=== PATIENT | male | born 1945 | race Caucasian/White ===

== ENCOUNTER → 2017-08-13 | Outpatient (CLI) | payer BC ==
[~2017-08-13] MED LIST: ALLO100T PO; ASPI325T39 PO; CALC500C50 PO; LPT40 PO; PLV75 PO; PSYL0.524 PO; TAMS0.4C38 PO; VERA180C2 PO
== END | disposition home or self-care (01) ==
LOC: C.PATHSPEC 18:32
PROVIDERS: ATTEND Physician Assistant
DX: C44.619 Basal cell carcinoma of skin of left upper limb, including shoulder (principal)

== ENCOUNTER 2021-08-07 09:54 | Observation (INO) ==
--- NOTE | 2021-07-11 08:20 | PAT Medication Instructions ---
Medication Instructions Date of Service July 11, 2021 Home Medications Medication Instructions Recorded Ria Lay #1 ea 06/13/21 aspirin 81 mg tablet 81 mg PO QAM atorvastatin 40 mg tablet 40 mg PO QAM clopidogrel 75 mg tablet 75 mg PO QAM cyanocobalamin (vitamin B-12) 50 mcg tablet 50 mcg PO QAM folic acid 1 mg tablet 1 mg PO QAM psyllium husk 0.4 gram capsule 0.8 g PO UD PRN pyridoxine (vitamin B6) 50 mg tablet 50 mg PO QAM verapamil 180 mg tablet,extended release 240 mg PO QAM cholecalciferol (vitamin D3) 125 mcg (5,000 unit) capsule 125 mcg PO QAM allopurinol 100 mg tablet 300 mg PO QAM calcium carbonate 200 mg calcium (500 mg) chewable tablet (Tums) 200 mg PO UD PRN dutasteride 0.5 mg capsule 0.5 mg PO QPM solifenacin 10 mg tablet (Vesicare) 10 mg PO QPM tamsulosin 0.4 mg capsule 0.4 mg PO QPM ASK your prescriber and surgeon clopidogrel/plavix 75 mg tablet 75 mg PO QAM (in order for spinal anesthesia, Clopidogrel/Plavix needs to be stopped 7 days before surgery. Please check if okay with doctor that prescribes this to you) DO NOT take the morning of surgery cyanocobalamin (vitamin B-12) 50 mcg tablet 50 mcg PO QAM folic acid 1 mg tablet 1 mg PO QAM psyllium husk 0.4 gram capsule 0.8 g PO UD PRN pyridoxine (vitamin B6) 50 mg tablet 50 mg PO QAM cholecalciferol (vitamin D3) 125 mcg (5,000 unit) capsule 125 mcg PO QAM calcium carbonate 200 mg calcium (500 mg) chewable tablet (Tums) 200 mg PO UD PRN Take morning of surgery With a small sip of water, OTHERWISE NOTHING TO EAT OR DRINK AFTER MIDNIGHT: aspirin 81 mg tablet 81 mg PO QAM (continue as normal unless told otherwise by surgeon) atorvastatin 40 mg tablet 40 mg PO QAM verapamil 180 mg tablet,extended release 240 mg PO QAM allopurinol 100 mg tablet 300 mg PO QAM Take evening before surgery psyllium husk 0.4 gram capsule 0.8 g PO UD PRN (if needed) calcium carbonate 200 mg calcium (500 mg) chewable tablet (Tums) 200 mg PO UD PRN (if needed) dutasteride 0.5 mg capsule 0.5 mg PO QPM solifenacin 10 mg tablet (Vesicare) 10 mg PO QPM tamsulosin 0.4 mg capsule 0.4 mg PO QPM Other Notes If you have any questions please call us at [phone] or [phone] or [phone] or [phone]
--- NOTE | 2021-07-11 11:21 | Anesthesiology Consultation ---
Date of Service July 11, 2021 Assessment & Plan (1) Encounter for pre-operative examination: - Awaiting most recent PCP office visit note (Dr. Doran/PS). - COVID screening: Per assessment on 07/11: No known COVID-19 positive contacts or current COVID-19 related symptoms. Travel screen negative. Patient vaccinated. Surgeon arranging preop COVID testing. Awaiting results. - Plavix instructions: patient made aware that in order for spinal anesthesia, Plavix needs to be held 7 days prior to surgery. Patient voiced understanding/will check if okay with prescriber. Chart Review Chart Review: Patient seen in Pre Admission Testing Teaching & Discussion Pre-Anesthesia Teaching/Discussion Notes: Instructed NPO after midnight before surgery,except medications with 15 cc of water. Medication instructions provided according to the PAT guidelines. History Surgery Operation Date: 08/07/21 12:30 Proposed Procedures p Right Total Knee Arthroplasty - Cade Murillo MD Height/Weight Height: 5 ft 6 in Weight: 91.2 kg Allergies Allergy/AdvReac Type Severity Reaction Status Date / Time No Known Allergies Allergy Verified 07/10/21 16:00 Medications Home Medications Medication Instructions Recorded Confirmed Last Taken aspirin 81 mg tablet 81 mg PO QAM tab 01/31/19 07/10/21 Unknown atorvastatin 40 mg tablet 40 mg PO QAM tab 01/31/19 07/10/21 Unknown clopidogrel 75 mg tablet 75 mg PO QAM #90 tab 01/31/19 07/10/21 Unknown cyanocobalamin (vitamin B-12) 50 50 mcg PO QAM tab 01/31/19 07/10/21 Unknown mcg tablet folic acid 1 mg tablet 1 mg PO QAM tab 01/31/19 07/10/21 Unknown psyllium husk 0.4 gram capsule 0.8 g PO UD PRN cap 01/31/19 07/10/21 Unknown pyridoxine (vitamin B6) 50 mg 50 mg PO QAM tab 01/31/19 07/10/21 Unknown tablet verapamil 180 mg tablet,extended 240 mg PO QAM tab 01/31/19 07/10/21 Unknown release cholecalciferol (vitamin D3) 125 125 mcg PO QAM 04/09/20 07/10/21 Unknown mcg (5,000 unit) capsule allopurinol 100 mg tablet 300 mg PO QAM tab 05/23/21 07/10/21 Unknown Wheeled Walker #1 ea 06/13/21 06/13/21 Unknown calcium carbonate 200 mg calcium 200 mg PO UD PRN 07/10/21 07/10/21 Unknown (500 mg) chewable tablet (Tums) dutasteride 0.5 mg capsule 0.5 mg PO QPM 07/10/21 07/10/21 Unknown solifenacin 10 mg tablet (Vesicare) 10 mg PO QPM 07/10/21 07/10/21 Unknown tamsulosin 0.4 mg capsule 0.4 mg PO QPM 07/10/21 07/10/21 Unknown Past Medical History Medical History (Updated 07/11/21 @ 11:58 by Mirlande Villarreal) Enlarged prostate Fluid retention Chronic, abdomen/legs x 1+ years, following with Dr. Doran. No definitive etiology/issues s/p extensive workup.. Pt was on diuretic for a few weeks but d/t unremarkable workup, he states PCP stopped the diuretic. Improvement without further intervention over time per pt. No LE edema and soft, non-tender abdomen on PAT exam 07/11/21* Gout HX History of basal cell carcinoma History of SCC (squamous cell carcinoma) of skin HTN (hypertension) Hypercholesteremia Osteoarthritis TIA (transient ischemic attack) 2013- reason for plavix Exercise / Class Metabolic Activity II 4-5 Yardwork/Stairs/Walk up hill (one FS (no CP, no SOB)) Past Family History Family History Other Hypertension Past Surgical History Surgical History H/O vasectomy History of colonoscopy History of surgery "Shaving of Lesion Mohs' Technique" "Prostate Transurethral Destruction Prostate Tissue" Past Anesthesia History No Hx of Anesthesia Complications and No Family Hx of Anesthesia Complications History of PONV No Hx of PONV and No Hx of Motion Sickness Social History Smoking Status: Never smoker Do You Dip or Chew Tobacco: No Hx Alcohol Use: Yes Alcohol type: wine (2 GLASSES/WEEK ) substance use type: does not use Review of Systems Patient denies chest pain, shortness of breath, dyspnea on exertion, reflux, cough, wheezing, palpitations. Physical Exam Vital Signs VITALS BP 155/79 P 65 TEMP 97.7 SP02 94%RA RESP 18 PHYSICAL Full cervical extension range of motion. Full TMJ range of motion. TMD 3 finger breaths Mallampati Score 3 Dentition: intact, + crowns Lungs: clear throughout to auscultation Cardiac: regular rate and rhythm, no murmurs noted Spine: normal Carotid arteries: negative bruit Extremities: No LE edema Abdomen: soft, non-tender abdomen on PAT exam 07/11/21* Lab Results Anesthesia Preop Results Results Anesthesia Widget: WBC 8.92 K/uL (4.8-10.8) 07/11/21 Hgb 15.2 g/dL (14.0-18.0) 07/11/21 Hct 44.3 % (42-52) 07/11/21 Plt 223 K/uL (130-400) 07/11/21 Na 140 mmol/L (136-145) 07/11/21 K 4.2 mmol/L (3.5-5.1) 07/11/21 Cl 105 mmol/L (98-107) 07/11/21 CO2 29 mmol/L (21-32) 07/11/21 BUN 13 mg/dl (6-23) 07/11/21 Creat 0.80 mg/dl (0.6-1.4) 07/11/21 Glucose Level 89 mg/dl (70-99(Fasting)) 07/11/21 PT 10.4 Seconds (9.0-12.0) 07/11/21 PTT 26.9 Seconds (21.0-31.0) 07/11/21 INR 1.0 (0.9-1.1) 07/11/21 Blood Type O Positive 07/11/21 Antibody Screen NEGATIVE 07/11/21 Testing Electrocardiogram Date: 07/11/21 NSR at 66bpm. unconfirmed report. Chest X-Ray Date: 03/07/21 FINDINGS: No lines and tubes are seen. Calcified aortic knob is seen. Cardiomegaly is seen. The lungs are clear. No evidence of pleural effusion or pneumothorax. IMPRESSION: No acute chest disease.
--- NOTE | 2021-08-03 11:15 | History and Physical Report ---
DATE OF ADMISSION: 08/07/2021. CHIEF COMPLAINT: Persistent and progressive right knee pain and discomfort. HISTORY OF PRESENT ILLNESS: The patient is a 76-year-old gentleman who presents for surgical treatme nt of his right knee. I have been following him for this right knee pain and arthritis for quite phan e time. We have put shots in there, which have become less successful over time. The last shot helpe d him for a couple of weeks and that is it. He has tired dealing with the pain. It hurts him all th e time. The more he is up and on it, the more it hurts. He describes anterior pain and medial pain. Increased going up and down steps. He has nighttime pain. He would like to have his knee fixed. PAST MEDICAL HISTORY: 1. Hypertension. 2. Elevated cholesterol. 3. History of TIA without sequelae, but on Plavix. 4. Obesity with BMI 33. 5. Basal cell skin cancer. PAST SURGICAL HISTORY: Includes: 1. Hydrocele repair. 2. Mohs surgery for basal cell carcinoma. ALLERGIES: None. CURRENT MEDICATIONS: 1. Allopurinol. 2. Verapamil. 3. Plavix. 4. Tamsulosin. 5. VESIcare. 6. Folic acid. SOCIAL HISTORY: A 76-year-old male. He is . Lives in [place]. One drink per week. D oes not smoke. FAMILY HISTORY: Noncontributory. REVIEW OF SYSTEMS: Negative for diabetes. Denies any chest pain or shortness of breath. No history of DVT or PE. He does have a history of TIA in the past without sequelae. On Plavix. PHYSICAL EXAMINATION: GENERAL: Shows a pleasant middle-aged male. Looks to be in reasonably good health. HEENT: Benign. NECK: Supple. No lymphadenopathy. LUNGS: Clear to auscultation. HEART: Has a regular rate and rhythm. ABDOMEN: Soft, nontender, nondistended. EXTREMITIES: Grossly neurovascularly intact except as follows. Examination of the right knee reveals the patient walks with a varus alignment to his knee. He is te nder with medial joint line. Small knee effusion. He has got a little bit of a varus thrust with we ightbearing. Range of motion 5-125. No pain with hip motion. He is neurologically intact. X-RAYS: X-rays of the right knee were reviewed. It shows advanced right knee degenerative joint dis ease. He has got complete loss of his medial joint space. He has subchondral sclerosis. He has got osteophytes primarily medial. Some mild to moderate patellofemoral disease. ASSESSMENT: A 76-year-old male with advanced right knee degenerative joint disease. He has failed c onservative measures. He would like to have his knee fixed. PLAN: We will take him to the operating room and do right total knee replacement. The risks and daljit efits of this procedure were explained to the patient and include but not limited to DVT, PE, , infection, neurological injury, vascular injury, bleeding problem, pain, limited range of motion, sti ffness, failure to relieve his symptoms, incomplete relief of symptoms, need for further surgery in t he future, fracture, leg length inequality, nerve palsy, persistent pain. The patient understands an d desires to proceed. Informed consent was obtained. He has stopped his Plavix a week preop. He is planning to be discharged to home using [facility] program. Job ID: [id number]
[~2021-08-07 09:54] MED LIST changes: +ACETAMINOPHEN 500 MG TAB PO SCH; -ALLO100T PO; -ASPI325T39 PO; +BUPIVACAINE 0.5 % 5 MG/1 ML PF 10ML VIAL ONE; +BUPIVACAINE LIPOSOME/PF 266 MG, BUPIVACAINE/EPINEPHRINE 50 ML, SODIUM CHLORIDE 0.9% 30 ... INFIL SCH; -CALC500C50 PO; +CeleBREX 200 MG CAP PO SCH; +FAMOTIDINE 20 MG TAB PO SCH; -LPT40 PO; +LR 500ML BOLUS, THEN 15ML/HR IV SCH; +LR 60ML/HR IV SCH; +METOCLOPRAMIDE HCL 10 MG TABLET PO SCH; -PLV75 PO; -PSYL0.524 PO; +ROPIVACAINE 0.5% 5 MG/ML 30 ML VIAL ONE; -TAMS0.4C38 PO; +TRANEXAMIC ACID 1,000 MG **IV Intra-op IV SCH; -VERA180C2 PO; +ceFAZolin 2000MG 2,000 MG/15 ML SYR IV SCH
--- NOTE | 2021-08-07 11:18 | History & Physical Bridge Note ---
Date of Service August 07, 2021 History & Physical Bridge Note I have examined the patient, reviewed the History & Physical and in the interval since the performance of the History & Physical I have noted the following changes of clinical significance: no changes noted
[2021-08-07] MEDS ORDERED: MIDAZOLAM HCL 1 MG/ML 2ML VIAL ONE (12:14)
[2021-08-07] MEDS ORDERED: ONDANSETRON INJ 2 MG/ML 2 ML VIAL ONE (12:14)
[2021-08-07] MEDS ORDERED: LIDOCAINE 2% 2 ML VIAL/AMP(20MG/ML) INFIL ONE (12:14)
[2021-08-07] MEDS ORDERED: PROPOFOL IV EMULSION 10 MG/ML 20 ML VIAL IV ONE (12:14)
[2021-08-07] MEDS ORDERED: fentaNYL citrate 100 MCG/2 ML VIAL IV PRN (12:43)
[2021-08-07] MEDS ORDERED: ONDANSETRON INJ 2 MG/ML 2 ML VIAL IV PRN (12:43)
[2021-08-07] MEDS ORDERED: SODIUM CHLORIDE 0.9% PF 50 ML VIAL ONE (12:43)
[2021-08-07] MEDS ORDERED: ePHEDrine sulfate 50 MG/ML AMP IV PRN (12:43)
[2021-08-07] MEDS ORDERED: BUPIVACAINE/EPINEPHRINE 0.25% 1:200,000 30 ML VIAL ONE (12:43)
[2021-08-07] MEDS ORDERED: ATROPINE SULFATE 0.1 MG/ML 10ML SYR IV PRN (12:43)
[2021-08-07] MEDS ORDERED: HYDROmorphone INJ 2 MG/ML SYR/VIAL IV PRN (12:43)
[2021-08-07] MEDS ORDERED: BUPIVACAINE LIPOSOME 1.3% 266 MG/20 ML VIAL ONE (12:44)
[2021-08-07] MEDS ORDERED: GLYCOPYRROLATE 0.2 MG/ML VIAL ONE (14:18)
--- NOTE | 2021-08-07 15:10 | Operative Report ---
PG Post Operative Report Pre & Post Diagnosis Operation Date: 08/07/21 12:30 Pre-Op Diagnosis: Right Knee Osteoarthritis Post-Op Diagnosis: Right Knee Osteoarthritis I identified the patient and participated in the time-out.: Yes Procedure Operation Date: 08/07/21 12:30 Actual Procedures p Right Total Knee Arthroplasty(Right) - Cade Murillo MD Surgeon Cade Murillo MD Division Field Inspector Naif Duvall PA-C Estimated Blood Loss 50 Findings Consistent with Post-Op Diagnosis Operative findings revealed advanced right knee DJD with grade 4 [id number] disease of the medial and patellofemoral compartments. His lateral compartment was pretty well spared. Moderate-sized knee joint effusion. Fluids 1300 cc Specimens Right knee sent for pathology Anesthesia Type Spinal MAC Complications none Disposition Accompanied Patient To Recovery: No Indications Patient 76-year-old fairly active gentleman has had a long history of increasing right knee pain discomfort which became less responsive to conservative care. X-rays show advanced medial compartment arthritis. He was having fairly global symptoms. He failed conservative measures and elected proceed with surgical management/total knee replacement. Description of Procedure Operative implants consist of: 1 Biomet Vanguard size 67.5 right posterior stabilized femoral component. 2. Biomet size 71 tibial tray. 3. 10 mm posterior stabilized polyethylene insert. 4. 28 x 8 all polypatella. The patient was taken the operating, identified, and placed on the operating table supine position protectors were properly padded. IV antibiotics tried by anesthesia team. A spinal anesthetic and abductor canal block had provided holding area. A Arroyo catheter was placed in sterile fashion. Right thigh tent was then placed in the right lower extremities and prepped and draped in usual sterile fashion. The right leg was elevated and exsanguinated with use of an Esmarch in terms playset 300 mmHg. An anterior approach of the right knee was then performed to longitudinal incision centered over the patella. Sharp dissection Through subcutaneous tissue down the extensor mechanism. A medial parapatellar arthrotomy incision was made. Some subperiosteal dissection was carried out medially. The fat pad dissected beneath patella tendon. Lateral patellofemoral ligament was released. Patella subluxated laterally and the knee was flexed. The osteophytes were taken off distal femur. The ACL and PCL were then released from distal femur the tibia subluxated anteriorly. The external tibial alignment jig was then placed in the interface the tibia and adjusted 14 mm medially. It was adjusted to take about a millimeter or 2 of bone from the most deficient aspect medial tibial plateau. The tibia was then sized to a size 71. Attention drawn the femur. The distal femur was entered with a sharp drill. Intramedullary canal was suction. A right 6 degree valgus cutting guide was placed. Distal femoral cutting block was pinned in place. Distal femoral cut was made to take an additional 3 mm bone off distal femur. The femur was then sized to a size 67.5. The AP cutting block was pinned parallel to the epicondylar axis which was 5 degrees of external rotation. The anterior cut, anterior chamfer, posterior cut, posterior chamfer cuts were made. The box cutting guide was placed and adjusted slight lateral box cut was made. The knee was flexed. The remnants of the medial and lateral menisci were excised. The osteophytes were taken off the posterior aspect the femur. A trial femoral component was placed. Tibial tray was pinned in maximum external rotation and the drill and stem punch used to create defect in proximal tibia for the tibial tray. The knee was then trialed and 10 mm insert fit most appropriately. Attention drawn the patella. The patella was cleaned of all soft tissues. Patella thickness measured 20 mm in thickness cut down to 12. Sized to a size 28 patella. The lug holes were drilled for the 28 patella. The lateral osteophyte was removed. Patella button was placed. Knee was taken through range of motion patella tracked nicely with no thumbs test. Attention drawn to place the permanent components. All trial components were removed. Bone plug was placed in the distal femur limit blood loss. Double batch Palacos G cement was mixed. A Biomet Vanguard size 67.5 right posterior stabilized femoral component, size 71 tibial tray, a 10 mm posterior stabilized polyethylene insert, and 28 x 8 all polypatella then cemented in place. Knee was brought out into full extension total cement hardened. Final cement check was then performed. The pericapsular tissues were injected with total 100 cc of combination of 20 cc of Exparel, 30 cc normal saline, 50 cc of quarter percent Marcaine with epinephrine. Patient did receive 1 g tranexamic acid. The tourniquet was then let down for final tourniquet time of 58 minutes. Hemostasis assured use electrocautery. Extensor mechanism closed with #1 PDS suture and #1 Vicryl suture in a [id number] fashion. Extensor mechanism checked found to be intact. Subcutaneous tissue was then closed with 2 Dexon suture in buried interrupted fashion skin was closed skin ashley. Legs then cleaned and dried and sterile dressed with Xeroform, 4 fours, sterile cast padding, Wilmer bandage applied. Patient was then transferred to the recovery room in stable condition. Patient tolerated the procedure well and there were no complications. Naif Duvall, my physician technical support assistant, was present for the entire procedure. His assistance was essential and required for appropriate patient positioning, prepping and draping, surgical exposure, performing the technical details of the operation, placement the implants, closure of the wound, and placement of the sterile bandage. I attest to the content of the Intraoperative Record and any orders documented therein. Any exceptions are noted below.
--- NOTE | 2021-08-07 15:26 | XRay Report ---
RIGHT KNEE 2 VIEWS History: Right total knee arthroplasty. Degenerative arthritis. Postop. FINDINGS: The patient is status post a right total knee arthroplasty. The hardware is intact. No frac ture or dislocation. Skin ashley are in place. IMPRESSION: Right total knee arthroplasty. No evidence for hardware complication. ACT 112: Negative or not required by law. Electronically signed by: Tawanda Giles M.D. 08/07/2021 3:24 PM
--- NOTE | 2021-08-07 16:02 | Anesthesiology Progress Note ---
Date of Service August 07, 2021 Anesthesia Post Procedure Vital Signs Vital Signs: Temp Pulse Pulse Resp BP Pulse Ox 08/07/21 15:50 36.7 C 61 20 148/80 H 94 08/07/21 15:40 36.7 C 60 17 141/74 H 92 08/07/21 15:30 64 20 139/72 94 08/07/21 15:20 61 17 139/72 95 08/07/21 15:10 63 16 134/69 94 08/07/21 15:02 36.5 C 68 16 138/71 96 08/07/21 10:30 36.7 C 74 18 175/94 H 96 Transfer of Care Handoff Completed per policy Notes Mental Status: alert / awake / arousable and participated in evaluation Patient Amnestic to Procedure: Yes Nausea / Vomiting: adequately controlled Pain: adequately controlled Airway Patency, RR, SpO2: stable & adequate BP & HR: stable & adequate Hydration State: stable & adequate Neuraxial Anesthesia: was administered and sensory block is resolving Anesthetic Complications: no major complications apparent
[2021-08-07] MEDS ORDERED: METOCLOPRAMIDE HCL INJ 5 MG/ML 2 ML VIAL IV PRN (16:33)
[2021-08-07] MEDS ORDERED: ALUMINUM/MAGNESIUM SUSP 30 ML UDC PO PRN (16:33)
[2021-08-07] MEDS ORDERED: HYDROmorphone INJ 0.5 MG/0.5 ML SYR IV PRN (16:33)
[2021-08-07] MEDS ORDERED: CALCIUM CARBONATE 500 MG CHEWABLE TAB PO PRN (16:33)
[2021-08-07] MEDS ORDERED: bisacodyL 10 MG SUPP PR PRN (16:33)
[2021-08-07] MEDS ORDERED: MAGNESIUM HYDROXIDE SUSP 30 ML UDC PO PRN (16:33)
[2021-08-07] MEDS ORDERED: NALOXONE HCL 0.4 MG/1 ML VIAL/CARP IV PRN (16:33)
[2021-08-07] MEDS ORDERED: oxyCODONE HCL IR 5 MG TAB (IMMEDIATE RELEASE) PO PRN (16:33)
[2021-08-07] MEDS ORDERED: PSYLLIUM HUSK 0.4 GM PO PRN (16:33)
[2021-08-07] MEDS: SODIUM CHLORIDE 0.9% 1000ML 1,000 ML IV SCH (18:24)
[2021-08-07] MEDS: KETOROLAC TROMETHAMINE 15 MG/ML VIAL IV SCH ×2 (18:30→23:25)
[2021-08-07] MEDS: ASCORBIC ACID 500 MG TAB PO SCH (18:30)
[2021-08-07] MEDS: ceFAZolin 2000MG 2,000 MG/15 ML SYR IV SCH (20:47)
[2021-08-07] MEDS: TAPENTADOL HCL ER 50 MG TABCR PO SCH (20:47)
[2021-08-07] MEDS: DOCUSATE SODIUM 100 MG CAP PO SCH (20:48)
[2021-08-07] MEDS ORDERED: SENNA 8.6 MG TAB PO SCH (21:00)
[2021-08-07] MEDS ORDERED: TRANEXAMIC ACID / 0.7% NACL 1,000 MG/100 ML BAG IV SCH (21:00)
[2021-08-07] MEDS ORDERED: TAMSULOSIN HCL 0.4 MG CAP PO SCH (21:00)
[2021-08-07] MEDS: ACETAMINOPHEN 500 MG TAB PO SCH (23:25)
[2021-08-08] MEDS: VESICARE: ORDER AWAITING ACTION SCH ×2 (01:49→07:25)
[2021-08-08] MEDS: DUTASTERIDE: ORDER AWAITING ACTION SCH ×2 (01:49→07:25)
[2021-08-08] MEDS: ONDANSETRON INJ 2 MG/ML 2 ML VIAL IV PRN ×2 (03:17→08:26)
[2021-08-08] MEDS: SODIUM CHLORIDE 0.9% 1000ML 1,000 ML IV SCH (04:15)
[2021-08-08] MEDS: KETOROLAC TROMETHAMINE 15 MG/ML VIAL IV SCH ×2 (05:11→11:26)
[2021-08-08] MEDS: ceFAZolin 2000MG 2,000 MG/15 ML SYR IV SCH (05:11)
[2021-08-08] MEDS: ACETAMINOPHEN 500 MG TAB PO SCH (05:11)
[2021-08-08 06:21] LABS: Hematocrit (blood only) 38.1 % (42-52); Hemoglobin 13.1 g/dL (14.0-18.0); Mean Corpuscular Hemoglobin 32.3 pg (25-34); Mean Corpuscular Hgb Conc 34.4 g/dL (32-36); Mean Corpuscular Volume 94.1 fL (80-100); Mean Platelet Volume 9.3 fL (7.4-10.4); Platelet Count 218 K/uL (130-400); RDW Coefficient of Variation 13.3 % (11.5-14.5); RDW Standard Deviation 46.2 fL (36.4-46.3); Red Blood Count 4.05 M/uL (4.7-6.1); White Blood Count 11.05 K/uL (4.8-10.8)
[2021-08-08 06:46] LABS: BUN Creatinine Ratio 14.3 (10-20); Calcium 8.5 mg/dl (8.5-10.1); Creatinine Clr Calc Pharmacy 86.9 ml/min; Est GFR (African American) 102.9 ml/min; Est GFR (Non-African American) 88.8 ml/min; Potassium 3.5 mmol/L (3.5-5.1)
--- NOTE | 2021-08-08 07:56 | Progress Notes ---
DATE OF SERVICE: 08/08/2021. SUBJECTIVE: A 76-year-old gentleman postoperative day 1 from a right knee replacement. Quite a bit of pain through the night, but doing better this morning. Denies any chest pain or shortness of fiorella th. Not feeling dizzy or lightheaded. OBJECTIVE: VITAL SIGNS: Temperature 36.6. Vital signs are stable. GENERAL: Physical examination shows a pleasant, elderly male. I had to wake him this morning. LUNGS: Clear to auscultation. HEART: Regular rate and rhythm. ABDOMEN: Soft, nontender, nondistended. EXTREMITIES: Grossly neurovascularly intact except as follows: Examination of the right lower extre mity reveals the leg to be well aligned. Dressing is clean, dry and intact. He can dorsiflex and pl antarflex his foot appropriately. He is neurologically intact. LABORATORY DATA: Hemoglobin 13.1. Hematocrit 38.1. Electrolytes are stable. ASSESSMENT: A 76-year-old gentleman postoperative day 1 from right knee replacement, doing pretty we ll. Pretty painful overnight, but responded to pain medicine, doing better this morning. PLAN: 1. DVT prophylaxis includes thigh-high TEDs, SCDs and back on his Plavix starting today and he is al so on a baby aspirin once a day. 2. PT, OT, weightbear as tolerated. Right total knee protocol. 3. Pain control, doing okay with current pain regimen. 4. Disposition and plan is to discharge him to home with some home health, depending on how he does in therapy. Job ID: [id number]
[2021-08-08] MEDS ORDERED: dexAMETHasone 10 MG in SYRINGE 0 ML IV SCH (08:00)
[2021-08-08] MEDS: DOCUSATE SODIUM 100 MG CAP PO SCH (08:20)
[2021-08-08] MEDS: ASCORBIC ACID 500 MG TAB PO SCH (08:21)
[2021-08-08] MEDS: TAPENTADOL HCL ER 50 MG TABCR PO SCH (08:26)
[2021-08-08] MEDS ORDERED: allopurinoL 300 MG TAB PO SCH (09:00)
[2021-08-08] MEDS ORDERED: DOCUSATE SODIUM/SENNA 50/8.6MG TAB PO SCH (09:00)
[2021-08-08] MEDS ORDERED: CHOLECALCIFEROL 5,000 UNITS 125 MCG TAB PO SCH (09:00)
[2021-08-08] MEDS ORDERED: CYANOCOBALAMIN (B-12) 100 MCG TABLET PO SCH (09:00)
[2021-08-08] MEDS ORDERED: PYRIDOXINE HCL 50 MG TAB PO SCH (09:00)
[2021-08-08] MEDS ORDERED: MULTIVITAMIN TAB PO SCH (09:00)
[2021-08-08] MEDS ORDERED: VERAPAMIL HCL 240 MG TABCR PO SCH (09:00)
[2021-08-08] MEDS ORDERED: ATORVASTATIN 40 MG TAB PO SCH (09:00)
[2021-08-08] MEDS ORDERED: FOLIC ACID 1 MG TAB PO SCH (09:00)
[2021-08-08] MEDS ORDERED: ASPIRIN 81 MG ECTAB PO SCH (09:00)
[2021-08-08] MEDS ORDERED: CLOPIDOGREL BISULFATE 75 MG TAB PO SCH (16:00)
== END 2021-08-08 13:18 | disposition home health service (06) ==
LOC: ASU 09:54 → 3E 09:54

== ENCOUNTER 2022-03-21 02:51 | Observation (INO) ==
--- NOTE | 2022-03-21 03:37 | Emergency Department Note ---
Impression & Plan Acute alteration in mental status, Generalized weakness Admit to the [facility] ED Provider Note NAME: LAI CAMPBELL AGE: 77 SEX: M ARRIVES VIA: Ambulance INFORMANT: Patient and his ED PROVIDER(S): Erin Ryan DO CHIEF COMPLAINT: Weakness and coughing PLAN: Disposition: Admit to the [facility] Condition: Fair MEDICAL DECISION MAKING: This is a 77-year-old male patient who presents to the emergency department for extreme weakness and cough. CT scan of the brain reveals no acute process. COVID testing was negative. Patient appeared to be dehydrated on physical exam. Chest x-ray reveals no evidence of acute pneumonia. The patient had slid onto the floor from his bed but had no outward signs of trauma. Patient does have a history of TIA. [facility] and they will evaluate for further management. Triage Nursing notes reviewed and agree with them. Additional history obtained from the patient's is at the bedside Prior medical records reviewed Vital Signs: reviewed and remarkable for hypertension and tachycardia Differential diagnosis: Dehydration, COVID-19, pneumonia, intracranial process, TIA, CVA ER treatment provided: IV normal saline bolus Diagnostics interpreted by me: ECG: Normal sinus rhythm at a rate of [address] segment elevation or signs of ischemia. There is no ectopy. Cardiac Monitoring: Sinus tachycardia at 110 Laboratory studies: See below Imaging studies: As per my interpretation Portable chest x-ray: No acute pulmonary infiltrates or consolidation. As per stat rad: CT HEAD: Comparison to September 07, 2013. Moderate diffuse cerebral atrophy and periventricular white matter low density consistent with chronic small vessel disease and/or senescent changes, worse than previous. No acute large vessel infarct or intracranial hemorrhage is seen. There are gas fluid levels in both maxillary sinuses and sphenoid sinuses as well as opacification of most of the ethmoid air cells bilaterally consistent with acute pansinusitis. The mastoid air cells are normal. No skull fracture or scalp hematoma is seen. HPI: 77/M arrives for evaluation of cough and weakness. The patient awoke from sleep and slid from the bed onto the floor and was unable to get up. According to the , she was able to help the patient up off the floor but then he was increasingly confused as she took him to the bathroom. She was then unable to get up off the toilet. She explains that she has been sleeping separately from him because she had been diagnosed with COVID-19. Patient has also developed a wet cough. ROS: See above HPI for pertinent positives & negatives. A total of 10 systems reviewed and were otherwise negative. PAST MEDICAL HISTORY:See Below PAST SURGICAL HISTORY:See Below FAMILY HISTORY:See Below SOCIAL HISTORY:See Below HOME MEDICATIONS:See list ALLERGIES:None VITALS:See Below PHYSICAL EXAMINATION: HEENT: Head - normocephalic and atraumatic. Pupils are equal, round, and reactive to light. Extraocular eye muscles are intact, and sclera are anicteric. Nose - moist nasal mucosa without discharge. Mouth -extremely dry buccal mucosa oropharynx is nonerythematous and there is no tonsillar exudate or edema noted. Neck: Supple; no JVD, nuchal rigidity, cervical lymphadenopathy, or auscultated bruits. Heart: Tachycardic rate and regular rhythm. There is a normal S1 and S2 with no murmurs, clicks, or gallops appreciated. Lungs: Clear to auscultation bilaterally with no wheezes, rales, or rhonchi. Abdomen: Soft, completely nontender, nondistended, with good bowel sounds. There are no palpable pulsatile masses or hepatosplenomegaly. There is no guarding, rigidity, or rebound noted. Extremities: Trace lower extremity edema. There are easily palpable peripheral pulses. Skin: Hot and dry with good turgor and no rashes. Neuro: The patient is alert but slow to answer questions. At times, he will stare off to 1 side. He will follow commands but is slow to do so. Muscle strength is 5/5 in all 4 extremities. ED COURSE: Times/Reassessments: 310: The patient was evaluated in room C2. A complete history and physical was performed. A septic protocol was performed. An IV lock was initiated and labs were drawn as above. An order was placed for continuous cardiac monitoring. A twelve-lead EKG was obtained as described above. The patient was in a sinus tachycardia at 110. Patient was bolused with IV normal saline solution. COVID testing was performed and was negative. Erin Ryan DO Past Med/Surg History Medical History (Updated 03/21/22 @ 07:36 by Erin Ryan DO) Enlarged prostate Fluid retention Chronic, abdomen/legs x 1+ years, following with Dr. Doran. No definitive etiology/issues s/p extensive workup.. Pt was on diuretic for a few weeks but d/t unremarkable workup, he states PCP stopped the diuretic. Improvement without further intervention over time per pt. No LE edema and soft, non-tender abdomen on PAT exam 07/11/21* Gout HX History of basal cell carcinoma History of SCC (squamous cell carcinoma) of skin HTN (hypertension) Hypercholesteremia Osteoarthritis TIA (transient ischemic attack) 2013- reason for plavix Surgical History H/O vasectomy History of colonoscopy History of surgery "Shaving of Lesion Mohs' Technique" "Prostate Transurethral Destruction Prostate Tissue" Family History Other Hypertension Social History Smoking Status: Smoker, status unknown Hx Alcohol Use: No Preferred Language: Vietnamese Communication Ability: Effective Physician Anesthesiologist Required: No Beliefs That Will Affect Care: None marital status: Current Living Situation: Spouse Feels Safe at Home: Yes Assistive Devices: Walker Allergies Allergies Allergy/AdvReac Type Severity Reaction Status Date / Time No Known Allergies Allergy Verified 11/26/21 10:14 Home Meds Home Medications Medication Instructions Recorded Confirmed aspirin 81 mg tablet 81 mg PO QAM 01/31/19 11/26/21 atorvastatin 40 mg tablet 40 mg PO QAM 01/31/19 11/26/21 clopidogrel 75 mg tablet 75 mg PO QAM #90 tabs 01/31/19 11/26/21 cyanocobalamin (vitamin B-12) 50 50 mcg PO QAM 01/31/19 11/26/21 mcg tablet folic acid 1 mg tablet 1 mg PO QAM 01/31/19 11/26/21 psyllium husk 0.4 gram capsule 0.8 g PO UD PRN Constipation 01/31/19 11/26/21 pyridoxine (vitamin B6) 50 mg 50 mg PO QAM 01/31/19 11/26/21 tablet verapamil 180 mg tablet,extended 240 mg PO QAM 01/31/19 11/26/21 release cholecalciferol (vitamin D3) 125 125 mcg PO QAM 04/09/20 11/26/21 mcg (5,000 unit) capsule allopurinol 100 mg tablet 300 mg PO QAM 05/23/21 11/26/21 calcium carbonate 200 mg calcium 200 mg PO UD PRN HEARTBURN 07/10/21 11/26/21 (500 mg) chewable tablet (Tums) solifenacin 10 mg tablet (Vesicare) 10 mg PO QPM 07/10/21 11/26/21 Previous Rx's Medication Instructions Recorded Wheeled Walker #1 ea 06/13/21 acetaminophen 500 mg capsule 1,000 mg PO TID Pain 30 days #180 08/05/21 caps ketorolac 10 mg tablet 10 mg PO Q6 5 days #20 tabs 08/05/21 ondansetron HCl 4 mg tablet 4 mg PO Q6 PRN nausea #30 tabs 08/05/21 oxycodone 5 mg tablet 5 - 10 mg PO Q6 PRN pain #40 tabs 08/05/21 sennosides 8.6 mg-docusate sodium 1 tab-cap PO DAILY #14 tabs 08/05/21 50 mg tablet (Senokot-S) dutasteride 0.5 mg capsule 0.5 mg PO DAILY #90 caps 09/23/21 tamsulosin 0.4 mg capsule 0.4 mg PO DAILY #90 caps 09/23/21 amoxicillin 500 mg tablet 2,000 mg PO ONCE #4 tabs 12/19/21 Results & Data (ED) Vital Signs Vital Signs - 24 hr 03/21/22 02:49 03/21/22 02:49 03/21/22 02:49 Temperature 36.8 C 36.8 C Temperature Source Oral Oral Pulse Rate 110 H Pulse Rate [Apical] 110 H Pulse Rate from SpO2 Sensor Pulse Rhythm [Apical] Regular Pulse Strength [Apical] Normal Respiratory Rate 20 20 Respiratory Effort / Characteristics Non-Labored Non-Labored Respiratory Depth Normal Normal Respiratory Pattern Regular Blood Pressure 165/87 H Blood Pressure [Left Arm] 165/87 H Blood Pressure Mean 113 Blood Pressure Mean [Left Arm] 113 Pulse Oximetry 91 91 Oxygen Delivery Method Room Air Room Air Room Air Sepsis Recent Fever Within 48 Hours No Sepsis New/Unexplained Change in Mental Status No Sepsis Action Taken by Nursing No Action Required 03/21/22 03:03 03/21/22 03:30 03/21/22 03:30 Temperature Temperature Source Pulse Rate 99 H 95 H Pulse Rate [Apical] Pulse Rate from SpO2 Sensor 100 H 95 H Pulse Rhythm [Apical] Pulse Strength [Apical] Respiratory Rate 28 H 25 H Respiratory Effort / Characteristics Respiratory Depth Respiratory Pattern Blood Pressure 163/90 H Blood Pressure [Left Arm] Blood Pressure Mean 114 Blood Pressure Mean [Left Arm] Pulse Oximetry 91 92 Oxygen Delivery Method Room Air Sepsis Recent Fever Within 48 Hours Sepsis New/Unexplained Change in Mental Status Sepsis Action Taken by Nursing 03/21/22 03:33 03/21/22 03:46 03/21/22 04:00 Temperature Temperature Source Pulse Rate 96 H Pulse Rate [Apical] Pulse Rate from SpO2 Sensor 99 H Pulse Rhythm [Apical] Pulse Strength [Apical] Respiratory Rate 24 Respiratory Effort / Characteristics Respiratory Depth Respiratory Pattern Blood Pressure 153/85 H 155/97 H Blood Pressure [Left Arm] Blood Pressure Mean 107 116 Blood Pressure Mean [Left Arm] Pulse Oximetry 93 Oxygen Delivery Method Sepsis Recent Fever Within 48 Hours Sepsis New/Unexplained Change in Mental Status Sepsis Action Taken by Nursing 03/21/22 04:00 03/21/22 04:30 03/21/22 04:30 Temperature Temperature Source Pulse Rate 89 84 Pulse Rate [Apical] Pulse Rate from SpO2 Sensor 87 85 Pulse Rhythm [Apical] Pulse Strength [Apical] Respiratory Rate 22 20 Respiratory Effort / Characteristics Respiratory Depth Respiratory Pattern Blood Pressure 159/90 H Blood Pressure [Left Arm] Blood Pressure Mean 113 Blood Pressure Mean [Left Arm] Pulse Oximetry 93 92 Oxygen Delivery Method Room Air Sepsis Recent Fever Within 48 Hours Sepsis New/Unexplained Change in Mental Status Sepsis Action Taken by Nursing 03/21/22 05:00 03/21/22 05:00 03/21/22 05:30 Temperature Temperature Source Pulse Rate 83 Pulse Rate [Apical] Pulse Rate from SpO2 Sensor Pulse Rhythm [Apical] Pulse Strength [Apical] Respiratory Rate 24 Respiratory Effort / Characteristics Respiratory Depth Respiratory Pattern Blood Pressure 159/81 H 146/69 H Blood Pressure [Left Arm] Blood Pressure Mean 107 94 Blood Pressure Mean [Left Arm] Pulse Oximetry Oxygen Delivery Method Sepsis Recent Fever Within 48 Hours Sepsis New/Unexplained Change in Mental Status Sepsis Action Taken by Nursing 03/21/22 05:30 03/21/22 06:00 03/21/22 06:00 Temperature Temperature Source Pulse Rate 83 84 Pulse Rate [Apical] Pulse Rate from SpO2 Sensor 87 86 Pulse Rhythm [Apical] Pulse Strength [Apical] Respiratory Rate 21 20 Respiratory Effort / Characteristics Respiratory Depth Respiratory Pattern Blood Pressure 154/76 H Blood Pressure [Left Arm] Blood Pressure Mean 102 Blood Pressure Mean [Left Arm] Pulse Oximetry 92 92 Oxygen Delivery Method Room Air Sepsis Recent Fever Within 48 Hours Sepsis New/Unexplained Change in Mental Status Sepsis Action Taken by Nursing Laboratory Data Result diagrams: 03/21/22 03:20 03/21/22 03:20 Lab Results 03/21/22 03/21/22 03/21/22 Range/Units 03:20 03:20 03:20 WBC 14.09 H (4.8-10.8) K/ul RBC 4.40 L (4.63-6.08) M/uL Hgb 14.0 (14.0-18.0) g/dl Hct 39.7 L (40.1-51.0) % MCV 90.2 (80.0-100.0) fL MCH 31.8 (25.0-34.0) pg MCHC 35.3 (32.0-36.0) g/dL RDW Std Deviation 41.9 (36.4-46.3) fL RDW Coeff of Agnieszka 12.6 (11.5-14.5) % Plt Count 214 (130-400) K/uL MPV 9.3 L (9.4-12.4) fL Immature Gran % (Auto) 0.4 % Neut % (Auto) 87.8 % Lymph % (Auto) 4.7 % Bailey % (Auto) 6.4 % Eos % (Auto) 0.4 % Baso % (Auto) 0.3 % Neut # (Auto) 12.38 H (1.4-6.5) K/uL Lymph # (Auto) 0.66 L (1.2-3.4) K/uL Bailey # (Auto) 0.90 H (0.24-0.82) K/uL Eos # (Auto) 0.06 (0-0.50) K/uL Baso # (Auto) 0.04 (0-0.2) K/uL Immature Gran # (Auto) 0.05 H (0.00-0.02) K/uL Sodium 139 (136-145) mmol/L Potassium 3.5 (3.5-5.1) mmol/L Chloride 104 (98-107) mmol/L Carbon Dioxide 26 (21-32) mmol/L Anion Gap 9 (3-11) BUN 16 (6-23) mg/dl Creatinine 0.82 (0.6-1.4) mg/dl Est Cr Clr Drug Dosing 79.1 ml/min Est GFR ( Amer) 99.6 ml/min Est GFR (Non-Af Amer) 85.9 ml/min BUN/Creatinine Ratio 19.5 (10-20) Glucose 145 H (70-99(Fasting)) mg/dl Lactate 2.0 (0.4-2.0) mmol/L Calcium 8.9 (8.5-10.1) mg/dl Magnesium 1.7 (1.7-2.4) mg/dl Total Bilirubin 0.8 (0.2-1.0) mg/dl Direct Bilirubin 0.2 (0-0.2) mg/dl AST 20 (13-39) U/L ALT 19 (7-52) U/L Alkaline Phosphatase 68 (34-104) U/L Troponin I High Sens 10.0 (0-20) pg/ml Total Protein 7.2 (6.0-8.3) gm/dl Albumin 4.0 (3.4-5.0) gm/dl Procalcitonin (0-0.5) ng/ml SARS-CoV-2 (PCR) (Negative) Influenza Type A (PCR) (Neg) Influenza Type B (PCR) (Neg) RSV (RT-PCR) (Neg) 03/21/22 03/21/22 Range/Units 03:20 03:20 WBC (4.8-10.8) K/ul RBC (4.63-6.08) M/uL Hgb (14.0-18.0) g/dl Hct (40.1-51.0) % MCV (80.0-100.0) fL MCH (25.0-34.0) pg MCHC (32.0-36.0) g/dL RDW Std Deviation (36.4-46.3) fL RDW Coeff of Agnieszka (11.5-14.5) % Plt Count (130-400) K/uL MPV (9.4-12.4) fL Immature Gran % (Auto) % Neut % (Auto) % Lymph % (Auto) % Bailey % (Auto) % Eos % (Auto) % Baso % (Auto) % Neut # (Auto) (1.4-6.5) K/uL Lymph # (Auto) (1.2-3.4) K/uL Bailey # (Auto) (0.24-0.82) K/uL Eos # (Auto) (0-0.50) K/uL Baso # (Auto) (0-0.2) K/uL Immature Gran # (Auto) (0.00-0.02) K/uL Sodium (136-145) mmol/L Potassium (3.5-5.1) mmol/L Chloride (98-107) mmol/L Carbon Dioxide (21-32) mmol/L Anion Gap (3-11) BUN (6-23) mg/dl Creatinine (0.6-1.4) mg/dl Est Cr Clr Drug Dosing ml/min Est GFR ( Amer) ml/min Est GFR (Non-Af Amer) ml/min BUN/Creatinine Ratio (10-20) Glucose (70-99(Fasting)) mg/dl Lactate (0.4-2.0) mmol/L Calcium (8.5-10.1) mg/dl Magnesium (1.7-2.4) mg/dl Total Bilirubin (0.2-1.0) mg/dl Direct Bilirubin (0-0.2) mg/dl AST (13-39) U/L ALT (7-52) U/L Alkaline Phosphatase (34-104) U/L Troponin I High Sens (0-20) pg/ml Total Protein (6.0-8.3) gm/dl Albumin (3.4-5.0) gm/dl Procalcitonin 0.06 (0-0.5) ng/ml SARS-CoV-2 (PCR) NEGATIVE (Negative) Influenza Type A (PCR) Negative (Neg) Influenza Type B (PCR) Negative (Neg) RSV (RT-PCR) Negative (Neg) Administered Medications Discontinued Medications Sodium Chloride (Nss 1000ml) 500 mls @ 999 mls/hr IV .Q31M ONE Stop: 03/21/22 04:11 Last Infusion: 03/21/22 05:16 Dose: 0 mls/hr Documented By: Admin: 03/21/22 04:31 Dose: 999 mls/hr Documented By: AW Imaging Data Radiologist's Impression: Chest X-Ray 03/21/22 03:18 XR chest 1V portable CLINICAL HISTORY: Sepsis COMPARISON STUDY: Chest radiograph March 07, 2021. FINDINGS: Lung volumes are diminished. This is unchanged. Elevation of the right hemidiaphragm is also unchanged. Cardiomediastinal silhouette is stable. There is no evidence for pulmonary edema. Linear right midlung opacity favors atelectasis or scarring. Slight prominence of the right hilum is probably within normal limits. Mild left basilar opacity also likely reflects atelectasis. No ev idence for pulmonary edema. No change in appearance of the chest. IMPRESSION: 1. No acute cardiopulmonary findings. No significant change in appearance of the chest. 2. Right midlung and left basilar opacities which favor atelectasis. ACT 112: Negative or not required by law. Electronically signed by: Hermelindo Moon M.D. 03/21/2022 7:[address] 03/21/22 03:[address] DOSE: 614.27 mGy.cm HISTORY: confusion TECHNIQUE: Multiaxial CT images of the head were performed without the use of intravenous contrast. Automated exposure control was utilized for this study. A dose lowering technique was utilized adhering to the principles of ALARA. Comparison: Head CTA 09/07/2013. Findings: Near complete opacification of the ethmoid air cells with small fluid levels within the maxillary sinuses and paranasal sinuses. The mastoid air cells are clear. There is no mass, hematoma, midline shift, or acute infarct. Periventricular white matter hypodensity is nonspecific but favors microvascular ischemic change. Ventricular prominence is slightly out of proportion to the sulcal atrophy. This could be due to central volume loss or possibly normal pressure hydrocephalus. 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 Impression: 1. No acute infarct or intracranial hemorrhage. 2. Ventricular prominence is slightly out of proportion to the sulcal atrophy. This could be due to central volume loss or normal pressure hydrocephalus. ACT 112: Negative or not required by law. Electronically signed by: Tawanda Giles M.D. 03/21/2022 7:12 AM Discharge Plan Visit Data Chief Complaint: Weakness Stated Complaint: Upper Respiratory Infection ED Provider: Erin Ryan Discharge Problem: Acute alteration in mental status, Generalized weakness Forms Stand Alone Forms: My [facility] Prescriptions Prescriptions: No Action ondansetron HCl 4 mg tablet 4 mg PO Q6 PRN (Reason: nausea) Qty: 30 0RF sennosides-docusate sodium [Senokot-S] 8.6-50 mg tablet 1 tab-cap PO DAILY Qty: 14 0RF Rx Instructions: Take daily to prevent constipation ketorolac 10 mg tablet 10 mg PO Q6 5 Days Qty: 20 0RF Rx Instructions: Take 4 times per day with food for 5 days to lessen pain and swelling. acetaminophen 500 mg capsule 1,000 mg PO TID 30 Days Qty: 180 0RF Rx Instructions: Take 3 times per day to lessen pain. oxycodone 5 mg tablet 5 - 10 mg PO Q6 PRN (Reason: pain) Qty: 40 0RF Rx Instructions: Take as needed for Pain. tamsulosin 0.4 mg capsule 0.4 mg PO DAILY Qty: 90 3RF dutasteride 0.5 mg capsule 0.5 mg PO DAILY Qty: 90 3RF amoxicillin 500 mg tablet 2,000 mg PO ONCE Qty: 4 3RF Rx Instructions: 4 tabs 1 hour prior to procedure aspirin 81 mg tablet 81 mg PO QAM folic acid 1 mg tablet 1 mg PO QAM pyridoxine (vitamin B6) 50 mg tablet 50 mg PO QAM cyanocobalamin (vitamin B-12) 50 mcg tablet 50 mcg PO QAM verapamil 180 mg tablet extended release 240 mg PO QAM psyllium husk 0.4 gram capsule 0.8 g PO UD PRN (Reason: Constipation) clopidogrel 75 mg tablet 75 mg PO QAM Qty: 90 atorvastatin 40 mg tablet 40 mg PO QAM allopurinol 100 mg tablet 300 mg PO QAM (DME) Wheeled Walker Misc See Rx Instructions .MEDSUPPLY Qty: 1 0RF Rx Instructions: As directed cholecalciferol (vitamin D3) 125 mcg (5,000 unit) capsule 125 mcg PO QAM solifenacin [Vesicare] 10 mg tablet 10 mg PO QPM calcium carbonate [Tums] 200 mg calcium (500 mg) Tablet,Chewable 200 mg PO UD PRN (Reason: HEARTBURN ) Referrals Referrals: Albert Doran MD [Primary Care Provider] -
[2022-03-21] MEDS ORDERED: SODIUM CHLORIDE 0.9% 1000ML 500 ML IV ONE (03:41)
[2022-03-21 03:42] LABS: Basophils # (auto) 0.04 K/uL (0-0.2); Basophils % (auto) 0.3 %; Eosinophils # (auto) 0.06 K/uL (0-0.50); Eosinophils % (auto) 0.4 %; Hematocrit (blood only) 39.7 % (40.1-51.0); Immature Granulocytes # (auto) 0.05 K/uL (0.00-0.02); Immature Granulocytes % (auto) 0.4 %; Lymphocytes # (auto) 0.66 K/uL (1.2-3.4); Lymphocytes % (auto) 4.7 %; Mean Corpuscular Hemoglobin 31.8 pg (25.0-34.0); Mean Corpuscular Hgb Conc 35.3 g/dL (32.0-36.0); Mean Corpuscular Volume 90.2 fL (80.0-100.0); Mean Platelet Volume 9.3 fL (9.4-12.4); Monocytes % (auto) 6.4 %; Neutrophils # (auto) 12.38 K/uL (1.4-6.5); Neutrophils % (auto) 87.8 %; Platelet Count 214 K/uL (130-400); RDW Coefficient of Variation 12.6 % (11.5-14.5); RDW Standard Deviation 41.9 fL (36.4-46.3); White Blood Count 14.09 K/ul (4.8-10.8)
[2022-03-21 04:10] LABS: BUN Creatinine Ratio 19.5 (10-20); Bilirubin Direct 0.2 mg/dl (0-0.2); Bilirubin,Total 0.8 mg/dl (0.2-1.0); Calcium 8.9 mg/dl (8.5-10.1); Creatinine Clr Calc Pharmacy 79.1 ml/min; Est GFR (African American) 99.6 ml/min; Est GFR (Non-African American) 85.9 ml/min; Magnesium 1.7 mg/dl (1.7-2.4); Potassium 3.5 mmol/L (3.5-5.1); Total Protein 7.2 gm/dl (6.0-8.3)
[2022-03-21 04:40] LABS: Influenza A virus by PCR Negative (Neg); Influenza B virus by PCR Negative (Neg); RSV by PCR Negative (Neg); SARS CoV2 RNA(COVID-19) Ceph NEGATIVE (Negative)
--- NOTE | 2022-03-21 05:08 | History & Physical Report ---
Date of Service March 21, 2022 Assessment & Plan (1) Bronchitis: (2) Acute pansinusitis: (3) Pneumonia: (4) Chronic prostatitis: (5) Benign localized hyperplasia of prostate with urinary obstruction: (6) Gout: (7) Hypercholesteremia: (8) HTN (hypertension): (9) Occlusion and stenosis of cerebellar arteries: Plan Acute pansinusitis/bronchitis/right middle lobe pneumonia- Ceftriaxone 2 g IV daily Azithromycin 500 mg IV daily Duonebs every 4 hours while awake and every 2 hours when necessary. Methylprednisolone 40 mg IV every 8 hours Guaifenesin extended release 1200 mg p.o. twice daily Zofran 4 mg IV every 6 hours as needed BPH with LUTS/bladder spasms- Continue tamsulosin 0.4 mg daily, Vesicare 10 mg p.o. daily and dutasteride 5 mg p.o. daily Cerebrovascular disease/occlusion and stenosis of cerebellar arteries- Continue aspirin and clopidogrel Hyperlipidemia- Continue atorvastatin 40 mg daily Gout- Continue allopurinol 300 mg daily Chronic pain syndrome/arthritis- Acetaminophen 650 mg p.o. every 6 hours as needed mild pain or fever Oxycodone 5 mg p.o. every 6 hours as needed for severe pain History of Present Illness Chief Complaint: The patient presents to the emergency department after awaking from sleep, sliding onto the floor from the bed, and being unable to get up. His was able to help him up off the floor, however, he became progressively more confused, and after going to the bathroom, was unable to get up off the toilet. They both had recently been exposed to COVID-19 from the grandchildren, for which she tested positive, and he has tested negative to this point. Primary Care Provider: Albert Doran MD The patient is a 77-year-old male with a past medical history including status post right TKA, chronic prostatitis, BPH with LUTS, occlusion and stenosis of cerebellar arteries, hypertension, gout, hyperlipidemia, chronic pain syndrome, bladder spasm and hypertension. He presents to the emergency department as noted above. His does remark during the exam, that his cough appears to be more moist than it had been. Work-up in the emergency department include the following: WBC 14.09, potassium 3.5, glucose 145. Chest x-ray with elevated right hemidiaphragm, question right middle lobe infiltrate. Patient was negative for COVID-19, influenza A and B and RSV testing. Pulse ox while in the emergency department was 90-92% on room air. Allergies Allergy/AdvReac Type Severity Reaction Status Date / Time No Known Allergies Allergy Verified 11/26/21 10:14 Home Medications Medication Instructions Recorded Confirmed Type aspirin 81 mg tablet 81 mg PO QAM 01/31/19 11/26/21 History atorvastatin 40 mg tablet 40 mg PO QAM 01/31/19 11/26/21 History clopidogrel 75 mg tablet 75 mg PO QAM #90 tabs 01/31/19 11/26/21 History cyanocobalamin (vitamin B-12) 50 50 mcg PO QAM 01/31/19 11/26/21 History mcg tablet folic acid 1 mg tablet 1 mg PO QAM 01/31/19 11/26/21 History psyllium husk 0.4 gram capsule 0.8 g PO UD PRN Constipation 01/31/19 11/26/21 History pyridoxine (vitamin B6) 50 mg 50 mg PO QAM 01/31/19 11/26/21 History tablet verapamil 180 mg tablet,extended 240 mg PO QAM 01/31/19 11/26/21 History release cholecalciferol (vitamin D3) 125 125 mcg PO QAM 04/09/20 11/26/21 History mcg (5,000 unit) capsule allopurinol 100 mg tablet 300 mg PO QAM 05/23/21 11/26/21 History Wheeled Walker #1 ea 06/13/21 06/13/21 Rx calcium carbonate 200 mg calcium 200 mg PO UD PRN HEARTBURN 07/10/21 11/26/21 History (500 mg) chewable tablet (Tums) solifenacin 10 mg tablet (Vesicare) 10 mg PO QPM 07/10/21 11/26/21 History acetaminophen 500 mg capsule 1,000 mg PO TID Pain 30 days #180 08/05/21 11/26/21 Rx caps ketorolac 10 mg tablet 10 mg PO Q6 5 days #20 tabs 08/05/21 11/26/21 Rx ondansetron HCl 4 mg tablet 4 mg PO Q6 PRN nausea #30 tabs 08/05/21 11/26/21 Rx oxycodone 5 mg tablet 5 - 10 mg PO Q6 PRN pain #40 tabs 08/05/21 08/07/21 Rx sennosides 8.6 mg-docusate sodium 1 tab-cap PO DAILY #14 tabs 08/05/21 11/26/21 Rx 50 mg tablet (Senokot-S) dutasteride 0.5 mg capsule 0.5 mg PO DAILY #90 caps 09/23/21 11/26/21 Rx tamsulosin 0.4 mg capsule 0.4 mg PO DAILY #90 caps 09/23/21 11/26/21 Rx amoxicillin 500 mg tablet 2,000 mg PO ONCE #4 tabs 12/19/21 Rx Past Med/Surg History Medical History (Updated 03/21/22 @ 05:18 by Jareth Webb MD) Enlarged prostate Fluid retention Chronic, abdomen/legs x 1+ years, following with Dr. Doran. No definitive etiology/issues s/p extensive workup.. Pt was on diuretic for a few weeks but d/t unremarkable workup, he states PCP stopped the diuretic. Improvement without further intervention over time per pt. No LE edema and soft, non-tender abdomen on PAT exam 07/11/21* Gout HX History of basal cell carcinoma History of SCC (squamous cell carcinoma) of skin HTN (hypertension) Hypercholesteremia Osteoarthritis TIA (transient ischemic attack) 2013- reason for plavix Surgical History H/O vasectomy History of colonoscopy History of surgery "Shaving of Lesion Mohs' Technique" "Prostate Transurethral Destruction Prostate Tissue" Family History Other Hypertension Social History Smoking Status: Smoker, status unknown Hx Alcohol Use: No Preferred Language: Yemeni Communication Ability: Effective Home Care Associate Required: No Beliefs That Will Affect Care: None marital status: Current Living Situation: Spouse Feels Safe at Home: Yes Assistive Devices: Walker Review of Systems Review of Systems: The patient denies chest pain, palpitations, lower extremity swelling, sore throat, fevers, chills, sweats, nausea, vomiting, diarrhea , constipation, abdominal pain, pelvic pain, blood in urine or stool, dysuria, urinary frequency or urgency, lightheadedness, dizziness, headache, rash, abnormal bruising or bleeding, focal weakness, numbness or tingling in arms or legs, generalized arthralgias or myalgias, back or neck pain, or night sweats. The review of systems is otherwise negative other than for that already noted above, and at least 10 systems have been reviewed. Physical Exam Physical Exam: The patient is awake, alert and oriented 3, well developed and well nourished, normocephalic and atraumatic, lying in bed and in no acute distress. HEENT--PERRL, EOMI, mucous membranes and oropharynx dry. Neck--supple. No JVD. No bruits. Thyroid normal, trachea midline, no adenopathy. Heart--normal S1 and S2. No murmurs, rubs or gallops. Lungs--coarse breath sounds with wheezes bilaterally. Crackles at the bases bilaterally, right greater than left Abdomen--normal bowel sounds and soft. Nontender. Nondistended, no hernias or masses, no organomegaly. Extremities--no cyanosis or clubbing. No edema. Dermatologic--normal skin turgor, normal color, no abnormal lymph nodes, no rash. Neurologic--cranial nerves II through XII grossly intact. Rheumatologic--normal range of motion. Psychiatric--normal affect. Results & Data Results & Data ([facility]) Vital Signs (Past 12 Hours) Vital Signs Temp Pulse Pulse Resp BP BP Pulse Ox 03/21/22 04:30 84 20 92 03/21/22 04:30 159/90 H 03/21/22 04:00 89 22 93 03/21/22 04:00 155/97 H 03/21/22 03:46 153/85 H 03/21/22 03:33 96 H 24 93 03/21/22 03:30 95 H 25 H 92 03/21/22 03:30 163/90 H 03/21/22 03:03 99 H 28 H 91 03/21/22 02:49 36.8 C 110 H 20 165/87 H 91 03/21/22 02:49 03/21/22 02:49 36.8 C 110 H 20 165/87 H 91 O2 Del Method 03/21/22 04:30 Room Air 03/21/22 04:30 03/21/22 04:00 03/21/22 04:00 03/21/22 03:46 03/21/22 03:33 03/21/22 03:30 03/21/22 03:30 03/21/22 03:03 Room Air 03/21/22 02:49 Room Air 03/21/22 02:49 Room Air 03/21/22 02:49 Room Air Laboratory Results Laboratory Results WBC 14.09 K/ul (4.8-10.8) H 03/21/22 03:20 RBC 4.40 M/uL (4.63-6.08) L 03/21/22 03:20 Hgb 14.0 g/dl (14.0-18.0) 03/21/22 03:20 Hct 39.7 % (40.1-51.0) L 03/21/22 03:20 MCV 90.2 fL (80.0-100.0) 03/21/22 03:20 MCH 31.8 pg (25.0-34.0) 03/21/22 03:20 MCHC 35.3 g/dL (32.0-36.0) 03/21/22 03:20 RDW Std Deviation 41.9 fL (36.4-46.3) 03/21/22 03:20 RDW Coeff of Agnieszka 12.6 % (11.5-14.5) 03/21/22 03:20 Plt Count 214 K/uL (130-400) 03/21/22 03:20 MPV 9.3 fL (9.4-12.4) L 03/21/22 03:20 Immature Gran % (Auto) 0.4 % 03/21/22 03:20 Neut % (Auto) 87.8 % 03/21/22 03:20 Lymph % (Auto) 4.7 % 03/21/22 03:20 Spencer % (Auto) 6.4 % 03/21/22 03:20 Eos % (Auto) 0.4 % 03/21/22 03:20 Baso % (Auto) 0.3 % 03/21/22 03:20 Neut # (Auto) 12.38 K/uL (1.4-6.5) H 03/21/22 03:20 Lymph # (Auto) 0.66 K/uL (1.2-3.4) L 03/21/22 03:20 Spencer # (Auto) 0.90 K/uL (0.24-0.82) H 03/21/22 03:20 Eos # (Auto) 0.06 K/uL (0-0.50) 03/21/22 03:20 Baso # (Auto) 0.04 K/uL (0-0.2) 03/21/22 03:20 Immature Gran # (Auto) 0.05 K/uL (0.00-0.02) H 03/21/22 03:20 Sodium 139 mmol/L (136-145) 03/21/22 03:20 Potassium 3.5 mmol/L (3.5-5.1) 03/21/22 03:20 Chloride 104 mmol/L (98-107) 03/21/22 03:20 Carbon Dioxide 26 mmol/L (21-32) 03/21/22 03:20 Anion Gap 9 (3-11) 03/21/22 03:20 BUN 16 mg/dl (6-23) 03/21/22 03:20 Creatinine 0.82 mg/dl (0.6-1.4) 03/21/22 03:20 Est Cr Clr Drug Dosing 79.1 ml/min 03/21/22 03:20 Est GFR ( Amer) 99.6 ml/min 03/21/22 03:20 Est GFR (Non-Af Amer) 85.9 ml/min 03/21/22 03:20 BUN/Creatinine Ratio 19.5 (10-20) 03/21/22 03:20 Glucose 145 mg/dl (70-99(Fasting)) H 03/21/22 03:20 Lactate 2.0 mmol/L (0.4-2.0) 03/21/22 03:20 Calcium 8.9 mg/dl (8.5-10.1) 03/21/22 03:20 Magnesium 1.7 mg/dl (1.7-2.4) 03/21/22 03:20 Total Bilirubin 0.8 mg/dl (0.2-1.0) 03/21/22 03:20 Direct Bilirubin 0.2 mg/dl (0-0.2) 03/21/22 03:20 AST 20 U/L (13-39) 03/21/22 03:20 ALT 19 U/L (7-52) 03/21/22 03:20 Alkaline Phosphatase 68 U/L (34-104) 03/21/22 03:20 Troponin I High Sens 10.0 pg/ml (0-20) 03/21/22 03:20 Total Protein 7.2 gm/dl (6.0-8.3) 03/21/22 03:20 Albumin 4.0 gm/dl (3.4-5.0) 03/21/22 03:20 Procalcitonin 0.06 ng/ml (0-0.5) 03/21/22 03:20 SARS-CoV-2 (PCR) NEGATIVE (Negative) 03/21/22 03:20 Influenza Type A (PCR) Negative (Neg) 03/21/22 03:20 Influenza Type B (PCR) Negative (Neg) 03/21/22 03:20 RSV (RT-PCR) Negative (Neg) 03/21/22 03:20 Diagnostic Findings [facility] Patient: LAI CAMPBELL (Male) : 47 Status: ER Date: 03/21/22 03:46 Room #: History: PT. IS HAVING INCREASED WEAKNESS AND CONFUSION Slices: 66 Priors: Tech: Kay Lacey @ [phone] Exams: CT HEAD Contrast: Accession Numbers: [id number] Referring Physician: ANASTASIIA ALEGRE Preliminary Findings Only See Final Report For Complete Findings CT HEAD: Comparison to September 07, 2013. Moderate diffuse cerebral atrophy and periventricular white matter low density consistent with chronic small vessel disease and/or senescent changes, worse than previous. No acute large vessel infarct or intracranial hemorrhage is seen. There are gas fluid levels in both maxillary sinuses and sphenoid sinuses as well as opacification of most of the ethmoid air cells bilaterally consistent with acute pansinusitis. The mastoid air cells are normal. No skull fracture or scalp hematoma is seen. Radiologist: Yves Murillo MD Study ready at 03:49 and initial results transmitted at 04:59 *This report constitutes a preliminary interpretation only. Non-acute findings felt to be unrelated to the clinical presentation may not be discussed in this report. The study will be interpreted and a final report will be generated by the local Radiologist the following shift. To reach the [facility] radiology department call [phone]. If a discrepancy is found between the preliminary and final interpretations of this study, please notify us via our Client Portal at [email or web address], under QA Exams. You can also fax this report with a description of the discrepancy, or include the final report, to our daytime fax number [phone]. If faxing, please indicate the severity of discrepancy using one of the following categories: [ ] 1 - Agree/Informational [ ] 2 - Unlikely to Affect Management [ ] 3 - Possible Eventual Change of Management [ ] 4 - Probable Immediate Change of Management For all other patient related information, please fax us at [phone]. [id number] Code Status & VTE Plan Code Status Full code VTE Prophylaxis Plan VTE Prophylaxis will be ordered: Yes
--- NOTE | 2022-03-21 07:13 | CT Scan Report ---
HEAD CT NONCONTRAST CT DOSE: 614.27 mGy.cm HISTORY: confusion TECHNIQUE: Multiaxial CT images of the head were performed without the use of intravenous contrast. A utomated exposure control was utilized for this study. A dose lowering technique was utilized adheri ng to the principles of ALARA. Comparison: Head CTA 09/07/2013. Findings: Near complete opacification of the ethmoid air cells with small fluid levels within the max illary sinuses and paranasal sinuses. The mastoid air cells are clear. There is no mass, hematoma, mi dline shift, or acute infarct. Periventricular white matter hypodensity is nonspecific but favors latesha rovascular ischemic change. Ventricular prominence is slightly out of proportion to the sulcal atroph y. This could be due to central volume loss or possibly normal pressure hydrocephalus. There is an ol d lacunar infarct within the left thalamus. Impression: 1. No acute infarct or intracranial hemorrhage. 2. Ventricular prominence is slightly out of proportion to the sulcal atrophy. This could be due to c entral volume loss or normal pressure hydrocephalus. ACT 112: Negative or not required by law. Electronically signed by: Tawanda Giles M.D. 03/21/2022 7:12 AM
--- NOTE | 2022-03-21 07:21 | XRay Report ---
XR chest 1V portable CLINICAL HISTORY: Sepsis COMPARISON STUDY: Chest radiograph March 07, 2021. FINDINGS: Lung volumes are diminished. This is unchanged. Elevation of the right hemidiaphragm is als o unchanged. Cardiomediastinal silhouette is stable. There is no evidence for pulmonary edema. Linear right midlung opacity favors atelectasis or scarring. Slight prominence of the right hilum is probab ly within normal limits. Mild left basilar opacity also likely reflects atelectasis. No evidence for pulmonary edema. No change in appearance of the chest. IMPRESSION: 1. No acute cardiopulmonary findings. No significant change in appearance of the chest. 2. Right midlung and left basilar opacities which favor atelectasis. ACT 112: Negative or not required by law. Electronically signed by: Hermelindo Moon M.D. 03/21/2022 7:18 AM
[2022-03-21] MEDS ORDERED: oxyCODONE HCL IR 5 MG TAB (IMMEDIATE RELEASE) PO PRN (08:23)
[2022-03-21] MEDS ORDERED: ONDANSETRON INJ 2 MG/ML 2 ML VIAL IV PRN (08:23)
[2022-03-21] MEDS ORDERED: ACETAMINOPHEN 325 MG TAB PO PRN (08:23)
[2022-03-21] MEDS ORDERED: CALCIUM CARBONATE 500 MG CHEWABLE TAB PO PRN (08:23)
[2022-03-21] MEDS ORDERED: NSS + 20MEQ KCL 20 MEQ/1,000 ML BAG IV SCH (08:45)
[2022-03-21] MEDS: ALBUT/IPRATROP 3MG/0.5MG NEB 3 ML VIAL NEB SCH ×4 (08:53→19:03)
[2022-03-21 08:54] LABS: Appearance Urine Clear (Clear); Bilirubin Urine Negative (Negative); Blood Urine Negative (Negative); Color Urine Yellow; Glucose Urine UA Negative (Negative); Ketones Urine Negative (Negative); Leukocyte Esterase Urine Negative (Negative); Nitrite Urine Negative (Negative); Protein Urine Negative (Negative); Specific Gravity Urine 1.015 (1.000-1.030); Urobilinogen Urine Negative (Negative)
[2022-03-21] MEDS: cefTRIAXone SODIUM 2,000 MG in DEXTROSE 5% 50 ML IV SCH (09:04)
[2022-03-21] MEDS: DOCUSATE SODIUM/SENNA 50/8.6MG TAB PO SCH (09:08)
[2022-03-21] MEDS: CYANOCOBALAMIN (B-12) 100 MCG TABLET PO SCH (09:08)
[2022-03-21] MEDS: ENOXAPARIN INJ 40 MG/0.4 ML SYR SQ SCH (09:09)
[2022-03-21] MEDS: VERAPAMIL HCL 240 MG TABCR PO SCH (09:10)
[2022-03-21] MEDS: PYRIDOXINE HCL 50 MG TAB PO SCH (09:10)
[2022-03-21] MEDS: guaiFENesin 600 MG TABCR PO SCH ×2 (09:11→21:57)
[2022-03-21] MEDS: TAMSULOSIN HCL 0.4 MG CAP PO SCH (09:11)
[2022-03-21] MEDS: methylPREDNISolone 40 MG in SYRINGE 0 ML IV SCH ×2 (09:12→17:28)
[2022-03-21] MEDS: FOLIC ACID 1 MG TAB PO SCH (09:12)
[2022-03-21] MEDS: AZITHROMYCIN 500 MG in DEXTROSE 5% 250 ML IV SCH (09:16)
[2022-03-21] MEDS: CHOLECALCIFEROL 5,000 UNITS 125 MCG TAB PO SCH (09:58)
[2022-03-21] MEDS: ATORVASTATIN 40 MG TAB PO SCH (09:58)
[2022-03-21] MEDS: ASPIRIN 81 MG ECTAB PO SCH (09:58)
[2022-03-21] MEDS: CLOPIDOGREL BISULFATE 75 MG TAB PO SCH (10:43)
[2022-03-21] MEDS: allopurinoL 300 MG TAB PO SCH (11:21)
[2022-03-22] MEDS: methylPREDNISolone 40 MG in SYRINGE 0 ML IV SCH ×2 (01:44→08:24)
[2022-03-22] MEDS ORDERED: ALBUT/IPRATROP 3MG/0.5MG NEB 3 ML VIAL NEB PRN (03:28)
--- NOTE | 2022-03-22 06:47 | Electrocardiogram Report ---
Test Reason : Blood Pressure : / mmHG Vent. Rate : 096 BPM Atrial Rate : 096 BPM P-R Int : 132 ms QRS Dur : 078 ms QT Int : 364 ms P-R-T Axes : 020 -34 062 degrees QTc Int : 459 ms Poor data quality, interpretation may be adversely affected Normal sinus rhythm Left axis deviation Abnormal ECG When compared with ECG of 11-JUL-2021 12:06, Nonspecific T wave abnormality now evident in Lateral leads Confirmed by Red Bauer ([id number]) on 03/22/2022 6:47:31 AM Referred By: REFERRED SELF Confirmed By:Red Bauer
--- NOTE | 2022-03-22 07:49 | Hospitalist Progress Note ---
Date of Service March 22, 2022 Assessment & Plan (1) Acute pansinusitis: (2) Acute alteration in mental status: (3) Benign localized hyperplasia of prostate with urinary obstruction: (4) Bronchitis: (5) Chronic prostatitis: (6) Occlusion and stenosis of cerebellar arteries: (7) HTN (hypertension): (8) Hypercholesteremia: (9) Gout: Admission and Anticipated Discharge Date Admission Date: March 21, 2022 Review of Systems Review of Systems: As per HPI. Results & Data Results & Data ([facility]) Vital Signs (Past 12 Hours) Vital Signs Temp Pulse Pulse Resp BP BP Pulse Ox 03/22/22 07:31 93 03/22/22 07:24 36.5 C 77 20 158/80 H 92 03/22/22 01:15 03/22/22 01:15 36.5 C 76 16 148/71 H 95 03/22/22 01:00 67 16 125/76 98 O2 Del Method 03/22/22 07:31 Room Air 03/22/22 07:24 Room Air 03/22/22 01:15 Room Air 03/22/22 01:15 Room Air 03/22/22 01:00 Room Air
[2022-03-22] MEDS: cefTRIAXone SODIUM 2,000 MG in DEXTROSE 5% 50 ML IV SCH (08:13)
[2022-03-22] MEDS: ENOXAPARIN INJ 40 MG/0.4 ML SYR SQ SCH (08:22)
[2022-03-22] MEDS: FOLIC ACID 1 MG TAB PO SCH (08:22)
[2022-03-22] MEDS: TAMSULOSIN HCL 0.4 MG CAP PO SCH (08:23)
[2022-03-22] MEDS: guaiFENesin 600 MG TABCR PO SCH (08:23)
[2022-03-22] MEDS: VERAPAMIL HCL 240 MG TABCR PO SCH (08:23)
[2022-03-22] MEDS: PYRIDOXINE HCL 50 MG TAB PO SCH (08:23)
[2022-03-22] MEDS: allopurinoL 300 MG TAB PO SCH (08:23)
[2022-03-22] MEDS: ASPIRIN 81 MG ECTAB PO SCH (08:23)
[2022-03-22] MEDS: CYANOCOBALAMIN (B-12) 100 MCG TABLET PO SCH (08:24)
[2022-03-22] MEDS: CHOLECALCIFEROL 5,000 UNITS 125 MCG TAB PO SCH (08:24)
[2022-03-22] MEDS: ATORVASTATIN 40 MG TAB PO SCH (08:24)
[2022-03-22] MEDS: CLOPIDOGREL BISULFATE 75 MG TAB PO SCH (08:24)
[2022-03-22] MEDS: DOCUSATE SODIUM/SENNA 50/8.6MG TAB PO SCH (08:24)
[2022-03-22 08:36] LABS: Basophils # (auto) 0.02 K/uL (0-0.2); Basophils % (auto) 0.1 %; Hematocrit (blood only) 38.7 % (40.1-51.0); Hemoglobin 13.6 g/dl (14.0-18.0); Immature Granulocytes # (auto) 0.16 K/uL (0.00-0.02); Immature Granulocytes % (auto) 0.9 %; Lymphocytes # (auto) 1.26 K/uL (1.2-3.4); Lymphocytes % (auto) 7.1 %; Mean Corpuscular Hemoglobin 31.9 pg (25.0-34.0); Mean Corpuscular Hgb Conc 35.1 g/dL (32.0-36.0); Mean Corpuscular Volume 90.8 fL (80.0-100.0); Mean Platelet Volume 9.5 fL (9.4-12.4); Monocytes # (auto) 0.48 K/uL (0.24-0.82); Monocytes % (auto) 2.7 %; Neutrophils # (auto) 15.87 K/uL (1.4-6.5); Neutrophils % (auto) 89.2 %; Platelet Count 245 K/uL (130-400); RDW Standard Deviation 42.6 fL (36.4-46.3); Red Blood Count 4.26 M/uL (4.63-6.08); White Blood Count 17.79 K/ul (4.8-10.8)
[2022-03-22 08:57] LABS: Albumin Globulin Ratio 1.2 (0.9-2); Albumin Level 3.8 gm/dl (3.4-5.0); BUN Creatinine Ratio 27.5 (10-20); Bilirubin,Total 0.5 mg/dl (0.2-1.0); C Reactive Protein 9.12 mg/dl (0-0.5); Calcium 8.9 mg/dl (8.5-10.1); Creatinine Clr Calc Pharmacy 79.8 ml/min; Est GFR (African American) 100.6 ml/min; Est GFR (Non-African American) 86.8 ml/min; Globulin 3.3 gm/dl (2.5-4.0); Magnesium 2.1 mg/dl (1.7-2.4); Potassium 3.7 mmol/L (3.5-5.1); Total Protein 7.1 gm/dl (6.0-8.3)
[2022-03-22] MEDS: AZITHROMYCIN 500 MG in DEXTROSE 5% 250 ML IV SCH (09:18)
[2022-03-22 11:35] LABS: Adenovirus PCR Not Detected (NotDetected); Bordetella parapertussis PCR Not Detected (NotDetected); Bordetella pertussis PCR Not Detected (NotDetected); Chlamydia pneumoniae PCR Not Detected (NotDetected); Coronavirus 229E PCR Not Detected (NotDetected); Coronavirus CoV-2 (COVID19)PCR Not Detected (NotDetected); Coronavirus HKU1 PCR Not Detected (NotDetected); Coronavirus NL63 PCR Not Detected (NotDetected); Human Metapneumovirus PCR Not Detected (NotDetected); Influenza A PCR Not Detected (NotDetected); Influenza B PCR Not Detected (NotDetected); Mycoplasma pneumoniae PCR Not Detected (NotDetected); Parainfluenza Virus 1 PCR Not Detected (NotDetected); Parainfluenza Virus 2 PCR Not Detected (NotDetected); Parainfluenza Virus 3 PCR Not Detected (NotDetected); Parainfluenza Virus 4 PCR Not Detected (NotDetected); Respiratory Syncytial VirusPCR Not Detected (NotDetected); Rhinovirus/Enterovirus PCR Not Detected (NotDetected)
[2022-03-22 11:46] LABS: Coronavirus OC43PCR DETECTED (NotDetected)
--- NOTE | 2022-03-22 13:32 | Discharge Summary ---
Date of Service March 22, 2022 Admission HPI Per Admitting Provider The patient is a 77-year-old male with a past medical history including status post right TKA, chronic prostatitis, BPH with LUTS, occlusion and stenosis of cerebellar arteries, hypertension, gout, hyperlipidemia, chronic pain syndrome, bladder spasm and hypertension. He presents to the emergency department as noted above. His does remark during the exam, that his cough appears to be more moist than it had been. Work-up in the emergency department include the following: WBC 14.09, potassium 3.5, glucose 145. Chest x-ray with elevated right hemidiaphragm, question right middle lobe infiltrate. Patient was negative for COVID-19, influenza A and B and RSV testing. Pulse ox while in the emergency department was 90-92% on room air. Admission Exam Per Admitting Provider The patient is awake, alert and oriented 3, well developed and well nourished, normocephalic and atraumatic, lying in bed and in no acute distress. HEENT--PERRL, EOMI, mucous membranes and oropharynx dry. Neck--supple. No JVD. No bruits. Thyroid normal, trachea midline, no adenopathy. Heart--normal S1 and S2. No murmurs, rubs or gallops. Lungs--coarse breath sounds with wheezes bilaterally. Crackles at the bases bilaterally, right greater than left Abdomen--normal bowel sounds and soft. Nontender. Nondistended, no hernias or masses, no organomegaly. Extremities--no cyanosis or clubbing. No edema. Dermatologic--normal skin turgor, normal color, no abnormal lymph nodes, no rash. Neurologic--cranial nerves II through XII grossly intact. Rheumatologic--normal range of motion. Psychiatric--normal affect. Principal Diagnosis Sinusitis, pneumonia Discharge Exam Constitutional WD/WN, vitals as above Eyes PERRL, conjunctivae normal, anicteric sclerae Respiratory bibasilar crackles, otherwise clear to auscultation elsewhere. No wheezes or rhonchi. Cardiovascular RRR, no murmur, no edema Gastrointestinal (Abdomen) normal bowel sounds, soft, nontender, no hepatosplenomegaly Psychiatric A+Ox3, euthymic affect Discharge Data Allergies Allergy/AdvReac Type Severity Reaction Status Date / Time No Known Allergies Allergy Verified 11/26/21 10:14 Consultations 03/21/22 04:43 ED Decision to Admit Stat Ordered Studies 03/21/22 03:18 CT head/brain wo con Urgent Impression: 1. No acute infarct or intracranial hemorrhage. 2. Ventricular prominence is slightly out of proportion to the sulcal atrophy. This could be due to central volume loss or normal pressure hydrocephalus. Hospital Course (1) Acute pansinusitis: 77 year old male w/ PmHx chronic prostatitis, BPH with LUTS, occlusion and stenosis of cerebellar arteries, hypertension, gout, hyperlipidemia admitted for acute alteration in mental status and possible pneumonia. Acute pansinusitis/Pneumonia: -WBC 14.09, procal 0.06->0.26, CRP 9.12, lactate 2.0. -CT Head w/o contrast w/ near complete opacification of ethmoid cells w/ small fluid levels within maxillary sinuses and paranasal sinuses. -CXR w/ R midlung linear opacity. -Biofire positive for coronavirus OC43. -Most likely sinusitis and possible pneumonia with bacterial component. -Started on CTX 2g, azithromycin 500mg daily in hospital with good improvement of symptoms. -Discharged with 3 days Cefuroxime and 1 day Azithromycin to finish up antibiotic course. -Told patient to keep up with breathing exercises, follow up with PCP in next couple weeks for resolution of bibasilar crackles. Acute alteration in mental status: -Most likely due to dehydration coupled with infection. -Improved over first day after fluid bolus. -Resolved. (2) Acute alteration in mental status: (3) Benign localized hyperplasia of prostate with urinary obstruction: (4) Bronchitis: (5) Chronic prostatitis: (6) Occlusion and stenosis of cerebellar arteries: (7) HTN (hypertension): (8) Hypercholesteremia: (9) Gout: Total Time Total Time Spent Total Time Spent (In Minutes): 35 Discharge Plan Discharge Items Patient Disposition: Home - Self-Care Reason For Visit: ACUTE RESP FAILURE WITH HYPOXIA, BRONCHITIS Discharge Diagnosis: Sinusitis, pneumonia Activity: Per Instructions section Non-emergency contact: Primary Care Provider Call non-emergency contact if: your symptoms worsen, your pain is worsening and your temperature is above 101 Follow-up/Referrals: Albert Doran MD [Primary Care Provider] - Diet: Regular Addtl Attending Provider Instructions: A discharge summary will be sent to your primary care physician to ensure continuity of care. You came to the hospital for feeling unwell at home including issues of moving around and confusion. When you were brought into the hospital, a CT of the head showed no signs of fluid or bleed in the brain, however there was fluid in the sinuses consistent with sinusitis. An X-ray of your chest also demonstrated a possible pneumonia in your right middle lung. You were treated with a course of antibiotics and had good improvement. You were also found to be positive for coronavirus OC43 (non-covid coronavirus, a common cause of cold pre-pandemic). Please finish up antibiotic regimen as below. Follow-up: * You should be seen by your primary physician within the next few weeks to check for resolution of lung findings. Medications: Your medication list has been reviewed and reconciled upon discharge to ensure accuracy and continuity of care. An updated list of all your medications is included with your hospital discharge paperwork. Please review this list closely, and make note of any changes. * You will be given a script for the antibiotic Cefuroxime. You will take 500mg of Cefuroxime twice a day for the next 3 days starting tomorrow morning (6 tablets in total, one extra tablet was sent by mistake, please discard of it after done the course). * You will be given a script for the antibiotic Azithromycin. You will take one 500mg tablet tomorrow (03/23) to finish up the course of this antibiotic. Take your medications as instructed; do not skip a dose of your medicines. Make sure all of your doctors know every medicine you are taking (including lxvy-zme-zfjuhfr medicines, vitamins, and supplements). let your primary care provider know before taking any new medicines because some of these may interact with your current medications, or may make your symptoms worse. CONTACT YOUR PRIMARY CARE PROVIDER if you experience any of the following: * Fevers or shaking chills * Shortness of breath not relieved by inhalers, fainting * Sudden abdominal distension not relieved by catheterization. * Difficulty following your treatment plan, or difficulty taking medications CALL 911 OR GO TO THE EMERGENCY DEPARTMENT if you experience any of the following: * Sudden, severe abdominal pain or nausea/vomiting * Severe chest pain, or chest pain that radiates (moves) to your jaw or arm * Sudden, severe shortness of breath or difficulty breathing It was was our pleasure taking care of you here at [facility] . Thank you for allowing us to participate in your care. Pending Studies at Discharge: Yes (blood culture full 48 hrs. ) Stand-Alone Forms: My [facility], Smoking Cessation Medications and DC Order Prescriptions: New cefuroxime axetil 500 mg tablet 500 mg PO BID 3 Days Qty: 7 0RF Continued ondansetron HCl 4 mg tablet 4 mg PO Q6 PRN (Reason: nausea) Qty: 30 0RF sennosides-docusate sodium [Senokot-S] 8.6-50 mg tablet 1 tab-cap PO DAILY Qty: 14 0RF Rx Instructions: Take daily to prevent constipation ketorolac 10 mg tablet 10 mg PO Q6 5 Days Qty: 20 0RF Rx Instructions: Take 4 times per day with food for 5 days to lessen pain and swelling. acetaminophen 500 mg capsule 1,000 mg PO TID 30 Days Qty: 180 0RF Rx Instructions: Take 3 times per day to lessen pain. oxycodone 5 mg tablet 5 - 10 mg PO Q6 PRN (Reason: pain) Qty: 40 0RF Rx Instructions: Take as needed for Pain. tamsulosin 0.4 mg capsule 0.4 mg PO DAILY Qty: 90 3RF dutasteride 0.5 mg capsule 0.5 mg PO DAILY Qty: 90 3RF amoxicillin 500 mg tablet 2,000 mg PO ONCE Qty: 4 3RF Rx Instructions: 4 tabs 1 hour prior to procedure aspirin 81 mg tablet 81 mg PO QAM folic acid 1 mg tablet 1 mg PO QAM pyridoxine (vitamin B6) 50 mg tablet 50 mg PO QAM cyanocobalamin (vitamin B-12) 50 mcg tablet 50 mcg PO QAM verapamil 180 mg tablet extended release 240 mg PO QAM psyllium husk 0.4 gram capsule 0.8 g PO UD PRN (Reason: Constipation) clopidogrel 75 mg tablet 75 mg PO QAM Qty: 90 atorvastatin 40 mg tablet 40 mg PO QAM allopurinol 100 mg tablet 300 mg PO QAM (DME) Wheeled Walker Misc See Rx Instructions .MEDSUPPLY Qty: 1 0RF Rx Instructions: As directed cholecalciferol (vitamin D3) 125 mcg (5,000 unit) capsule 125 mcg PO QAM solifenacin [Vesicare] 10 mg tablet 10 mg PO QPM calcium carbonate [Tums] 200 mg calcium (500 mg) Tablet,Chewable 200 mg PO UD PRN (Reason: HEARTBURN ) Discharge Orders: Discharge Order (Routine); Ordered 03/22/22 Ordered By: Marco Antonio Estes/Other Patient Handouts: Falls Prevent Adjust Living Space Admission Data Admit Date/Time: 03/21/22 05:07 Attending Provider: Pascual Klein Admit Provider: Jareth Webb Primary Care Provider: Albert Doran Other Providers: Jareth Webb Other Interventions: Discharge Summary Assessment (RN) Last Done: 03/22/22 13:49 Supervising Physician Co-Signing Physician Notes Patient seen and examined at bedside. I obtained a history and physical examination during encounter. Patient admitted for coronavirus and possible pneumonia. Patient will be discharged on anitbiotics as above. I discussed plan of care with patient and Dr. Neely. Resident Activity Tracking Resident Involvement: Resident Care Provided Care Provided: Adult Hospital Medicine
[2022-03-23] MEDS ORDERED: methylPREDNISolone 40 MG in SYRINGE 0 ML IV SCH (09:00)
--- NOTE | 2022-03-23 17:26 | Billing Data ---
Date of Service March 22, 2022 Coding Level of Care Code D/C DAY MANAGEMENT >30 MINS Time Spent (min) 35
== END 2022-03-22 14:30 | disposition home or self-care (01) ==
LOC: ED 02:51 → INTOOBSV 05:07 → EDINP 05:07 → SUATTDRO 05:07 → 3E 03-22 01:00

== ENCOUNTER 2022-09-01 12:53 | Inpatient (IN) ==
[2022-09-01] MEDS ORDERED: SODIUM CHLORIDE 0.9% 500 ML IV STA (13:16)
--- NOTE | 2022-09-01 13:18 | Emergency Department Note ---
Impression & Plan Kidney stone ADMIT ED Provider Note HPI: The patient is a 77-year-old gentleman with history of BPH, status post TURP about 2 weeks ago, presents emergency department with ambulatory dysfunction and general weakness. Patient also states he has had some pain in his left flank for about the past 3 days. On arrival here to the ED the patient appears well, he is conversational, he does not have any focal deficits. Patient states he has had some pain in the area of his left flank for the past 3 days, he states today this actually seems to have improved. He states when he was ambulating through his house earlier today became acutely weak, states that he lowered hi mself to the ground and was found in the house with his back up against the wall by his he was having trouble getting up to standing. Patient denies any other acute issues on presentation, he does not have any focal deficits on arrival, he does not display any ataxia on finger-nose testing, he exhibits a lucid mentation on my interview. ROS: - Per HPI *Outpatient medications and allergy history reviewed. *Pertinent external medical records reviewed. PE: General: Alert HEENT: Normocephalic, trachea midline Eyes: Extraocular eye movement is intact, no scleral erythema Pulmonary: Clear to auscultation bilaterally, no wheezing Cardio: Regular rate and rhythm GI: Abdomen is soft to palpation : No suprapubic tenderness MSK: No evidence of trauma or malformation of the extremities, no edema Skin: No evidence of rash Neuro: Alert, no focal deficits, symmetrical facial movements are appreciated, patient does not exhibit ataxia on [id number] testing bilaterally, ambulates all extremities spontaneously without issue Psychiatric: Cooperative forklift picker: (As interpreted by myself): - An order was placed for continuous cardiac monitoring - Patient was noted to be in sinus rhythm with a rate of 85 EKG: (As interpreted by myself): Rate: 80 Rhythm: Sinus rhythm Intervals: Within normal limits ST changes: No ST elevation Time: 1309 Interventions provided in ED: -IV fluid bolus, potassium chloride, IV ceftriaxone Differential Diagnosis: Kidney stone, urinary tract infection, ambulatory dysfunction (acute on chronic), acute ischemic stroke, intracranial hemorrhage/hemorrhagic stroke, amongst other potential pathologies. Medical Decision Making: Shortly after the patient arrived IV was established and lab work obtained, patient was placed on cardiac rn. Patient tells me he has had some generalized weakness since Thursday, his symptoms are very nonspecific, he is not considered a tPA candidate as suspicion for acute stroke is low at this time and he has been symptomatic for several days. He otherwise appears well on arrival, his exam is nonfocal. Lab work obtained shows white blood cell count of 12.3, hemoglobin is normal at 14, platelet count is within normal limits, potassium is 3.2 which was ordered for oral repletion. Creatinine is elevated at 1.6 with baseline being less than 1.0. CMP otherwise does not show any critical electrolyte abnormalities. Urinalysis was obtained and appears consistent with urinary tract infection, urine nitrite positive and 2+ leukocyte esterase with significant pyuria. CT imaging of the abdomen pelvis was obtained that shows evidence of a 5 mm kidney stone with some associated hydronephrosis and obstruction at the mid left ureter. CT imaging of the head was obtained and shows no evidence of any acute abnormality. There is noted to be chronic appearing ventriculomegaly that does not appear different from previous. On my reassessment patient continues to appear well, I discussed all the above findings with the patient and his at the bedside. They are in agreement for admission. Case was discussed with on-call urology, Dr. Zaragoza, recommends making the patient n.p.o. and is in agreement for administration of IV antibiotics. Urology will be consulted and plan for intervention tomorrow if the patient does not pass the stone. Case was then discussed with the on-call hospitalist, Dr. Echeverria, who accepted the patient to the inpatient service for further management. Consultants: -Urology, Dr. Saxena -Hospitalist, Dr. Echeverria Disposition discussion held by myself with: -Patient and at bedside Diagnosis: 1. Kidney stone, acute, left-sided, mid ureter, with hydronephrosis 2. Urinary tract infection 3. Generalized weakness 4. Leukocytosis, acute 5. Ambulatory dysfunction 6. Acute kidney injury Disposition: Admission Kade Perez DO Emergency Medicine Past Med/Surg History Medical History Benign localized hyperplasia of prostate with urinary obstruction Chronic prostatitis Fluid retention Gout History of basal cell carcinoma History of SCC (squamous cell carcinoma) of skin HTN (hypertension) Hypercholesteremia TIA (transient ischemic attack) Surgical History H/O vasectomy History of colonoscopy History of prostate surgery History of surgery Hx of total knee replacement Family History Other Hypertension No family history of adverse response to anesthesia Social History Smoking Status: Never smoker Tobacco Type: Cigarettes Second Hand Exposure: No; Do You Dip or Chew Tobacco: No; Hx Alcohol Use: Yes Alcohol type: wine Hx Substance Use: No Preferred Language: Kinyarwanda Communication Ability: Effective 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 Beliefs That Will Affect Care: None marital status: Current Living Situation: Spouse Feels Safe at Home: No Is there a partner from a previous relationship who is making you feel unsafe now?: No Assistive Devices: Glasses and Hearing Aid - Bilateral Allergies Allergies Allergy/AdvReac Type Severity Reaction Status Date / Time No Known Allergies Allergy Verified 09/01/22 17:34 Home Meds Home Medications Medication Instructions Recorded Confirmed atorvastatin 40 mg tablet 40 mg PO QAM 01/31/19 09/01/22 clopidogrel 75 mg tablet 75 mg PO QAM #90 tabs 01/31/19 09/01/22 cyanocobalamin (vitamin B-12) 50 50 mcg PO QAM 01/31/19 09/01/22 mcg tablet folic acid 1 mg tablet 1 mg PO QAM 01/31/19 09/01/22 psyllium husk 0.4 gram capsule 0.8 g PO UD PRN Constipation 01/31/19 09/01/22 pyridoxine (vitamin B6) 50 mg 50 mg PO QAM 01/31/19 09/01/22 tablet cholecalciferol (vitamin D3) 125 125 mcg PO QAM 04/09/20 09/01/22 mcg (5,000 unit) capsule allopurinol 100 mg tablet 300 mg PO QAM 05/23/21 09/01/22 calcium carbonate 200 mg calcium 200 mg PO UD PRN HEARTBURN 07/10/21 09/01/22 (500 mg) chewable tablet (Tums) solifenacin 10 mg tablet (Vesicare) 10 mg PO QPM 07/10/21 09/01/22 hydrochlorothiazide 25 mg tablet 25 mg PO QAM 08/06/22 09/01/22 acetaminophen 500 mg capsule 1,000 mg PO TID PRN Pain 09/01/22 09/01/22 amoxicillin 500 mg tablet 2,000 mg PO DIRECTED PRN PRIOR 09/01/22 09/01/22 TO DENTAL PROCEDURES aspirin 81 mg tablet,delayed 81 mg PO DAILY 09/01/22 09/01/22 release verapamil 240 mg 24 hr 240 mg PO QAM 09/01/22 09/01/22 capsule,extended release Previous Rx's Medication Instructions Recorded Wheeled Walker #1 ea 06/13/21 dutasteride 0.5 mg capsule 0.5 mg PO DAILY #90 caps 09/23/21 tamsulosin 0.4 mg capsule 0.4 mg PO DAILY #90 caps 09/23/21 Results & Data (ED) Vital Signs Vital Signs - 24 hr 09/01/22 12:57 09/01/22 13:16 09/01/22 13:18 Temperature 36.6 C Temperature Source Temporal Artery Scan Pulse Rate 88 80 Pulse Rate [Left Apical] Respiratory Rate 18 Respiratory Effort / Characteristics Non-Labored Accessory Muscle Use Respiratory Depth Normal Respiratory Pattern Regular Blood Pressure 154/91 H Blood Pressure [Right Arm] Blood Pressure Mean 112 Blood Pressure Mean [Right Arm] Blood Pressure Position Sitting Pulse Oximetry 95 98 Oxygen Delivery Method Room Air Sepsis Recent Fever Within 48 Hours No Sepsis New/Unexplained Change in Mental Status N/A Sepsis Action Taken by Nursing No Action Required 09/01/22 13:16 09/01/22 13:20 09/01/22 13:56 Temperature Temperature Source Pulse Rate 77 80 76 Pulse Rate [Left Apical] Respiratory Rate 31 H 24 28 H Respiratory Effort / Characteristics Respiratory Depth Respiratory Pattern Blood Pressure Blood Pressure [Right Arm] Blood Pressure Mean Blood Pressure Mean [Right Arm] Blood Pressure Position Pulse Oximetry Oxygen Delivery Method Sepsis Recent Fever Within 48 Hours Sepsis New/Unexplained Change in Mental Status Sepsis Action Taken by Nursing 09/01/22 14:00 09/01/22 14:10 09/01/22 14:20 Temperature Temperature Source Pulse Rate 74 76 71 Pulse Rate [Left Apical] Respiratory Rate 25 H 28 H 22 Respiratory Effort / Characteristics Respiratory Depth Respiratory Pattern Blood Pressure Blood Pressure [Right Arm] Blood Pressure Mean Blood Pressure Mean [Right Arm] Blood Pressure Position Pulse Oximetry Oxygen Delivery Method Sepsis Recent Fever Within 48 Hours Sepsis New/Unexplained Change in Mental Status Sepsis Action Taken by Nursing 09/01/22 14:30 09/01/22 14:40 09/01/22 15:33 Temperature Temperature Source Pulse Rate 73 72 Pulse Rate [Left Apical] 77 Respiratory Rate 26 H 29 H 22 Respiratory Effort / Characteristics Respiratory Depth Respiratory Pattern Blood Pressure Blood Pressure [Right Arm] 176/82 H Blood Pressure Mean Blood Pressure Mean [Right Arm] 113 Blood Pressure Position Pulse Oximetry 95 Oxygen Delivery Method Room Air Sepsis Recent Fever Within 48 Hours Sepsis New/Unexplained Change in Mental Status Sepsis Action Taken by Nursing 09/01/22 16:00 09/01/22 16:30 09/01/22 17:00 Temperature Temperature Source Pulse Rate 80 81 79 Pulse Rate [Left Apical] Respiratory Rate 27 H 32 H 32 H Respiratory Effort / Characteristics Respiratory Depth Respiratory Pattern Blood Pressure 165/93 H 171/90 H 169/91 H Blood Pressure [Right Arm] Blood Pressure Mean 117 117 117 Blood Pressure Mean [Right Arm] Blood Pressure Position Pulse Oximetry 92 94 93 Oxygen Delivery Method Room Air Room Air Room Air Sepsis Recent Fever Within 48 Hours Sepsis New/Unexplained Change in Mental Status Sepsis Action Taken by Nursing 09/01/22 17:12 Temperature Temperature Source Pulse Rate 81 Pulse Rate [Left Apical] Respiratory Rate Respiratory Effort / Characteristics Respiratory Depth Respiratory Pattern Blood Pressure Blood Pressure [Right Arm] Blood Pressure Mean Blood Pressure Mean [Right Arm] Blood Pressure Position Pulse Oximetry Oxygen Delivery Method Sepsis Recent Fever Within 48 Hours Sepsis New/Unexplained Change in Mental Status Sepsis Action Taken by Nursing Laboratory Data 09/01/22 Unknown 09/01/22 Unknown Lab Results 09/01/22 09/01/22 09/01/22 Range/Units 13:24 16:29 Unknown WBC 12.31 H (4.8-10.8) K/ul RBC 4.33 L (4.70-6.10) M/uL Hgb 14.0 (14.0-18.0) g/dl Hct 39.6 L (42.0-52.0) % MCV 91.5 (80.0-100.0) fL MCH 32.3 (25.0-34.0) pg MCHC 35.4 (32.0-36.0) g/dL RDW Std Deviation 45.0 (36.4-46.3) fL RDW Coeff of Agnieszka 13.3 (11.5-14.5) % Plt Count 247 (130-400) K/uL MPV 9.7 (9.4-12.4) fL Immature Gran % (Auto) 0.7 % Neut % (Auto) 80.1 % Lymph % (Auto) 10.1 % [place] % (Auto) 8.0 % Eos % (Auto) 0.7 % Baso % (Auto) 0.4 % Neut # (Auto) 9.86 H (1.40-6.50) K/uL Lymph # (Auto) 1.24 (1.2-3.4) K/uL [place] # (Auto) 0.98 H (0.11-0.59) K/uL Eos # (Auto) 0.09 (0-0.50) K/uL Baso # (Auto) 0.05 (0-0.2) K/uL Immature Gran # (Auto) 0.09 (0.01-0.20) K/uL PT (9.0-12.0) Seconds INR (0.9-1.1) Sodium (136-145) mmol/L Potassium (3.5-5.1) mmol/L Chloride (98-107) mmol/L Carbon Dioxide (21-32) mmol/L Anion Gap (3-11) BUN (6-23) mg/dl Creatinine (0.6-1.4) mg/dl Est Cr Clr Drug Dosing Est GFR ( Amer) ml/min Est GFR (Non-Af Amer) ml/min BUN/Creatinine Ratio (10-20) Glucose (70-99(Fasting)) mg/dl Calcium (8.6-10.3) mg/dl Total Bilirubin (0.2-1.0) mg/dl AST (13-39) U/L ALT (7-52) U/L Alkaline Phosphatase (34-104) U/L Troponin I High Sens (0-20) pg/ml Total Protein (6.0-8.3) gm/dl Albumin (3.4-5.0) gm/dl Globulin (2.5-4.0) gm/dl Albumin/Globulin Ratio (0.9-2) Lipase (11-82) U/L Urine Color [place] Urine Appearance Cloudy A (Clear) Urine pH 6.5 (4.5-7.5) Ur Specific [place] 1.019 (1.000-1.030) Urine Protein 1+ H (Negative) Urine Glucose (UA) Negative (Negative) Urine Ketones Trace H (Negative) Urine Blood 3+ H (Negative) Urine Nitrite Positive A (Negative) Urine Bilirubin Negative (Negative) Urine Urobilinogen Negative (Negative) Ur Leukocyte Esterase 2+ H (Negative) Urine WBC (Auto) >30 H (0-5) /hpf Urine RBC (Auto) >30 H (0-4) /hpf U Hyaline Cast (Auto) 1-5 (0-5) /lpf U Epithel Cells (Auto) 0-5 (0-5) /lpf Urine Bacteria (Auto) Negative (Negative) Urine Yeast Not Reportable SARS-CoV-2, RNA, NAAT NEGATIVE (NEGATIVE) 09/01/22 09/01/22 Range/Units Unknown Unknown WBC (4.8-10.8) K/ul RBC (4.70-6.10) M/uL Hgb (14.0-18.0) g/dl Hct (42.0-52.0) % MCV (80.0-100.0) fL MCH (25.0-34.0) pg MCHC (32.0-36.0) g/dL RDW Std Deviation (36.4-46.3) fL RDW Coeff of Agnieszka (11.5-14.5) % Plt Count (130-400) K/uL MPV (9.4-12.4) fL Immature Gran % (Auto) % Neut % (Auto) % Lymph % (Auto) % [place] % (Auto) % Eos % (Auto) % Baso % (Auto) % Neut # (Auto) (1.40-6.50) K/uL Lymph # (Auto) (1.2-3.4) K/uL [place] # (Auto) (0.11-0.59) K/uL Eos # (Auto) (0-0.50) K/uL Baso # (Auto) (0-0.2) K/uL Immature Gran # (Auto) (0.01-0.20) K/uL PT 10.8 (9.0-12.0) Seconds INR 1.0 (0.9-1.1) Sodium 136 (136-145) mmol/L Potassium 3.2 L (3.5-5.1) mmol/L Chloride 97 L (98-107) mmol/L Carbon Dioxide 29 (21-32) mmol/L Anion Gap 10 (3-11) BUN 23 (6-23) mg/dl Creatinine 1.61 H (0.6-1.4) mg/dl Est Cr Clr Drug Dosing Not Reportable Est GFR ( Amer) 47.4 ml/min Est GFR (Non-Af Amer) 40.9 ml/min BUN/Creatinine Ratio 14.3 (10-20) Glucose 104 H (70-99(Fasting)) mg/dl Calcium 9.4 (8.6-10.3) mg/dl Total Bilirubin 1.4 H (0.2-1.0) mg/dl AST 13 (13-39) U/L ALT 11 (7-52) U/L Alkaline Phosphatase 77 (34-104) U/L Troponin I High Sens 10.6 (0-20) pg/ml Total Protein 7.8 (6.0-8.3) gm/dl Albumin 4.1 (3.4-5.0) gm/dl Globulin 3.7 (2.5-4.0) gm/dl Albumin/Globulin Ratio 1.1 (0.9-2) Lipase 9 L (11-82) U/L Urine Color Urine Appearance (Clear) Urine pH (4.5-7.5) Ur Specific [place] (1.000-1.030) Urine Protein (Negative) Urine Glucose (UA) (Negative) Urine Ketones (Negative) Urine Blood (Negative) Urine Nitrite (Negative) Urine Bilirubin (Negative) Urine Urobilinogen (Negative) Ur Leukocyte Esterase (Negative) Urine WBC (Auto) (0-5) /hpf Urine RBC (Auto) (0-4) /hpf U Hyaline Cast (Auto) (0-5) /lpf U Epithel Cells (Auto) (0-5) /lpf Urine Bacteria (Auto) (Negative) Urine Yeast SARS-CoV-2, RNA, NAAT (NEGATIVE) Administered Medications Discontinued Medications Sodium Chloride (Nss) 500 mls @ 999 mls/hr IV .Q31M STA Stop: 09/01/22 13:46 Last Infusion: 09/01/22 16:29 Dose: 0 mls/hr Documented By: Admin: 09/01/22 15:30 Dose: 999 mls/hr Documented By: AIYANA Ceftriaxone Sodium (Rocephin) 2,000 mg in 70 mls @ 140 mls/hr IV NOW STA Stop: 09/01/22 17:53 Last Admin: 09/01/22 18:23 Dose: 140 mls/hr Documented By: Potassium Chloride (Potassium Chloride Crtab 20 Meq Tabcr) 40 meq PO NOW STA Stop: 09/01/22 15:01 Last Admin: 09/01/22 15:30 Dose: 40 meq Documented By: [facility] Imaging Data Radiologist's Impression: Chest X-Ray 09/01/22 13:16 SINGLE VIEW CHEST CLINICAL HISTORY: Atypical chest pain. FINDINGS: An AP, portable, upright chest radiograph is compared to study dated 04/29/2022. The heart is mildly enlarged noting atherosclerotic calcification of the thoracic aorta. The pulmonary vasculature is congested. There is mild elevation of the right hemidiaphragm. The lungs and pleural spaces are clear. No pneumothorax is seen. The skeletal structures are osteopenic. The bony thorax is grossly intact. IMPRESSION: Cardiomegaly with no active disease in the chest. ACT 112: Negative or not required by law. Electronically signed by: Luis Medina M.D. 09/01/2022 1:36 PM Abdomen/Pelvis CT 09/01/22 13:17 CT SCAN OF THE ABDOMEN AND PELVIS WITHOUT IV CONTRAST CLINICAL HISTORY: Left flank pain. COMPARISON STUDY: Abdominal CT dated 03/28/2021. TECHNIQUE: CT scan of the abdomen and pelvis is performed from the lung bases to the proximal femora. Images are reviewed in the axial, sagittal, and coronal planes. IV contrast was not administered for this examination. A dose lowering technique was utilized adhering to the principles of ALARA. FINDINGS: Lung bases: The heart is enlarged and without pericardial effusion. The coronary arteries are densely calcified. There is a small hiatal hernia. The lung bases are clear noting bibasilar scarring/atelectasis. Gynecomastia is noted. Liver: The unenhanced liver is normal in size, contour, and attenuation. There is no intrahepatic biliary ductal dilatation. A calcified hepatic granuloma is incidentally noted. Gallbladder: Unremarkable. Spleen: Normal in size and attenuation. Pancreas: Unremarkable. Adrenal glands: Unremarkable. Kidneys: The unenhanced kidneys are normal in size. There is a 5 mm obstructing calculus in the left mid ureter seen on image #20 and 30. This is located at L3- L4 and causes moderate left hydroureteronephrosis. There is associated left- sided perinephric stranding. No additional osteochondral calculi are identified. There is a punctate nonobstructing right renal calculus. No right ureteral stone is seen and there is no right-sided hydronephrosis. There is no evidence of contour deforming renal mass lesion. Abdominal vasculature: The abdominal aorta is normal in course and caliber noting advanced atherosclerotic calcification. Bowel: There is mild to moderate colonic fecal retention. No bowel obstruction is seen. A duodenal diverticulum is incidentally noted. The appendix is well-visualized and normal. Peritoneum: No intraperitoneal free air is identified. There is trace free fluid in the pelvis. There is a fat-containing umbilical hernia. Lymphadenopathy: A 2.2 cm water attenuation structure in the left retroperitoneum posterior to the renal artery on image #179 is unchanged and may represent an inclusion cyst or lymphangioma. No lymphadenopathy is seen. Pelvic viscera: The prostate gland is enlarged and heterogeneous. The bladder wall is thickened/trabeculated indicating chronic outlet obstruction. Skeletal structures: The skeletal structures are osteopenic. There is mild lumbosacral spondylosis. A left-sided pars defect is noted at L5. No lytic or blastic lesions are seen. IMPRESSION: 1. There is a 5 mm obstructing calculus in the mid left ureter. This causes moderate left hydroureteronephrosis. 2. There is an additional punctate nonobstructing right renal calculus. 3. Cardiomegaly. 4. Prostatomegaly with evidence of chronic bladder outlet obstruction. 5. Trace free fluid in the pelvis is nonspecific and likely reactive. 6. Additional findings as above. ACT 112: Negative or not required by law. Electronically signed by: Luis Medina M.D. 09/01/2022 2:[address] 09/01/22 13:17 CT head/brain wo con CLINICAL HISTORY: 77 years-old Male with Weak/dizzy. Acute headache with weakness TECHNIQUE: Multiple axial CT images of the head were obtained without contrast. A dose lowering technique was utilized adhering to the principles of ALARA. CT DOSE: 2007.20 mGy.cm COMPARISON: 03/21/2022 FINDINGS: No acute intracranial hemorrhage, midline shift, intracranial mass, acute territorial ischemia or abnormal extra-axial collection. Unchanged ventriculomegaly. Involutional changes with chronic microvascular ischemic disease. Chronic left thalamic lacunar infarct. The calvarium is intact. The paranasal sinuses, mastoid air cells, and middle ear cavities are clear. IMPRESSION: 1. No acute intracranial abnormality. 2. Unchanged ventriculomegaly which may be an ex vacuo basis or secondary to normal pressure hydrocephalus. ACT 112: Negative or not required by law. The above report was generated using voice recognition software. It may contain grammatical, syntax or spelling errors. Electronically signed by: Shane Schaeffer M.D. 09/01/2022 2:06 PM Discharge Plan Visit Data Chief Complaint: Neuro Symptoms/Deficit Stated Complaint: PAST 2-3 DAYS LOSS OF BALANCE ED Provider: Kade Perez Discharge Problem: Kidney stone Forms Stand Alone Forms: [facility] [place] [employer] Prescriptions Prescriptions: No Action tamsulosin 0.4 mg capsule 0.4 mg PO DAILY Qty: 90 3RF dutasteride 0.5 mg capsule 0.5 mg PO DAILY Qty: 90 3RF folic acid 1 mg tablet 1 mg PO QAM pyridoxine (vitamin B6) 50 mg tablet 50 mg PO QAM cyanocobalamin (vitamin B-12) 50 mcg tablet 50 mcg PO QAM psyllium husk 0.4 gram capsule 0.8 g PO UD PRN (Reason: Constipation) clopidogrel 75 mg tablet 75 mg PO QAM Qty: 90 Hold Instructions: Resume on 08/16/22. atorvastatin 40 mg tablet 40 mg PO QAM allopurinol 100 mg tablet 300 mg PO QAM (DME) Wheeled Walker [facility] [place] See Rx Instructions .MEDSUPPLY Qty: 1 0RF Rx Instructions: As directed cholecalciferol (vitamin D3) 125 mcg (5,000 unit) capsule 125 mcg PO QAM hydrochlorothiazide 25 mg Tablet 25 mg PO QAM aspirin 81 mg Tablet,Delayed Release (Dr/Ec) 81 mg PO DAILY verapamil 240 mg capsule,ext rel. pellets 24 hr 240 mg PO QAM amoxicillin 500 mg tablet 2,000 mg PO DIRECTED PRN (Reason: PRIOR TO DENTAL PROCEDURES) Rx Instructions: 4 tabs 1 hour prior to procedure acetaminophen 500 mg capsule 1,000 mg PO TID PRN (Reason: Pain) solifenacin [Vesicare] 10 mg tablet 10 mg PO QPM calcium carbonate [Tums] 200 mg calcium (500 mg) Tablet,Chewable 200 mg PO UD PRN (Reason: HEARTBURN ) Referrals Referrals: Tata Bustos [Primary Care Provider] -
--- NOTE | 2022-09-01 13:38 | XRay Report ---
SINGLE VIEW CHEST CLINICAL HISTORY: Atypical chest pain. FINDINGS: An AP, portable, upright chest radiograph is compared to study dated 04/29/2022. The heart i s mildly enlarged noting atherosclerotic calcification of the thoracic aorta. The pulmonary vasculatu re is congested. There is mild elevation of the right hemidiaphragm. The lungs and pleural spaces are clear. No pneumothorax is seen. The skeletal structures are osteopenic. The bony thorax is grossly i ntact. IMPRESSION: Cardiomegaly with no active disease in the chest. ACT 112: Negative or not required by law. Electronically signed by: Luis Medina M.D. 09/01/2022 1:36 PM
[2022-09-01 14:03] LABS: Basophils # (auto) 0.05 K/uL (0-0.2); Basophils % (auto) 0.4 %; Eosinophils # (auto) 0.09 K/uL (0-0.50); Eosinophils % (auto) 0.7 %; Hematocrit (blood only) 39.6 % (42.0-52.0); Immature Granulocytes # (auto) 0.09 K/uL (0.01-0.20); Immature Granulocytes % (auto) 0.7 %; Lymphocytes # (auto) 1.24 K/uL (1.2-3.4); Lymphocytes % (auto) 10.1 %; Mean Corpuscular Hemoglobin 32.3 pg (25.0-34.0); Mean Corpuscular Hgb Conc 35.4 g/dL (32.0-36.0); Mean Corpuscular Volume 91.5 fL (80.0-100.0); Mean Platelet Volume 9.7 fL (9.4-12.4); Monocytes # (auto) 0.98 K/uL (0.11-0.59); Neutrophils # (auto) 9.86 K/uL (1.40-6.50); Neutrophils % (auto) 80.1 %; Platelet Count 247 K/uL (130-400); RDW Coefficient of Variation 13.3 % (11.5-14.5); Red Blood Count 4.33 M/uL (4.70-6.10); White Blood Count 12.31 K/ul (4.8-10.8)
--- NOTE | 2022-09-01 14:08 | CT Scan Report ---
CT SCAN OF THE ABDOMEN AND PELVIS WITHOUT IV CONTRAST CLINICAL HISTORY: Left flank pain. COMPARISON STUDY: Abdominal CT dated 03/28/2021. TECHNIQUE: CT scan of the abdomen and pelvis is performed from the lung bases to the proximal femora. Images are reviewed in the axial, sagittal, and coronal planes. IV contrast was not administered for this examination. A dose lowering technique was utilized adhering to the principles of ALARA. FINDINGS: Lung bases: The heart is enlarged and without pericardial effusion. The coronary arteries are densely calcified. There is a small hiatal hernia. The lung bases are clear noting bibasilar scarring/atelec tasis. Gynecomastia is noted. Liver: The unenhanced liver is normal in size, contour, and attenuation. There is no intrahepatic javier iary ductal dilatation. A calcified hepatic granuloma is incidentally noted. Gallbladder: Unremarkable. Spleen: Normal in size and attenuation. Pancreas: Unremarkable. Adrenal glands: Unremarkable. Kidneys: The unenhanced kidneys are normal in size. There is a 5 mm obstructing calculus in the left mid ureter seen on image #20 and 30. This is located at L3-L4 and causes moderate left hydroureterone phrosis. There is associated left-sided perinephric stranding. No additional osteochondral calculi ar e identified. There is a punctate nonobstructing right renal calculus. No right ureteral stone is see n and there is no right-sided hydronephrosis. There is no evidence of contour deforming renal mass le sandra. Abdominal vasculature: The abdominal aorta is normal in course and caliber noting advanced atheroscle rotic calcification. Bowel: There is mild to moderate colonic fecal retention. No bowel obstruction is seen. A duodenal di verticulum is incidentally noted. The appendix is well-visualized and normal. Peritoneum: No intraperitoneal free air is identified. There is trace free fluid in the pelvis. There is a fat-containing umbilical hernia. Lymphadenopathy: A 2.2 cm water attenuation structure in the left retroperitoneum posterior to the re nal artery on image #179 is unchanged and may represent an inclusion cyst or lymphangioma. No lymphad enopathy is seen. Pelvic viscera: The prostate gland is enlarged and heterogeneous. The bladder wall is thickened/trabe culated indicating chronic outlet obstruction. Skeletal structures: The skeletal structures are osteopenic. There is mild lumbosacral spondylosis. A left-sided pars defect is noted at L5. No lytic or blastic lesions are seen. IMPRESSION: 1. There is a 5 mm obstructing calculus in the mid left ureter. This causes moderate left hydroureter onephrosis. 2. There is an additional punctate nonobstructing right renal calculus. 3. Cardiomegaly. 4. Prostatomegaly with evidence of chronic bladder outlet obstruction. 5. Trace free fluid in the pelvis is nonspecific and likely reactive. 6. Additional findings as above. ACT 112: Negative or not required by law. Electronically signed by: Luis Medina M.D. 09/01/2022 2:07 PM
--- NOTE | 2022-09-01 14:08 | CT Scan Report ---
CT head/brain wo con CLINICAL HISTORY: 77 years-old Male with Weak/dizzy. Acute headache with weakness TECHNIQUE: Multiple axial CT images of the head were obtained without contrast. A dose lowering tech nique was utilized adhering to the principles of ALARA. CT DOSE: 2007.20 mGy.cm COMPARISON: 03/21/2022 FINDINGS: No acute intracranial hemorrhage, midline shift, intracranial mass, acute territorial ischemia or abn ormal extra-axial collection. Unchanged ventriculomegaly. Involutional changes with chronic microvasc ular ischemic disease. Chronic left thalamic lacunar infarct. The calvarium is intact. The paranasal sinuses, mastoid air cells, and middle ear cavities are clear . IMPRESSION: 1. No acute intracranial abnormality. 2. Unchanged ventriculomegaly which may be an ex vacuo basis or secondary to normal pressure hydrocep halus. ACT 112: Negative or not required by law. The above report was generated using voice recognition software. It may contain grammatical, syntax o r spelling errors. Electronically signed by: Shane Schaeffer M.D. 09/01/2022 2:06 PM
[2022-09-01 14:13] LABS: Prothrombin Time 10.8 Seconds (9.0-12.0)
[2022-09-01 14:18] LABS: Albumin Level 4.1 gm/dl (3.4-5.0); Anion Gap 10 (3-11); Bilirubin,Total 1.4 mg/dl (0.2-1.0); Calcium 9.4 mg/dl (8.6-10.3); Carbon Dioxide 29 mmol/L (21-32); Chloride 97 mmol/L (98-107); Potassium 3.2 mmol/L (3.5-5.1); Sodium 136 mmol/L (136-145)
[2022-09-01 14:24] LABS: Alanine Aminotransferase 11 U/L (7-52); Albumin Globulin Ratio 1.1 (0.9-2); Alkaline Phosphatase 77 U/L (34-104); Aspartate Aminotransferase 13 U/L (13-39); BUN Creatinine Ratio 14.3 (10-20); Blood Urea Nitrogen 23 mg/dl (6-23); Est GFR (African American) 47.4 ml/min; Est GFR (Non-African American) 40.9 ml/min; Globulin 3.7 gm/dl (2.5-4.0); Glucose 104 mg/dl (70-99(Fasting)); Lipase 9 U/L (11-82); Total Protein 7.8 gm/dl (6.0-8.3)
[2022-09-01 14:29] LABS: Troponin I High Sensitivity 10.6 pg/ml (0-20)
[2022-09-01] MEDS ORDERED: POTASSIUM CHLORIDE CRTAB 20 MEQ TABCR PO STA (15:00)
[2022-09-01 16:55] LABS: Appearance Urine Cloudy (Clear); Bacteria Urine Automated Negative (Negative); Bilirubin Urine Negative (Negative); Blood Urine 3+ (Negative); Color Urine Orange; Epithelial Cell Urine Auto 0-5 /lpf (0-5); Glucose Urine UA Negative (Negative); Ketones Urine Trace (Negative); Leukocyte Esterase Urine 2+ (Negative); Nitrite Urine Positive (Negative); Protein Urine 1+ (Negative); Specific Gravity Urine 1.019 (1.000-1.030); Urobilinogen Urine Negative (Negative); WBC Urine Automated >30 /hpf (0-5); pH Urine 6.5 (4.5-7.5)
[2022-09-01] MEDS ORDERED: cefTRIAXone SODIUM 2,000 MG/70 ML BAG IV STA (17:24)
[2022-09-01] MEDS ORDERED: SODIUM CHLORIDE 0.9% 1000ML 1,000 ML IV ONE (17:31)
[2022-09-01 17:41] LABS: RBC Urine Automated >30 /hpf (0-4)
--- NOTE | 2022-09-01 18:31 | History & Physical Report ---
Date of Service September 01, 2022 Assessment & Plan (1) Complicated UTI (urinary tract infection): Plan: Complicated in setting of recent TURP and obstructing right ureterolithiasis. Ceftriaxone given in the ER. On discussion with urology will broaden coverage to Zosyn to cover pseudomonas. Follow up urine and blood cultures (2) Ureterolithiasis: Plan: IV fluids, tamsulosin Consult urology - discussed with urology PA at time of admission (3) Benign hypertension: Plan: Hold HCTZ in setting of dehydration and acute infection Continue verapamil (4) BPH without obstruction/lower urinary tract symptoms: Plan: s/p TURP 2 week ago, ribeiro catheter in for 7 days. Continue tamsulosin and dutasteride Plan VTE Prophylaxis - deferred pending possible need for surgery Diet - NPO Disposition - admit to PCU Admission and Anticipated Discharge Date Admission Date: September 01, 2022 History of Present Illness Chief Complaint: Fever, chills, lower back pain Primary Care Provider: Tata Bustos Robbi Christie is a 77 year old male who presents to the ER due to nausea, vomiting, lower back pain and generalized weakness. Initial symptoms of vomiting yesterday 4 times and complaints of lower back pain. Today the pain is in the center of his back without radiation, current severity 7/10 which is the worst it has been. No dysuria. He had a collapse onto the ottoman today and couldn't get up t herefore decided it was time to come to the ER. Associated fever, chills and worsening shuffling gait (which his reports usually occurs when he is sick). No one sided weakness or change in sensation. No change in speech, vision or hearing. The patient had a recent TURP procedure on August 13. He was doing well after this operation. up until this illness start 2 days ago. Allergies Allergy/AdvReac Type Severity Reaction Status Date / Time No Known Allergies Allergy Verified 09/01/22 17:34 Home Medications Medication Instructions Recorded Confirmed Type atorvastatin 40 mg tablet 40 mg PO QAM 01/31/19 09/01/22 History clopidogrel 75 mg tablet 75 mg PO QAM #90 tabs 01/31/19 09/01/22 History cyanocobalamin (vitamin B-12) 50 50 mcg PO QAM 01/31/19 09/01/22 History mcg tablet folic acid 1 mg tablet 1 mg PO QAM 01/31/19 09/01/22 History psyllium husk 0.4 gram capsule 0.8 g PO UD PRN Constipation 01/31/19 09/01/22 History pyridoxine (vitamin B6) 50 mg 50 mg PO QAM 01/31/19 09/01/22 History tablet cholecalciferol (vitamin D3) 125 125 mcg PO QAM 04/09/20 09/01/22 History mcg (5,000 unit) capsule allopurinol 100 mg tablet 300 mg PO QAM 05/23/21 09/01/22 History Wheeled Walker #1 ea 06/13/21 05/28/22 Rx calcium carbonate 200 mg calcium 200 mg PO UD PRN HEARTBURN 07/10/21 09/01/22 History (500 mg) chewable tablet (Tums) solifenacin 10 mg tablet (Vesicare) 10 mg PO QPM 07/10/21 09/01/22 History dutasteride 0.5 mg capsule 0.5 mg PO DAILY #90 caps 09/23/21 09/01/22 Rx tamsulosin 0.4 mg capsule 0.4 mg PO DAILY #90 caps 09/23/21 09/01/22 Rx hydrochlorothiazide 25 mg tablet 25 mg PO QAM 08/06/22 09/01/22 History acetaminophen 500 mg capsule 1,000 mg PO TID PRN Pain 09/01/22 09/01/22 History amoxicillin 500 mg tablet 2,000 mg PO DIRECTED PRN PRIOR 09/01/22 09/01/22 History TO DENTAL PROCEDURES aspirin 81 mg tablet,delayed 81 mg PO DAILY 09/01/22 09/01/22 History release verapamil 240 mg 24 hr 240 mg PO QAM 09/01/22 09/01/22 History capsule,extended release Past Med/Surg History Medical History Benign localized hyperplasia of prostate with urinary obstruction Chronic prostatitis Fluid retention Chronic, abdomen/legs x 1+ years, following with Dr. Doran. No definitive etiology/issues s/p extensive workup.. Pt was on diuretic for a few weeks but d/t unremarkable workup, he states PCP stopped the diuretic. Improvement without further intervention over time per pt. 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 Family History Other Hypertension No family history of adverse response to anesthesia Social History Smoking Status: Never smoker Tobacco Type: Cigarettes Second Hand Exposure: No; Do You Dip or Chew Tobacco: No; Tobacco Cessation Education Requested by Patient: No Hx Alcohol Use: No Hx Substance Use: No Preferred Language: Haitian Communication Ability: Effective Nutrition Services Associate Required: No Beliefs That Will Affect Care: None marital status: Current Living Situation: Spouse Other Information That Helps Us Care for You: No Feels Safe at Home: Yes Safety Concerns: Feels Safe At This Time Assistive Devices: Glasses and Hearing Aid - Bilateral Review of Systems Review of Systems: All systems reviewed & are unremarkable except as noted in HPI & below Physical Exam Constitutional: well developed and well nourished; no acute distress Eyes: PERRL, conjunctivae normal, anicteric sclerae ENMT: Mouth: + dry oral mucous membranes Respiratory: normal respiratory effort, lungs clear to auscultation Cardiovascular: Rate/Rhythm: regular rate and regular rhythm Vessels: no JVD Extremities: + pedal edema (R (1+) > L (trace)) Gastrointestinal (Abdomen): normal bowel sounds, soft, nontender, no hepa tosplenomegaly Skin: no rashes, warm and dry Neurologic: moves all extremities and awake; no focal motor deficits (no unilateral weaknes) and not confused Speech / Cognition: normal speech Motor/Sensory: no tremor and no pronator drift Cranial Nerves: PERRL, EOM intact bilaterally, normal facial strength, tongue midline, able to rotate head bilaterally, able to elevate shoulders bilaterally, no nystagmus and symmetric palate elevation Psychiatric: A+Ox3, euthymic affect Genitourinary: + CVA tenderness (left) Results & Data Results & Data Vital Signs (Past 12 Hours) Vital Signs Temp Pulse Pulse Resp BP BP Pulse Ox 09/01/22 17:12 81 09/01/22 17:00 79 32 H 169/91 H 93 09/01/22 16:30 81 32 H 171/90 H 94 09/01/22 16:00 80 27 H 165/93 H 92 09/01/22 15:33 77 22 176/82 H 95 09/01/22 14:40 72 29 H 09/01/22 14:30 73 26 H 09/01/22 14:20 71 22 09/01/22 14:10 76 28 H 09/01/22 14:00 74 25 H 09/01/22 13:56 76 28 H 09/01/22 13:20 80 24 09/01/22 13:16 77 31 H 09/01/22 13:18 80 09/01/22 13:16 98 09/01/22 12:57 36.6 C 88 18 154/91 H 95 O2 Del Method 09/01/22 17:12 09/01/22 17:00 Room Air 09/01/22 16:30 Room Air 09/01/22 16:00 Room Air 09/01/22 15:33 Room Air 09/01/22 14:40 09/01/22 14:30 09/01/22 14:20 09/01/22 14:10 09/01/22 14:00 09/01/22 13:56 09/01/22 13:20 09/01/22 13:16 09/01/22 13:18 09/01/22 13:16 09/01/22 12:57 Room Air Laboratory Results Abnormal lab results 09/01/22 09/01/22 09/01/22 Range/Units 16:29 Unknown Unknown WBC 12.31 H (4.8-10.8) K/ul RBC 4.33 L (4.70-6.10) M/uL Hct 39.6 L (42.0-52.0) % Neut # (Auto) 9.86 H (1.40-6.50) K/uL Burleigh # (Auto) 0.98 H (0.11-0.59) K/uL Potassium 3.2 L (3.5-5.1) mmol/L Chloride 97 L (98-107) mmol/L Creatinine 1.61 H (0.6-1.4) mg/dl Glucose 104 H (70-99(Fasting)) mg/dl Total Bilirubin 1.4 H (0.2-1.0) mg/dl Lipase 9 L (11-82) U/L Urine Appearance Cloudy A (Clear) Urine Protein 1+ H (Negative) Urine Ketones Trace H (Negative) Urine Blood 3+ H (Negative) Urine Nitrite Positive A (Negative) Ur Leukocyte Esterase 2+ H (Negative) Urine WBC (Auto) >30 H (0-5) /hpf Urine RBC (Auto) >30 H (0-4) /hpf Diagnostic Findings CT head/brain wo con CLINICAL HISTORY: 77 years-old Male with Weak/dizzy. Acute headache with weakness TECHNIQUE: Multiple axial CT images of the head were obtained without contrast. A dose lowering technique was utilized adhering to the principles of ALARA. CT DOSE: 2007.20 mGy.cm COMPARISON: 03/21/2022 FINDINGS: No acute intracranial hemorrhage, midline shift, intracranial mass, acute territorial ischemia or abnormal extra-axial collection. Unchanged ventriculomegaly. Involutional changes with chronic microvascular ischemic disease. Chronic left thalamic lacunar infarct. The calvarium is intact. The paranasal sinuses, mastoid air cells, and middle ear cavities are clear. IMPRESSION: 1. No acute intracranial abnormality. 2. Unchanged ventriculomegaly which may be an ex vacuo basis or secondary to normal pressure hydrocephalus. CT SCAN OF THE ABDOMEN AND PELVIS WITHOUT IV CONTRAST CLINICAL HISTORY: Left flank pain. COMPARISON STUDY: Abdominal CT dated 03/28/2021. TECHNIQUE: CT scan of the abdomen and pelvis is performed from the lung bases to the proximal femora. Images are reviewed in the axial, sagittal, and coronal planes. IV contrast was not administered for this examination. A dose lowering technique was utilized adhering to the principles of ALARA. FINDINGS: Lung bases: The heart is enlarged and without pericardial effusion. The coronary arteries are densely calcified. There is a small hiatal hernia. The lung bases are clear noting bibasilar scarring/atelectasis. Gynecomastia is noted. Liver: The unenhanced liver is normal in size, contour, and attenuation. There is no intrahepatic biliary ductal dilatation. A calcified hepatic granuloma is incidentally noted. Gallbladder: Unremarkable. Spleen: Normal in size and attenuation. Pancreas: Unremarkable. Adrenal glands: Unremarkable. Kidneys: The unenhanced kidneys are normal in size. There is a 5 mm obstructing calculus in the left mid ureter seen on image #20 and 30. This is located at L3- L4 and causes moderate left hydroureteronephrosis. There is associated left- sided perinephric stranding. No additional osteochondral calculi are identified. There is a punctate nonobstructing right renal calculus. No right ureteral stone is seen and there is no right-sided hydronephrosis. There is no evidence of contour deforming renal mass lesion. Abdominal vasculature: The abdominal aorta is normal in course and caliber noting advanced atherosclerotic calcification. Bowel: There is mild to moderate colonic fecal retention. No bowel obstruction is seen. A duodenal diverticulum is incidentally noted. The appendix is well- visualized and normal. Peritoneum: No intraperitoneal free air is identified. There is trace free fluid in the pelvis. There is a fat-containing umbilical hernia. Lymphadenopathy: A 2.2 cm water attenuation structure in the left retroperitoneum posterior to the renal artery on image #179 is unchanged and may represent an inclusion cyst or lymphangioma. No lymphadenopathy is seen. Pelvic viscera: The prostate gland is enlarged and heterogeneous. The bladder wall is thickened/trabeculated indicating chronic outlet obstruction. Skeletal structures: The skeletal structures are osteopenic. There is mild lumbosacral spondylosis. A left-sided pars defect is noted at L5. No lytic or blastic lesions are seen. IMPRESSION: 1. There is a 5 mm obstructing calculus in the mid left ureter. This causes moderate left hydroureteronephrosis. 2. There is an additional punctate nonobstructing right renal calculus. 3. Cardiomegaly. 4. Prostatomegaly with evidence of chronic bladder outlet obstruction. 5. Trace free fluid in the pelvis is nonspecific and likely reactive. 6. Additional findings as above. Medications Administered ER Medications Given: JHOAN 500ml bolus Potassium chloride 40 meq Ceftriaxone 2g IV NSS 1L bolus ECG Rate (beats per minute): 80 Rhythm: normal sinus Findings: + PVC Comparison ECG Date: from (March 21, 2022) Change: the following changes noted Code Status & VTE Plan Code Status Full VTE Prophylaxis Plan VTE Prophylaxis will be ordered: Yes PG Care Time/CCT Total # of Minutes Spent Total Time Spent with Patient: Total time spent is greater than 50% in coordination of care (as documented) at patient's floor/unit and/or counseling patient: Coding Level of Care Code 61409 INT INP/OBS CARE 3/75MIN Diagnoses Complicated UTI (urinary tract infection) N39.0 Ureterolithiasis N20.1 Benign hypertension I10 BPH without obstruction/lower urinary tract symptoms N40.0
--- NOTE | 2022-09-01 19:22 | Urology Consultation ---
Date of Consultation September 01, 2022 Assessment & Plan (1) Ureterolithiasis: The patient has been admitted on the hospitalist service. From a urologic perspective we recommend proceeding as follows: I discussed case with my attending physician Dr. Zaragoza. As the patient is not overtly septic he feels due to the patient's recent TURP procedure it would be best to employ conservative measures for right now with intravenous fluids and broad-spectrum antibiotics. The patient has thus far been given Rocephin by the emergency department. We feel be in the best interest of the patient to change his antibiotic to Zosyn as able provide some pseudomonal coverage. This has been ordered and the nurse has been notified to administer this medication while he is still in the emergency department. IV fluid for hydration measures should be employed Analgesics to be employed Antiemetics to be provided The patient does take Flomax as an outpatient and this will be continued to help kidney stone expulsive therapy At the present time The patient is afebrile and normotensive without tachycardia. He does have a slight leukocytosis and some evidence of acute kidney injury. We do feel a trial of conservative measures with the above interventions is warranted. If the patient does spike any temperatures or has any signs of worsening infection or sepsis please notify urology as this may warrant earlier surgical intervention. The patient should be kept n.p.o. in case he would need any urgent surgical intervention Additional recommendations be forthcoming based on his clinical course as it unfolds History of Present Illness Reason for Consultation: Nephrolithiasis History of Present Illness This is a 77-year-old male who underwent a transurethral resection of the prostate on 08/13/[address] Rodriguez. He presented to the emergency department secondary to generalized weakness. At the time of my interview with the patient I obtained the historical data from the patient along with his who was present at the bedside and reviewed the patient's chart. Cording the patient's he was discharged from his TURP procedure with a catheter in place. She said that this was kept in place for 7 days and he had a voiding trial in the office which he subsequently passed. Since that time he was doing reasonably well able to void without difficulty. He did present to the emergency department secondary to not feeling well for approximately 3 days. Patient reported some left flank pain along with nausea and vomiting and and generalized weakness. He did not have any fevers but he did report some sweats and chills. Patient reports some dysuria and hematuria. He has passed a few small clots. Over the past 3 days he has not been eating or drinking very much and upon arrival to the emergency department he was unable to urinate and had to be straight cathed in order to obtain a urine specimen. He specifically denies any cough or shortness of breath. He also notes that he has not fallen and denies any head injuries or visual changes Since arrival to hospital patient has had labs and imaging which independent reviewed. Patient underwent a chest x-ray that showed some cardiomegaly with no evidence of pneumonia. A CT scan of the head was performed that showed no acute intracranial abnormalities. The patient was noted to have some ventriculomegaly but this was felt to be unchanged from a comparison study on 03/21/2022. A CT scan of the abdomen pelvis showed patient had a 5 mm obstructing kidney stone in the mid left ureter causing left hydronephrosis. Additional nonobstructing right renal calculi are noted. Prostamegaly with evidence of chronic bladder outlet obstruction was noted. Labs included CBC her white blood cell count was 12.3. Hemoglobin and hematocrit are 14.0 39.6. Platelet count was noted to be normal. Coagulation studies were normal. Chemistry profile showed sodium was 136 with a potassium of 3.2. BUN and creatinine were 23 and 1.6. (This level of creatinine did represent an increase from baseline values which range from 0.7-0.8). A urinalysis showed cloudy urine with positive nitrites and 2+ leukocyte Estrace. There were greater than 30 white blood cells per high-power field. There is no bacteria on the study there were no yeast on the study. COVID test was noted to be negative. At the time of my interview the patient was resting comfortably in bed and he was in no distress. Allergies Allergy/AdvReac Type Severity Reaction Status Date / Time No Known Allergies Allergy Verified 09/01/22 17:34 Home Medications Medication Instructions Recorded Confirmed Type atorvastatin 40 mg tablet 40 mg PO QAM 01/31/19 09/01/22 History clopidogrel 75 mg tablet 75 mg PO QAM #90 tabs 01/31/19 09/01/22 History cyanocobalamin (vitamin B-12) 50 50 mcg PO QAM 01/31/19 09/01/22 History mcg tablet folic acid 1 mg tablet 1 mg PO QAM 01/31/19 09/01/22 History psyllium husk 0.4 gram capsule 0.8 g PO UD PRN Constipation 01/31/19 09/01/22 History pyridoxine (vitamin B6) 50 mg 50 mg PO QAM 01/31/19 09/01/22 History tablet cholecalciferol (vitamin D3) 125 125 mcg PO QAM 04/09/20 09/01/22 History mcg (5,000 unit) capsule allopurinol 100 mg tablet 300 mg PO QAM 05/23/21 09/01/22 History Wheeled Walker #1 ea 06/13/21 05/28/22 Rx calcium carbonate 200 mg calcium 200 mg PO UD PRN HEARTBURN 07/10/21 09/01/22 History (500 mg) chewable tablet (Tums) solifenacin 10 mg tablet (Vesicare) 10 mg PO QPM 07/10/21 09/01/22 History dutasteride 0.5 mg capsule 0.5 mg PO DAILY #90 caps 09/23/21 09/01/22 Rx tamsulosin 0.4 mg capsule 0.4 mg PO DAILY #90 caps 09/23/21 09/01/22 Rx hydrochlorothiazide 25 mg tablet 25 mg PO QAM 08/06/22 09/01/22 History acetaminophen 500 mg capsule 1,000 mg PO TID PRN Pain 09/01/22 09/01/22 History amoxicillin 500 mg tablet 2,000 mg PO DIRECTED PRN PRIOR 09/01/22 09/01/22 History TO DENTAL PROCEDURES aspirin 81 mg tablet,delayed 81 mg PO DAILY 09/01/22 09/01/22 History release verapamil 240 mg 24 hr 240 mg PO QAM 09/01/22 09/01/22 History capsule,extended release Patient History Medical History Benign localized hyperplasia of prostate with urinary obstruction Chronic prostatitis Fluid retention Chronic, abdomen/legs x 1+ years, following with Dr. Doran. No definitive etiology/issues s/p extensive workup.. Pt was on diuretic for a few weeks but d/t unremarkable workup, he states PCP stopped the diuretic. Improvement without further intervention over time per pt. 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 Family History Other Hypertension No family history of adverse response to anesthesia Social History Smoking Status: Never smoker Tobacco Type: Cigarettes Second Hand Exposure: No; Do You Dip or Chew Tobacco: No; Hx Alcohol Use: Yes Alcohol type: wine Hx Substance Use: No Preferred Language: [place] Communication Ability: Effective Javascript Ui Developer Required: No Beliefs That Will Affect Care: None marital status: Current Living Situation: Spouse Feels Safe at Home: No Is there a partner from a previous relationship who is making you feel unsafe now?: No Assistive Devices: Glasses and Hearing Aid - Bilateral Review of Systems Constitutional: + chills and + sweats; no fever Eyes: no blind spots Ear, Nose, Mouth, Throat: no ear pain and no hearing loss Respiratory: no cough and no dyspnea Cardiovascular: no chest pain Gastrointestinal: + nausea and + vomiting; no abdominal pain Genitourinary: + as per Subjective / HPI Musculoskeletal: + back pain (Left) Integumentary: no rash Neurologic: + generalized weakness; no localized weakness Physical Exam Constitutional: WD/WN, vitals as above Eyes: no conjunctival abnormality ENMT: Ears: no hearing impairment and no external ear abnormality Oral mucosa is dry Neck: trachea midline Respiratory: normal respiratory effort, lungs clear to auscultation Cardiovascular: Rate/Rhythm: regular rate and regular rhythm Vessels: dorsalis pedis pulses present and radial pulses present Gastrointestinal (Abdomen): Abdomen is soft, nonrigid, nondistended. There is no rebound tenderness or guarding. Palpation does not cause pain Musculoskeletal: No calf tenderness. Feet are warm and well-perfused Skin: no rashes Neurologic: Patient is able to move all 4 extremities and follows simple commands without noted focal deficits Psychiatric: A+Ox3, euthymic affect Results & Data Vital Signs (Past 12 Hours) Vital Signs Temp Pulse Pulse Resp BP BP Pulse Ox 09/01/22 19:00 81 35 H 158/88 H 93 09/01/22 18:31 86 23 153/64 H 90 09/01/22 17:30 83 26 H 166/92 H 95 09/01/22 17:12 81 09/01/22 17:00 79 32 H 169/91 H 93 09/01/22 16:30 81 32 H 171/90 H 94 09/01/22 16:00 80 27 H 165/93 H 92 09/01/22 15:33 77 22 176/82 H 95 09/01/22 14:40 72 29 H 09/01/22 14:30 73 26 H 09/01/22 14:20 71 22 09/01/22 14:10 76 28 H 09/01/22 14:00 74 25 H 09/01/22 13:56 76 28 H 09/01/22 13:20 80 24 09/01/22 13:16 77 31 H 09/01/22 13:18 80 09/01/22 13:16 98 09/01/22 12:57 36.6 C 88 18 154/91 H 95 O2 Del Method 09/01/22 19:00 Room Air 09/01/22 18:31 Room Air 09/01/22 17:30 Room Air 09/01/22 17:12 09/01/22 17:00 Room Air 09/01/22 16:30 Room Air 09/01/22 16:00 Room Air 09/01/22 15:33 Room Air 09/01/22 14:40 09/01/22 14:30 09/01/22 14:20 09/01/22 14:10 09/01/22 14:00 09/01/22 13:56 09/01/22 13:20 09/01/22 13:16 09/01/22 13:18 09/01/22 13:16 09/01/22 12:57 Room Air PG Care Time/CCT Total # of Minutes Spent Total Time Spent with Patient: Total time spent is greater than 50% in coordination of care (as documented) at patient's floor/unit and/or counseling patient: Coding Level of Care Code 04129 INT INP/OBS CARE MIN Diagnoses Ureterolithiasis N20.1
[2022-09-01] MEDS ORDERED: PIPERACILLIN/TAZOBACTAM 4.5 GM/120 ML BAG IV ONE (19:30)
[2022-09-01] MEDS ORDERED: ACETAMINOPHEN 325 MG TAB PO PRN (20:31)
[2022-09-01] MEDS: OXYBUTYNIN CHLORIDE XL 5 MG TABCR PO SCH (21:37)
[2022-09-01] MEDS: PLASMA-LYTE A 1,000 ML IV SCH (21:47)
[2022-09-02] MEDS: PIPERACILLIN/TAZOBACTAM 4.5 GM in DEXTROSE 5% 100 ML IV SCH ×3 (02:21→18:53)
[2022-09-02] MEDS: PLASMA-LYTE A 1,000 ML IV SCH ×3 (06:00→22:31)
--- NOTE | 2022-09-02 08:18 | Urology Progress Note ---
Date of Service September 02, 2022 Assessment & Plan (1) Ureterolithiasis: (2) Complicated UTI (urinary tract infection): Plan: Follow-up of 5 mm mid left ureteral stone, suspected UTI Patient is afebrile with stable vitals No recurrent episodes of pain overnight No new labs this morning at time of visit UA on arrival was suspicious for infection with positive nitrates Urine culture is pending Currently on IV Zosyn Continue broad-spectrum antibiotics and narrow per sensitivity data when available Case discussed with Dr. Rodriguez. Given concern for urinary tract infection in the context of an obstructing ureteral stone, will proceed to OR for cystoscopy, left retrograde pyelogram and left ureteral stent placement. Patient agreeable to proceed with surgical intervention. Ureteral stents were discussed as well as post-operative issues and pain management. Discussed need for stone treatment at later date after acute infection is resolved. Risks and benefits of procedure to be reviewed with patient by Dr. Rodriguez. OR notified. Will cover with scheduled IV Zosyn preoperatively. Keep n.p.o. for procedure. Admission and Anticipated Discharge Date Admission Date: September 01, 2022 Supervising Physician Co-Signing Physician Notes Discussed patient with KWAN. Agree with plan. Plan to go to OR for cystoscopy, left retrograde, left stent Subjective Patient seen and examined at bedside this morning. He is awake and resting in bed. Reports no acute issues overnight. No recurrence of pain. Denies nausea, vomiting, fever, or chills. He is voiding spontaneously. Denies dysuria or hematuria. Urine and blood cultures pending. On IV Zosyn. Review of Systems Constitutional: as per Subjective / HPI Gastrointestinal: as per Subjective / HPI Genitourinary: + as per Subjective / HPI Physical Exam Constitutional: well developed and well nourished; no acute distress Respiratory: normal respiratory effort; no respiratory distress and no labored breathing Gastrointestinal (Abdomen): Inspection/Auscultation: abdomen normal to inspection; abdomen not distended Musculoskeletal: Head/Neck/Chest: normocephalic and head atraumatic Psychiatric: Orientation: alert and oriented x 3 Genitourinary: no CVA tenderness Results & Data Vital Signs (Past 12 Hours) Vital Signs Temp Pulse Pulse Resp BP Pulse Ox O2 Del Method 09/02/22 08:03 36.8 C 88 18 145/78 H 92 Room Air 09/02/22 03:18 37.5 C 69 16 147/77 H 93 Room Air 09/01/22 22:36 74 09/01/22 20:34 84 09/01/22 23:10 37.2 C 70 16 161/76 H 93 Room Air 09/01/22 20:35 Room Air 09/01/22 20:44 36.8 C 89 16 177/81 H 92 Room Air PG Care Time/CCT Total # of Minutes Spent Total Time Spent with Patient: Total time spent is greater than 50% in coordination of care (as documented) at patient's floor/unit and/or counseling patient: Coding Level of Care Code 19411 SUB INP/OBS CARE 04/23MIN Diagnoses Ureterolithiasis N20.1 Complicated UTI (urinary tract infection) N39.0
[2022-09-02] MEDS: ASPIRIN 81 MG ECTAB PO SCH (09:00)
[2022-09-02] MEDS: VERAPAMIL HCL 240 MG TABCR PO SCH (09:01)
[2022-09-02] MEDS: FINASTERIDE 5 MG TAB PO SCH (09:01)
[2022-09-02] MEDS: TAMSULOSIN HCL 0.4 MG CAP PO SCH (09:01)
[2022-09-02] MEDS: allopurinoL 300 MG TAB PO SCH (09:01)
[2022-09-02] MEDS: CLOPIDOGREL BISULFATE 75 MG TAB PO SCH (09:01)
[2022-09-02] MEDS: ATORVASTATIN 40 MG TAB PO SCH (11:00)
[2022-09-02] MEDS: CHOLECALCIFEROL 5,000 UNITS 125 MCG TAB PO SCH (11:00)
[2022-09-02] MEDS: FOLIC ACID 1 MG TAB PO SCH (11:01)
[2022-09-02] MEDS: CYANOCOBALAMIN (B-12) 100 MCG TABLET PO SCH (11:01)
--- NOTE | 2022-09-02 12:05 | Anesthesiology Consultation ---
Date of Service September 02, 2022 Assessment & Plan Chart Review Chart Review: Acceptable Risk for Surgery and Patient NOT seen in Pre Admission Testing Consults Requested none ASA ASA4 Proposed Anesthesia Anesthesia Type: MAC History Surgery Operation Date: 09/02/22 07:55 Proposed Procedures p Cystoscopy, Left Retrograde Pyelogram, Left Ureteral Stent Placement - Carlos Rodriguez MD Height/Weight Height: 5 ft 5 in Weight: 89 kg Allergies Allergy/AdvReac Type Severity Reaction Status Date / Time No Known Allergies Allergy Verified 09/01/22 17:34 Medications Home Medications Medication Instructions Recorded Confirmed Last Taken atorvastatin 40 mg tablet 40 mg PO QAM 01/31/19 09/01/22 09/01/22 clopidogrel 75 mg tablet 75 mg PO QAM #90 tabs 01/31/19 09/01/22 09/01/22 cyanocobalamin (vitamin B-12) 50 50 mcg PO QAM 01/31/19 09/01/22 09/01/22 mcg tablet folic acid 1 mg tablet 1 mg PO QAM 01/31/19 09/01/22 09/01/22 psyllium husk 0.4 gram capsule 0.8 g PO UD PRN Constipation 01/31/19 09/01/22 Unknown pyridoxine (vitamin B6) 50 mg 50 mg PO QAM 01/31/19 09/01/22 09/01/22 tablet cholecalciferol (vitamin D3) 125 125 mcg PO QAM 04/09/20 09/01/22 09/01/22 mcg (5,000 unit) capsule allopurinol 100 mg tablet 300 mg PO QAM 05/23/21 09/01/22 09/01/22 Wheeled Walker #1 ea 06/13/21 05/28/22 Unknown calcium carbonate 200 mg calcium 200 mg PO UD PRN HEARTBURN 07/10/21 09/01/22 Unknown (500 mg) chewable tablet (Tums) solifenacin 10 mg tablet (Vesicare) 10 mg PO QPM 07/10/21 09/01/22 08/31/22 dutasteride 0.5 mg capsule 0.5 mg PO DAILY #90 caps 09/23/21 09/01/22 09/01/22 tamsulosin 0.4 mg capsule 0.4 mg PO DAILY #90 caps 09/23/21 09/01/22 09/01/22 hydrochlorothiazide 25 mg tablet 25 mg PO QAM 08/06/22 09/01/22 09/01/22 acetaminophen 500 mg capsule 1,000 mg PO TID PRN Pain 09/01/22 09/01/22 Unknown amoxicillin 500 mg tablet 2,000 mg PO DIRECTED PRN PRIOR 09/01/22 09/01/22 Unknown TO DENTAL PROCEDURES aspirin 81 mg tablet,delayed 81 mg PO DAILY 09/01/22 09/01/22 09/01/22 release verapamil 240 mg 24 hr 240 mg PO QAM 09/01/22 09/01/22 09/01/22 capsule,extended release Active Medications Generic Name Dose Route Start Last Admin Trade Name Freq PRN Reason Stop Dose Admin Allopurinol 300 mg 09/02/22 09:00 09/02/22 09:01 Allopurinol 300 Mg Tab PO 10/02/22 08:59 300 mg QAM [facility] Administration Aspirin 81 mg 09/02/22 09:00 09/02/22 09:00 Aspirin 81 Mg Ectab PO 10/02/22 08:59 81 mg DAILY [place] Administration Atorvastatin Calcium 40 mg 09/02/22 09:00 09/02/22 11:00 Atorvastatin 40 Mg Tab PO 10/02/22 08:59 Not Given QAM [facility] Clopidogrel Bisulfate 75 mg 09/02/22 09:00 09/02/22 09:01 Clopidogrel Bisulfate 75 Mg Tab PO 10/02/22 08:59 75 mg QAM [place] Administration Cyanocobalamin 50 mcg 09/02/22 09:00 09/02/22 11:01 Cyanocobalamin (B-12) 100 Mcg Tablet PO 10/02/22 08:59 Not Given QAM [facility] Finasteride 5 mg 09/02/22 09:00 09/02/22 09:01 Finasteride 5 Mg Tab PO 10/02/22 08:59 5 mg DAILY [facility] Administration Protocol Folic Acid 1 mg 09/02/22 09:00 09/02/22 11:01 Folic Acid 1 Mg Tab PO 10/02/22 08:59 Not Given QAM [facility] Parenteral Electrolytes 1,000 mls @ 125 mls/hr 09/01/22 20:55 09/02/22 06:00 Plasma-Lyte A Ph 7.4 IV 10/01/22 20:54 125 mls/hr .Q8H [place] Administration Piperacillin Sod/Tazobactam 120 mls @ 30 mls/hr 09/02/22 02:00 09/02/22 11:03 Sod 4.5 gm/ Dextrose IV 09/12/22 01:59 30 mls/hr Q8H [place] Administration Protocol Oxybutynin Chloride 10 mg 09/01/22 21:00 09/01/22 21:37 Oxybutynin Chloride Xl 5 Mg Tabcr PO 10/01/22 20:59 10 mg QPM [place] Administration Tamsulosin HCl 0.4 mg 09/02/22 09:00 09/02/22 09:01 Tamsulosin Hcl 0.4 Mg Cap PO 10/02/22 08:59 0.4 mg DAILY [place] Administration Verapamil HCl 240 mg 09/02/22 09:00 09/02/22 09:01 Verapamil Hcl 240 Mg Tabcr PO 10/02/22 08:59 240 mg QAM [place] Administration Vitamin D 5,000 units 09/02/22 09:00 09/02/22 11:00 Cholecalciferol 5,000 Units 125 Mcg Tab PO 10/02/22 08:59 Not Given QAM [place] Past Medical History Medical History Benign localized hyperplasia of prostate with urinary obstruction Chronic prostatitis Fluid retention Chronic, abdomen/legs x 1+ years, following with Dr. Doran. No definitive etiology/issues s/p extensive workup.. Pt was on diuretic for a few weeks but d/t unremarkable workup, he states PCP stopped the diuretic. Improvement without further intervention over time per pt. No LE edema and soft, non-tender abdomen on PAT exam 07/11/21* Gout HX History of basal cell carcinoma History of SCC (squamous cell carcinoma) of skin HTN (hypertension) Hypercholesteremia TIA (transient ischemic attack) 2013- reason for plavix ASCVD aorta Exercise / Class Metabolic Activity III < 4 Walking/Shop/Light housework Past Family History Family History Other Hypertension No family history of adverse response to anesthesia Past Surgical History Surgical History H/O vasectomy History of colonoscopy History of prostate surgery "Prostate Transurethral Destruction Prostate Tissue" History of surgery "Shaving of Lesion Mohs' Technique" "Prostate Transurethral Destruction Prostate Tissue" 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 Past Anesthesia History No Hx of Anesthesia Complications and No Family Hx of Anesthesia Complications History of PONV No Hx of PONV and No Hx of Motion Sickness Social History Smoking Status: Never smoker Do You Dip or Chew Tobacco: No Hx Alcohol Use: No Alcohol type: wine alcohol intake frequency: a few times a month Hx Substance Use: No substance use type: does not use Physical Exam Vital Signs Last Vital Signs Temp 36.8 C 09/02/22 08:03 Pulse 88 09/02/22 08:03 Resp 18 09/02/22 08:03 BP 145/78 H 09/02/22 08:03 Pulse Ox 92 09/02/22 08:03 O2 Del Method Room Air 09/02/22 08:03 Testing Laboratory Results 09/01/22 Unknown 09/01/22 Unknown PT 10.8 Seconds (9.0-12.0) 09/01/22 Unknown INR 1.0 (0.9-1.1) 09/01/22 Unknown Urine Color Davison 09/01/22 16:29 Urine Appearance Cloudy (Clear) A 09/01/22 16:29 Urine pH 6.5 (4.5-7.5) 09/01/22 16:29 Ur Specific Joiner 1.019 (1.000-1.030) 09/01/22 16:29 Urine Protein 1+ (Negative) H 09/01/22 16:29 Urine Glucose (UA) Negative (Negative) 09/01/22 16:29 Urine Ketones Trace (Negative) H 09/01/22 16:29 Urine Nitrite Positive (Negative) A 09/01/22 16:29 Ur Leukocyte Esterase 2+ (Negative) H 09/01/22 16:29 Urine WBC (Auto) >30 /hpf (0-5) H 09/01/22 16:29 Urine RBC (Auto) >30 /hpf (0-4) H 09/01/22 16:29 U Hyaline Cast (Auto) 1-5 /lpf (0-5) 09/01/22 16:29 U Epithel Cells (Auto) 0-5 /lpf (0-5) 09/01/22 16:29 Urine Bacteria (Auto) Negative (Negative) 09/01/22 16:29 Electrocardiogram Date: 09/01/22 Findings: + NSR @ (@ 80w/occas. PVC's) Chest X-Ray Date: 09/01/22 Findings: + NAD, + cardiomegaly and + atherosclerosis of thoracic aorta
[2022-09-02] MEDS ORDERED: MIDAZOLAM HCL 1 MG/ML 2ML VIAL ONE (12:37)
[2022-09-02] MEDS ORDERED: ATROPINE SULFATE 0.1 MG/ML 10ML SYR IV PRN (12:41)
[2022-09-02] MEDS ORDERED: FLUMAZENIL 0.1 MG/1 ML 10 ML VIAL IV PRN (12:41)
[2022-09-02] MEDS ORDERED: PROMETHAZINE HCL 12.5 MG in SODIUM CHLORIDE 0.9% 50 ML IV PRN (12:41)
[2022-09-02] MEDS ORDERED: NALOXONE HCL 0.4 MG/1 ML VIAL/CARP IV PRN (12:41)
[2022-09-02] MEDS ORDERED: HYDROmorphone INJ 1 MG/ML SYRINGE IV PRN (12:41)
[2022-09-02] MEDS ORDERED: ePHEDrine sulfate 50 MG/ML AMP IV PRN (12:41)
[2022-09-02] MEDS ORDERED: ONDANSETRON INJ 2 MG/ML 2 ML VIAL IV PRN (12:41)
[2022-09-02] MEDS ORDERED: LABETALOL HCL IV 5 MG/ML 20ML IV PRN (12:41)
[2022-09-02] MEDS ORDERED: fentaNYL citrate PF 100 MCG/2 ML VIAL IV PRN (12:41)
[2022-09-02] MEDS ORDERED: KETAMINE 50 MG/5 ML SYRINGE ONE (12:57)
[2022-09-02] MEDS ORDERED: DIATRIZOATE MEGLUMINE 30% 100ML VIAL INSTIL ONE (13:05)
[2022-09-02] MEDS ORDERED: PROPOFOL IV EMULSION 10 MG/ML 20 ML VIAL IV ONE (13:06)
[2022-09-02] MEDS ORDERED: ONDANSETRON INJ 2 MG/ML 2 ML VIAL ONE (13:09)
--- NOTE | 2022-09-02 13:12 | Operative Report ---
PG Post Operative Report Pre & Post Diagnosis Left ureteral calculus Operation Date: 09/02/22 07:55 <No data on this case meets the specified criteria> Left ureteral calculus I identified the patient and participated in the time-out.: Yes Procedure Cystoscopy, left retrograde pyelogram with radiographic interpretation, left ureteral stent placed Operation Date: 09/02/22 07:55 <No data on this case meets the specified criteria> Surgeon Carlos Rodriguez MD Typewriter Tester None Estimated Blood Loss 0 Findings See Below Mild to moderate left hydro. Retrograde showed no extravasation. Stent in appropriate position. Specimens None Drains 6 Kosovan by 26 cm left ureteral stent Anesthesia Type General Indications 77-year-old male with a recent TURP who came in with left flank pain and nausea and vomiting. CT scan showed a mid left ureteral obstructing calculus. Presents for stent placement. Description of Procedure After informed consent was obtained, the patient was transported operative suite. MAC anesthesia was induced. The patient was placed in dorsal lithotomy position prepped and draped in a sterile fashion. They received preoperative Zosyn for antibiotic prophylaxis. An appropriate surgical timeout was performed. A 22 Kosovan rigid scope was inserted per urethra into the bladder. Previous TURP defect healing nicely and channel open. Rowe cystoscopy revealed no stones or lesions. I turned my attention the left ureteral orifice and intubated this with a 5 Kosovan open-ended catheter. A left retrograde pyelogram was shot which showed mild to moderate left hydro. A sensor wire was advanced into the kidney and confirmed fluoroscopically. A 6 Kosovan by 26 cm left ureteral stent was deployed with a good proximal coil in the renal pelvis and a good distal coil noted in the bladder. These were confirmed fluoroscopically and under direct visualization, respectively. The bladder was emptied and the scope was removed. This concluded the end of the case. All counts were correct at the end of the case. I was present, scrubbed, and actively participated for the entirety of the procedure. I attest to the content of the Intraoperative Record and any orders documented therein. Any exceptions are noted below.
--- NOTE | 2022-09-02 13:13 | Post Operative Brief Note ---
PG Immediate Post Op with CF Date of Surgery September 02, 2022 Pre & Post Diagnosis Operation Date: 09/02/22 07:55 Pre-Op Diagnosis: Complicated Urinary Tract Infection, URETEROLITHIASIS Post-Op Diagnosis: Complicated Urinary Tract Infection, URETEROLITHIASIS I identified the patient and participated in the time-out.: Yes Procedure Operation Date: 09/02/22 07:55 Actual Procedures p Cystoscopy, Left Retrograde Pyelogram, Left Ureteral Stent Placement(Left) - Carlos Rodriguez MD Surgeon Carlos Rodriguez MD Customer Experience Associate None Estimated Blood Loss 0 Findings See Below Left retrograde pyelogram showed moderate hydro-. Stents in appropriate position. Previous TURP defect healing well. Drains Other (6 German by 26 cm left ureteral stent) Anesthesia Type MAC Complications none
--- NOTE | 2022-09-02 13:50 | Anesthesiology Progress Note ---
Date of Service September 02, 2022 Anesthesia Post Procedure Vital Signs Vital Signs: Temp Pulse Pulse Resp BP BP Pulse Ox 09/02/22 13:40 63 19 111/58 L 92 09/02/22 13:30 62 20 116/59 L 98 09/02/22 13:21 36.1 C L 68 15 110/73 94 09/02/22 12:03 37 C 71 18 120/65 91 09/02/22 08:03 36.8 C 88 18 145/78 H 92 09/02/22 03:18 37.5 C 69 16 147/77 H 93 09/01/22 22:36 74 09/01/22 20:34 84 09/01/22 23:10 37.2 C 70 16 161/76 H 93 09/01/22 20:35 09/01/22 20:44 36.8 C 89 16 177/81 H 92 09/01/22 20:00 79 29 H 154/93 H 94 09/01/22 19:30 79 32 H 158/97 H 94 09/01/22 19:38 37.2 C 09/01/22 19:00 81 35 H 158/88 H 93 09/01/22 18:31 86 23 153/64 H 90 09/01/22 17:30 83 26 H 166/92 H 95 09/01/22 17:12 81 09/01/22 17:00 79 32 H 169/91 H 93 09/01/22 16:30 81 32 H 171/90 H 94 09/01/22 16:00 80 27 H 165/93 H 92 09/01/22 15:33 77 22 176/82 H 95 09/01/22 14:40 72 29 H 09/01/22 14:30 73 26 H 09/01/22 14:20 71 22 09/01/22 14:10 76 28 H 09/01/22 14:00 74 25 H 09/01/22 13:56 76 28 H O2 Del Method O2 Flow Rate 09/02/22 13:40 Nasal Cannula 2 09/02/22 13:30 Oxymask 5 09/02/22 13:21 Oxymask 9 09/02/22 12:03 Room Air 09/02/22 08:03 Room Air 09/02/22 03:18 Room Air 09/01/22 22:36 09/01/22 20:34 09/01/22 23:10 Room Air 09/01/22 20:35 Room Air 09/01/22 20:44 Room Air 09/01/22 20:00 Room Air 09/01/22 19:30 Room Air 09/01/22 19:38 09/01/22 19:00 Room Air 09/01/22 18:31 Room Air 09/01/22 17:30 Room Air 09/01/22 17:12 09/01/22 17:00 Room Air 09/01/22 16:30 Room Air 09/01/22 16:00 Room Air 09/01/22 15:33 Room Air 09/01/22 14:40 09/01/22 14:30 09/01/22 14:20 09/01/22 14:10 09/01/22 14:00 09/01/22 13:56 Pain Intensity Left Flank: Pain Intensity: 2 Transfer of Care Handoff Completed per policy Notes Mental Status: alert / awake / arousable Patient Amnestic to Procedure: Yes Nausea / Vomiting: adequately controlled Pain: adequately controlled Airway Patency, RR, SpO2: stable & adequate BP & HR: stable & adequate Hydration State: stable & adequate Anesthetic Complications: no major complications apparent
--- NOTE | 2022-09-02 14:31 | Fluoroscopy Report ---
FL retrograde includes kub CLINICAL HISTORY: LTleft-sided cystourethrogram COMPARISON STUDY: CT 09/01/2022 FLUOROSCOPY TIME: 18.7 seconds FLUOROSCOPY IMAGES: 7 EXPOSURE DOSE: 7.57 mGy FINDINGS: Left-sided ureteroscope with guidewire and retrograde injection of contrast demonstrates pe rsistent mild hydronephrosis. Subsequent images demonstrate placement of a left ureteral stent, proxi mal portion satisfactory positioning. The distal portion was not imaged. IMPRESSION: Fluoroscopic assistance as above. ACT 112: Negative or not required by law. Electronically signed by: Shane Schaeffer M.D. 09/02/2022 2:30 PM
[2022-09-02 14:51] LABS: A calco-baum cmplx NotReported Not Detected (NotDetected); Bact fragilis Not Reported Not Detected (NotDetected); C auris Not Reported Not Detected (NotDetected); Calbicans Not Reported Not Detected (NotDetected); Candida glabrata Not Reported Not Detected (NotDetected); Candida krusei Not Reported Not Detected (NotDetected); Cneoformans/gatti Not Reported Not Detected (NotDetected); Cparapsilosis Not Reported Not Detected (NotDetected); Ctropicalis Not Reported Not Detected (NotDetected); E cloacae compx Not Reported Not Detected (NotDetected); Efaecalis Not Reported Not Detected (NotDetected); Efaecium Not Reported Not Detected (NotDetected); Enterobacterales Not Reported Not Detected (NotDetected); Escherichia coli Not Reported Not Detected (NotDetected); H influenzae Not Reported Not Detected (NotDetected); K aerogenes Not Reported Not Detected (NotDetected); Koxytoca Not Reported Not Detected (NotDetected); Kpneumoniae grp Not Reported Not Detected (NotDetected); Lmonocyt Not Reported Not Detected (NotDetected); N meningitidis Not Reported Not Detected (NotDetected); P aeruginosa Not Reported Not Detected (NotDetected); Proteus spp Not Reported Not Detected (NotDetected); Salmonella spp Not Reported Not Detected (NotDetected); Smarcescens Not Reported Not Detected (NotDetected); Staph lugdunensis Not Reported Not Detected (NotDetected); Staph spp. Not Reported DETECTED (NotDetected); Staphaureus Not Reported Not Detected (NotDetected); Staphepi Not Reported DETECTED (NotDetected); Staphylococcus spp. DETECTED (NotDetected); Stenmaltophilia Not Reported Not Detected (NotDetected); Strep agal(GrpB) Not Reported Not Detected (NotDetected); Strep pneum Not Reported Not Detected (NotDetected); Strep pyog (GrpA) Not Reported Not Detected (NotDetected); Strep spp Not Reported Not Detected (NotDetected); mecAC Resistant Gene Not Detected (NotDetected)
[2022-09-02 14:58] LABS: Staphylococcus epidermidis DETECTED (NotDetected)
[2022-09-02] MEDS: OXYBUTYNIN CHLORIDE XL 5 MG TABCR PO SCH (21:14)
--- NOTE | 2022-09-02 22:16 | Hospitalist Progress Note ---
Date of Service September 02, 2022 Assessment & Plan (1) Complicated UTI (urinary tract infection): Plan: Complicated in setting of recent TURP and obstructing right ureterolithiasis. Ceftriaxone given in the ER. On discussion with urology will broaden coverage to Zosyn to cover pseudomonas. Follow up urine and blood cultures Left Retrograde Pyelogram, Left Ureteral Stent Placement(Left) Awaiting blood cultures to be finalized. continue antibiotics. (2) Ureterolithiasis: Plan: IV fluids, tamsulosin Consult urology - discussed with urology PA at time of admission (3) Benign hypertension: Plan: Hold HCTZ in setting of dehydration and acute infection Continue verapamil B/P at goal. (4) BPH without obstruction/lower urinary tract symptoms: Plan: s/p TURP 2 week ago, ribeiro catheter in for 7 days. Continue tamsulosin and dutasteride (5) Acute kidney failure: Plan: Creatinine was 1.6 likely due to the first problem will recheck in AM. Admission and Anticipated Discharge Date Admission Date: September 01, 2022 Subjective Patient reports no new symptoms. Review of Systems Review of Systems: All systems reviewed & are unremarkable except as noted in HPI & below Physical Exam Constitutional: well developed and well nourished; no acute distress Eyes: PERRL, conjunctivae normal, anicteric sclerae Respiratory: normal respiratory effort, lungs clear to auscultation Cardiovascular: Rate/Rhythm: regular rate and regular rhythm Vessels: no JVD Extremities: + pedal edema (R (1+) > L (trace)) Gastrointestinal (Abdomen): normal bowel sounds, soft, nontender, no hepatosplenomegaly Skin: no rashes, warm and dry Neurologic: moves all extremities and awake; no focal motor deficits (no unilateral weaknes) and not confused Speech / Cognition: normal speech Motor/Sensory: no tremor and no pronator drift Cranial Nerves: PERRL, EOM intact bilaterally, normal facial strength, tongue midline, able to rotate head bilaterally, able to elevate shoulders bilaterally, no nystagmus and symmetric palate elevation Psychiatric: A+Ox3, euthymic affect Results & Data Results & Data Vital Signs (Past 12 Hours) Vital Signs Temp Pulse Resp BP Pulse Ox O2 Del Method O2 Flow Rate 09/02/22 19:25 36.5 C 58 L 16 116/66 96 Nasal Cannula 2 09/02/22 14:00 37.1 C 62 18 121/63 94 Nasal Cannula 2 09/02/22 13:50 63 20 116/59 L 93 Nasal Cannula 2 09/02/22 13:40 63 19 111/58 L 92 Nasal Cannula 2 09/02/22 13:30 62 20 116/59 L 98 Oxymask 5 09/02/22 13:21 36.1 C L 68 15 110/73 94 Oxymask 9 09/02/22 12:03 37 C 71 18 120/65 91 Room Air PG Care Time/CCT Total # of Minutes Spent Total Time Spent with Patient: Total time spent is greater than 50% in coordination of care (as documented) at patient's floor/unit and/or counseling patient: Coding Level of Care Code 14855 SUB INP/OBS CARE MIN Diagnoses Complicated UTI (urinary tract infection) N39.0 Ureterolithiasis N20.1 Benign hypertension I10 BPH without obstruction/lower urinary tract symptoms N40.0 Acute kidney failure N17.9
[2022-09-03] MEDS: PIPERACILLIN/TAZOBACTAM 4.5 GM in DEXTROSE 5% 100 ML IV SCH (01:09)
--- NOTE | 2022-09-03 05:44 | Electrocardiogram Report ---
Test Reason : Blood Pressure : / mmHG Vent. Rate : 080 BPM Atrial Rate : 080 BPM P-R Int : 142 ms QRS Dur : 078 ms QT Int : 372 ms P-R-T Axes : 029 -24 040 degrees QTc Int : 429 ms Sinus rhythm with occasional Premature ventricular complexes Otherwise normal ECG When compared with ECG of 21-MAR-2022 03:22, Premature ventricular complexes are now Present Confirmed by Red Bauer ([id number] on 09/03/2022 5:44:07 AM Referred By: REFERRED SELF Confirmed By:Red Bauer
[2022-09-03] MEDS: PLASMA-LYTE A 1,000 ML IV SCH ×2 (06:21→15:51)
--- NOTE | 2022-09-03 06:49 | Urology Progress Note ---
Date of Service September 03, 2022 Assessment & Plan (1) Ureterolithiasis: (2) Complicated UTI (urinary tract infection): Plan 77-year-old male with recent TURP now with an obstructing left ureteral calculus and urinary tract infection with positive blood cultures. Status post cystosco py with stent placement on the left side on 09/02/2022. Patient subjectively improving Continue broad-spectrum antibiotics and tailor down once cultures are finalized Recommend repeating blood cultures Urology will set up outpatient follow-up to discuss stone treatment. Recommend a total of 14 days of antibiotics. Urology to follow peripherally Admission and Anticipated Discharge Date Admission Date: September 01, 2022 Subjective 77-year-old male with a recent history of TURP who presented to the hospital with left flank pain. Found to have an obstructing left ureteral calculus and concern for infection. Taken to the OR on 09/02/2022 for cystoscopy with left ham nt placement. Blood and urine cultures growing suspected staph. Afebrile with stable vitals. Subjectively reports feeling much better today. Urinating without issue. Review of Systems Review of Systems: 14 point review of systems negative outside of what is listed above in HPI Physical Exam Physical Exam: General: Alert and oriented, no acute distress HEENT: Normocephalic, mucous membranes moist Pulmonary: Nonlabored respirations Abdomen: Nondistended Extremities: Moves all 4 spontaneously Neuro: No gross deficits Skin: Warm, dry, no rashes Results & Data Vital Signs (Past 12 Hours) Vital Signs Temp Pulse Pulse Resp BP Pulse Ox O2 Del Method 09/03/22 05:55 51 L 21 159/75 H 96 Nasal Cannula 09/03/22 03:04 36.6 C 52 L 14 163/77 H 97 Nasal Cannula 09/02/22 19:56 Nasal Cannula 09/02/22 22:00 50 L 09/02/22 22:58 36.6 C 60 18 122/69 97 Nasal Cannula 09/02/22 19:25 36.5 C 58 L 16 116/66 96 Nasal Cannula O2 Flow Rate 09/03/22 05:55 2 09/03/22 03:04 2 09/02/22 19:56 2 09/02/22 22:00 09/02/22 22:58 2 09/02/22 19:25 2 PG Care Time/CCT Total # of Minutes Spent Total Time Spent with Patient: Total time spent is greater than 50% in coordination of care (as documented) at patient's floor/unit and/or counseling patient: Coding Level of Care Code 12033 SUB INP/OBS CARE 2MIN Diagnoses Ureterolithiasis N20.1 Complicated UTI (urinary tract infection) N39.0
[2022-09-03 07:07] LABS: BUN Creatinine Ratio 17.2 (10-20); Calcium 8.1 mg/dl (8.6-10.3); Creatinine Clr Calc Pharmacy 74.1 ml/min; Est GFR (African American) 97.2 ml/min; Est GFR (Non-African American) 83.8 ml/min; Potassium 3.3 mmol/L (3.5-5.1)
[2022-09-03 07:34] LABS: Hematocrit (blood only) 35.6 % (42.0-52.0); Hemoglobin 12.6 g/dl (14.0-18.0); Mean Corpuscular Hemoglobin 31.9 pg (25.0-34.0); Mean Corpuscular Hgb Conc 35.4 g/dL (32.0-36.0); Mean Corpuscular Volume 90.1 fL (80.0-100.0); Platelet Count 215 K/uL (130-400); RDW Coefficient of Variation 12.9 % (11.5-14.5); RDW Standard Deviation 42.5 fL (36.4-46.3); Red Blood Count 3.95 M/uL (4.70-6.10); White Blood Count 8.29 K/ul (4.8-10.8)
[2022-09-03] MEDS: TAMSULOSIN HCL 0.4 MG CAP PO SCH (07:56)
[2022-09-03] MEDS: allopurinoL 300 MG TAB PO SCH (07:56)
[2022-09-03] MEDS: ATORVASTATIN 40 MG TAB PO SCH (07:56)
[2022-09-03] MEDS: FINASTERIDE 5 MG TAB PO SCH (07:56)
[2022-09-03] MEDS: FOLIC ACID 1 MG TAB PO SCH (07:56)
[2022-09-03] MEDS: CHOLECALCIFEROL 5,000 UNITS 125 MCG TAB PO SCH (07:56)
[2022-09-03] MEDS: ASPIRIN 81 MG ECTAB PO SCH (07:57)
[2022-09-03] MEDS: VERAPAMIL HCL 240 MG TABCR PO SCH (07:57)
[2022-09-03] MEDS: CYANOCOBALAMIN (B-12) 100 MCG TABLET PO SCH (07:57)
[2022-09-03] MEDS: CLOPIDOGREL BISULFATE 75 MG TAB PO SCH (07:57)
[2022-09-03] MEDS: ceFAZolin 2000MG 2,000 MG/15 ML SYR IV SCH ×2 (09:10→16:07)
[2022-09-03] MEDS: ENOXAPARIN INJ 40 MG/0.4 ML SYR SQ SCH (15:51)
[2022-09-03] MEDS: OXYBUTYNIN CHLORIDE XL 5 MG TABCR PO SCH (20:06)
--- NOTE | 2022-09-03 22:41 | Hospitalist Progress Note ---
Date of Service September 03, 2022 Assessment & Plan (1) Complicated UTI (urinary tract infection): Plan: Complicated in setting of recent TURP and obstructing right ureterolithiasis. Ceftriaxone given in the ER. On discussion with urology will broaden coverage to Zosyn to cover pseudomonas. Follow up urine and blood cultures growing gram postivie in blood stream/ urine grew coag negative staph. awaiting negative blood culturees. ordered repeat on 09/03 and 09/04 in AM Left Retrograde Pyelogram, Left Ureteral Stent Placement(Left) Awaiting blood cultures to be finalized. continue antibiotics: now on cefazolin. (2) Ureterolithiasis: Plan: IV fluids, tamsulosin Consult urology - discussed with urology PA at time of admission (3) Benign hypertension: Plan: Hold HCTZ in setting of dehydration and acute infection Continue verapamil B/P at goal. (4) BPH without obstruction/lower urinary tract symptoms: Plan: s/p TURP 2 week ago, ribeiro catheter in for 7 days. Continue tamsulosin and dutasteride (5) Acute kidney failure: Plan: Creatinine was 1.6 likely due to the first problem improved. Admission and Anticipated Discharge Date Admission Date: September 01, 2022 Subjective Patient reports no new symptoms. Review of Systems Review of Systems: All systems reviewed & are unremarkable except as noted in HPI & below Physical Exam Constitutional: well developed and well nourished; no acute distress Eyes: PERRL, conjunctivae normal, anicteric sclerae Respiratory: normal respiratory effort, lungs clear to auscultation Cardiovascular: Rate/Rhythm: regular rate and regular rhythm Vessels: no JVD Extremities: + pedal edema (R (1+) > L (trace)) Gastrointestinal (Abdomen): normal bowel sounds, soft, nontender, no hepatospl enomegaly Skin: no rashes, warm and dry Neurologic: moves all extremities and awake; no focal motor deficits (no unilateral weaknes) and not confused Speech / Cognition: normal speech Psychiatric: A+Ox3, euthymic affect Results & Data Results & Data Vital Signs (Past 12 Hours) Vital Signs Temp Pulse Resp BP Pulse Ox O2 Del Method 09/03/22 19:39 36.5 C 63 18 145/74 H 90 Room Air 09/03/22 11:48 61 24 128/65 91 Room Air PG Care Time/CCT Total # of Minutes Spent Total Time Spent with Patient: Total time spent is greater than 50% in coordination of care (as documented) at patient's floor/unit and/or counseling patient: Coding Level of Care Code 17277 SUB INP/OBS CARE 2/35MIN Diagnoses Complicated UTI (urinary tract infection) N39.0 Ureterolithiasis N20.1 Benign hypertension I10 BPH without obstruction/lower urinary tract symptoms N40.0 Acute kidney failure N17.9
[2022-09-04] MEDS: ceFAZolin 2000MG 2,000 MG/15 ML SYR IV SCH ×3 (00:13→16:12)
[2022-09-04] MEDS: PLASMA-LYTE A 1,000 ML IV SCH ×4 (01:00→20:02)
[2022-09-04 07:32] LABS: Hematocrit (blood only) 35.2 % (42.0-52.0); Hemoglobin 12.4 g/dl (14.0-18.0); Mean Corpuscular Hgb Conc 35.2 g/dL (32.0-36.0); Mean Corpuscular Volume 90.7 fL (80.0-100.0); Mean Platelet Volume 9.7 fL (9.4-12.4); Platelet Count 227 K/uL (130-400); RDW Coefficient of Variation 13.2 % (11.5-14.5); Red Blood Count 3.88 M/uL (4.70-6.10)
--- NOTE | 2022-09-04 08:12 | Hospitalist Progress Note ---
Date of Service September 04, 2022 Assessment & Plan (1) Bacteremia: Plan: Coag neg staph UTI, two blood cultures show Gram positive 09/01/22, pending 09/03/22 will check TTE, follow CRP given acute bacteremia, may need prolonged antibiotic treatment, change to cefazolin (2) Complicated UTI (urinary tract infection): Plan: Complicated in setting of recent TURP and obstructing right ureterolithiasis. growing gram positive in blood stream/ urine grew coag negative staph., previous admission also with coag neg staph in urine awaiting negative blood cultures. tenative 09/03 cultures are negative ordered repeat on 09/03 and 09/04 in AM TTE pending Left Retrograde Pyelogram, Left Ureteral Stent Placement(Left) secoindary to urolithiasis Awaiting blood cultures to be finalized. continue antibiotics: now on cefazolin. (3) Benign hypertension: Plan: Hold HCTZ in setting of dehydration and acute infection Continue verapamil Initial shayla on CKD 2, shayla resolved (4) BPH without obstruction/lower urinary tract symptoms: Plan: s/p TURP 2 week ago, ribeiro catheter in for 7 days. Continue tamsulosin and dutasteride Admission and Anticipated Discharge Date Admission Date: September 01, 2022 Subjective Patient feels well no additional febrile symptoms echocardiogram complete infectious disease consult undertaken to determine duration of antibiotics for coagnegative staph bacteremia from urinary source Physical Exam Physical Exam: Patient awake and alert cardiac exam is regular no peripheral stigmata of endocarditis at this time Results & Data Results & Data Vital Signs (Past 12 Hours) Vital Signs Temp Pulse Pulse Resp BP Pulse Ox O2 Del Method 09/04/22 07:56 97.2 F L 73 20 149/92 H 94 Room Air 09/04/22 03:18 97.5 F L 57 L 18 159/81 H 95 Nasal Cannula 09/03/22 22:01 59 L 09/03/22 22:43 98.1 F 56 L 16 157/81 H 95 Nasal Cannula O2 Flow Rate 09/04/22 07:56 09/04/22 03:18 2 09/03/22 22:01 09/03/22 22:43 2 Laboratory Results Reviewed CBC reviewed chemistry PG Care Time/CCT Total # of Minutes Spent Total Time Spent with Patient: Total time spent is greater than 50% in coordination of care (as documented) at patient's floor/unit and/or counseling patient: Coding Level of Care Code 22635 SUB INP/OBS CARE 50MIN Diagnoses Bacteremia R78.81 Complicated UTI (urinary tract infection) N39.0 Benign hypertension I10 BPH without obstruction/lower urinary tract symptoms N40.0
[2022-09-04] MEDS: ASPIRIN 81 MG ECTAB PO SCH (08:28)
[2022-09-04] MEDS: CLOPIDOGREL BISULFATE 75 MG TAB PO SCH (08:28)
[2022-09-04] MEDS: FOLIC ACID 1 MG TAB PO SCH (08:29)
[2022-09-04] MEDS: CHOLECALCIFEROL 5,000 UNITS 125 MCG TAB PO SCH (08:29)
[2022-09-04] MEDS: FINASTERIDE 5 MG TAB PO SCH (08:29)
[2022-09-04] MEDS: CYANOCOBALAMIN (B-12) 100 MCG TABLET PO SCH (08:29)
[2022-09-04] MEDS: VERAPAMIL HCL 240 MG TABCR PO SCH (08:29)
[2022-09-04] MEDS: allopurinoL 300 MG TAB PO SCH (08:30)
[2022-09-04] MEDS: ATORVASTATIN 40 MG TAB PO SCH (08:30)
[2022-09-04] MEDS: TAMSULOSIN HCL 0.4 MG CAP PO SCH (08:30)
[2022-09-04 08:54] LABS: Calcium 8.2 mg/dl (8.6-10.3); Potassium 3.2 mmol/L (3.5-5.1)
[2022-09-04 09:00] LABS: BUN Creatinine Ratio 19.7 (10-20); Creatinine Clr Calc Pharmacy 91.6 ml/min; Est GFR (African American) 105.6 ml/min; Est GFR (Non-African American) 91.1 ml/min
--- NOTE | 2022-09-04 13:26 | Infectious Disease Consult ---
Date of Consultation September 04, 2022 Assessment & Plan (1) Bacteremia: (2) Complicated UTI (urinary tract infection): Plan #MSSE bacteremia #Complicated UTI #L hydronephrosis #Nephrolithiasis 77 yo M with h/o HTN, BPH s/p transurethral resection of the prostate on 08/13/2022 who was admitted with generalized weakness on 09/01. ID consulted for complicated UTI. Patient underwent TURP on 08/13 and discharged with ribeiro catheter. He began experiencing left flank pain w/ nausea and vomiting and and generalized weakness and admitted on 09/01. On admit, initial vitals stable. Initial labs remarkable for WBC 12.3. Cr 1.6. (baseline 0.7-0.8). A urinalysis showed cloudy urine with positive nitrites and 2+ LE with greater than 30 white blood cells per high-power field. CXR wo evidence of pneumonia. CT head wo intracranial abnormalities. Notably had ventriculomegaly but this was felt to be unchanged from a comparison study on 03/21/2022. A CT scan of the abdomen pelvis showed patient had a 5 mm obstructing kidney stone in the mid left ureter causing left hydronephrosis. Additional nonobstructing right renal calculi noted. He also had Prostamegaly with evidence of chronic bladder outlet obstruction was noted. 09/01 Ucx growing CoNS greater than 100,000 CFU/ml, Oxacillin sensitive. Notably grew this was similar to 08/04 Ucx with the same growth. 09/01 Blood culture CoNS, oxacillin sensitive. On 09/02 he underwent Cystoscopy with left ureteral stent placed Patient initially on ceftriaxone in ED then changed to Zosyn ID consulted in setting of bacteremia and Urinary findings. Recommend Agree with Continued Cefazolin 2G IV TID Follow Repeat blood cultures in lab Stent placement, unclear if stone extracted? D/W urology Thank you ID will follow Lucero Taylor MD Infectious Diseases Consultation Information This patient recommendation is based on a telemedicine consult request which was completed asynchronously through chart review and information provided by the primary physician. The patient was not seen or examined today. The evaluation is consultative in nature and all patient care and treatment decisions can either be accepted or rejected by the patient's primary hospital-based treating physician using their own independent medical judgment for their patient. Administrative Underwriter contact information: Please call [facility] . (Phone Number For Physician Use Only) Time Spent Reviewing Chart: 31+ minutes History of Present Illness Reason for Consultation: Complicated UTI Requesting Physician: Dr. Ospina Attending Physician: Chilo Ospina MD History of Present Illness 77 yo M with h/o HTN, BPH s/p transurethral resection of the prostate on 08/13/2022 who was admitted with generalized weakness on 09/01. ID consulted for complicated UTI. Patient underwent TURP on 08/13 and discharged with ribeiro catheter. He began experiencing left flank pain w/ nausea and vomiting and and generalized weakness and admitted on 09/01. On admit, initial vitals stable. Initial labs remarkable for WBC 12.3. Cr 1.6. (baseline 0.7-0.8). A urinalysis showed cloudy urine with positive nitrites and 2+ LE with greater than 30 white blood cells per high-power field. CXR wo evidence of pneumonia. CT head wo intracranial abnormalities. Notably had ventriculomegaly but this was felt to be unchanged from a comparison study on 03/21/2022. A CT scan of the abdomen pelvis showed patient had a 5 mm obstructing kidney stone in the mid left ureter causing left hydronephrosis. Additional nonobstructing right renal calculi noted. He also had Prostamegaly with evidence of chronic bladder outlet obstruction was noted. 09/01 Ucx growing CoNS greater than 100,000 CFU/ml, Oxacillin sensitive. Notably grew this was similar to 08/04 Ucx with the same growth. 09/01 Blood culture CoNS, oxacillin sensitive. On 09/02 he underwent Cystoscopy with left ureteral stent placed Patient initially on ceftriaxone in ED then changed to Zosyn ID consulted in setting of bacteremia and Urinary findings. Allergies Allergy/AdvReac Type Severity Reaction Status Date / Time No Known Allergies Allergy Verified 09/01/22 17:34 Home Medications Medication Instructions Recorded Confirmed Type atorvastatin 40 mg tablet 40 mg PO QAM 01/31/19 09/01/22 History clopidogrel 75 mg tablet 75 mg PO QAM #90 tabs 01/31/19 09/01/22 History cyanocobalamin (vitamin B-12) 50 50 mcg PO QAM 01/31/19 09/01/22 History mcg tablet folic acid 1 mg tablet 1 mg PO QAM 01/31/19 09/01/22 History psyllium husk 0.4 gram capsule 0.8 g PO UD PRN Constipation 01/31/19 09/01/22 History pyridoxine (vitamin B6) 50 mg 50 mg PO QAM 01/31/19 09/01/22 History tablet cholecalciferol (vitamin D3) 125 125 mcg PO QAM 04/09/20 09/01/22 History mcg (5,000 unit) capsule allopurinol 100 mg tablet 300 mg PO QAM 05/23/21 09/01/22 History Wheeled Walker #1 ea 06/13/21 05/28/22 Rx calcium carbonate 200 mg calcium 200 mg PO UD PRN HEARTBURN 07/10/21 09/01/22 History (500 mg) chewable tablet (Tums) solifenacin 10 mg tablet (Vesicare) 10 mg PO QPM 07/10/21 09/01/22 History dutasteride 0.5 mg capsule 0.5 mg PO DAILY #90 caps 09/23/21 09/01/22 Rx tamsulosin 0.4 mg capsule 0.4 mg PO DAILY #90 caps 09/23/21 09/01/22 Rx hydrochlorothiazide 25 mg tablet 25 mg PO QAM 08/06/22 09/01/22 History acetaminophen 500 mg capsule 1,000 mg PO TID PRN Pain 09/01/22 09/01/22 History amoxicillin 500 mg tablet 2,000 mg PO DIRECTED PRN PRIOR 09/01/22 09/01/22 History TO DENTAL PROCEDURES aspirin 81 mg tablet,delayed 81 mg PO DAILY 09/01/22 09/01/22 History release verapamil 240 mg 24 hr 240 mg PO QAM 09/01/22 09/01/22 History capsule,extended release Patient History Medical History Benign localized hyperplasia of prostate with urinary obstruction Chronic prostatitis Fluid retention Chronic, abdomen/legs x 1+ years, following with Dr. Doran. No definitive etiology/issues s/p extensive workup.. Pt was on diuretic for a few weeks but d/t unremarkable workup, he states PCP stopped the diuretic. Improvement without further intervention over time per pt. 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 Family History Other Hypertension No family history of adverse response to anesthesia Social History Smoking Status: Never smoker Tobacco Type: Cigarettes Second Hand Exposure: No; Do You Dip or Chew Tobacco: No; Hx Alcohol Use: No Hx Substance Use: No Preferred Language: Italian Communication Ability: Unable Sole Conditioner Required: No Beliefs That Will Affect Care: None marital status: Current Living Situation: Spouse Feels Safe at Home: Yes Assistive Devices: Cane and Walker Results & Data Vital Signs (Past 12 Hours) Vital Signs Temp Pulse Resp BP Pulse Ox O2 Del Method O2 Flow Rate 09/04/22 11:19 36.6 C 55 L 18 159/85 H 92 Room Air 09/04/22 08:00 75 09/04/22 07:56 36.2 C L 73 20 149/92 H 94 Room Air 09/04/22 03:18 36.4 C L 57 L 18 159/81 H 95 Nasal Cannula 2 Laboratory Results Laboratory Results - last 48 hr 09/01/22 09/03/22 09/03/22 17:23 06:21 06:21 WBC 8.29 RBC 3.95 L Hgb 12.6 L Hct 35.6 L MCV 90.1 MCH 31.9 MCHC 35.4 RDW Std Deviation 42.5 RDW Coeff of Agnieszka 12.9 Plt Count 215 MPV 10.0 Sodium 140 Potassium 3.3 L Chloride 105 Carbon Dioxide 28 Anion Gap 7 BUN 15 Creatinine 0.87 D Est Cr Clr Drug Dosing 74.1 Est GFR ( Amer) 97.2 Est GFR (Non-Af Amer) 83.8 BUN/Creatinine Ratio 17.2 Glucose 122 H Calcium 8.1 L Staphylococcus sp PCR DETECTED A mecA/C-Methicil Resis Gene Not Detected Staph epidermidis (PCR) DETECTED A Bld Cult ID Panel PCR See PCR Comment 09/04/22 09/04/22 07:06 07:06 WBC 8.50 RBC 3.88 L Hgb 12.4 L Hct 35.2 L MCV 90.7 MCH 32.0 MCHC 35.2 RDW Std Deviation 44.0 RDW Coeff of Agnieszka 13.2 Plt Count 227 MPV 9.7 Sodium 141 Potassium 3.2 L Chloride 105 Carbon Dioxide 27 Anion Gap 9 BUN 14 Creatinine 0.71 Est Cr Clr Drug Dosing 91.6 Est GFR ( Amer) 105.6 Est GFR (Non-Af Amer) 91.1 BUN/Creatinine Ratio 19.7 Glucose 86 Calcium 8.2 L Staphylococcus sp PCR mecA/C-Methicil Resis Gene Staph epidermidis (PCR) Bld Cult ID Panel PCR Microbiology 09/01/22 18:08 Blood Aerobic Blood Culture - Final Coag neg staph not lugdunensis 09/01/22 18:08 Blood Anaerobic Blood Culture - Final Coag neg staph not lugdunensis 09/01/22 17:23 Blood Aerobic Blood Culture - Final Coag neg staph not lugdunensis 09/01/22 17:23 Blood Anaerobic Blood Culture - Final Coag neg staph not lugdunensis 09/01/22 16:29 Urine,Straight Cath Urine Culture - Final Coag negative Staphylococcus Medications Administered Current Inpatient Medications Acetaminophen (Acetaminophen 325 Mg Tab) 650 mg PO Q4H PRN PRN Reason: Pain or Fever Stop: 10/01/22 20:30 Allopurinol (Allopurinol 300 Mg Tab) 300 mg PO [facility] Stop: 10/02/22 08:59 Last Admin: 09/04/22 08:30 Dose: 300 mg Aspirin (Aspirin 81 Mg Ectab) 81 mg PO DAILY [facility] Stop: 10/02/22 08:59 Last Admin: 09/04/22 08:28 Dose: 81 mg Atorvastatin Calcium ([facility] 40 Mg Tab) [facility]: 10/02/22 08:59 Last Admin: 09/04/22 08:30 Dose: 40 mg Clopidogrel Bisulfate (Clopidogrel Bisulfate 75 Mg Tab) 75 mg PO [facility] Stop: 10/02/22 08:59 Last Admin: 09/04/22 08:28 Dose: 75 mg Cyanocobalamin (Cyanocobalamin (B-12) 100 Mcg Tablet) 50 mcg PO QAM [facility] Stop: 10/02/22 08:59 Last Admin: 09/04/22 08:29 Dose: 50 mcg Enoxaparin Sodium (Enoxaparin Inj 40 Mg/0.4 Ml Syr) 40 mg SQ Q24H [place] Stop: 10/03/22 14:44 Last Admin: 09/03/22 15:51 Dose: 40 mg Finasteride (Finasteride 5 Mg Tab) 5 mg PO DAILY [facility]; Protocol Stop: 10/02/22 08:59 Last Admin: 09/04/22 08:29 Dose: 5 mg Folic Acid (Folic Acid 1 Mg Tab) 1 mg PO QAM [facility] Stop: 10/02/22 08:59 Last Admin: 09/04/22 08:29 Dose: 1 mg Parenteral Electrolytes (Plasma-Lyte A Ph 7.4) 1,000 mls @ 125 mls/hr IV .Q8H [facility] Stop: 10/01/22 20:54 Last Admin: 09/04/22 13:08 Dose: 125 mls/hr Cefazolin Sodium (Ancef 2000mg) 2,000 mg in 15 mls @ 3.75 mls/min IV Q8H [facility] Stop: 09/17/22 08:59 Last Admin: 09/04/22 08:32 Dose: 3.75 mls/min Oxybutynin Chloride (Oxybutynin Chloride Xl 5 Mg Tabcr) 10 mg PO QPM [facility] Stop: 10/01/22 20:59 Last Admin: 09/03/22 20:06 Dose: 10 mg Tamsulosin HCl (Tamsulosin Hcl 0.4 Mg Cap) 0.4 mg PO DAILY [facility] Stop: 10/02/22 08:59 Last Admin: 09/04/22 08:30 Dose: 0.4 mg Verapamil HCl (Verapamil Hcl 240 Mg Tabcr) 240 mg PO QAM [facility] Stop: 10/02/22 08:59 Last Admin: 09/04/22 08:29 Dose: 240 mg Vitamin D (Cholecalciferol 5,000 Units 125 Mcg Tab) [facility]: 10/02/22 08:59 Last Admin: 09/04/22 08:29 Dose: 5,000 units
[2022-09-04] MEDS: ENOXAPARIN INJ 40 MG/0.4 ML SYR SQ SCH (14:38)
[2022-09-04] MEDS: OXYBUTYNIN CHLORIDE XL 5 MG TABCR PO SCH (20:01)
[2022-09-04] MEDS: POTASSIUM CHLORIDE CRTAB 20 MEQ TABCR PO SCH (20:02)
--- NOTE | 2022-09-04 21:39 | XCELERA ---
[id number]
[2022-09-05] MEDS: ceFAZolin 2000MG 2,000 MG/15 ML SYR IV SCH ×3 (00:22→16:09)
[2022-09-05] MEDS: PLASMA-LYTE A 1,000 ML IV SCH (04:14)
[2022-09-05] MEDS: VERAPAMIL HCL 240 MG TABCR PO SCH (08:43)
[2022-09-05] MEDS: allopurinoL 300 MG TAB PO SCH (08:43)
[2022-09-05] MEDS: ASPIRIN 81 MG ECTAB PO SCH (08:43)
[2022-09-05] MEDS: CHOLECALCIFEROL 5,000 UNITS 125 MCG TAB PO SCH (08:43)
[2022-09-05] MEDS: TAMSULOSIN HCL 0.4 MG CAP PO SCH (08:43)
[2022-09-05] MEDS: FINASTERIDE 5 MG TAB PO SCH (08:43)
[2022-09-05] MEDS: CLOPIDOGREL BISULFATE 75 MG TAB PO SCH (08:43)
[2022-09-05] MEDS: FOLIC ACID 1 MG TAB PO SCH (08:44)
[2022-09-05] MEDS: CYANOCOBALAMIN (B-12) 100 MCG TABLET PO SCH (08:44)
[2022-09-05] MEDS: ATORVASTATIN 40 MG TAB PO SCH (08:44)
[2022-09-05] MEDS: POTASSIUM CHLORIDE CRTAB 20 MEQ TABCR PO SCH (08:45)
--- NOTE | 2022-09-05 09:48 | Infectious Disease Progress Nt ---
Date of Service September 05, 2022 Afebrile 09/04 Blood culture NG Assessment & Plan (1) Bacteremia: (2) Complicated UTI (urinary tract infection): Plan #MSSE bacteremia #Complicated UTI #L hydronephrosis #Nephrolithiasis 77 yo M with h/o HTN, BPH s/p transurethral resection of the prostate on 08/13/2022 who was admitted with generalized weakness on 09/01. ID consulted for complicated UTI. Patient underwent TURP on 08/13 and discharged with ribeiro catheter. He began experiencing left flank pain w/ nausea and vomiting and and generalized weakness and admitted on 09/01. On admit, initial vitals stable. Initial labs remarkable for WBC 12.3. Cr 1.6. (baseline 0.7-0.8). A urinalysis showed cloudy urine with positive nitrites and 2+ LE with greater than 30 white blood cells per high-power field. CXR wo evidence of pneumonia. CT head wo intracranial abnormalities. Notably had ventriculomegaly but this was felt to be unchanged from a comparison study on 03/21/2022. A CT scan of the abdomen pelvis showed patient had a 5 mm obstructing kidney stone in the mid left ureter causing left hydronephrosis. Additional nonobstructing right renal calculi noted. He also had Prostamegaly with evidence of chronic bladder outlet obstruction was noted. 09/01 Ucx growing CoNS greater than 100,000 CFU/ml, Oxacillin sensitive. Notably grew this was similar to 08/04 Ucx with the same growth. 09/01 Blood culture CoNS, oxacillin sensitive. On 09/02 he underwent Cystoscopy with left ureteral stent placed Patient initially on ceftriaxone in ED then changed to Zosyn ID consulted in setting of bacteremia and Urinary findings. Recommend Agree with Continued Cefazolin 2G IV TID Follow Repeat blood cultures in lab Plan to treat for at least 2 weeks from procedure through 09/17/22 If blood cultures from 09/[address] midline Would check CBC with diff and cmp weekly while on IV abx Stent placement, unclear if stone extracted? D/W urology D/w Dr. Ospina ID will s/o please call with questions. Lucero Taylor MD Infectious Diseases Admission and Anticipated Discharge Date Admission Date: September 01, 2022 Subjective This patient recommendation is based on a telemedicine consult request which was completed asynchronously through chart review and information provided by the primary physician. The patient was not seen or examined today. The evaluation is consultative in nature and all patient care and treatment decisions can either be accepted or rejected by the patient's primary hospital-based treating physician using their own independent medical judgment for their patient. Time Spent Reviewing Chart: 21 - 30 minutes Results & Data Vital Signs (Past 12 Hours) Vital Signs Temp Pulse Pulse Resp BP BP Pulse Ox 09/05/22 08:00 36.6 C 55 L 16 161/84 H 93 09/05/22 03:47 36.5 C 58 L 16 150/97 H 94 09/04/22 23:43 36.4 C L 54 L 18 171/83 H 95 09/04/22 23:20 45 L O2 Del Method 09/05/22 08:00 09/05/22 03:47 Room Air 09/04/22 23:43 Room Air 09/04/22 23:20 Laboratory Results Laboratory Results - last 48 hr 09/04/22 09/04/22 07:06 07:06 WBC 8.50 RBC 3.88 L Hgb 12.4 L Hct 35.2 L MCV 90.7 MCH 32.0 MCHC 35.2 RDW Std Deviation 44.0 RDW Coeff of Agnieszka 13.2 Plt Count 227 MPV 9.7 Sodium 141 Potassium 3.2 L Chloride 105 Carbon Dioxide 27 Anion Gap 9 BUN 14 Creatinine 0.71 Est Cr Clr Drug Dosing 91.6 Est GFR ( Amer) 105.6 Est GFR (Non-Af Amer) 91.1 BUN/Creatinine Ratio 19.7 Glucose 86 Calcium 8.2 L Microbiology 09/04/22 07:06 Blood Aerobic Blood Culture - Preliminary No growth in Aerobic bottle after 24 hours. 09/04/22 07:06 Blood Anaerobic Blood Culture - Preliminary No growth in Anaerobic bottle after 24 hours. 09/04/22 07:17 Blood Aerobic Blood Culture - Preliminary No growth in Aerobic bottle after 24 hours. 09/04/22 07:17 Blood Anaerobic Blood Culture - Preliminary No growth in Anaerobic bottle after 24 hours. 09/03/22 15:06 Blood Aerobic Blood Culture - Preliminary No growth in Aerobic bottle after 24 hours. 09/03/22 15:06 Blood Anaerobic Blood Culture - Preliminary No growth in Anaerobic bottle after 24 hours. 09/03/22 15:22 Blood Aerobic Blood Culture - Preliminary No growth in Aerobic bottle after 24 hours. 09/03/22 15:22 Blood Anaerobic Blood Culture - Preliminary No growth in Anaerobic bottle after 24 hours. 09/01/22 18:08 Blood Aerobic Blood Culture - Final Coag neg staph not lugdunensis 09/01/22 18:08 Blood Anaerobic Blood Culture - Final Coag neg staph not lugdunensis 09/01/22 17:23 Blood Aerobic Blood Culture - Final Coag neg staph not lugdunensis 09/01/22 17:23 Blood Anaerobic Blood Culture - Final Coag neg staph not lugdunensis 09/01/22 16:29 Urine,Straight Cath Urine Culture - Final Coag negative Staphylococcus
[2022-09-05] MEDS: ENOXAPARIN INJ 40 MG/0.4 ML SYR SQ SCH (13:37)
--- NOTE | 2022-09-05 17:43 | Discharge Summary ---
Date of Service September 05, 2022 Admission HPI Per Admitting Provider Robbi Christie is a 77 year old male who presents to the ER due to nausea, vomiting, lower back pain and generalized weakness. Initial symptoms of vomiting yesterday 4 times and complaints of lower back pain. Today the pain is in the center of his back without radiation, current severity 7/10 which is the worst it has been. No dysuria. He had a collapse onto the [place] today and couldn't get up therefore decided it was time to come to the ER. Associated fever, chills and worsening shuffling gait (which his reports usually occurs when he is sick). No one sided weakness or change in sensation. No change in speech, vision or hearing. The patient had a recent TURP procedure on August 13. He was doing well after this operation. up until this illness start 2 days ago. Principal Diagnosis MSSA bacteremia from urinary tract infection present on admission Discharge Exam Patient stable condition has no complaints or problems PICC line placed patient will complete course of IV for cefazolin to have last dose on 15 September Discharge Data Allergies Allergy/AdvReac Type Severity Reaction Status Date / Time No Known Allergies Allergy Verified 09/01/22 17:34 Consultations 09/01/22 17:38 Consult Urology Routine ED Decision to Admit Stat 09/04/22 08:16 Consult Infectious Diseases Routine Procedures Performed Operation Date: 09/02/22 07:55 Actual Procedures p Cystoscopy, Left Retrograde Pyelogram, Left Ureteral Stent Placement(Left) - Carlos Rodriguez MD Ordered Studies 09/01/22 13:17 CT abd pelvis wo con Stat CT head/brain wo con Stat 09/02/22 [place] retrograde includes kub Routine Hospital Course (1) Bacteremia: Coag neg staph UTI, two blood cultures show Gram positive 09/01/22, negative blood cultures from 09/[address] PICC line Transthoracic echocardiogram not show valvular vegetations Infectious disease recommends 2 weeks of IV cefazolin last dose 619 (2) Complicated UTI (urinary tract infection): Complicated in setting of recent TURP and obstructing right ureterolithiasis. growing gram positive in blood stream/ urine grew coag negative staph., previous admission also with coag neg staph in urine awaiting negative blood cultures. tenative 09/03 cultures are negative Continue to follow the 09/03 cultures and 09/04 cultures Left Retrograde Pyelogram, Left Ureteral Stent Placement(Left) secoindary to urolithiasis Awaiting blood cultures to be finalized. continue antibiotics: now on cefazolin. (3) Benign hypertension: Continue verapamil/hctz Initial shayla on CKD 2, shayla resolved (4) BPH without obstruction/lower urinary tract symptoms: s/p TURP 2 week ago patient had urine culture with MSSA Continue tamsulosin and dutasteride We will follow-up with urology as an outpatient Total Time Total Time Spent Total Time Spent (In Minutes): It required greater than 30 minutes to prepare this patient for discharge Discharge Plan Discharge Items Patient Disposition: Home - Self-Care Reason For Visit: UTI, URETEROLITHIASIS Discharge Diagnosis: staph bacteria in blood from uti poa urolithiasis with cysto and left ureteral stent Activity: Per Instructions section Activity Comment: gradually increase activity Non-emergency contact: Primary Care Provider and Urologist Call non-emergency contact if: your symptoms worsen Follow-up/Referrals: Tata Bustos [Primary Care Provider] - Diet: Regular Addtl Attending Provider Instructions: Complete all of ordered antibiotics and be sure to follow-up with your primary care provider and urologist If you have any issues with fevers chills change in urine or increasing pain please report back for reevaluation Pending Studies at Discharge: No Stand-Alone Forms: My [facility] [employer], Smoking Cessation Medications and DC Order Prescriptions: New cefazolin 2 gram recon soln 2 g IV Q8H Qty: 30 0RF Continued tamsulosin 0.4 mg capsule 0.4 mg PO DAILY Qty: 90 3RF dutasteride 0.5 mg capsule 0.5 mg PO DAILY Qty: 90 3RF folic acid 1 mg tablet 1 mg PO QAM pyridoxine (vitamin B6) 50 mg tablet 50 mg PO QAM cyanocobalamin (vitamin B-12) 50 mcg tablet 50 mcg PO QAM psyllium husk 0.4 gram capsule 0.8 g PO UD PRN (Reason: Constipation) clopidogrel 75 mg tablet 75 mg PO QAM Qty: 90 Hold Instructions: Resume on 08/16/22. atorvastatin 40 mg tablet 40 mg PO QAM allopurinol 100 mg tablet 300 mg PO QAM (DME[facility] See [facility] Instructions .MEDSUPPLY Qty: 1 0RF Rx Instructions: As directed cholecalciferol (vitamin D3) 125 mcg (5,000 unit) capsule 125 mcg PO QAM hydrochlorothiazide 25 mg Tablet 25 mg PO QAM aspirin 81 mg Tablet,Delayed Release (Dr/Ec) 81 mg PO DAILY verapamil 240 mg capsule,ext rel. pellets 24 hr 240 mg PO QAM amoxicillin 500 mg tablet 2,000 mg PO DIRECTED PRN (Reason: PRIOR TO DENTAL PROCEDURES) Rx Instructions: 4 tabs 1 hour prior to procedure acetaminophen 500 mg capsule 1,000 mg PO TID PRN (Reason: Pain) solifenacin [Vesicare] 10 mg tablet 10 mg PO QPM calcium carbonate [Tums] 200 mg calcium (500 mg) Tablet,Chewable 200 mg PO UD PRN (Reason: HEARTBURN ) Discharge Orders: Discharge Order (Routine); Ordered 09/05/22 Ordered By: Chilo Ospina Admission Data Admit Date/Time: 09/01/22 18:28 Attending Provider: Chilo Ospina Admit Provider: Jaswant Echeverria Primary Care Provider: Tata Bustos Other Providers: Jaswant Echeverria ; Pepe Zaragoza ; Jovita Connolly ; David Chowdhury ; Janae Bonilla ; Lucita Nguyen ; Isadora Ma ; Lucero Taylor ; Tali Arita ; Heather Truong ; Lu Medina Other Interventions: Discharge Summary Assessment (RN) Last Done: 09/05/22 16:12 Coding Level of Care Code 97580 INP/OBS DISCH >30 MIN Diagnoses Bacteremia R78.81 Complicated UTI (urinary tract infection) N39.0 Benign hypertension I10 BPH without obstruction/lower urinary tract symptoms N40.0
== END 2022-09-05 17:16 | disposition home or self-care (01) | DRG 660 ==
LOC: ED 12:53 → 2E 18:28 → SUATTDRO 18:28 → 2E 20:10

== ENCOUNTER 2024-04-30 23:47 | Inpatient (IN) ==
[2024-05-01] MEDS: OPTIRAY 320 125ml IV ONE (00:02)
--- NOTE | 2024-05-01 00:28 | CT Scan Report ---
EXAM: CT head/brain wo con CLINICAL HISTORY: neuro deficit, acute stroke suspected TECHNIQUE: Multiple axial images are obtained from the skull base to the vertex without contrast. CT scan was performed according to ALARA (as low as reasonable achievable). COMPARISON: none. FINDINGS: There is cerebral atrophy. No evidence of space occupying lesion, hemorrhage, edema, mass effect, midline shift, extra axial collection, or hydrocephalus is noted. Basal cisterns are symmetric and normal in size and configuration. There are scattered periventricular hypodensities as can be seen with chronic microvascular ischemic changes. The lomeli-white matter differentiation is preserved. Visualized paranasal sinuses and mastoid air cells are well aerated. Orbital contents are within normal limits. Bony structures are intact. IMPRESSION: 1. No evidence of acute intracranial abnormality is demonstrated. 2. Chronic microvascular ischemic changes. 3. Cerebral atrophy. Electronically signed by Shay James 05-01-2024 12:28 AM
--- NOTE | 2024-05-01 00:29 | CT Scan Report ---
EXAM: CT angio neck with con CLINICAL HISTORY: neuro deficit, acute stroke suspected TECHNIQUE: Contrast enhanced thin slice CT angiography scan of the carotid vessels was performed with intravenous contrast. Angiographic images were processed, 3D MIP images were acquired for interpretation.Contiguous axial images were obtained. Reformatted coronal and sagittal images were also reviewed. If IV contrast material had not been administered, the likelihood of detecting abnormalities relevant to the patients condition would have been substantially decreased. CT scan was performed according to ALARA (as low as reasonable achievable). COMPARISON: None. FINDINGS: Included great vessels of the aortic arch are grossly unremarkable. Common carotid artery, carotid Bulb, internal carotid artery , and origin of the external carotid artery are well opacified. Vertebral arteries are well opacified. Jugular veins are well opacified. Included lung apices are grossly unremarkable. Thyroid gland appears unremarkable. IMPRESSION: 1. No evidence of stenosis or aneurysm. No evidence of dissection. Electronically signed by Shay James 05-01-2024 12:29 AM
--- NOTE | 2024-05-01 00:31 | CT Scan Report ---
EXAM: CT angio head w con CLINICAL HISTORY: neuro deficit, acute stroke suspected TECHNIQUE: Contrast enhanced thin slice CT angiography scan of the cerebral vessels was performed with intravenous contrast. Angiographic images were processed, 3D MIP images were acquired for interpretation. Contiguous axial images were obtained. Reformatted coronal and sagittal images were also reviewed. If IV contrast material had not been administered, the likelihood of detecting abnormalities relevant to the patients condition would have been substantially decreased. CT scan was performed according to ALARA (as low as reasonable achievable). COMPARISON: none. FINDINGS: Atherosclerotic calcifications are noted involving cavernous, clinoid and supraclinoid segment of bilateral internal carotid arteries. Focal stenosis ( 60%-70%) is noted involving M1 segment of left middle cerebral artery with well maintained distal perfusion. Bilateral internal carotid arteries show normal course, calibre and opacification in the canalicular and cavernous part. Their division into the anterior cerebral artery and middle cerebral artery is defined. A1, A2 and M1, M2 segments are normal on both the sides. Bilateral vertebral arteries are seen to unite the form the basilar artery in a normal fashion. Basilar artery shows normal course, caliber and opacification. Its division into the posterior cerebral arteries is defined. Bilateral P1 and P2 segments are normal. Visualized venous structures show normal opacification. No evidence of intracranial aneurysm or AV malformation is seen. IMPRESSION: Focal stenosis ( 60%-70%) is noted involving M1 segment of left middle cerebral artery with well maintained distal perfusion. Atherosclerotic calcifications are noted involving cavernous, clinoid and supraclinoid segment of bilateral internal carotid arteries. No stenosis. No evidence of aneurysm. No evidence of dissection. Electronically signed by Shay James 05-01-2024 12:31 AM
[2024-05-01 00:32] LABS: Basophils # (auto) 0.05 K/uL (0.00-0.20); Basophils % (auto) 0.5 %; Eosinophils # (auto) 0.09 K/uL (0.00-0.50); Eosinophils % (auto) 0.8 %; Hematocrit (blood only) 40.2 % (42.0-52.0); Hemoglobin 13.8 g/dl (14.0-18.0); Immature Granulocytes # (auto) 0.08 K/uL (0.01-0.20); Immature Granulocytes % (auto) 0.7 %; Lymphocytes # (auto) 1.49 K/uL (1.20-3.40); Lymphocytes % (auto) 13.7 %; Mean Corpuscular Hemoglobin 31.6 pg (25.0-34.0); Mean Corpuscular Hgb Conc 34.3 g/dL (32.0-36.0); Mean Platelet Volume 9.2 fL (9.4-12.4); Monocytes # (auto) 1.26 K/uL (0.11-0.59); Monocytes % (auto) 11.5 %; Neutrophils # (auto) 7.94 K/uL (1.40-6.50); Neutrophils % (auto) 72.8 %; Platelet Count 172 K/uL (130-400); RDW Coefficient of Variation 13.1 % (11.5-14.5); RDW Standard Deviation 44.7 fL (36.4-46.3); Red Blood Count 4.37 M/uL (4.70-6.10); White Blood Count 10.91 K/ul (4.8-10.8)
[2024-05-01 00:44] LABS: Albumin Globulin Ratio 1.2 (0.9-2); Albumin Level 3.6 gm/dl (3.4-5.0); BUN Creatinine Ratio 19.8 (10-20); Bilirubin,Total 0.6 mg/dl (0.2-1.0); Calcium 8.6 mg/dl (8.6-10.3); Creatinine Clr Calc Pharmacy 73.2 ml/min; Magnesium 1.6 mg/dl (1.7-2.4); Potassium 3.6 mmol/L (3.5-5.1); Total Protein 6.6 gm/dl (6.0-8.3)
[2024-05-01 00:50] LABS: Troponin I High Sensitivity 9.4 pg/ml (0-20)
--- NOTE | 2024-05-01 00:51 | Emergency Department Note ---
Impression & Plan Stroke, Influenza A, Fever ED Provider Note NAME: LAI CAMPBELL AGE: 79 SEX: M : 1945 ARRIVES VIA: Ambulance INFORMANT: Patient, ED PROVIDER(S): Sally Garcia MD CHIEF COMPLAINT: Left upper and lower extremity weakness HPI: This is a 79-year-old male presenting for stroke alert. Patient was reported last known well around 21:45. Patient has reportedly been having shuffling gait for the past 1 day, has had sinus congestion and fevers. However patient went to bed around 9:45 PM and was found at around 1045 on the ground near his bed. At this time they were unable to get up off the ground. He had left upper arm weakness. EMS was then alerted. Patient does take Plavix. Otherwise patient is noted to have left upper lower extremity weakness as per the . He was also confused when he woke up on the ground but is since returned with a somewhat normal baseline. ROS: See above HPI for pertinent positives & negatives. A total of 10 systems reviewed and were otherwise negative. PAST MEDICAL HISTORY: See Below PAST SURGICAL HISTORY: See Below FAMILY HISTORY: See Below SOCIAL HISTORY: See Below HOME MEDICATIONS: See Below ALLERGIES: See Below VITALS: See Below PHYSICAL EXAMINATION: General: resting comfortably in no acute distress Head: Normocephalic and atraumatic Eyes: Normal inspection, extraocular muscles intact Ear, nose, throat: Normal external exam Neck: Normal range of motion Respiratory: lungs clear to auscultation bilaterally Cardiovascular: Regular rate/rhythm, no murmur GI: soft, nontender, no guarding or rebound Extremities: nontender, moves all extremities Neuro: Awake, alert, follows all commands, left upper extremity weakness, strength 2/5. Bilateral lower extremity 4/5, cranial 2 through 12 intact Skin: Warm, dry, and intact MEDICAL DECISION MAKING: This is a 79-year-old male presenting for a stroke alert. Patient is currently febrile, hypertensive. Consider stroke/TIA -Discussed care with stroke neurologist, Dr. Hogan, and based on symptoms and timeframe, patient will be a candidate for TNK -CT and CT a head/neck revealed no acute LVO or bleed. -Dr. Roman, has evaluated patient via telestroke cart. He does recommend TNK at this time. This has been ordered. The risk and benefits were discussed with the family by myself prior to this evaluation and then confirmed with Dr. Ray Del Castillo who per the formal consent process. -Patient given TNK -Patient is still febrile, will give Tylenol 1000 mg. Also order fluids for the patient. -Chest Xray independently interpreted by me showing no pneumothorax, focal opacity, or pleural effusions. -Influenza A positive -At this time patient admitted for stroke, receiving TNK, flu and fevers Differential diagnosis: Stroke, TIA, sepsis, upper respiratory infection, pneumonia, meningitis Independent History obtained from: Diagnostics interpreted by me: ECG: ECG independently interpreted by me with likely atrial fibrillation at a rate of 95, normal QRS, normal QTc, no ST segment elevations consistent with STEMI criteria Cardiac Monitoring: An order was placed for continuous cardiac monitoring. The monitor shows a rate of 90 with atrial fibrillation rhythm. Critical Care Note: I have personally spent 75 minutes of critical care time in the direct management of this patient. This includes bedside care, interpretation of diagnostic studies, and testing, discussion with consultants, patient, and family members, and other required patient management activities. This 75 minutes is in excess of all separately billable procedures. 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 pt has picc line and recieving IV antibiotics till 09/15 Kidney stone Fluid retention Chronic, abdomen/legs x 1+ years, following with Dr. Doran. No definitive etiology/issues s/p extensive workup.. Pt was on diuretic for a few weeks but d/t unremarkable workup, he states PCP stopped the diuretic. Improvement without further intervention over time per pt. No LE edema and soft, non-tender abdomen on PAT exam 07/11/21* Hypercholesteremia HTN (hypertension) Gout HX History of SCC (squamous cell carcinoma) of skin Chronic prostatitis History of basal cell carcinoma TIA (transient ischemic attack) 2013- reason for plavix Surgical History History of cystoscopy with stent 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 History of prostate surgery "Prostate Transurethral Destruction Prostate Tissue" History of colonoscopy H/O vasectomy History of surgery "Shaving of Lesion Mohs' Technique" "Prostate Transurethral Destruction Prostate Tissue" Family History Other Hypertension No family history of adverse response to anesthesia Social History Smoking Status: Never smoker Tobacco Type: Cigarettes Second Hand Exposure: No; Do You Dip or Chew Tobacco: No; Hx Alcohol Use: Yes Alcohol type: wine Hx Substance Use: No Preferred Language: Malian Communication Ability: Effective Relay Technician Required: No Beliefs That Will Affect Care: None marital status: Current Living Situation: Spouse Feels Safe at Home: Yes Safety Concerns: Feels Safe At This Time Assistive Devices: Glasses and Hearing Aid - Bilateral Allergies Allergies Allergy/AdvReac Type Severity Reaction Status Date / Time No Known Allergies Allergy Verified 04/18/24 09:00 Home Meds Home Medications Medication Instructions Recorded Confirmed atorvastatin 40 mg tablet 40 mg PO QAM 01/31/19 05/01/24 clopidogrel 75 mg tablet 75 mg PO QAM #90 tabs 01/31/19 05/01/24 cyanocobalamin (vitamin B-12) 50 50 mcg PO QAM 01/31/19 05/01/24 mcg tablet folic acid 1 mg tablet 1 mg PO QAM 01/31/19 05/01/24 psyllium husk 0.4 gram capsule 0.8 g PO UD PRN Constipation 01/31/19 05/01/24 pyridoxine (vitamin B6) 50 mg 50 mg PO QAM 01/31/19 05/01/24 tablet cholecalciferol (vitamin D3) 125 125 mcg PO QAM 04/09/20 05/01/24 mcg (5,000 unit) capsule hydrochlorothiazide 25 mg tablet 25 mg PO QAM 08/06/22 05/01/24 acetaminophen 500 mg capsule 1,000 mg PO TID PRN Pain 09/01/22 05/01/24 aspirin 81 mg tablet,delayed 81 mg PO QAM 09/01/22 05/01/24 release verapamil 240 mg 24 hr 240 mg PO QAM 09/01/22 05/01/24 capsule,extended release allopurinol 300 mg tablet 300 mg PO QAM 05/01/24 05/01/24 Previous Rx's Medication Instructions Recorded Wheeled Walker #1 ea 06/13/21 amoxicillin 500 mg tablet 2,000 mg (4 x 500 mg) PO ONCE 12/16/22 PRIOR TO DENTAL PROCEDURES #4 tabs Results & Data (ED) Vital Signs Vital Signs - 24 hr 04/30/24 23:44 04/30/24 23:44 04/30/24 23:58 Temperature 38.1 C H Temperature Source Oral Pulse Rate 112 H 96 H Pulse Rate [Apical] Pulse Rhythm Regular Pulse Rhythm [Apical] Pulse Strength Normal Pulse Strength [Apical] Respiratory Rate 18 Respiratory Effort / Characteristics Non-Labored Spontaneous Respiratory Depth Normal Respiratory Pattern Regular Blood Pressure 193/105 H Blood Pressure [Right Arm] Blood Pressure Mean 134 Blood Pressure Mean [Right Arm] Blood Pressure Position Semi-fowlers Blood Pressure Position [Right Arm] Pulse Oximetry 97 94 Oxygen Delivery Method Room Air Room Air Sepsis Recent Fever Within 48 Hours Yes Sepsis New/Unexplained Change in Mental Status Yes Sepsis Action Taken by Nursing Physician Notified 05/01/24 00:30 05/01/24 01:20 05/01/24 01:35 Temperature 37.6 C H Temperature Source Oral Pulse Rate Pulse Rate [Apical] 93 H 94 H 98 H Pulse Rhythm Pulse Rhythm [Apical] Regular Regular Regular Pulse Strength Pulse Strength [Apical] Normal Normal Normal Respiratory Rate 18 18 18 Respiratory Effort / Characteristics Non-Labored Spontaneous Non-Labored Spontaneous Non-Labored Spontaneous Respiratory Depth Normal Normal Normal Respiratory Pattern Regular Regular Regular Blood Pressure Blood Pressure [Right Arm] 173/100 H 176/90 H 162/84 H Blood Pressure Mean Blood Pressure Mean [Right Arm] 124 118 110 Blood Pressure Position Blood Pressure Position [Right Arm] Semi-fowlers Semi-fowlers Semi-fowlers Pulse Oximetry 94 94 94 Oxygen Delivery Method Room Air Room Air Room Air Sepsis Recent Fever Within 48 Hours Sepsis New/Unexplained Change in Mental Status Sepsis Action Taken by Nursing 05/01/24 01:50 05/01/24 02:00 05/01/24 02:05 Temperature Temperature Source Pulse Rate Pulse Rate [Apical] 94 H 97 H 100 H Pulse Rhythm Pulse Rhythm [Apical] Regular Regular Regular Pulse Strength Pulse Strength [Apical] Normal Normal Normal Respiratory Rate 18 18 18 Respiratory Effort / Characteristics Non-Labored Spontaneous Non-Labored Spontaneous Non-Labored Spontaneous Respiratory Depth Normal Normal Normal Respiratory Pattern Regular Regular Regular Blood Pressure Blood Pressure [Right Arm] 147/79 H 171/77 H Blood Pressure Mean Blood Pressure Mean [Right Arm] 101 108 Blood Pressure Position Blood Pressure Position [Right Arm] Semi-fowlers Semi-fowlers Pulse Oximetry 94 95 96 Oxygen Delivery Method Room Air Room Air Room Air Sepsis Recent Fever Within 48 Hours Sepsis New/Unexplained Change in Mental Status Sepsis Action Taken by Nursing 05/01/24 02:20 05/01/24 02:35 Temperature Temperature Source Pulse Rate Pulse Rate [Apical] 98 H 89 Pulse Rhythm Pulse Rhythm [Apical] Regular Regular Pulse Strength Pulse Strength [Apical] Normal Normal Respiratory Rate 18 18 Respiratory Effort / Characteristics Non-Labored Spontaneous Non-Labored Spontaneous Respiratory Depth Normal Normal Respiratory Pattern Regular Regular Blood Pressure Blood Pressure [Right Arm] 155/78 H 145/79 H Blood Pressure Mean Blood Pressure Mean [Right Arm] 103 101 Blood Pressure Position Blood Pressure Position [Right Arm] Semi-fowlers Semi-fowlers Pulse Oximetry 97 94 Oxygen Delivery Method Room Air Room Air Sepsis Recent Fever Within 48 Hours Sepsis New/Unexplained Change in Mental Status Sepsis Action Taken by Nursing Laboratory Data 05/01/24 04:13 05/01/24 04:13 Lab Results 05/01/24 05/01/24 Range/Units 00:02 00:14 WBC 10.91 H (4.8-10.8) K/ul RBC 4.37 L (4.70-6.10) M/uL Hgb 13.8 L (14.0-18.0) g/dl Hct 40.2 L (42.0-52.0) % MCV 92.0 (80.0-100.0) fL MCH 31.6 (25.0-34.0) pg MCHC 34.3 (32.0-36.0) g/dL RDW Std Deviation 44.7 (36.4-46.3) fL RDW Coeff of Agnieszka 13.1 (11.5-14.5) % Plt Count 172 (130-400) K/uL MPV 9.2 L (9.4-12.4) fL Immature Gran % (Auto) 0.7 % Neut % (Auto) 72.8 % Lymph % (Auto) 13.7 % [place] % (Auto) 11.5 % Eos % (Auto) 0.8 % Baso % (Auto) 0.5 % Neut # (Auto) 7.94 H (1.40-6.50) K/uL Lymph # (Auto) 1.49 (1.20-3.40) K/uL [place] # (Auto) 1.26 H (0.11-0.59) K/uL Eos # (Auto) 0.09 (0.00-0.50) K/uL Baso # (Auto) 0.05 (0.00-0.20) K/uL Immature Gran # (Auto) 0.08 (0.01-0.20) K/uL PT 11.1 (9.0-12.0) Seconds INR 1.0 (0.9-1.1) APTT 26 (21-31) Seconds PTT Ratio 1.0 Sodium 134 L (136-145) mmol/L Potassium 3.6 (3.5-5.1) mmol/L Chloride 97 L (98-107) mmol/L Carbon Dioxide 30 (21-32) mmol/L Anion Gap 7 (3-11) BUN 17 (6-23) mg/dl Creatinine 0.86 (0.6-1.4) mg/dl Est Cr Clr Drug Dosing 73.2 ml/min eGFR 88.63 BUN/Creatinine Ratio 19.8 (10-20) Glucose 112 H (70-99(Fasting)) mg/dl Calcium 8.6 (8.6-10.3) mg/dl Magnesium 1.6 L (1.7-2.4) mg/dl Total Bilirubin 0.6 (0.2-1.0) mg/dl AST 32 (13-39) U/L ALT 24 (7-52) U/L Alkaline Phosphatase 73 (34-104) U/L Troponin I High Sens 9.4 (0-20) pg/ml Total Protein 6.6 (6.0-8.3) gm/dl Albumin 3.6 (3.4-5.0) gm/dl Globulin 3.0 (2.5-4.0) gm/dl Albumin/Globulin Ratio 1.2 (0.9-2) Adenovirus (PCR) Not Detected (NotDetected) B. pertussis DNA (PCR) Not Detected (NotDetected) B.parapertussis DNA PCR Not Detected (NotDetected) C. pneumoniae DNA (PCR) Not Detected (NotDetected) Coronavirus OC43 (PCR) Not Detected (NotDetected) Coronavirus HKU1 (PCR) Not Detected (NotDetected) Coronavirus 229E (PCR) Not Detected (NotDetected) SARS-CoV-2 (PCR) Not Detected (NotDetected) Coronavirus NL63 (PCR) Not Detected (NotDetected) Human Metapneumovir PCR Not Detected (NotDetected) Influenza A (H3) PCR DETECTED A (NotDetected) Influenza Type B (PCR) Not Detected (NotDetected) M. pneumoniae (PCR) Not Detected (NotDetected) Parainfluenza 1 (PCR) Not Detected (NotDetected) Parainfluenza 2 (PCR) Not Detected (NotDetected) Parainfluenza 3 (PCR) Not Detected (NotDetected) Parainfluenza 4 (PCR) Not Detected (NotDetected) RSV (PCR) Not Detected (NotDetected) Entero/Rhino (PCR) Not Detected (NotDetected) Administered Medications Discontinued Medications Tenecteplase 23 mg/ Syringe 4.6 mls @ 55.2 mls/min IV NOW ONE; Protocol Stop: 05/01/24 01:05 Last Admin: 05/01/24 01:05 Dose: 55.2 mls/min Documented By: IDD Co-signed By: LIONEL Acetaminophen (Ofirmev) 1,000 mg in 100 mls @ 400 mls/hr IV NOW STA Stop: 05/01/24 01:10 Last Infusion: 05/01/24 01:30 Dose: Infused Documented By: Admin: 05/01/24 01:09 Dose: 400 mls/hr Documented By: IDD Sodium Chloride (Nss) 500 mls @ 999 mls/hr IV .Q31M ONE Stop: 05/01/24 01:26 Last Infusion: 05/01/24 01:39 Dose: Infused Documented By: Admin: 05/01/24 01:00 Dose: 999 mls/hr Documented By: IDD Sodium Chloride (Nss) 1,000 mls @ 100 mls/hr IV .Q10H [place] Stop: 05/02/24 00:59 Last Admin: 05/01/24 01:18 Dose: 100 mls/hr Documented By: IDD Magnesium Sulfate/Dextrose (Magnesium Sulfate / D5w) 1 gm in 100 mls @ 200 mls/hr IV Q30M [facility] Stop: 05/01/24 02:14 Last Infusion: 05/01/24 02:42 Dose: Infused Documented By: Admin: 05/01/24 02:04 Dose: 200 mls/hr Documented By: Infusion: 05/01/24 02:03 Dose: Infused Documented By: Admin: 05/01/24 01:19 Dose: 200 mls/hr Documented By: IDD Ioversol (Optiray 320 125ml) 120 ml IV ONCE ONE Stop: 05/01/24 00:03 Last Admin: 05/01/24 00:02 Dose: 120 ml Documented By: ESPERANZA Miscellaneous (Stat Iv/Im) 1 each N/A NOW STA Stop: 05/01/24 00:55 Last Admin: 05/01/24 02:42 Dose: Not Given Documented By: IDD Sodium Chloride (Sodium Chloride 0.9% 10ml Flush) 20 ml IV NOW STA Stop: 05/01/24 00:55 Last Admin: 05/01/24 01:05 Dose: 20 ml Documented By: IDD Imaging Data Radiologist's Impression: Head CT 04/30/24 23:44 EXAM: CT head/brain wo con CLINICAL HISTORY: neuro deficit, acute stroke suspected TECHNIQUE: Multiple axial images are obtained from the skull base to the vertex without contrast. CT scan was performed according to ALARA (as low as reasonable achievable). COMPARISON: none. FINDINGS: There is cerebral atrophy. No evidence of space occupying lesion, hemorrhage, edema, mass effect, midline shift, extra axial collection, or hydrocephalus is noted. Basal cisterns are symmetric and normal in size and configuration. There are scattered periventricular hypodensities as can be seen with chronic microvascular ischemic changes. The lomeli-white matter differentiation is preserved. Visualized paranasal sinuses and mastoid air cells are well aerated. Orbital contents are within normal limits. Bony structures are intact. IMPRESSION: 1. No evidence of acute intracranial abnormality is demonstrated. 2. Chronic microvascular ischemic changes. 3. Cerebral atrophy. Electronically signed by Shay James 05-01-2024 12:28 AM Head CTA 04/30/24 23:44 EXAM: CT angio head w con CLINICAL HISTORY: neuro deficit, acute stroke suspected TECHNIQUE: Contrast enhanced thin slice CT angiography scan of the cerebral vessels was performed with intravenous contrast. Angiographic images were processed, 3D MIP images were acquired for interpretation. Contiguous axial images were obtained. Reformatted coronal and sagittal images were also reviewed. If IV contrast material had not been administered, the likelihood of detecting abnormalities relevant to the patients condition would have been substantially decreased. CT scan was performed according to ALARA (as low as reasonable achievable). COMPARISON: none. FINDINGS: Atherosclerotic calcifications are noted involving cavernous, clinoid and supraclinoid segment of bilateral internal carotid arteries. Focal stenosis ( 60%-70%) is noted involving M1 segment of left middle cerebral artery with well maintained distal perfusion. Bilateral internal carotid arteries show normal course, calibre and opacification in the canalicular and cavernous part. Their division into the anterior cerebral artery and middle cerebral artery is defined. A1, A2 and M1, M2 segments are normal on both the sides. Bilateral vertebral arteries are seen to unite the form the basilar artery in a normal fashion. Basilar artery shows normal course, caliber and opacification. Its division into the posterior cerebral arteries is defined. Bilateral P1 and P2 segments are normal. Visualized venous structures show normal opacification. No evidence of intracranial aneurysm or AV malformation is seen. IMPRESSION: Focal stenosis ( 60%-70%) is noted involving M1 segment of left middle cerebral artery with well maintained distal perfusion. Atherosclerotic calcifications are noted involving cavernous, clinoid and supraclinoid segment of bilateral internal carotid arteries. No stenosis. No evidence of aneurysm. No evidence of dissection. Electronically signed by Shay James 05-01-2024 12:31 AM Neck CTA 04/30/24 23:44 EXAM: CT angio neck with con CLINICAL HISTORY: neuro deficit, acute stroke suspected TECHNIQUE: Contrast enhanced thin slice CT angiography scan of the carotid vessels was performed with intravenous contrast. Angiographic images were processed, 3D MIP images were acquired for interpretation.Contiguous axial images were obtained. Reformatted coronal and sagittal images were also reviewed. If IV contrast material had not been administered, the likelihood of detecting abnormalities relevant to the patients condition would have been substantially decreased. CT scan was performed according to ALARA (as low as reasonable achievable). COMPARISON: None. FINDINGS: Included great vessels of the aortic arch are grossly unremarkable. Common carotid artery, carotid Bulb, internal carotid artery , and origin of the external carotid artery are well opacified. Vertebral arteries are well opacified. Jugular veins are well opacified. Included lung apices are grossly unremarkable. Thyroid gland appears unremarkable. IMPRESSION: 1. No evidence of stenosis or aneurysm. No evidence of dissection. Electronically signed by Shay James 05-01-2024 12:29 AM Chest X-Ray 05/01/24 00:01 EXAM: XR chest 1V portable CLINICAL HISTORY: fever, pneumonia. TECHNIQUE: An X-ray image of the chest is obtained in frontal projection. COMPARISON: previous 09/01/2022 X-RAY. FINDINGS: Pulmonary Parenchyma: Bilateral increased bronchovascular markings Lungs are clear bilaterally. No evidence of consolidation, collapse, No evidence of pleural effusion or pleural thickening. Heart and Mediastinum: cardiomegaly congested vascular hilum Bony Thorax: No gross abnormaties Soft Tissues: Soft tissues overlying the chest wall are unremarkable. IMPRESSION: 1. Bilateral increased bronchovascular markings likely age-related. 2. Cardiomegaly. 3. No time interval changes. Electronically signed by Toy Rendon 05-01-2024 12:55 AM Discharge Plan Visit Data Chief Complaint: Stroke Alert Stated Complaint: Stroke Alert ED Provider: Sally Garcia Discharge Problem: Stroke, Influenza A, Fever Patient Disposition: Admitted As Inpatient Discharge Instructions Interventions: ED Discharge Assessment Last Done: 05/01/24 03:17
--- NOTE | 2024-05-01 00:56 | XRay Report ---
EXAM: XR chest 1V portable CLINICAL HISTORY: fever, pneumonia. TECHNIQUE: An X-ray image of the chest is obtained in frontal projection. COMPARISON: previous 09/01/2022 X-RAY. FINDINGS: Pulmonary Parenchyma: Bilateral increased bronchovascular markings Lungs are clear bilaterally. No evidence of consolidation, collapse, No evidence of pleural effusion or pleural thickening. Heart and Mediastinum: cardiomegaly congested vascular hilum Bony Thorax: No gross abnormaties Soft Tissues: Soft tissues overlying the chest wall are unremarkable. IMPRESSION: 1. Bilateral increased bronchovascular markings likely age-related. 2. Cardiomegaly. 3. No time interval changes. Electronically signed by Toy Rendon 05-01-2024 12:55 AM
[2024-05-01] MEDS: SODIUM CHLORIDE 0.9% 500 ML IV ONE (01:00)
[2024-05-01] MEDS ORDERED: No Aspirin within 24hrs of THROMBOLYTIC-Stroke PO SCH (01:00)
[2024-05-01] MEDS: SODIUM CHLORIDE 0.9% 10ML FLUSH IV STA (01:05)
[2024-05-01] MEDS: TENECTEPLASE 23 MG in SYRINGE 0 ML IV ONE (01:05)
[2024-05-01 01:09] LABS: Partial Thromboplastin Time 26 Seconds (21-31); Prothrombin Time 11.1 Seconds (9.0-12.0)
[2024-05-01] MEDS: ACETAMINOPHEN 1,000 MG/100 ML VIAL IV STA (01:09)
[2024-05-01] MEDS: SODIUM CHLORIDE 0.9% 1,000 ML IV SCH (01:18)
[2024-05-01] MEDS: MAGNESIUM SULFATE / D5W 1 GM/100 ML BAG IV SCH (01:19)
[2024-05-01 01:28] LABS: Adenovirus PCR Not Detected (NotDetected); Bordetella parapertussis PCR Not Detected (NotDetected); Bordetella pertussis PCR Not Detected (NotDetected); Chlamydia pneumoniae PCR Not Detected (NotDetected); Coronavirus 229E PCR Not Detected (NotDetected); Coronavirus CoV-2 (COVID19)PCR Not Detected (NotDetected); Coronavirus HKU1 PCR Not Detected (NotDetected); Coronavirus NL63 PCR Not Detected (NotDetected); Coronavirus OC43PCR Not Detected (NotDetected); Human Metapneumovirus PCR Not Detected (NotDetected); Influenza A (H3) PCR DETECTED (NotDetected); Influenza B PCR Not Detected (NotDetected); Mycoplasma pneumoniae PCR Not Detected (NotDetected); Parainfluenza Virus 1 PCR Not Detected (NotDetected); Parainfluenza Virus 2 PCR Not Detected (NotDetected); Parainfluenza Virus 3 PCR Not Detected (NotDetected); Parainfluenza Virus 4 PCR Not Detected (NotDetected); Respiratory Syncytial VirusPCR Not Detected (NotDetected); Rhinovirus/Enterovirus PCR Not Detected (NotDetected)
--- NOTE | 2024-05-01 02:18 | Critical Care Consultation ---
Date of Consultation May 01, 2024 Assessment & Plan (1) Stroke-like symptoms: (2) Influenza A: (3) Stress incontinence: (4) Incomplete emptying of bladder due to benign prostatic hyperplasia: Plan Reason Critically Ill: 79 YOM with influenza A that presented with left sided weakness, was deemed a Thrombolytic candidate and received TNK at 0105. Neuro - Stroke like symptoms, ICAD with M1 Stenosis, ambulatory dysfunction CAM ICU: NEGATIVE - Stroke like symptoms s/p Thrombolytic administration - NIHSS 3 - CT head negative for bleed or LVO - CTA head with M1 stenosis and distal recon - CTA neck negative for carotid stenosis - Hold ASA and Plavix for 24 hours- defer to neurology for any benefit to change to DOAC or not - Allow for permissive HTN s/p thrombolytics - Continue Atorvastatin - consider increasing based on imaging - MRI in morning - ECHO with bubble study in am - Telemetry for 24 hours eval for dysrhythmia- consider extended monitoring as warranted - STOP BANG- 4- could consider screening for RUTH- Male, Age, fatigue daytime and HTN as contributing factors - If any acute changes obtain non-con head CT Cardiac - HTN, HLD, - As above - ECHO with bubble also evaluate - last ECHO 2021 - BP goal <180/<105 Respiratory - Influenza A - Nebulizers as needed - consider adding mucolytics - Tamiflu - Supportive care GI - No acute needs - advance diet as tolerated- passed bedside swallow eval RENAL/LYTES - Electrolyte disturbances - replete mag - ICU electrolyte protocol - BPH with LUTS - unfortunately ribeiro not placed prior to TNK- will continue with bladder scans - diaper for incontinence - barrier cream to groin and buttocks ENDO - Hyperglycemia without diagnosis of DM - HGBA1C in morning - ICU hyperglycemic protocol goal <180mg/dl HEME - No acute needs - Follow for any bleeding - Increase in RIGHT hip hematoma/bruising from earlier evaluation- marked and trend hgb consider advanced imaging if changes, increase pain ID - No concern at this time for infective cause LINES/IV ACCESS - PIV Continue use of these lines DVT PROPHYLAXIS - SCDS, chemoprophylaxis contraindicated s/p thrombolytics DISPO: ICU 24 hours post thrombolytics Supervising Physician Co-Signing Physician Notes I saw and evaluated the patient with LUIGI Edwards constitutional: No acute distress Patient seen and examined at bedside. No acute, no overnight Patient was saturating well on room air. Denied any headache, no blurry vision No slurring of speech. No difficulty swallowing Systolic blood pressure was in the 170s with heart rate in the mid 90s. HEENT: EOMI, PERRLA Respiratory system: Good air entry bilaterally, no wheeze, no rhonchi, no crackles CVS: S1-S2 positive, no murmurs or gallops Abdomen: Soft, nontender, nondistended, positive bowel sounds x4 Extremities: +2 pulses bilaterally radialis/ dorsalis pedis, no cyanosis, no edema Neuro: Awake alert oriented x3, cranial nerves II to XII grossly intact, strength 5/5 right upper, right lower as well as left lower extremity, 4/5 left upper extremity Psych: Normal mood and affect G/U: No Ribeiro --Prophylaxis VTE: IPC GI: None Lines: Peripheral Diet: Cardiac diet Plan: In/out: +1130, urine output 250 Give diltiazem home dose p.o. given elevated blood pressure Continue with neurochecks MRI of the brain and repeat CAT scan of the chest in 24 hours. Hypokalemia and hypomagnesemia being replaced I have personally spent 46 minutes of critical care time in the direct management of this patient. This is a life/limb threatening event. This includes time spent evaluating patient, direct bedside care, chart review, placing orders, interpretation of diagnostic studies, discussion with consultants, patient, and family members, as well as other required patient management activities. This time is exclusive of all separately billable procedures, and teaching time and separate from and in addition to any other critical care service time. Please note the above document was generated using voice recognition software. It may contain grammatical, syntax or spelling errors. 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 Patient was brought into the ER today via EMS for following a possible fall at home against the bed, and his found him with left arm and possible left sided flaccidity. Patient was last seen well Around 2129 when he went to bed. NIHSS on report from ER on arrival was 10. He underwent CT head, CTA of the head and neck completed and stroke alert with [facility] was completed. His head CT was reported as negative for bleed or LVO, CTA of the neck was reported as negative without stenosis of ICAs, CTA of the head was notable for M1 stenosis with distal reconstitution. He was deemed a thrombolytic candidate and was administered thrombolytics at 105. Patient is with improved left arm weakness on evaluation in the ER. Patient has been ill as well for the past week and was diagnosed with Influenza A. His reports that when he does get ill he has a more "shuffling gate" and he normally walks with a wheeled walker at home. She also reports that he has been a little more lethargic. CODE: DNR/DNI Allergies Allergy/AdvReac Type Severity Reaction Status Date / Time No Known Allergies Allergy Verified 04/18/24 09:00 Home Medications Medication Instructions Recorded Confirmed Type atorvastatin 40 mg tablet 40 mg PO QAM 01/31/19 05/01/24 History clopidogrel 75 mg tablet 75 mg PO QAM #90 tabs 01/31/19 05/01/24 History cyanocobalamin (vitamin B-12) 50 50 mcg PO QAM 01/31/19 05/01/24 History mcg tablet folic acid 1 mg tablet 1 mg PO QAM 01/31/19 05/01/24 History psyllium husk 0.4 gram capsule 0.8 g PO UD PRN Constipation 01/31/19 05/01/24 History pyridoxine (vitamin B6) 50 mg 50 mg PO QAM 01/31/19 05/01/24 History tablet cholecalciferol (vitamin D3) 125 125 mcg PO QAM 04/09/20 05/01/24 History mcg (5,000 unit) capsule Wheeled Walker #1 ea 06/13/21 05/01/24 Rx hydrochlorothiazide 25 mg tablet 25 mg PO QAM 08/06/22 05/01/24 History acetaminophen 500 mg capsule 1,000 mg PO TID PRN Pain 09/01/22 05/01/24 History aspirin 81 mg tablet,delayed 81 mg PO QAM 09/01/22 05/01/24 History release verapamil 240 mg 24 hr 240 mg PO QAM 09/01/22 05/01/24 History capsule,extended release amoxicillin 500 mg tablet 2,000 mg (4 x 500 mg) PO ONCE 12/16/22 05/01/24 Rx PRIOR TO DENTAL PROCEDURES #4 tabs allopurinol 300 mg tablet 300 mg PO QAM 05/01/24 05/01/24 History Patient History Medical History Pulmonary hypertension mild, 08/2022 echo Aortic stenosis mild, 08/2022 echo PICC (peripherally inserted central catheter) in place right Blood infection blood infection with urine infection. pt has picc line and recieving IV antibiotics till 09/15 Kidney stone Fluid retention Chronic, abdomen/legs x 1+ years, following with Dr. Doran. No definitive etiology/issues s/p extensive workup.. Pt was on diuretic for a few weeks but d/t unremarkable workup, he states PCP stopped the diuretic. Improvement without further intervention over time per pt. No LE edema and soft, non-tender abdomen on PAT exam 07/11/21* Hypercholesteremia HTN (hypertension) Gout HX History of SCC (squamous cell carcinoma) of skin Chronic prostatitis History of basal cell carcinoma TIA (transient ischemic attack) 2013- reason for plavix Surgical History History of cystoscopy with stent 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 History of prostate surgery "Prostate Transurethral Destruction Prostate Tissue" History of colonoscopy H/O vasectomy History of surgery "Shaving of Lesion Mohs' Technique" "Prostate Transurethral Destruction Prostate Tissue" Family History Other Hypertension No family history of adverse response to anesthesia Social History Smoking Status: Never smoker Tobacco Type: Cigarettes Second Hand Exposure: No; Do You Dip or Chew Tobacco: No; Hx Alcohol Use: Yes Alcohol type: wine Hx Substance Use: No Preferred Language: [place] Communication Ability: Effective Puppy Trainer Required: No Beliefs That Will Affect Care: None marital status: Current Living Situation: Spouse Feels Safe at Home: Yes Safety Concerns: Feels Safe At This Time Assistive Devices: Glasses and Hearing Aid - Bilateral Review of Systems Review of Systems: REVIEW OF SYSTEMS: Constitutional: (+) fever, sweats or chills Eyes: No diplopia, no worsening or blurred vision ENT: normal hearing, no trouble swallowing Respiratory: (+) cough, sputum, dyspnea at rest or on exertion Cardiovascular: No chest pain, tightness or palpitations Abdomen: No pain, nausea, vomiting, diarrhea or constipation Musculoskeletal: (+) knee replacements, NO calf pain, swelling Neurologic: (+) weakness, walks with walker, Psychiatric: No anxiety or depression Skin: No rash or itch Physical Exam Physical Exam: PHYSICAL EXAM: General: awake, alert, Head: Normocephalic, atraumatic ENT: PERRLA, EOMI, no pharyngeal exudate, mucous membranes moist Neuro: AAO x 3, speech clear and appropriate, LUE 4/5 with ataxia, RUE 5/5, BLE 5/5, sensation intact in all dermatomes, NIHSS- 2 Chest: bruise with friction kerri to LEFT upper chest from fall, equal rise and fall of the chest, no accessory muscle use, expiratory wheeze, with productive cough Cardiac: Regular rate and rhythm, telemetry reviewed- NSR, skin warm dry, cap refill <3 seconds, peripheral pulses +2 no JVD, grade I systolic murmur, no JVD, no edema GI: NABS x 4 quadrants, soft, nontender to palpation, no rebound, guarding or tenderness : Spontaneously voiding- incontinent Skin: areas of bruising noted to arms and hands- old, bruise- newer appearing abdomen, and RIGHT hip Results & Data Results & Data Vital Signs (Past 12 Hours) Vital Signs Temp Pulse Pulse Resp BP BP Pulse Ox 05/01/24 02:05 100 H 18 171/77 H 96 05/01/24 02:00 97 H 18 95 05/01/24 01:50 94 H 18 147/79 H 94 05/01/24 01:35 37.6 C H 98 H 18 162/84 H 94 05/01/24 01:20 94 H 18 176/90 H 94 05/01/24 00:30 93 H 18 173/100 H 94 04/30/24 23:58 96 H 04/30/24 23:44 94 04/30/24 23:44 38.1 C H 112 H 18 193/105 H 97 O2 Del Method 05/01/24 02:05 Room Air 05/01/24 02:00 Room Air 05/01/24 01:50 Room Air 05/01/24 01:35 Room Air 05/01/24 01:20 Room Air 05/01/24 00:30 Room Air 04/30/24 23:58 04/30/24 23:44 Room Air 04/30/24 23:44 Room Air Laboratory Results Abnormal lab results 05/01/24 05/01/24 Range/Units 00:02 00:14 WBC 10.91 H (4.8-10.8) K/ul RBC 4.37 L (4.70-6.10) M/uL Hgb 13.8 L (14.0-18.0) g/dl Hct 40.2 L (42.0-52.0) % MPV 9.2 L (9.4-12.4) fL Neut # (Auto) 7.94 H (1.40-6.50) K/uL Sully # (Auto) 1.26 H (0.11-0.59) K/uL Sodium 134 L (136-145) mmol/L Chloride 97 L (98-107) mmol/L Glucose 112 H (70-99(Fasting)) mg/dl Magnesium 1.6 L (1.7-2.4) mg/dl Influenza A (H3) PCR DETECTED A (NotDetected) Diagnostic Findings Head CT 04/30/24 23:44 EXAM: CT head/brain wo con CLINICAL HISTORY: neuro deficit, acute stroke suspected TECHNIQUE: Multiple axial images are obtained from the skull base to the vertex without contrast. CT scan was performed according to ALARA (as low as reasonable achievable). COMPARISON: none. FINDINGS: There is cerebral atrophy. No evidence of space occupying lesion, hemorrhage, edema, mass effect, midline shift, extra axial collection, or hydrocephalus is noted. Basal cisterns are symmetric and normal in size and configuration. There are scattered periventricular hypodensities as can be seen with chronic microvascular ischemic changes. The lomeli-white matter differentiation is preserved. Visualized paranasal sinuses and mastoid air cells are well aerated. Orbital contents are within normal limits. Bony structures are intact. IMPRESSION: 1. No evidence of acute intracranial abnormality is demonstrated. 2. Chronic microvascular ischemic changes. 3. Cerebral atrophy. Electronically signed by Shay James 05-01-2024 12:28 AM Head CTA 04/30/24 23:44 EXAM: CT angio head w con CLINICAL HISTORY: neuro deficit, acute stroke suspected TECHNIQUE: Contrast enhanced thin slice CT angiography scan of the cerebral vessels was performed with intravenous contrast. Angiographic images were processed, 3D MIP images were acquired for interpretation. Contiguous axial images were obtained. Reformatted coronal and sagittal images were also reviewed. If IV contrast material had not been administered, the likelihood of detecting abnormalities relevant to the patients condition would have been substantially decreased. CT scan was performed according to ALARA (as low as reasonable achievable). COMPARISON: none. FINDINGS: Atherosclerotic calcifications are noted involving cavernous, clinoid and supraclinoid segment of bilateral internal carotid arteries. Focal stenosis ( 60%-70%) is noted involving M1 segment of left middle cerebral artery with well maintained distal perfusion. Bilateral internal carotid arteries show normal course, calibre and opacification in the canalicular and cavernous part. Their division into the anterior cerebral artery and middle cerebral artery is defined. A1, A2 and M1, M2 segments are normal on both the sides. Bilateral vertebral arteries are seen to unite the form the basilar artery in a normal fashion. Basilar artery shows normal course, caliber and opacification. Its division into the posterior cerebral arteries is defined. Bilateral P1 and P2 segments are normal. Visualized venous structures show normal opacification. No evidence of intracranial aneurysm or AV malformation is seen. IMPRESSION: Focal stenosis ( 60%-70%) is noted involving M1 segment of left middle cerebral artery with well maintained distal perfusion. Atherosclerotic calcifications are noted involving cavernous, clinoid and supraclinoid segment of bilateral internal carotid arteries. No stenosis. No evidence of aneurysm. No evidence of dissection. Electronically signed by Shay James 05-01-2024 12:31 AM Neck CTA 04/30/24 23:44 EXAM: CT angio neck with con CLINICAL HISTORY: neuro deficit, acute stroke suspected TECHNIQUE: Contrast enhanced thin slice CT angiography scan of the carotid vessels was performed with intravenous contrast. Angiographic images were processed, 3D MIP images were acquired for interpretation.Contiguous axial images were obtained. Reformatted coronal and sagittal images were also reviewed. If IV contrast material had not been administered, the likelihood of detecting abnormalities relevant to the patients condition would have been substantially decreased. CT scan was performed according to ALARA (as low as reasonable achievable). COMPARISON: None. FINDINGS: Included great vessels of the aortic arch are grossly unremarkable. Common carotid artery, carotid Bulb, internal carotid artery , and origin of the external carotid artery are well opacified. Vertebral arteries are well opacified. Jugular veins are well opacified. Included lung apices are grossly unremarkable. Thyroid gland appears unremarkable. IMPRESSION: 1. No evidence of stenosis or aneurysm. No evidence of dissection. Electronically signed by Shay James 05-01-2024 12:29 AM Chest X-Ray 05/01/24 00:01 EXAM: XR chest 1V portable CLINICAL HISTORY: fever, pneumonia. TECHNIQUE: An X-ray image of the chest is obtained in frontal projection. COMPARISON: previous 09/01/2022 X-RAY. FINDINGS: Pulmonary Parenchyma: Bilateral increased bronchovascular markings Lungs are clear bilaterally. No evidence of consolidation, collapse, No evidence of pleural effusion or pleural thickening. Heart and Mediastinum: cardiomegaly congested vascular hilum Bony Thorax: No gross abnormaties Soft Tissues: Soft tissues overlying the chest wall are unremarkable. IMPRESSION: 1. Bilateral increased bronchovascular markings likely age-related. 2. Cardiomegaly. 3. No time interval changes. Electronically signed by Toy Rendon 05-01-2024 12:55 AM Medications Administered Sodium Chloride (Nss) 1,000 mls @ 100 mls/hr IV .Q10H [place] Stop: 05/02/24 00:59 Last Admin: 05/01/24 01:18 Dose: 100 mls/hr Documented By: IDMarcial Discontinued Medications Tenecteplase 23 mg/ Syringe 4.6 mls @ 55.2 mls/min IV NOW ONE; Protocol Stop: 05/01/24 01:05 Last Admin: 05/01/24 01:05 Dose: 55.2 mls/min Documented By: IDMarcial Co-signed By: LIONEL Acetaminophen (Ofirmev) 1,000 mg in 100 mls @ 400 mls/hr IV NOW STA Stop: 05/01/24 01:10 Last Infusion: 05/01/24 01:30 Dose: Infused Documented By: Admin: 05/01/24 01:09 Dose: 400 mls/hr Documented By: FANTASMA Sodium Chloride (Nss) 500 mls @ 999 mls/hr IV .Q31M ONE Stop: 05/01/24 01:26 Last Infusion: 05/01/24 01:39 Dose: Infused Documented By: Admin: 05/01/24 01:00 Dose: 999 mls/hr Documented By: JOSE AD Magnesium Sulfate/Dextrose (Magnesium Sulfate / D5w) 1 gm in 100 mls @ 200 mls/hr IV Q30M [place] Stop: 05/01/24 02:14 Last Admin: 05/01/24 02:04 Dose: 200 mls/hr Documented By: JOSE AD Infusion: 05/01/24 02:03 Dose: Infused Documented By: Admin: 05/01/24 01:19 Dose: 200 mls/hr Documented By: FANTASMA Ioversol (Optiray 320 125ml) 120 ml IV ONCE ONE Stop: 05/01/24 00:03 Last Admin: 05/01/24 00:02 Dose: 120 ml Documented By: ESPERANZA Sodium Chloride (Sodium Chloride 0.9% 10ml Flush) 20 ml IV NOW STA Stop: 05/01/24 00:55 Last Admin: 05/01/24 01:05 Dose: 20 ml Documented By: FANTASMA Home Medications atorvastatin 40 mg tablet 40 mg PO QAM 01/31/19 [History Confirmed 05/01/24] clopidogrel 75 mg tablet 75 mg PO QAM #90 tabs 01/31/19 [History Confirmed 05/01/24] cyanocobalamin (vitamin B-12) 50 mcg tablet 50 mcg PO QAM 01/31/19 [History Confirmed 05/01/24] folic acid 1 mg tablet 1 mg PO QAM 01/31/19 [History Confirmed 05/01/24] psyllium husk 0.4 gram capsule 0.8 g PO UD PRN Constipation 01/31/19 [History C onfirmed 05/01/24] pyridoxine (vitamin B6) 50 mg tablet 50 mg PO QAM 01/31/19 [History Confirmed 05/01/24] cholecalciferol (vitamin D3) 125 mcg (5,000 unit) capsule 125 mcg PO QAM 04/09/20 [History Confirmed 05/01/24] Wheeled Walker #1 ea 06/13/21 [Rx Confirmed 05/01/24] hydrochlorothiazide 25 mg tablet 25 mg PO QAM 08/06/22 [History Confirmed 05/01/24] acetaminophen 500 mg capsule 1,000 mg PO TID PRN Pain 09/01/22 [History Confirmed 05/01/24] aspirin 81 mg tablet,delayed release 81 mg PO QAM 09/01/22 [History Confirmed 05/01/24] verapamil 240 mg 24 hr capsule,extended release 240 mg PO QAM 09/01/22 [History Confirmed 05/01/24] amoxicillin 500 mg tablet 2,000 mg (4 x 500 mg) PO ONCE PRIOR TO DENTAL PROCEDURES #4 tabs 12/16/22 [Rx Confirmed 05/01/24] allopurinol 300 mg tablet 300 mg PO QAM 05/01/24 [History Confirmed 05/01/24] Active Medications Aspirin (No Aspirin Within 24hrs Of Thrombolytic-Stroke) 1 each PO UD [place] Stop: 05/02/24 00:59 Sodium Chloride (Nss) 1,000 mls @ 100 mls/hr IV .Q10H [place] Stop: 05/02/24 00:59 Last Admin: 05/01/24 01:18 Dose: 100 mls/hr ECG Additional Comments: Sinus rhythmwithPremature supraventricular complexes Cannot rule outAnterior infarct, age undetermined T wave abnormality, consider inferior ischemia Abnormal ECG When compared with ECG [id number] 13:09, Premature ventricular complexesare no longerPresent Premature supraventricular complexesare nowPresent Questionable change inQRS axis T wave inversion now evident inInferior leads Nonspecific T wave abnormality, worse inLateral leads Coding Level of Care Code 69288 CRITICAL CARE 1ST 30-74M Diagnoses Stroke-like symptoms R29.90 Influenza A J10.1 Stress incontinence N39.3 Incomplete emptying of bladder due to benign prostatic hyperplasia N40.1; R39.14
[2024-05-01] MEDS: STAT IV/IM STA (02:42)
--- NOTE | 2024-05-01 02:48 | History & Physical Report ---
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 His last known well baseline time was at 9:45 PM, when he went to bed. His was unable to get him up. He was noted to be confused, and had difficulty moving his left side of his body. There was no suggestion of seizure type activity. When EMS arrived, they were able to pick him up at that time. In the emergency department, patient was noted to have left upper extremity worse than left lower extremity hemiparesis, which did not improve significantly while in the ED. Patient has been taking aspirin plus Plavix as directed at home, has a history of paroxysmal atrial fibrillation, without anticoagulation therapy. In the emergency department patient did test positive for influenza A, likely contracted from exposure to his grandson. Patient did undergo CT scan of head without contrast which was negative, CTA neck was negative, CTA head showed a focal 60-70% narrowing in the left M1 MCA segment. Patient was assessed by stroke neurology Dr. Zane Roman, who advised that patient should undergo therapeutic TNK, which was administered by the ED, and the patient was then presented to the [facility] ICU for ongoing medical treatment. 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 Paz, Consult neurology Dr. Cruz Hypertension- Continue verapamil Hypomagnesemia- Magnesium 1.6 on admission To get 2 g magnesium sulfate IV, recheck laboratories in the a.m. Hyperlipidemia- Continue atorvastatin Influenza A- Received first dose of Tamiflu, will continue Tamiflu 5 mg p.o. twice daily Gout- Continue allopurinol History of Present Illness Chief Complaint: The patient presents to the emergency department after being found by his slumped between the bed and dresser, not on the floor, at approximately 11 PM on 04/30/2024. His last known well baseline time was at 9:45 PM, when he went to bed. His was unable to get him up. He was noted to be confused, and had difficulty moving his left side of his body. There was no suggestion of seizure type activity. When EMS arrived, they were able to pick him up at that time. In the emergency department, patient was noted to have left upper extremity worse than left lower extremity hemiparesis, which did not improve significantly while in the ED. Patient has been taking aspirin plus Plavix as directed at home, has a history of paroxysmal atrial fibrillation, without anticoagulation therapy. In the emergency department patient did test positive for influenza A, likely contracted from exposure to his grandson. Patient did undergo CT scan of head without contrast which was negative, CTA neck was negative, CTA head showed a focal 60-70% narrowing in the left M1 MCA segment. Patient was assessed by stroke neurology Dr. Zane Roman, who advised that patient should undergo therapeutic TNK, which was administered by the ED, and the patient was then presented to the [facility] and ICU for ongoing medical treatment. Primary Care Provider: Tata Bustos MD The patient is a 79-year-old male with a past medical history including BPH with LUTS, chronic prostatitis, status post right TKA, hypertension, chronic urinary urge incontinence due to bladder spasms, hyperlipidemia, cerebrovascular disease/occlusion and stenosis of cerebellar arteries, gout, history of pansinusitis, history of osteoarthritis, and chronic pain syndrome.The patient presents to the emergency department after being found by his slumped between the bed and dresser, not on the floor, at approximately 11 PM on 04/30/2024. His last known well baseline time was at 9:45 PM, when he went to bed. His was unable to get him up. He was noted to be confused, and had difficulty moving his left side of his body. There was no suggestion of seizure type activity. When EMS arrived, they were able to pick him up at that time. In the emergency department, patient was noted to have left upper extremity worse than left lower extremity hemiparesis, which did not improve significantly while in the ED. Patient has been taking aspirin plus Plavix as directed at home, has a history of paroxysmal atrial fibrillation, without anticoagulation therapy. In the emergency department patient did test positive for influenza A, likely contracted from exposure to his grandson. Patient did undergo CT scan of head without contrast which was negative, CTA neck was negative, CTA head showed a focal 60-70% narrowing in the left M1 MCA segment. Patient was assessed by stroke neurology Dr. Zane Roman, who advised that patient should undergo therapeutic TNK, which was administered by the ED, and the patient was then presented to the [facility] and ICU for ongoing medical treatment. Allergies Allergy/AdvReac Type Severity Reaction Status Date / Time No Known Allergies Allergy Verified 04/18/24 09:00 Home Medications Medication Instructions Recorded Confirmed Type atorvastatin 40 mg tablet 40 mg PO QAM 01/31/19 05/01/24 History clopidogrel 75 mg tablet 75 mg PO QAM #90 tabs 01/31/19 05/01/24 History cyanocobalamin (vitamin B-12) 50 50 mcg PO QAM 01/31/19 05/01/24 History mcg tablet folic acid 1 mg tablet 1 mg PO QAM 01/31/19 05/01/24 History psyllium husk 0.4 gram capsule 0.8 g PO UD PRN Constipation 01/31/19 05/01/24 History pyridoxine (vitamin B6) 50 mg 50 mg PO QAM 01/31/19 05/01/24 History tablet cholecalciferol (vitamin D3) 125 125 mcg PO QAM 04/09/20 05/01/24 History mcg (5,000 unit) capsule Wheeled Walker #1 ea 06/13/21 05/01/24 Rx hydrochlorothiazide 25 mg tablet 25 mg PO QAM 08/06/22 05/01/24 History acetaminophen 500 mg capsule 1,000 mg PO TID PRN Pain 09/01/22 05/01/24 History aspirin 81 mg tablet,delayed 81 mg PO QAM 09/01/22 05/01/24 History release verapamil 240 mg 24 hr 240 mg PO QAM 09/01/22 05/01/24 History capsule,extended release amoxicillin 500 mg tablet 2,000 mg (4 x 500 mg) PO ONCE 12/16/22 05/01/24 Rx PRIOR TO DENTAL PROCEDURES #4 tabs allopurinol 300 mg tablet 300 mg PO QAM 05/01/24 05/01/24 History Past Med/Surg History Problem List (Updated 05/01/24 @ 05:24 by Jareth Webb MD) Stroke aborted by administration of thrombolytic agent Cerebrovascular accident (CVA) involving right cerebral hemisphere Admitted to intensive care unit Influenza A Stroke-like symptoms Stress incontinence Incomplete emptying of bladder due to benign prostatic hyperplasia Nocturia (Acute) Elevated PSA (Acute) Benign hypertension (Acute 08/01/12) Arthritis (Acute) Urinary urgency Urge incontinence of urine 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 BPH without obstruction/lower urinary tract symptoms Encounter for pre-operative examination Complicated UTI (urinary tract infection) Ureterolithiasis Acute kidney failure Bacteremia Medical History Pulmonary hypertension mild, 08/2022 echo Aortic stenosis mild, 08/2022 echo PICC (peripherally inserted central catheter) in place right Blood infection blood infection with urine infection. pt has picc line and recieving IV antibiotics till 09/15 Kidney stone Fluid retention Chronic, abdomen/legs x 1+ years, following with Dr. Doran. No definitive etiology/issues s/p extensive workup.. Pt was on diuretic for a few weeks but d/t unremarkable workup, he states PCP stopped the diuretic. Improvement without further intervention over time per pt. No LE edema and soft, non-tender abdomen on PAT exam 07/11/21* Hypercholesteremia HTN (hypertension) Gout HX History of SCC (squamous cell carcinoma) of skin Chronic prostatitis History of basal cell carcinoma TIA (transient ischemic attack) 2013- reason for plavix Surgical History History of cystoscopy with stent 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 History of prostate surgery "Prostate Transurethral Destruction Prostate Tissue" History of colonoscopy H/O vasectomy History of surgery "Shaving of Lesion Mohs' Technique" "Prostate Transurethral Destruction Prostate Tissue" Family History Other Hypertension No family history of adverse response to anesthesia Social History Smoking Status: Never smoker Tobacco Type: Cigarettes Second Hand Exposure: No; Do You Dip or Chew Tobacco: No; Hx Alcohol Use: Yes Alcohol type: wine Hx Substance Use: No Preferred Language: [place]serratian Communication Ability: Effective Pilot Boat Operator Required: No Beliefs That Will Affect Care: None marital status: Current Living Situation: Spouse Feels Safe at Home: Yes Assistive Devices: Glasses and Hearing Aid - Bilateral Review of Systems Review of Systems: The patient denies chest pain, palpitations, shortness of breath, dyspnea on exertion, cough, lower extremity swelling, sore throat, fevers, chills, sweats, weight change, fatigue, nausea, vomiting, diarrhea , constipation, abdominal pain, pelvic pain, blood in urine or stool, dysuria, urinary frequency or urgency, lightheadedness, dizziness, headache, memory loss, loss of consciousness, rash, abnormal bruising or bleeding, focal weakness, numbness or tingling right in arm and leg, generalized arthralgias or myalgias, back or neck pain, or night sweats. The review of systems is otherwise negative other than for that already noted above, and at least 10 systems have been reviewed. Physical Exam Physical Exam: The patient is awake, alert and oriented 3, well developed and well nourished, normocephalic and atraumatic, lying in bed and in no acute distress. HEENT--PERRL, EOMI, mucous membranes and oropharynx mildly dry. Neck--supple. No JVD. No bruits. Thyroid normal, trachea midline, no adenopathy. Heart--normal S1 and S2. No murmurs, rubs or gallops. Lungs--clear bilaterally, no respiratory distress, no accessory muscle use. Abdomen--normal bowel sounds and soft. Nontender. Nondistended, no hernias or masses, no organomegaly. Extremities--no cyanosis or clubbing. No edema. There are good distal pulses b/l. Dermatologic--normal skin turgor, normal color, no abnormal lymph nodes, no rash. Neurologic--left-sided hemiparesis/4+/5 motor strength Rheumatologic--normal range of motion. Psychiatric--normal affect. Results & Data Results & Data Vital Signs (Past 12 Hours) Vital Signs Temp Pulse Pulse Resp BP BP Pulse Ox 05/01/24 02:35 89 18 145/79 H 94 05/01/24 02:20 98 H 18 155/78 H 97 05/01/24 02:05 100 H 18 171/77 H 96 05/01/24 02:00 97 H 18 95 05/01/24 01:50 94 H 18 147/79 H 94 05/01/24 01:35 37.6 C H 98 H 18 162/84 H 94 05/01/24 01:20 94 H 18 176/90 H 94 05/01/24 00:30 93 H 18 173/100 H 94 04/30/24 23:58 96 H 04/30/24 23:44 94 04/30/24 23:44 38.1 C H 112 H 18 193/105 H 97 O2 Del Method 05/01/24 02:35 Room Air 05/01/24 02:20 Room Air 05/01/24 02:05 Room Air 05/01/24 02:00 Room Air 05/01/24 01:50 Room Air 05/01/24 01:35 Room Air 05/01/24 01:20 Room Air 05/01/24 00:30 Room Air 04/30/24 23:58 04/30/24 23:44 Room Air 04/30/24 23:44 Room Air Laboratory Results Laboratory Results WBC 12.26 K/ul (4.8-10.8) H 05/01/24 04:13 RBC 4.56 M/uL (4.70-6.10) L 05/01/24 04:13 Hgb 14.3 g/dl (14.0-18.0) 05/01/24 04:13 Hct 41.6 % (42.0-52.0) L 05/01/24 04:13 MCV 91.2 fL (80.0-100.0) 05/01/24 04:13 MCH 31.4 pg (25.0-34.0) 05/01/24 04:13 MCHC 34.4 g/dL (32.0-36.0) 05/01/24 04:13 RDW Std Deviation 43.7 fL (36.4-46.3) 05/01/24 04:13 RDW Coeff of Agnieszka 13.1 % (11.5-14.5) 05/01/24 04:13 Plt Count 178 K/uL (130-400) 05/01/24 04:13 MPV 9.6 fL (9.4-12.4) 05/01/24 04:13 Immature Gran % (Auto) 0.5 % 05/01/24 04:13 Neut % (Auto) 79.4 % 05/01/24 04:13 Lymph % (Auto) 10.4 % 05/01/24 04:13 [place] % (Auto) 9.2 % 05/01/24 04:13 Eos % (Auto) 0.1 % 05/01/24 04:13 Baso % (Auto) 0.4 % 05/01/24 04:13 Neut # (Auto) 9.74 K/uL (1.40-6.50) H 05/01/24 04:13 Lymph # (Auto) 1.27 K/uL (1.20-3.40) 05/01/24 04:13 [place] # (Auto) 1.13 K/uL (0.11-0.59) H 05/01/24 04:13 Eos # (Auto) 0.01 K/uL (0.00-0.50) 05/01/24 04:13 Baso # (Auto) 0.05 K/uL (0.00-0.20) 05/01/24 04:13 Immature Gran # (Auto) 0.06 K/uL (0.01-0.20) 05/01/24 04:13 PT 11.1 Seconds (9.0-12.0) 05/01/24 00:02 INR 1.0 (0.9-1.1) 05/01/24 00:02 APTT 26 Seconds (21-31) 05/01/24 00:02 PTT Ratio 1.0 05/01/24 00:02 Sodium 136 mmol/L (136-145) 05/01/24 04:13 Potassium 3.3 mmol/L (3.5-5.1) L 05/01/24 04:13 Chloride 100 mmol/L (98-107) 05/01/24 04:13 Carbon Dioxide 27 mmol/L (21-32) 05/01/24 04:13 Anion Gap 9 (3-11) 05/01/24 04:13 BUN 14 mg/dl (6-23) 05/01/24 04:13 Creatinine 0.75 mg/dl (0.6-1.4) 05/01/24 04:13 Est Cr Clr Drug Dosing 82.8 ml/min 05/01/24 04:13 eGFR 92.37 05/01/24 04:13 BUN/Creatinine Ratio 18.7 (10-20) 05/01/24 04:13 Glucose 100 mg/dl (70-99(Fasting)) H 05/01/24 04:13 Calcium 8.6 mg/dl (8.6-10.3) 05/01/24 04:13 Magnesium 1.6 mg/dl (1.7-2.4) L 05/01/24 00:02 Total Bilirubin 0.6 mg/dl (0.2-1.0) 05/01/24 04:13 AST 45 U/L (13-39) H 05/01/24 04:13 ALT 27 U/L (7-52) 05/01/24 04:13 Alkaline Phosphatase 79 U/L (34-104) 05/01/24 04:13 Troponin I High Sens 9.4 pg/ml (0-20) 05/01/24 00:02 Total Protein 6.9 gm/dl (6.0-8.3) 05/01/24 04:13 Albumin 3.8 gm/dl (3.4-5.0) 05/01/24 04:13 Globulin 3.1 gm/dl (2.5-4.0) 05/01/24 04:13 Albumin/Globulin Ratio 1.2 (0.9-2) 05/01/24 04:13 Triglycerides 61 mg/dl (0-150) 05/01/24 04:13 Cholesterol 102 mg/dl (0-200) 05/01/24 04:13 LDL Cholesterol, Calc 56 mg/dl 05/01/24 04:13 VLDL Cholesterol, Calc 12 mg/dl (0-30) 05/01/24 04:13 HDL Cholesterol 34 mg/dl 05/01/24 04:13 Cholesterol/HDL Ratio 3.0 (0-5) 05/01/24 04:13 Adenovirus (PCR) Not Detected (NotDetected) 05/01/24 00:14 B. pertussis DNA (PCR) Not Detected (NotDetected) 05/01/24 00:14 B.parapertussis DNA PCR Not Detected (NotDetected) 05/01/24 00:14 C. pneumoniae DNA (PCR) Not Detected (NotDetected) 05/01/24 00:14 Coronavirus OC43 (PCR) Not Detected (NotDetected) 05/01/24 00:14 Coronavirus HKU1 (PCR) Not Detected (NotDetected) 05/01/24 00:14 Coronavirus 229E (PCR) Not Detected (NotDetected) 05/01/24 00:14 SARS-CoV-2 (PCR) Not Detected (NotDetected) 05/01/24 00:14 Coronavirus NL63 (PCR) Not Detected (NotDetected) 05/01/24 00:14 Human Metapneumovir PCR Not Detected (NotDetected) 05/01/24 00:14 Influenza A (H3) PCR DETECTED (NotDetected) A 05/01/24 00:14 Influenza Type B (PCR) Not Detected (NotDetected) 05/01/24 00:14 M. pneumoniae (PCR) Not Detected (NotDetected) 05/01/24 00:14 Parainfluenza 1 (PCR) Not Detected (NotDetected) 05/01/24 00:14 Parainfluenza 2 (PCR) Not Detected (NotDetected) 05/01/24 00:14 Parainfluenza 3 (PCR) Not Detected (NotDetected) 05/01/24 00:14 Parainfluenza 4 (PCR) Not Detected (NotDetected) 05/01/24 00:14 RSV (PCR) Not Detected (NotDetected) 05/01/24 00:14 Entero/Rhino (PCR) Not Detected (NotDetected) 05/01/24 00:[address] 04/30/24 23:44 EXAM: CT head/brain wo con CLINICAL HISTORY: neuro deficit, acute stroke suspected TECHNIQUE: Multiple axial images are obtained from the skull base to the vertex without contrast. CT scan was performed according to ALARA (as low as reasonable achievable). COMPARISON: none. FINDINGS: There is cerebral atrophy. No evidence of space occupying lesion, hemorrhage, edema, mass effect, midline shift, extra axial collection, or hydrocephalus is noted. Basal cisterns are symmetric and normal in size and configuration. There are scattered periventricular hypodensities as can be seen with chronic microvascular ischemic changes. The lomeli-white matter differentiation is preserved. Visualized paranasal sinuses and mastoid air cells are well aerated. Orbital contents are within normal limits. Bony structures are intact. IMPRESSION: 1. No evidence of acute intracranial abnormality is demonstrated. 2. Chronic microvascular ischemic changes. 3. Cerebral atrophy. Electronically signed by Shay James 05-01-2024 12:28 AM Head CTA 04/30/24 23:44 EXAM: CT angio head w con CLINICAL HISTORY: neuro deficit, acute stroke suspected TECHNIQUE: Contrast enhanced thin slice CT angiography scan of the cerebral vessels was performed with intravenous contrast. Angiographic images were processed, 3D MIP images were acquired for interpretation. Contiguous axial images were obtained. Reformatted coronal and sagittal images were also reviewed. If IV contrast material had not been administered, the likelihood of detecting abnormalities relevant to the patients condition would have been substantially decreased. CT scan was performed according to ALARA (as low as reasonable achievable). COMPARISON: none. FINDINGS: Atherosclerotic calcifications are noted involving cavernous, clinoid and supraclinoid segment of bilateral internal carotid arteries. Focal stenosis ( 60%-70%) is noted involving M1 segment of left middle cerebral artery with well maintained distal perfusion. Bilateral internal carotid arteries show normal course, calibre and opacification in the canalicular and cavernous part. Their division into the anterior cerebral artery and middle cerebral artery is defined. A1, A2 and M1, M2 segments are normal on both the sides. Bilateral vertebral arteries are seen to unite the form the basilar artery in a normal fashion. Basilar artery shows normal course, caliber and opacification. Its division into the posterior cerebral arteries is defined. Bilateral P1 and P2 segments are normal. Visualized venous structures show normal opacification. No evidence of intracranial aneurysm or AV malformation is seen. IMPRESSION: Focal stenosis ( 60%-70%) is noted involving M1 segment of left middle cerebral artery with well maintained distal perfusion. Atherosclerotic calcifications are noted involving cavernous, clinoid and supraclinoid segment of bilateral internal carotid arteries. No stenosis. No evidence of aneurysm. No evidence of dissection. Electronically signed by Shay James 05-01-2024 12:31 AM Neck CTA 04/30/24 23:44 EXAM: CT angio neck with con CLINICAL HISTORY: neuro deficit, acute stroke suspected TECHNIQUE: Contrast enhanced thin slice CT angiography scan of the carotid vessels was performed with intravenous contrast. Angiographic images were processed, 3D MIP images were acquired for interpretation.Contiguous axial images were obtained. Reformatted coronal and sagittal images were also reviewed. If IV contrast material had not been administered, the likelihood of detecting abnormalities relevant to the patients condition would have been substantially decreased. CT scan was performed according to ALARA (as low as reasonable achievable). COMPARISON: None. FINDINGS: Included great vessels of the aortic arch are grossly unremarkable. Common carotid artery, carotid Bulb, internal carotid artery , and origin of the external carotid artery are well opacified. Vertebral arteries are well opacified. Jugular veins are well opacified. Included lung apices are grossly unremarkable. Thyroid gland appears unremarkable. IMPRESSION: 1. No evidence of stenosis or aneurysm. No evidence of dissection. Electronically signed by Shay James 05-01-2024 12:29 AM Chest X-Ray 05/01/24 00:01 EXAM: XR chest 1V portable CLINICAL HISTORY: fever, pneumonia. TECHNIQUE: An X-ray image of the chest is obtained in frontal projection. COMPARISON: previous 09/01/2022 X-RAY. FINDINGS: Pulmonary Parenchyma: Bilateral increased bronchovascular markings Lungs are clear bilaterally. No evidence of consolidation, collapse, No evidence of pleural effusion or pleural thickening. Heart and Mediastinum: cardiomegaly congested vascular hilum Bony Thorax: No gross abnormaties Soft Tissues: Soft tissues overlying the chest wall are unremarkable. IMPRESSION: 1. Bilateral increased bronchovascular markings likely age-related. 2. Cardiomegaly. 3. No time interval changes. Electronically signed by Toy Rendon 05-01-2024 12:55 AM Code Status & VTE Plan Code Status DNR/DNI VTE Prophylaxis Plan VTE Prophylaxis will be ordered: Yes Critical Care Time 65 minutes PG Care Time/CCT Total # of Minutes Spent Total Time Spent with Patient: Total time spent is greater than 50% in coordination of care (as documented) at patient's floor/unit and/or counseling patient: Coding Level of Care Code 73310 INT INP/OBS CARE MIN Diagnoses Admitted to intensive care unit Z78.9 Influenza A J10.1 Cerebrovascular accident (CVA) involving right cerebral hemisphere I63.9 Stroke aborted by administration of thrombolytic agent I63.9
[2024-05-01] MEDS ORDERED: PHARMACIST DISCHARGE MED REC CONSULT PRN (03:58)
[2024-05-01 04:59] LABS: Basophils # (auto) 0.05 K/uL (0.00-0.20); Basophils % (auto) 0.4 %; Eosinophils # (auto) 0.01 K/uL (0.00-0.50); Eosinophils % (auto) 0.1 %; Hematocrit (blood only) 41.6 % (42.0-52.0); Hemoglobin 14.3 g/dl (14.0-18.0); Immature Granulocytes # (auto) 0.06 K/uL (0.01-0.20); Immature Granulocytes % (auto) 0.5 %; Lymphocytes # (auto) 1.27 K/uL (1.20-3.40); Lymphocytes % (auto) 10.4 %; Mean Corpuscular Hemoglobin 31.4 pg (25.0-34.0); Mean Corpuscular Hgb Conc 34.4 g/dL (32.0-36.0); Mean Corpuscular Volume 91.2 fL (80.0-100.0); Mean Platelet Volume 9.6 fL (9.4-12.4); Monocytes # (auto) 1.13 K/uL (0.11-0.59); Monocytes % (auto) 9.2 %; Neutrophils # (auto) 9.74 K/uL (1.40-6.50); Neutrophils % (auto) 79.4 %; Platelet Count 178 K/uL (130-400); RDW Coefficient of Variation 13.1 % (11.5-14.5); RDW Standard Deviation 43.7 fL (36.4-46.3); Red Blood Count 4.56 M/uL (4.70-6.10); White Blood Count 12.26 K/ul (4.8-10.8)
[2024-05-01 05:13] LABS: Albumin Globulin Ratio 1.2 (0.9-2); Albumin Level 3.8 gm/dl (3.4-5.0); BUN Creatinine Ratio 18.7 (10-20); Bilirubin,Total 0.6 mg/dl (0.2-1.0); Calcium 8.6 mg/dl (8.6-10.3); Creatinine Clr Calc Pharmacy 82.8 ml/min; Globulin 3.1 gm/dl (2.5-4.0); Potassium 3.3 mmol/L (3.5-5.1); Total Protein 6.9 gm/dl (6.0-8.3)
[2024-05-01 05:29] LABS: Prothrombin Time 10.4 Seconds (9.0-12.0)
[2024-05-01 05:32] LABS: Troponin I High Sensitivity 55.2 pg/ml (0-20)
--- NOTE | 2024-05-01 05:32 | Billing Data ---
Date of Service May 01, 2024 Coding Level of Care Code 09176 CRITICAL CARE
[2024-05-01] MEDS ORDERED: ALBUTEROL 0.083% NEBU SOLN 3 ML VIAL NEB PRN (05:35)
[2024-05-01] MEDS: POTASSIUM CHLORIDE 20 MEQ/15 ML UDC PO ONE (06:27)
--- NOTE | 2024-05-01 07:15 | Hospitalist Progress Note ---
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 His last known well baseline time was at 9:45 PM, when he went to bed. His was unable to get him up. He was noted to be confused, and had difficulty moving his left side of his body. There was no suggestion of seizure type activity. Ptwas transported to ER by EMS. On presentation the patient was noted to have left hemiparesis with upper extremity worse than left lower extremity. Patient has been taking aspirin plus Plavix as directed at home, has a history of paroxysmal atrial fibrillation, without anticoagulation therapy. In the emergency department patient did test positive for influenza A, likely contracted from exposure to his grandson. Patient did undergo CT scan of head without contrast which was negative, CTA neck was negative, CTA head showed a focal 60-70% narrowing in the left M1 MCA segment. Patient was assessed by stroke neurology Dr. Zane Roman, who advised that patient should undergo therapeutic TNK, which was administered by the ED, and the patient was then presented to the [facility] and ICU for ongoing medical treatment. #Acute right hemispheric MCA distribution CVA- Status post administration of IV thrombolytics in the ED Patient did have improvement in symptoms of left sided weakness Holding aspirin and Plavix for the first 24 hours, to be reinstituted by ICU per protocol Stroke with thrombolytic day 1 protocol order set Consulting PT/OT/speech Ordering brain MRI without contrast echocardiogram, mild valvular heart disease, normal EF, no shunt, mild pulm htn Consult dairy bacteriologist Dr. Paz, Consult neurology Dr. Cruz, no interventions recommendd Hypertension- Continue verapamil Elevated Troponin, likely demand ischemia Hypomagnesemia- Magnesium 1.6 on admission replete Hyperlipidemia- Continue atorvastatin Influenza A- Received first dose of Tamiflu, will continue Tamiflu 5 mg p.o. twice daily Gout- Continue allopurinol Admission and Anticipated Discharge Date Admission Date: May 01, 2024 Subjective pt is awake and alert, little to no left sided deficit, does have some bruising to left cheek and donato, does have abrasion to chin which pt states is from shaving no headache, speech or swallowing complaint or vision changes Physical Exam Physical Exam: alert and oriented, no facial asymetry or unilateral marked discordance of strength Results & Data Results & Data Vital Signs (Past 12 Hours) Vital Signs Temp Pulse Pulse Resp BP BP BP 05/01/24 06:35 98.2 F 97 H 18 167/91 H 05/01/24 06:05 98.2 F 98 H 20 155/80 H 05/01/24 05:35 98.2 F 96 H 17 164/80 H 05/01/24 05:05 98.1 F 96 H 19 143/77 H 05/01/24 05:00 98.1 F 05/01/24 04:35 99.0 F 95 H 18 145/81 H 05/01/24 04:05 99.0 F 95 H 20 144/86 H 05/01/24 04:05 99.0 F 95 H 20 144/86 H 05/01/24 04:00 20 05/01/24 03:58 20 05/01/24 03:58 94 H 05/01/24 03:57 20 05/01/24 03:35 05/01/24 03:35 99.1 F 86 20 148/84 H 05/01/24 03:35 99.2 F 96 H 20 148/84 H 05/01/24 03:06 88 18 152/85 H 05/01/24 02:35 89 18 145/79 H 05/01/24 02:20 98 H 18 155/78 H 05/01/24 02:05 100 H 18 171/77 H 05/01/24 02:00 97 H 18 05/01/24 01:50 94 H 18 147/79 H 05/01/24 01:35 99.7 F H 98 H 18 162/84 H 05/01/24 01:20 94 H 18 176/90 H 05/01/24 00:30 93 H 18 173/100 H 04/30/24 23:58 96 H 04/30/24 23:44 04/30/24 23:44 100.6 F H 112 H 18 193/105 H Pulse Ox O2 Del Method 05/01/24 06:35 94 Room Air 05/01/24 06:05 95 Room Air 05/01/24 05:35 94 Room Air 05/01/24 05:05 96 Room Air 05/01/24 05:00 Room Air 05/01/24 04:35 94 Room Air 05/01/24 04:05 95 Room Air 05/01/24 04:05 95 Room Air 05/01/24 04:00 Room Air 05/01/24 03:58 Room Air 05/01/24 03:58 05/01/24 03:57 Room Air 05/01/24 03:35 Room Air 05/01/24 03:35 95 Room Air 05/01/24 03:35 92 Room Air 05/01/24 03:06 93 Room Air 05/01/24 02:35 94 Room Air 05/01/24 02:20 97 Room Air 05/01/24 02:05 96 Room Air 05/01/24 02:00 95 Room Air 05/01/24 01:50 94 Room Air 05/01/24 01:35 94 Room Air 05/01/24 01:20 94 Room Air 05/01/24 00:30 94 Room Air 04/30/24 23:58 04/30/24 23:44 94 Room Air 04/30/24 23:44 97 Room Air Laboratory Results review cbc review chemistry discussed case with Dr Paz PG Care Time/CCT Total # of Minutes Spent Total Time Spent with Patient: Total time spent is greater than 50% in coordination of care (as documented) at patient's floor/unit and/or counseling patient: Coding Level of Care Code 35770 SUB INP/OBS CARE 3/50MIN Diagnoses Cerebrovascular accident (CVA) involving right cerebral hemisphere I63.9 Stroke aborted by administration of thrombolytic agent I63.9 Influenza A J10.1
[2024-05-01] MEDS ORDERED: CLOPIDOGREL BISULFATE 75 MG TAB PO SCH (09:00)
[2024-05-01] MEDS ORDERED: VERAPAMIL HCL 240 MG TABCR PO SCH (09:00)
[2024-05-01] MEDS: ICU Protocol for HYPERglycemia SCH (09:23)
--- NOTE | 2024-05-01 09:24 | Electrocardiogram Report ---
Test Reason : Blood Pressure : */* mmHG Vent. Rate : 95 BPM Atrial Rate : 95 BPM P-R Int : 140 ms QRS Dur : 88 ms QT Int : 338 ms P-R-T Axes : 38 40 -76 degrees QTcB Int : 424 ms Poor data quality, interpretation may be adversely affected Sinus rhythm with Premature supraventricular complexes Poor R wave progression, consider anterior TX vs. lead placement vs. LVH Abnormal ECG When compared with ECG of 01-Sep-2022 13:09, Premature ventricular complexes are no longer Present Premature supraventricular complexes are now Present Confirmed by Shamar Alas ([id number]) on 05/01/2024 9:23:58 AM Referred By: REFERRED SELF Confirmed By: Shamar Alas
[2024-05-01] MEDS: MAGNESIUM OXIDE 400 MG TAB PO SCH (09:28)
[2024-05-01] MEDS: OSELTAMIVIR PHOSPHATE SUSP 75 MG/12.5 ML UDP PO SCH (09:28)
[2024-05-01] MEDS: PYRIDOXINE HCL 50 MG TAB PO SCH (09:29)
[2024-05-01] MEDS: allopurinoL 300 MG TAB PO SCH (09:29)
[2024-05-01] MEDS: FOLIC ACID 1 MG TAB PO SCH (09:29)
[2024-05-01] MEDS: CHOLECALCIFEROL 125 MCG (5,000 UNITS) TAB PO SCH (09:29)
[2024-05-01] MEDS: ATORVASTATIN 40 MG TAB PO SCH (09:29)
[2024-05-01] MEDS: CYANOCOBALAMIN (B-12) 100 MCG TABLET PO SCH (09:29)
--- NOTE | 2024-05-01 09:52 | XCELERA ---
[id number]
--- NOTE | 2024-05-01 10:00 | Neurology Consultation ---
Date of Consultation May 01, 2024 Assessment & Plan (1) Stroke: Plan 79-year-old right-handed male male with a probable right (nondominant) hemispheric stroke presenting with acute left hemiparesis and left hemineglect. He did receive TNKase in the emergency department. The symptoms have persisted. He does have chronic cerebral atrophy and associated hydrocephalus ex vacuo as well as chronic left thalamic lacunar infarct as well. MRI of the brain as ordered. 24-hour post TNK follow-up noncontrast CT of the brain as ordered. Up-to-date echocardiogram with bubble study. If there is no evidence of hemorrhagic conversion on follow-up imaging, may resume aspirin and clopidogrel. If atrial fibrillation or cardioembolic source identified, consider an anticoagulant such as Eliquis, but discontinue one of his antiplatelet medications, aspirin in that context. Blood pressure management per stroke/post TNKase protocol. I agree with atorvastatin as ordered given his intracranial vascular stenosis, even though his LDL is 56 (less than 70). PT/OT/speech therapy. Patient should not require additional outpatient neurology follow-up. However, if there are additional concerns regarding his neurological status going forward, I would be happy to see him in clinic at the discretion of his PCP. History of Present Illness Reason for Consultation: Stroke, post TNK Requesting Physician: Tracey Attending Physician: Chilo Ospina MD History of Present Illness The patient is a 71-year-old right-handed male who slumped to the floor while attempting to get out of bed yesterday. His spouse found him confused, he had difficulty moving the left arm and leg. He denies any associated loss of consciousness or awareness. No known history of seizure disorder. He does have a history of TIA occurring several years ago and intracranial arterial stenosis, he is prescribed aspirin and Plavix. He has been having flulike symptoms for several days and has tested positive for influenza. I independently reviewed his imaging. CT of the head completed yesterday reveals generalized atrophy with associated hydrocephalus ex vacuo as well as a chronic left thalamic lacunar infarct, and chronic small vessel ischemic disease. CT angiography of the neck was negative for stenosis or vascular lesion. CTA of the head revealed a 60 to 70% stenosis of the left M1 segment with good distal perfusion. He did receive TNKase in the emergency department. He continues to report some left- sided weakness this morning. Allergies Allergy/AdvReac Type Severity Reaction Status Date / Time No Known Allergies Allergy Verified 04/18/24 09:00 Home Medications Medication Instructions Recorded Confirmed Type atorvastatin 40 mg tablet 40 mg PO QAM 01/31/19 05/01/24 History clopidogrel 75 mg tablet 75 mg PO QAM #90 tabs 01/31/19 05/01/24 History cyanocobalamin (vitamin B-12) 50 50 mcg PO QAM 01/31/19 05/01/24 History mcg tablet folic acid 1 mg tablet 1 mg PO QAM 01/31/19 05/01/24 History psyllium husk 0.4 gram capsule 0.8 g PO UD PRN Constipation 01/31/19 05/01/24 History pyridoxine (vitamin B6) 50 mg 50 mg PO QAM 01/31/19 05/01/24 History tablet cholecalciferol (vitamin D3) 125 125 mcg PO QAM 04/09/20 05/01/24 History mcg (5,000 unit) capsule Wheeled Walker #1 ea 06/13/21 05/01/24 Rx hydrochlorothiazide 25 mg tablet 25 mg PO QAM 08/06/22 05/01/24 History acetaminophen 500 mg capsule 1,000 mg PO TID PRN Pain 09/01/22 05/01/24 History aspirin 81 mg tablet,delayed 81 mg PO QAM 09/01/22 05/01/24 History release verapamil 240 mg 24 hr 240 mg PO QAM 09/01/22 05/01/24 History capsule,extended release amoxicillin 500 mg tablet 2,000 mg (4 x 500 mg) PO ONCE 12/16/22 05/01/24 Rx PRIOR TO DENTAL PROCEDURES #4 tabs allopurinol 300 mg tablet 300 mg PO QAM 05/01/24 05/01/24 History Patient History Medical History Pulmonary hypertension mild, 08/2022 echo Aortic stenosis mild, 08/2022 echo PICC (peripherally inserted central catheter) in place right Blood infection blood infection with urine infection. pt has picc line and recieving IV antibiotics till 09/15 Kidney stone Fluid retention Chronic, abdomen/legs x 1+ years, following with Dr. Doran. No definitive etiology/issues s/p extensive workup.. Pt was on diuretic for a few weeks but d/t unremarkable workup, he states PCP stopped the diuretic. Improvement without further intervention over time per pt. No LE edema and soft, non-tender abdomen on PAT exam 07/11/21* Hypercholesteremia HTN (hypertension) Gout HX History of SCC (squamous cell carcinoma) of skin Chronic prostatitis History of basal cell carcinoma TIA (transient ischemic attack) 2013- reason for plavix Surgical History History of cystoscopy with stent 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 History of prostate surgery "Prostate Transurethral Destruction Prostate Tissue" History of colonoscopy H/O vasectomy History of surgery "Shaving of Lesion Mohs' Technique" "Prostate Transurethral Destruction Prostate Tissue" Family History Other Hypertension No family history of adverse response to anesthesia Social History Smoking Status: Never smoker Tobacco Type: Cigarettes Second Hand Exposure: No; Do You Dip or Chew Tobacco: No; Hx Alcohol Use: Yes Alcohol type: wine Hx Substance Use: No Preferred Language: Tristanian Communication Ability: Effective Field Pipelines Supervisor Required: No Beliefs That Will Affect Care: None marital status: Current Living Situation: Spouse Feels Safe at Home: Yes Safety Concerns: Feels Safe At This Time Assistive Devices: Glasses and Hearing Aid - Bilateral Review of Systems Constitutional: + fever and + weakness; no chills Eyes: no blind spots and no diplopia Ear, Nose, Mouth, Throat: no hearing loss Respiratory: no cough and no dyspnea Cardiovascular: no chest pain and no palpitations Gastrointestinal: no nausea and no vomiting Genitourinary: no urinary incontinence Musculoskeletal: no myalgia Integumentary: no rash and no lesions Neurologic: as per Subjective / HPI, + gait abnormality and + localized weakness; no tremor(s) and no headache(s) Psychiatric: no depression and no anxiety Hematologic / Lymphatic: no easy bleeding and no easy bruising Exam (Neuro) Constitutional: well developed and well nourished; no acute distress Eyes: normal visual valdovinos by confrontation, PERRL and EOM intact bilaterally; no nystagmus Neurologic: Oriented to:: Person, Place and Time Memory: Short Term Intact and Remote Intact Attention: Span Intact and Concentration Intact Speech Fluency: Slowed; negative Dysarthria or Dysfluency Speech Aphasia: negative Aphasia Fund of Knowledge: Current Events, Past History and Vocabulary Cranial Nerves: Normal II, III, IV, , V, VIII, IX, X, XI and XII; Abnorm VII (Mild left lower facial droop observed) Motor Strength: Hemiparesis (Mild) Laterality: Left Motor Tone: Normal Lower Extremities and Normal Upper Extremities Muscle Bulk/Involuntary Movements: No Involuntary Movements; negative Muscle Atrophy Sensation: Light Touch Intact, Pain/Temperature Intact and Proprioception Intact Coordination: Finger-Nose Abnormal Laterality: Left; negative Heel-Castillo Abnormal Deep Tendon Reflexes: Rt Triceps: 1+, Lt Triceps: 1+, Rt Biceps: 1+, Lt Biceps: 1+, Rt Brachioradialis: 1+, Lt Brachioradialis: 1+, Rt Patellar: 1+, Lt Patellar: 1+, Rt Ankle: 1+ and Lt Ankle: 1+ Special Tests: Babinski Present (Plantars equivocal bilaterally) Details: Gait could not be tested. Patient exhibits some signs of left hemiinattention. Does not extinguish to double simultaneous stimulation. He is mildly lethargic, speech is slowed. He has a mild left facial droop and mild weakness for the left upper extremity, difficulty with [id number] on the left, downward drift for the left upper limb. Results & Data Vital Signs (Past 12 Hours) Vital Signs Temp Pulse Pulse Resp BP BP BP 05/01/24 09:06 36.8 C 103 H 20 152/91 H 05/01/24 08:36 36.8 C 106 H 18 153/86 H 05/01/24 08:05 36.9 C 108 H 21 144/86 H 05/01/24 07:35 36.8 C 98 H 19 147/88 H 05/01/24 07:05 36.8 C 102 H 19 154/67 H 05/01/24 06:35 36.8 C 97 H 18 167/91 H 05/01/24 06:05 36.8 C 98 H 20 155/80 H 05/01/24 05:35 36.8 C 96 H 17 164/80 H 05/01/24 05:05 36.7 C 96 H 19 143/77 H 05/01/24 05:00 36.7 C 05/01/24 04:35 37.2 C 95 H 18 145/81 H 05/01/24 04:05 37.2 C 95 H 20 144/86 H 05/01/24 04:05 37.2 C 95 H 20 144/86 H 05/01/24 04:00 20 05/01/24 03:58 20 05/01/24 03:58 94 H 05/01/24 03:57 20 05/01/24 03:35 05/01/24 03:35 37.3 C 86 20 148/84 H 05/01/24 03:35 37.3 C 96 H 20 148/84 H 05/01/24 03:06 88 18 152/85 H 05/01/24 02:35 89 18 145/79 H 05/01/24 02:20 98 H 18 155/78 H 05/01/24 02:05 100 H 18 171/77 H 05/01/24 02:00 97 H 18 05/01/24 01:50 94 H 18 147/79 H 05/01/24 01:35 37.6 C H 98 H 18 162/84 H 05/01/24 01:20 94 H 18 176/90 H 05/01/24 00:30 93 H 18 173/100 H 04/30/24 23:58 96 H 04/30/24 23:44 04/30/24 23:44 38.1 C H 112 H 18 193/105 H Pulse Ox O2 Del Method 05/01/24 09:06 96 Room Air 05/01/24 08:36 96 Room Air 05/01/24 08:05 94 Room Air 05/01/24 07:35 93 Room Air 05/01/24 07:05 95 Room Air 05/01/24 06:35 94 Room Air 05/01/24 06:05 95 Room Air 05/01/24 05:35 94 Room Air 05/01/24 05:05 96 Room Air 05/01/24 05:00 Room Air 05/01/24 04:35 94 Room Air 05/01/24 04:05 95 Room Air 05/01/24 04:05 95 Room Air 05/01/24 04:00 Room Air 05/01/24 03:58 Room Air 05/01/24 03:58 05/01/24 03:57 Room Air 05/01/24 03:35 Room Air 05/01/24 03:35 95 Room Air 05/01/24 03:35 92 Room Air 05/01/24 03:06 93 Room Air 05/01/24 02:35 94 Room Air 05/01/24 02:20 97 Room Air 05/01/24 02:05 96 Room Air 05/01/24 02:00 95 Room Air 05/01/24 01:50 94 Room Air 05/01/24 01:35 94 Room Air 05/01/24 01:20 94 Room Air 05/01/24 00:30 94 Room Air 04/30/24 23:58 04/30/24 23:44 94 Room Air 04/30/24 23:44 97 Room Air Laboratory Results WBC 12.26, hemoglobin 14.3, hematocrit 41.6, platelet count 178, sodium 136, potassium 3.3, BUN 14, creatinine 0.75 glucose 100, calcium 8.6, magnesium 1.6, AST 45, ALT 27, triglycerides 61, cholesterol 102, LDL 56, VLDL 12, HDL 34, upper respiratory PCR positive for influenza H3 Diagnostic Findings Electrocardiogram reveals a sinus rhythm with premature supraventricular complexes. An echocardiogram completed in August 2022 had revealed normal left ventricular size and systolic function, EF 60 to 65%, no regional wall motion abnormalities, mild concentric LVH, mild left atrial dilation. Coding Level of Care Code 45515 INT INP/OBS CARE MIN Diagnoses Stroke I63.9 Time Spent (min) 90 Comment Total time includes patient contact, chart review, counseling, note preparation
[2024-05-01] MEDS: VERAPAMIL HCL 240 MG TABCR PO STA (10:25)
--- NOTE | 2024-05-01 12:23 | CT Scan Report ---
EXAM: CT Head Without Intravenous Contrast INDICATION: Postoperative lethargy and vomiting. TECHNIQUE: Axial computed tomography images of the head/brain without intravenous contrast. Sagittal and/or coronal reformats are provided. Sagittal and coronal reformatted images were created and reviewed. This CT exam was performed using one or more of the following dose reduction techniques: automated exposure control, adjustment of the mA and/or kV according to patient size, and/or use of iterative reconstruction technique. COMPARISON: 04/30/2024 CTA head. FINDINGS: Limitations: None. Brain and extra-axial spaces: There is age appropriate cortical atrophy and chronic ischemic periventricular white matter hypodensity. No acute infarct, hemorrhage or mass noted. Old lacunar infarct left thalamus. Bones/joints: No acute changes. Soft tissues: No significant abnormality noted. Vasculature: There is atherosclerotic calcification of the intracranial left vertebral and bilateral carotid arteries. Sinuses: Mild chronic bilateral ethmoid sinus mucosal thickening. No sinus fluid. Mastoid air cells: No mastoid effusion. Orbits: No significant abnormality noted. IMPRESSION: Cerebral atrophy. No acute changes. ACT 112: Negative or not required by law. Electronically signed by Elda Osullivan 05-01-2024 12:22 PM
--- NOTE | 2024-05-01 14:23 | Magnetic Resonance Report ---
MRI of the brain performed without IV contrast History: Lethargy and vomiting Comparison: None Technique: Sagittal T1-weighted and axial T2-weighted, T2/FLAIR and diffusion-weighted with ADC map images of the brain were obtained without IV contrast. Findings: No evidence for intracranial mass lesion, mass-effect, midline shift, or abnormal extra-axial fluid collection. There is a marked degree of cerebral atrophy. The sylvian fissures appear dilated. Moderate, confluent high signal intensity change on T2/FLAIR in the white matter consistent with chronic small vessel ischemic disease. No abnormally reduced diffusion or evidence for acute infarct. Normal intravascular flow voids. Impression: Age-related changes without acute intracranial pathology. Dilation of the ventricular system and sylvian fissures, which may be due to generalized cerebral atrophy versus normal pressure hydrocephalus. Electronically signed by Arian Laguna 05-01-2024 2:22 PM
[2024-05-01] MEDS: ACETAMINOPHEN 500 MG TAB PO PRN (17:50)
[2024-05-01] MEDS: ICU ELECTROLYTE REPLACEMENT PROTOCOL SCH (17:55)
[2024-05-01 19:04] LABS: BUN Creatinine Ratio 18.6 (10-20); Calcium 7.7 mg/dl (8.6-10.3); Creatinine Clr Calc Pharmacy 88.7 ml/min; Magnesium 1.8 mg/dl (1.7-2.4); Potassium 3.4 mmol/L (3.5-5.1)
--- NOTE | 2024-05-01 21:49 | Communication Note ---
Date of Service: May 01, 2024 Called to Bedside by nursing for concerns of neurological changes- lethargy, vision change of left lateral visual neglect, and worsening of left upper ex tremity weakness. O: BP 110/72, HR 92, SPo2 95%, RR 26 - Neuro: Awake alert, mild left facial droop, LUE weakness 4/5, visual valdovinos intact, pupils equal and reactive, EOMI, lethargy improved. A/P: 1.) Patient is s/p TNK administration for stroke like symptoms- MRI from today without acute infarct or hemorrhage - Patient with M1 stenosis with distal recon noted on CTA- in setting of lower blood pressure than normal for patient will provide 1L of saline bolus with goal 130-140 SBP- on my exam BP improved to 130s and back to his stable neurological exam that was noted earlier in shift. - Will obtain non-con head CT now - this will also be close to his 24 hour post TNK administration - At this time possible that decreased BP was noted with his neurological change or may be developing some delirium. - As above follow hemodynamics tonight and neuro exams- IVF as tolerated for BP and MAPS, consider vasopressor if needed to maintain SBP/MAPS to maintain neurological examination. Ruperto MEYERS ([facility]- )
[2024-05-01] MEDS: SODIUM CHLORIDE 0.9% 1,000 ML IV ONE (22:00)
--- NOTE | 2024-05-02 01:08 | CT Scan Report ---
Exam(s): CT HEAD Without Contrast EXAM: CT Head Without Intravenous Contrast CLINICAL HISTORY: Reason for exam: confusion s/p TNK 20hours ago-eval for bleed/delgado. TECHNIQUE: Axial computed tomography images of the head/brain without intravenous contrast. Automated exposure control was utilized for the study. A dose lowering technique was utilized adhering to the principles of ALARA. COMPARISON: Prior brain MRI from May 01, 2024. FINDINGS: Brain: Remote ischemic injury of the left thalamus.. No hemorrhage. Moderate nonspecific white matter changes. No edema. Ventricles: Moderate ventriculomegaly. Bones/joints: Unremarkable. No acute fracture. Soft tissues: Unremarkable. Sinuses: Chronic maxillary and ethmoid sinusitis. No acute sinusitis. Mastoid air cells: Unremarkable as visualized. No mastoid effusion. IMPRESSION: No evidence of acute intracranial pathology. Electronically signed by: Bee Davison MD 05/02/24 01:07 AM
[2024-05-02 04:40] LABS: Basophils # (auto) 0.03 K/uL (0.00-0.20); Basophils % (auto) 0.3 %; Eosinophils # (auto) 0.01 K/uL (0.00-0.50); Eosinophils % (auto) 0.1 %; Hematocrit (blood only) 36.8 % (42.0-52.0); Hemoglobin 12.8 g/dl (14.0-18.0); Immature Granulocytes # (auto) 0.03 K/uL (0.01-0.20); Immature Granulocytes % (auto) 0.3 %; Lymphocytes # (auto) 1.99 K/uL (1.20-3.40); Lymphocytes % (auto) 21.6 %; Mean Corpuscular Hemoglobin 31.8 pg (25.0-34.0); Mean Corpuscular Hgb Conc 34.8 g/dL (32.0-36.0); Mean Corpuscular Volume 91.3 fL (80.0-100.0); Mean Platelet Volume 9.8 fL (9.4-12.4); Monocytes # (auto) 0.92 K/uL (0.11-0.59); Neutrophils # (auto) 6.22 K/uL (1.40-6.50); Neutrophils % (auto) 67.7 %; Platelet Count 161 K/uL (130-400); RDW Standard Deviation 43.1 fL (36.4-46.3); Red Blood Count 4.03 M/uL (4.70-6.10)
[2024-05-02 04:48] LABS: Phosphorus 2.5 mg/dl (2.5-4.9)
[2024-05-02 04:57] LABS: Partial Thromboplastin Time 28 Seconds (21-31); Prothrombin Time 10.7 Seconds (9.0-12.0)
[2024-05-02 07:13] LABS: Albumin Globulin Ratio 1.2 (0.9-2); Albumin Level 3.4 gm/dl (3.4-5.0); BUN Creatinine Ratio 19.7 (10-20); Bilirubin,Total 0.9 mg/dl (0.2-1.0); Calcium 8.1 mg/dl (8.6-10.3); Creatinine Clr Calc Pharmacy 87.5 ml/min; Globulin 2.8 gm/dl (2.5-4.0); Magnesium 1.9 mg/dl (1.7-2.4); Potassium 3.1 mmol/L (3.5-5.1); Total Protein 6.2 gm/dl (6.0-8.3)
[2024-05-02 08:50] LABS: A calco-baum cmplx NotReported Not Detected (NotDetected); Bact fragilis Not Reported Not Detected (NotDetected); Blood Culture Id Panel See PCR Comment (NotDetected); C auris Not Reported Not Detected (NotDetected); Calbicans Not Reported Not Detected (NotDetected); Candida glabrata Not Reported Not Detected (NotDetected); Candida krusei Not Reported Not Detected (NotDetected); Cneoformans/gatti Not Reported Not Detected (NotDetected); Cparapsilosis Not Reported Not Detected (NotDetected); E cloacae compx Not Reported Not Detected (NotDetected); Efaecalis Not Reported Not Detected (NotDetected); Efaecium Not Reported Not Detected (NotDetected); Enterobacterales Not Reported Not Detected (NotDetected); Escherichia coli Not Reported Not Detected (NotDetected); H influenzae Not Reported Not Detected (NotDetected); K aerogenes Not Reported Not Detected (NotDetected); Koxytoca Not Reported Not Detected (NotDetected); Kpneumoniae grp Not Reported Not Detected (NotDetected); Lmonocyt Not Reported Not Detected (NotDetected); N meningitidis Not Reported Not Detected (NotDetected); P aeruginosa Not Reported Not Detected (NotDetected); Proteus spp Not Reported Not Detected (NotDetected); Salmonella spp Not Reported Not Detected (NotDetected); Staph lugdunensis Not Reported Not Detected (NotDetected); Staph spp. Not Reported DETECTED (NotDetected); Staphaureus Not Reported Not Detected (NotDetected); Staphepi Not Reported Not Detected (NotDetected); Stenmaltophilia Not Reported Not Detected (NotDetected); Strep agal(GrpB) Not Reported Not Detected (NotDetected); Strep pneum Not Reported Not Detected (NotDetected); Strep pyog (GrpA) Not Reported Not Detected (NotDetected); Strep spp Not Reported Not Detected (NotDetected)
[2024-05-02] MEDS: ONDANSETRON INJ 2 MG/ML 2 ML VIAL IV PRN (08:54)
[2024-05-02 09:17] LABS: Staphylococcus spp. DETECTED (NotDetected)
[2024-05-02] MEDS: ASPIRIN 81 MG ECTAB PO SCH (11:28)
[2024-05-02] MEDS: CLOPIDOGREL BISULFATE 75 MG TAB PO SCH (11:28)
--- NOTE | 2024-05-02 11:29 | Neurology Progress Note ---
Date of Service May 02, 2024 Assessment & Plan (1) Cerebrovascular accident (CVA) involving right cerebral hemisphere: Plan Patient had the acute onset of left hemiparesis and hemineglect on April 30. He received TNK and symptoms have improved (although have not completely resolved). He has a little bit of facial asymmetry on the left and some right upper extremity weakness of a mild nature. MRI of the brain did not show an acute stroke. This is therefore a reversible ischemic neurologic deficit and may take several days for his symptoms to resolve. Patient does have the flu which likely contributes to lethargy. The fluctuating alertness is noted. He is currently afebrile without elevated white count and no other sign of infection. He has no electrolyte imbalance that would affect his central nervous system. Calcium is low. Echocardiogram showed mild concentric left ventricular hypertrophy and no interatrial shunt MRI shows generous ventricles but they are not out of proportion to the amount of cerebral atrophy. 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 This is the opposite side of the problem which caused the left-sided weakness. Recommendations: 1. Physical, occupational, and speech therapy consults to evaluate and treat. Increase activity as able. 2. I will follow clinically and make additional recommendations depending on his clinical course. Depending on his mental status we may repeat the MRI of the brain, consider lumbar puncture, or other testing. 3. Remain on 81 mg aspirin and 75 mg clopidogrel for now (even though this event occurred on these 2 medications). 4. Consider outpatient stroke consult at [facility] for discussion of additional treatment options 5. Follow-up in neurology clinic 3 to 4 weeks after discharge (with neurology PA) Overall, I spent a total of 60 minutes with this case including review of records, review of CT and MRI films, direct evaluation the patient at bedside, report generation, and discussion of the case with the patient and his at bedside, RN at bedside, and Dr. Klein, including differential diagnosis and options. Admission and Anticipated Discharge Date Admission Date: May 01, 2024 Subjective Patient is a little lethargic this morning but follows 1 and two-step commands and seems fairly well oriented. Mood and affect are normal and appropriate. Speech is without obvious aphasia or dysarthria. Nursing reports some fluctuation in level of alertness today but there was no new weakness or numbness and no seizure activity. There is a concern about some left facial asymmetry. CT angiography of the head showed 60 to 70% stenosis of the left MCA M1 segment. CTA of the neck was unremarkable. MRI of the brain showed no acute stroke. I reviewed these films with Dr. Moon. There were some degenerative thighs ventricles but sylvian fissures were large and the ventricular enlargement was not out of proportion to the amount of atrophy. Plus the ventricles have not changed compared to previous studies. According to the patient's , who is present at bedside, patient does have some occasional memory problems, incontinence of urine, and gait issues but most of this occurs when the patient is getting ill (such as getting a cold or flu). He does not have these issues when he is not getting ill, apparently. The patient was on aspirin and Plavix when he came into the ER April 30 and received TNK. Repeat CTs have shown no bleeding. Results & Data Vital Signs (Past 12 Hours) Vital Signs Temp Pulse Pulse Resp BP BP Pulse Ox 05/02/24 07:39 36.7 C 05/02/24 06:00 89 25 H 170/84 H 93 05/02/24 05:30 79 25 H 161/94 H 93 05/02/24 05:00 83 20 162/86 H 95 05/02/24 04:00 96 H 20 158/98 H 94 05/02/24 03:01 87 22 160/86 H 93 05/02/24 02:30 74 22 140/78 92 05/02/24 02:00 74 22 148/83 H 92 05/02/24 01:31 82 23 153/87 H 95 05/02/24 01:05 36.6 C 83 20 133/95 94 05/02/24 01:00 82 21 133/95 92 05/02/24 00:31 79 18 144/78 H 94 05/02/24 00:05 36.7 C 83 19 128/70 94 05/02/24 00:01 79 18 128/70 94 05/02/24 00:00 90 05/01/24 23:30 85 20 122/67 93 O2 Del Method 05/02/24 07:39 05/02/24 06:00 Room Air 05/02/24 05:30 Room Air 05/02/24 05:00 Room Air 05/02/24 04:00 Room Air 05/02/24 03:01 Room Air 05/02/24 02:30 Room Air 05/02/24 02:00 Room Air 05/02/24 01:31 Room Air 05/02/24 01:05 Room Air 05/02/24 01:00 Room Air 05/02/24 00:31 Room Air 05/02/24 00:05 Room Air 05/02/24 00:01 Room Air 05/02/24 00:00 05/01/24 23:30 Room Air Exam (Neuro) Physical Exam: Today the patient is awake and fairly alert. He is a little lethargic but follows commands well and answers questions well. Speech is without obvious aphasia or dysarthria Extraocular muscles are intact without nystagmus. There is no facial droop but there may be some slight asymmetry with the left corner of the mouth not rising as symmetrically as the right corner with a voluntary smile. Tongue is midline. With outstretched arms, there is mild drift on the left. There is no tremor or ataxia with [id number] testing and facility in the left hand is reasonable. Motor strength is 5/5 diffusely in the right arm, right leg, and left leg both proximally and distally. The left upper extremity is 4+/5 diffusely. Reflexes are 1/4 throughout and toes are downgoing with plantar stimulation bilaterally. PG Care Time/CCT Total # of Minutes Spent Total Time Spent with Patient: Total time spent is greater than 50% in coordination of care (as documented) at patient's floor/unit and/or counseling patient: Coding Level of Care Code 78637 SUB INP/OBS CARE 3/50MIN Diagnoses Cerebrovascular accident (CVA) involving right cerebral hemisphere I63.9 Time Spent (min) 60
[2024-05-02] MEDS: POT PHOSPHATE MONOBASIC W/ SOD TAB PO SCH (11:45)
[2024-05-02] MEDS: POTASSIUM CHLORIDE CRTAB 20 MEQ TABCR PO SCH (11:45)
[2024-05-02] MEDS: MAGNESIUM OXIDE 400 MG TAB PO SCH (11:45)
[2024-05-02] MEDS: POTASSIUM CHLORIDE / WTR 10 MEQ/100 ML PLCT IV SCH (12:43)
[2024-05-02] MEDS: MAGNESIUM SULFATE / D5W 1 GM/100 ML BAG IV SCH (12:44)
--- NOTE | 2024-05-02 15:04 | Critical Care Progress Note ---
Date of Service May 02, 2024 Assessment & Plan (1) Stroke-like symptoms: (2) Influenza A: (3) Stress incontinence: (4) Incomplete emptying of bladder due to benign prostatic hyperplasia: Plan Reason Critically Ill: 79 YOM with influenza A that presented with left sided weakness, was deemed a Thrombolytic candidate and received TNK at 0105. Neuro - Stroke like symptoms, ICAD with M1 Stenosis, ambulatory dysfunction CAM ICU: NEGATIVE -Appreciate neuro recs. Continue aspirin and Plavix as able to tolerate p.o. Follow-up outpatient with neurology. -MRI brain and CT head noted. No acute intracranial pathology. Cardiac - HTN, HLD, -Continue aspirin, Plavix and statin therapy. Continue home verapamil. Respiratory - Influenza A - Nebulizers as needed - consider adding mucolytics - Tamiflu - Supportive care -No significant oxygen requirements currently GI - No acute needs - advance diet as tolerated- passed bedside swallow eval RENAL/LYTES - Electrolyte disturbances - replete mag - ICU electrolyte protocol - BPH with LUTS - unfortunately ribeiro not placed prior to TNK- will continue with bladder scans - diaper for incontinence - barrier cream to groin and buttocks ENDO - Hyperglycemia without diagnosis of DM - HGBA1C in morning - ICU hyperglycemic protocol goal <180mg/dl HEME - No acute needs - Follow for any bleeding -Start DVT prophylaxis. ID - No concern at this time for infective cause LINES/IV ACCESS - PIV Continue use of these lines DVT PROPHYLAXIS -Lovenox 40 mg daily Okay to transfer out of ICU. Discussed with hospitalist service and multidisciplinary rounds. Admission and Anticipated Discharge Date Admission Date: May 01, 2024 Subjective Some nausea and retching today. Patient able to get out of bed to chair with physical therapy. Hemodynamically stable. Review of Systems Review of Systems: All systems reviewed & are unremarkable except as noted in HPI & below Physical Exam Physical Exam: Constitutional: Patient appears to be of their stated age. Patient is in no apparent distress. Patient is well-developed. Eyes: Pupils are equal round and reactive to light. Conjunctivae are normal. Anicteric sclera. Ears nose, mouth and throat: No perioral cyanosis. Neck: Trachea is midline. Visual inspection is normal. Respiratory: Clear to auscultation bilaterally. No use of accessory muscles. No significant clubbing noted. Cardiovascular: Regular rate and rhythm. No murmurs. No edema. Gastrointestinal: Normal bowel sounds, soft, nontender and nondistended. No hepatosplenomegaly noted. Musculoskeletal: No cyanosis. Patient is able to move all extremities. Strength is 5 out of 5 in the upper and lower extremities. Skin: No rashes, warm dry and intact. Neurologic: Mild left upper extremity weakness. Mild facial droop. Psychiatric: Alert and oriented x3 with a euthymic affect. Results & Data Results & Data Vital Signs (Past 12 Hours) Vital Signs Temp Pulse Resp BP Pulse Ox O2 Del Method 05/02/24 12:30 88 22 05/02/24 12:30 135/71 05/02/24 12:18 89 24 05/02/24 11:33 101 H 12 94 05/02/24 11:30 163/102 H 05/02/24 11:27 96 H 16 94 Room Air 05/02/24 11:00 94 H 22 93 05/02/24 11:00 169/90 H 05/02/24 10:30 149/91 H 05/02/24 10:15 92 H 30 H 92 05/02/24 10:03 96 H 26 H 93 05/02/24 10:00 145/101 H 05/02/24 09:54 100 H 24 92 05/02/24 09:30 Room Air 05/02/24 09:12 102 H 25 H 92 05/02/24 09:01 152/89 H 05/02/24 08:57 100 H 19 91 05/02/24 08:45 121/83 05/02/24 08:42 100 H 30 H 95 05/02/24 08:09 105 H 26 H 94 05/02/24 08:00 154/77 H 05/02/24 08:00 103 H 05/02/24 07:45 99 H 15 94 05/02/24 07:39 36.7 C 05/02/24 07:03 100 H 22 92 05/02/24 07:00 165/97 H 05/02/24 06:48 101 H 26 H 92 05/02/24 06:00 89 25 H 170/84 H 93 Room Air 05/02/24 05:30 79 25 H 161/94 H 93 Room Air 05/02/24 05:00 83 20 162/86 H 95 Room Air 05/02/24 04:00 96 H 20 158/98 H 94 Room Air 05/02/24 03:01 87 22 160/86 H 93 Room Air Coding Level of Care Code 40155 CRITICAL CARE 1ST 30-74M Diagnoses Stroke-like symptoms R29.90 Influenza A J10.1 Stress incontinence N39.3 Incomplete emptying of bladder due to benign prostatic hyperplasia N40.1; R39.14
[2024-05-02] MEDS: ENOXAPARIN INJ 40 MG/0.4 ML SYR SQ SCH (15:19)
--- NOTE | 2024-05-02 22:44 | Hospitalist Progress Note ---
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 His last known well baseline time was at 9:45 PM, when he went to bed. His was unable to get him up. He was noted to be confused, and had difficulty moving his left side of his body. There was no suggestion of seizure type activity. Ptwas transported to ER by EMS. On presentation the patient was noted to have left hemiparesis with upper extremity worse than left lower extremity. Patient has been taking aspirin plus Plavix as directed at home, has a history of paroxysmal atrial fibrillation, without anticoagulation therapy. In the emergency department patient did test positive for influenza A, likely contracted from exposure to his grandson. Patient did undergo CT scan of head without contrast which was negative, CTA neck was negative, CTA head showed a focal 60-70% narrowing in the left M1 MCA segment. Patient was assessed by stroke neurology Dr. Zane Roman, who advised that patient should undergo therapeutic TNK, which was administered by the ED, and the patient was then presented to the [facility]ist service and ICU for ongoing medical treatment. #Acute right hemispheric MCA distribution CVA- Status post administration of IV thrombolytics in the ED Patient did have improvement in symptoms of left sided weakness resumed aspirin and plavix MRI negative. Patient still with upper extremity drift, should improve over next few days. PT/OT recommending rehab. Consult awning installer Dr. Paz, Consult neurology Dr. Cruz, no interventions recommendd Hypertension- Continue verapamil Elevated Troponin, likely demand ischemia Hypomagnesemia- Magnesium 1.6 on admission replete Hyperlipidemia- Continue atorvastatin Influenza A- Received first dose of Tamiflu, will continue Tamiflu 5 mg p.o. twice daily Gout- Continue allopurinol Admission and Anticipated Discharge Date Admission Date: May 01, 2024 Subjective Patient reports being less lethargic today. is at bedside and confirms. Nurse reports he continues to have left sided upper extremity drift. Review of Systems Review of Systems: All systems reviewed & are unremarkable except as noted in HPI & below Physical Exam Constitutional: WD/WN, vitals as above Neck: trachea midline, no thyromegaly Respiratory: normal respiratory effort, lungs clear to auscultation Cardiovascular: RRR, no murmur, no edema Gastrointestinal (Abdomen): normal bowel sounds, soft, nontender, no hepatosplenomegaly Results & Data Results & Data Vital Signs (Past 12 Hours) Vital Signs Temp Pulse Resp BP Pulse Ox O2 Del Method 05/02/24 16:34 36.8 C 05/02/24 15:10 78 05/02/24 15:00 78 23 05/02/24 15:00 125/54 L 05/02/24 14:12 84 20 05/02/24 14:00 110/73 05/02/24 13:54 89 21 05/02/24 13:30 107/67 05/02/24 13:24 86 23 05/02/24 13:00 112/66 05/02/24 13:00 90 20 05/02/24 12:30 88 22 05/02/24 12:30 135/71 05/02/24 12:18 89 24 05/02/24 11:33 101 H 12 94 05/02/24 11:30 163/102 H 05/02/24 11:27 96 H 16 94 Room Air 05/02/24 11:00 94 H 22 93 05/02/24 11:00 169/90 H PG Care Time/CCT Total # of Minutes Spent Total Time Spent with Patient: Total time spent is greater than 50% in coordination of care (as documented) at patient's floor/unit and/or counseling patient: Coding Level of Care Code 58770 SUB INP/OBS CARE 3/50MIN Diagnoses Cerebrovascular accident (CVA) involving right cerebral hemisphere I63.9 Stroke aborted by administration of thrombolytic agent I63.9 Influenza A J10.1
[2024-05-03 05:26] LABS: Basophils # (auto) 0.03 K/uL (0.00-0.20); Basophils % (auto) 0.3 %; Eosinophils # (auto) 0.05 K/uL (0.00-0.50); Eosinophils % (auto) 0.6 %; Hematocrit (blood only) 36.1 % (42.0-52.0); Hemoglobin 12.7 g/dl (14.0-18.0); Immature Granulocytes # (auto) 0.03 K/uL (0.01-0.20); Immature Granulocytes % (auto) 0.3 %; Lymphocytes # (auto) 2.43 K/uL (1.20-3.40); Lymphocytes % (auto) 27.7 %; Mean Corpuscular Hemoglobin 31.9 pg (25.0-34.0); Mean Corpuscular Hgb Conc 35.2 g/dL (32.0-36.0); Mean Corpuscular Volume 90.7 fL (80.0-100.0); Mean Platelet Volume 9.6 fL (9.4-12.4); Monocytes # (auto) 0.77 K/uL (0.11-0.59); Monocytes % (auto) 8.8 %; Neutrophils # (auto) 5.45 K/uL (1.40-6.50); Neutrophils % (auto) 62.3 %; Platelet Count 174 K/uL (130-400); RDW Coefficient of Variation 12.8 % (11.5-14.5); RDW Standard Deviation 42.6 fL (36.4-46.3); Red Blood Count 3.98 M/uL (4.70-6.10); White Blood Count 8.76 K/ul (4.8-10.8)
[2024-05-03 05:38] LABS: Albumin Globulin Ratio 1.1 (0.9-2); Albumin Level 3.3 gm/dl (3.4-5.0); Bilirubin,Total 0.6 mg/dl (0.2-1.0); Calcium 8.5 mg/dl (8.6-10.3); Creatinine Clr Calc Pharmacy 81.5 ml/min; Magnesium 2.1 mg/dl (1.7-2.4); Phosphorus 2.3 mg/dl (2.5-4.9); Potassium 3.4 mmol/L (3.5-5.1); Total Protein 6.3 gm/dl (6.0-8.3)
[2024-05-03 05:49] LABS: INR 0.9 (0.9-1.1); Partial Thromboplastin Time 27 Seconds (21-31); Prothrombin Time 10.3 Seconds (9.0-12.0)
[2024-05-03] MEDS: POTASSIUM CHLORIDE CRTAB 20 MEQ TABCR PO STA (09:05)
--- NOTE | 2024-05-03 09:10 | Electrocardiogram Report ---
Test Reason : Blood Pressure : */* mmHG Vent. Rate : 103 BPM Atrial Rate : 103 BPM P-R Int : 170 ms QRS Dur : 74 ms QT Int : 348 ms P-R-T Axes : 38 -9 25 degrees QTcB Int : 455 ms Sinus tachycardia Poor R wave progression, consider anterior HI vs. lead placement vs. LVH Abnormal ECG When compared with ECG of 01-May-2024 00:18, Premature supraventricular complexes are no longer Present Confirmed by Shamar Alas ([id number]) on 05/03/2024 9:10:07 AM Referred By: REFERRED SELF Confirmed By: Shamar Alas
[2024-05-03 12:07] LABS: Estimated Average Glucose 117 mg/dl; Hemoglobin A1C 5.7 % (4.5-5.6)
--- NOTE | 2024-05-03 13:21 | Pharmacy Report ---
- Date of Service May 03, 2024 - Pharmacy CVA/TIA Medication Review Medications to Prevent Stroke handout has been added to the patients discharge packet. Antiplatelet(s) * Asa 81 daily * Clopidogrel 75 daily Cholesterol * High intensity statin: atorvastatin 40 mg daily DVT Prophylaxis * Enoxaparin SQ Therapeutic Anticoagulation * No history of Afib/Aflutter noted Type 2 Diabetes * Patient does not have T2DM
--- NOTE | 2024-05-03 23:00 | Hospitalist Progress Note ---
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 His last known well baseline time was at 9:45 PM, when he went to bed. His was unable to get him up. He was noted to be confused, and had difficulty moving his left side of his body. There was no suggestion of seizure type activity. Ptwas transported to ER by EMS. On presentation the patient was noted to have left hemiparesis with upper extremity worse than left lower extremity. Patient has been taking aspirin plus Plavix as directed at home, has a history of paroxysmal atrial fibrillation, without anticoagulation therapy. In the emergency department patient did test positive for influenza A, likely contracted from exposure to his grandson. Patient did undergo CT scan of head without contrast which was negative, CTA neck was negative, CTA head showed a focal 60-70% narrowing in the left M1 MCA segment. Patient was assessed by stroke neurology Dr. Zane Roman, who advised that patient should undergo therapeutic TNK, which was administered by the ED, and [facility]. #Acute right hemispheric MCA distribution CVA- Status post administration of IV thrombolytics in the ED Patient did have improvement in symptoms of left sided weakness resumed aspirin and plavix MRI negative. Patient still with upper extremity drift, should improve over next few days. PT/OT recommending rehab. Consult computational scientist Dr. Paz, Consult neurology Dr. Cruz, no interventions recommended repeat lab drawn Hypertension- Continue verapamil Elevated Troponin, likely demand ischemia Hypomagnesemia- Magnesium 1.6 on admission replete Hyperlipidemia- Continue atorvastatin Influenza A- will continue Tamiflu 5 mg p.o. twice daily will order crp and procal Gout- Continue allopurinol Admission and Anticipated Discharge Date Admission Date: May 01, 2024 Subjective Patient is resting. Physical Exam Constitutional: WD/WN, vitals as above Neck: trachea midline, no thyromegaly Respiratory: normal respiratory effort, lungs clear to auscultation Cardiovascular: RRR, no murmur, no edema Gastrointestinal (Abdomen): normal bowel sounds, soft, nontender, no hepatosplenomegaly Results & Data Results & Data Vital Signs (Past 12 Hours) Vital Signs Temp Pulse Pulse Resp BP BP Pulse Ox 05/03/24 21:00 77 16 05/03/24 20:33 154/75 H 05/03/24 20:33 37.9 C H 154/75 H 05/03/24 20:33 75 24 05/03/24 19:12 72 21 05/03/24 16:15 36.8 C 72 18 141/83 H 92 05/03/24 16:15 72 05/03/24 11:50 36.7 C 96 H 18 115/65 91 O2 Del Method 05/03/24 21:00 05/03/24 20:33 05/03/24 20:33 05/03/24 20:33 05/03/24 19:12 05/03/24 16:15 Room Air 05/03/24 16:15 05/03/24 11:50 Room Air PG Care Time/CCT Total # of Minutes Spent Total Time Spent with Patient: Total time spent is greater than 50% in coordination of care (as documented) at patient's floor/unit and/or counseling patient: Coding Level of Care Code 40000 SUB INP/OBS CARE 2/35MIN Diagnoses Cerebrovascular accident (CVA) involving right cerebral hemisphere I63.9 Stroke aborted by administration of thrombolytic agent I63.9 Influenza A J10.1
[2024-05-04 04:03] LABS: Hematocrit (blood only) 33.3 % (42.0-52.0); Hemoglobin 11.9 g/dl (14.0-18.0); Mean Corpuscular Hemoglobin 32.2 pg (25.0-34.0); Mean Corpuscular Hgb Conc 35.7 g/dL (32.0-36.0); Mean Platelet Volume 9.6 fL (9.4-12.4); Platelet Count 180 K/uL (130-400); RDW Coefficient of Variation 12.9 % (11.5-14.5); RDW Standard Deviation 42.7 fL (36.4-46.3); White Blood Count 7.82 K/ul (4.8-10.8)
[2024-05-04 04:22] LABS: BUN Creatinine Ratio 32.4 (10-20); C Reactive Protein 2.86 mg/dl (0-0.5); Calcium 8.5 mg/dl (8.6-10.3); Creatinine Clr Calc Pharmacy 92.3 ml/min; Magnesium 1.9 mg/dl (1.7-2.4); Phosphorus 2.6 mg/dl (2.5-4.9); Potassium 3.4 mmol/L (3.5-5.1)
[2024-05-04 04:34] LABS: Partial Thromboplastin Time 26 Seconds (21-31)
--- NOTE | 2024-05-04 08:03 | Neurology Progress Note ---
Date of Service May 04, 2024 Assessment & Plan (1) Cerebrovascular accident (CVA) involving right cerebral hemisphere: (2) Bruising: Plan Patient had the acute onset of left hemiparesis and hemineglect on April 30. He received TNK and symptoms have markedly improved (although have not completely resolved). Speech is normal and there is no facial weakness. The left lower extremity has no weakness. He is left with some very mild weakness in the left upper extremity (improved compared to May 02) MRI of the brain did not show an acute stroke. This is therefore a reversible ischemic neurologic deficit (and deficit may take several days for his symptoms to resolve). Patient does have the flu which likely explains his current fatigue, congestion, and cough Echocardiogram showed mild concentric left ventricular hypertrophy and no interatrial shunt MRI shows generous ventricles but they are not out of proportion to the amount of cerebral atrophy. 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 This is the opposite side of the problem which caused the left-sided weakness. Although the location of the same, the percent stenosis is likely a little improved compared to 2013. The patient has considerable bruising on the dual antiplatelet therapy. Recommendations: 1. Continue physical and Occupational Therapy. The patient would be an excellent rehabilitation hospital candidate. 2. There is no need for additional neurologic testing at this time 3. Remain on 81 mg aspirin and 75 mg clopidogrel for now (even though this event occurred on these 2 medications). From a neurologic standpoint, consider discontinuing aspirin after a week or 2 (especially given his easy bruisability) 4. Consider outpatient stroke consult at [facility] for discussion of additional treatment options given his events and bruising. 5. Follow-up in neurology clinic 3 to 4 weeks after discharge (with neurology PA) Overall, I spent a total of 50 minutes with this case including review of records, direct evaluation the patient at bedside, report generation, and discussion of the case with the patient and RN at bedside and Dr. Klein, including differential diagnosis and options. Admission and Anticipated Discharge Date Admission Date: May 01, 2024 Subjective The patient has a little bit of tingling in his left hand and some very mild weakness in the left upper extremity, otherwise he feels back to baseline. He has no speech or mentation issues, swallowing problems, vision deficits, pain or headaches, and is not sleepy while he was a couple of days ago. He still has some symptoms of his cold and flu with some congestion and mild cough. He bruises easily because he has been on aspirin and Plavix together since 2014. I originally put him on 81 mg aspirin and 75 mg clopidogrel in August 2013, following his TIA. At that time he had MR angiography of the head and CT angiography of the head. There was a high-grade stenosis in the left middle cerebral artery. He stayed on dual antiplatelet therapy for 3 months and then the aspirin was discontinued. He remained on clopidogrel alone until somewhere between 2014 and 2015 when his PCP added the aspirin back. He had no further neurologic events but this may have been for "cardiac" reasons. CBC shows mild anemia and CHEM profile was largely unremarkable. Results & Data Vital Signs (Past 12 Hours) Vital Signs Temp Pulse Resp BP 05/04/24 06:00 60 15 05/04/24 05:00 65 19 05/04/24 04:21 66 23 05/04/24 04:04 134/73 05/04/24 04:04 134/73 05/04/24 03:51 71 20 05/04/24 03:03 68 21 05/04/24 02:03 71 18 05/04/24 01:06 72 14 05/04/24 00:18 67 12 05/04/24 00:12 67 14 154/75 H 05/03/24 23:18 65 17 05/03/24 22:06 66 18 05/03/24 21:00 77 16 05/03/24 20:33 154/75 H 05/03/24 20:33 37.9 C H 154/75 H 05/03/24 20:33 75 24 Exam (Neuro) Physical Exam: He is awake and alert. Speech is without aphasia or dysarthria. Mood is normal and affect is appropriate. Thought processes are intact and he has good long and short-term memory to conversation. Extraocular eye muscles are intact without nystagmus. Pupils are 3 to 4 mm bilaterally and reactive to light. There is no facial droop and he has symmetrical movement of facial muscles both upper and lower. Tongue is midline with good strength bilaterally. There is a slight drift with outstretched arms on the left. This is improved compared to May 02. Coordination is normal in the arm without tremor or ataxia. He does not have any significant clumsiness in the left hand like he did May 02. Motor strength is 5/5 diffusely in all major muscle groups in the right upper extremity and both legs both proximally and distally. Left upper extremity strength is 4+/5 proximally and distally. Reflexes are 1/4 throughout and toes are downgoing to plantar stimulation bilaterally. PG Care Time/CCT Total # of Minutes Spent Total Time Spent with Patient: Total time spent is greater than 50% in coordination of care (as documented) at patient's floor/unit and/or counseling patient: Coding Level of Care Code 54251 SUB INP/OBS CARE 3/50MIN Diagnoses Cerebrovascular accident (CVA) involving right cerebral hemisphere I63.9 Bruising T14.8XXA
[2024-05-04] MEDS: PNEUMOCOCCAL VACCINE (PCV20) 20-VAL CONJ-DIP CRM/PF 0.5 ML SYR IM ONE (08:32)
[2024-05-04 11:10] VITALS: O2SAT 96
--- NOTE | 2024-05-04 23:00 | Hospitalist Progress Note ---
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 His last known well baseline time was at 9:45 PM, when he went to bed. His was unable to get him up. He was noted to be confused, and had difficulty moving his left side of his body. There was no suggestion of seizure type activity. Ptwas transported to ER by EMS. On presentation the patient was noted to have left hemiparesis with upper extremity worse than left lower extremity. Patient has been taking aspirin plus Plavix as directed at home, has a history of paroxysmal atrial fibrillation, without anticoagulation therapy. In the emergency department patient did test positive for influenza A, likely contracted from exposure to his grandson. Patient did undergo CT scan of head without contrast which was negative, CTA neck was negative, CTA head showed a focal 60-70% narrowing in the left M1 MCA segment. Patient was assessed by stroke neurology Dr. Zane Roman, who advised that patient should undergo therapeutic TNK, which was administered by the ED, and the patient was then presented to the [facility] and ICU for ongoing medical treatment. #Acute right hemispheric MCA distribution CVA- Status post administration of IV thrombolytics in the ED Patient did have improvement in symptoms of left sided weakness resumed aspirin and plavix MRI negative. Patient still with upper extremity drift, should improve over next few days. PT/OT recommending rehab. Consult third helper Dr. Paz, Consult neurology Dr. Cruz, no interventions recommended pending placement. LEft arm appears slightly stronger. Hypertension- Continue verapamil Elevated Troponin, likely demand ischemia Hypomagnesemia- Magnesium 1.6 on admission replete Hyperlipidemia- Continue atorvastatin Influenza A- will continue Tamiflu 5 mg p.o. twice daily will order crp and procal Gout- Continue allopurinol Admission and Anticipated Discharge Date Admission Date: May 01, 2024 Subjective 79 yo male reports no new symptoms. Physical Exam Constitutional: WD/WN, vitals as above Neck: trachea midline, no thyromegaly Respiratory: normal respiratory effort, lungs clear to auscultation Cardiovascular: RRR, no murmur, no edema Gastrointestinal (Abdomen): normal bowel sounds, soft, nontender, no hepatosplenomegaly Musculoskeletal: left arm 4+/5 strength Results & Data Results & Data Vital Signs (Past 12 Hours) Vital Signs Temp Pulse Resp BP Pulse Ox O2 Del Method 05/04/24 22:00 65 21 05/04/24 20:30 70 23 05/04/24 20:13 145/75 H 05/04/24 20:13 145/75 H 05/04/24 19:54 74 26 H 05/04/24 16:18 81 24 05/04/24 16:06 111/69 05/04/24 16:03 36.5 C 75 24 96 Room Air 05/04/24 16:00 89 05/04/24 11:10 36.5 C 05/04/24 11:09 89 19 96 Room Air PG Care Time/CCT Total # of Minutes Spent Total Time Spent with Patient: Total time spent is greater than 50% in coordination of care (as documented) at patient's floor/unit and/or counseling patient: Coding Level of Care Code 16482 SUB INP/OBS CARE 2/35MIN Diagnoses Cerebrovascular accident (CVA) involving right cerebral hemisphere I63.9 Stroke aborted by administration of thrombolytic agent I63.9 Influenza A J10.1
[2024-05-05 04:18] LABS: BUN Creatinine Ratio 30.9 (10-20); Creatinine Clr Calc Pharmacy 96.6 ml/min; Phosphorus 3.1 mg/dl (2.5-4.9); Potassium 3.3 mmol/L (3.5-5.1)
[2024-05-05 04:47] VITALS: TEMP 98.2
[2024-05-05 13:47] VITALS: RESP 22
[2024-05-05 13:58] VITALS: BP 152/85; PULSE 78
[2024-05-05] MEDS: STROKE PATIENT DISCHARGE STA (14:33)
--- NOTE | 2024-05-06 09:57 | Pharmacy Report ---
Pharmacist Stroke Counseling - Date of Service May 06, 2024 - Scope: Pharmacy has been consulted to provide medication discharge counseling for this patient admitted with ischemic stroke as per the Pharmacist Discharge Counseling for Stroke Patients Protocol. - Medications on Discharge: Home Medications Medication Instructions Recorded Confirmed atorvastatin 40 mg tablet 40 mg PO QAM 01/31/19 05/01/24 clopidogrel 75 mg tablet 75 mg PO QAM #90 tabs 01/31/19 05/01/24 cyanocobalamin (vitamin B-12) 50 50 mcg PO QAM 01/31/19 05/01/24 mcg tablet folic acid 1 mg tablet 1 mg PO QAM 01/31/19 05/01/24 psyllium husk 0.4 gram capsule 0.8 g PO UD PRN Constipation 01/31/19 05/01/24 pyridoxine (vitamin B6) 50 mg 50 mg PO QAM 01/31/19 05/01/24 tablet cholecalciferol (vitamin D3) 125 125 mcg PO QAM 04/09/20 05/01/24 mcg (5,000 unit) capsule hydrochlorothiazide 25 mg tablet 25 mg PO QAM 08/06/22 05/01/24 acetaminophen 500 mg capsule 1,000 mg PO TID PRN Pain 09/01/22 05/01/24 aspirin 81 mg tablet,delayed 81 mg PO QAM 09/01/22 05/01/24 release verapamil 240 mg 24 hr 240 mg PO QAM 09/01/22 05/01/24 capsule,extended release allopurinol 300 mg tablet 300 mg PO QAM 05/01/24 05/01/24 New Rx's Medication Instructions Recorded Wheeled Walker #1 ea 06/13/21 - Action: The above medications, specifically ones for stroke treatment/prophylaxis, have been reviewed in detail with the patient and/or patient advertising representative(s) prior to discharge. This includes indication, common adverse reactions, drug interactions, and medication administration. Medication counseling has been employed using the teach-back method to ensure understanding. - Outcome: The patient and/or patient advertising representative(s) have demonstrated understanding of the medications. Additional comments: * No changes to existing medications at this time * Patient reported no concerns at this time Thank you for allowing pharmacy to be involved in the care of this patient. Please call [phone] with any additional questions
== END 2024-05-05 15:19 | disposition home or self-care (01) | DRG 62 ==
LOC: ED 23:47 → 1E 05-01 02:48 → SUATTDRO 05-01 02:48 → 1E 05-01 03:17

== ENCOUNTER 2025-01-07 10:38 | Observation (INO) ==
[2025-01-07 11:22] LABS: Base Excess VBG 8.5 mEq/L; HCO3 VBG 32 mmol/L; Oxygen Saturation VBG 87.8 %; PCO2 VBG 38 mmHg (38-50); PO2 VBG 51 mmHg; pH VBG 7.53 (7.36-7.41)
[2025-01-07 11:33] LABS: Hematocrit (blood only) 42.6 % (42.0-52.0); Hemoglobin 15.1 g/dl (14.0-18.0); Immature Granulocytes # (auto) 0.13 K/uL (0.01-0.20); Immature Granulocytes % (auto) 0.6 %; Mean Corpuscular Hemoglobin 31.4 pg (25.0-34.0); Mean Corpuscular Volume 88.6 fL (80.0-100.0); Platelet Count 240 K/uL (130-400); RDW Standard Deviation 42.2 fL (36.4-46.3); Red Blood Count 4.81 M/uL (4.70-6.10); White Blood Count 20.46 K/ul (4.8-10.8)
--- NOTE | 2025-01-07 11:36 | Emergency Department Note ---
History of Present Illness General Chief Complaint: Fever Stated Complaint: FEVER, LOOSE COUGH Time Seen by Provider: 01/07/25 10:51 History of Present Illness Provider Complaint: + fever (Today Tmax 103.8 tympanic), + cough and + nasal congestion Onset (ago): 3 week(s) Duration: + progressively worsening Relieved By: + nothing Exacerbated By: + nothing Able to tolerate fluids by mouth: Yes Associated symptoms: + myalgias and + shortness of breath; no chest pain, no abdominal pain, no nausea, no vomiting, no diarrhea or no rash Home Medications Medication Instructions Recorded Confirmed Type atorvastatin 40 mg tablet 40 mg PO QAM 01/31/19 01/07/25 History clopidogrel 75 mg tablet 75 mg PO QAM #90 tabs 01/31/19 01/07/25 History cyanocobalamin (vitamin B-12) 50 50 mcg PO QAM 01/31/19 01/07/25 History mcg tablet folic acid 1 mg tablet 1 mg PO QAM 01/31/19 01/07/25 History psyllium husk 0.4 gram capsule 0.8 g PO UD PRN Constipation 01/31/19 01/07/25 History pyridoxine (vitamin B6) 50 mg 50 mg PO QAM 01/31/19 01/07/25 History tablet cholecalciferol (vitamin D3) 125 125 mcg PO QAM 04/09/20 01/07/25 History mcg (5,000 unit) capsule Wheeled Walker #1 ea 06/13/21 05/01/24 Rx hydrochlorothiazide 25 mg tablet 0 mg PO QAM 08/06/22 01/07/25 History acetaminophen 500 mg capsule 1,000 mg PO TID PRN Pain 09/01/22 01/07/25 History aspirin 81 mg tablet,delayed 81 mg PO QAM 09/01/22 01/07/25 History release verapamil 240 mg 24 hr 240 mg PO QAM 09/01/22 01/07/25 History capsule,extended release allopurinol 300 mg tablet 300 mg PO QAM 05/01/24 01/07/25 History Allergies Allergy/AdvReac Type Severity Reaction Status Date / Time No Known Allergies Allergy Verified 04/18/24 09:00 Past Med/Surg History Problem List (Updated 01/07/25 @ 16:03 by Allen Johnson MD) Pneumonia (Acute) Hypokalemia Hypomagnesemia Left lower lobe pneumonia Left knee DJD Bruising Fever (Acute) Influenza A (Acute) Stroke (Acute) Stroke aborted by administration of thrombolytic agent Cerebrovascular accident (CVA) involving right cerebral hemisphere Admitted to intensive care unit Influenza A Stroke-like symptoms Stress incontinence Incomplete emptying of bladder due to benign prostatic hyperplasia Nocturia (Acute) Elevated PSA (Acute) Benign hypertension (Acute 08/01/12) Arthritis (Acute) Urinary urgency Urge incontinence of urine 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 BPH without obstruction/lower urinary tract symptoms Encounter for pre-operative examination Complicated UTI (urinary tract infection) Ureterolithiasis Acute kidney failure Bacteremia Medical History Pulmonary hypertension Aortic stenosis PICC (peripherally inserted central catheter) in place Blood infection Kidney stone Fluid retention Hypercholesteremia HTN (hypertension) Gout History of SCC (squamous cell carcinoma) of skin Chronic prostatitis History of basal cell carcinoma TIA (transient ischemic attack) Surgical History History of cystoscopy Hx of total knee replacement History of prostate surgery History of colonoscopy H/O vasectomy History of surgery Family History Other Hypertension No family history of adverse response to anesthesia Social History Smoking Status: Never smoker Tobacco Type: Cigarettes Second Hand Exposure: No; Do You Dip or Chew Tobacco: No; Hx Alcohol Use: Yes Alcohol type: wine Hx Substance Use: No Preferred Language: [place] Irish Communication Ability: Effective Salesperson Furniture Required: No Beliefs That Will Affect Care: None marital status: Current Living Situation: Spouse Feels Safe at Home: Yes Assistive Devices: None Physical Exam 2 Vital Signs: Vital Signs - 24 hr 01/07/25 10:40 01/07/25 11:13 01/07/25 11:13 Temperature 36.6 C Temperature Source Oral Pulse Rate 90 Pulse Rate [Apical ] Pulse Rate from Sp O2 Sensor Respiratory Rate 18 Blood Pressure 150/90 H 142/84 H 142/84 H Blood Pressure [Le ft Arm] Blood Pressure Rita n 110 105 105 Blood Pressure Rita n [Left Arm] Pulse Oximetry 93 Oxygen Delivery Me thod Room Air Sepsis New/Unexpla ined Change in Men elina Status No Sepsis Action Take n by Nursing No Action Required 01/07/25 11:16 01/07/25 11:18 01/07/25 11:24 Temperature Temperature Source Pulse Rate 89 86 Pulse Rate [Apical ] Pulse Rate from Sp O2 Sensor 85 76 Respiratory Rate 20 20 Blood Pressure Blood Pressure [Le ft Arm] Blood Pressure Rita n Blood Pressure Rita n [Left Arm] Pulse Oximetry 93 92 93 Oxygen Delivery Me thod Room Air Sepsis New/Unexpla ined Change in Men elina Status Sepsis Action Take n by Nursing 01/07/25 11:30 01/07/25 11:30 01/07/25 11:30 Temperature Temperature Source Pulse Rate 87 Pulse Rate [Apical ] Pulse Rate from Sp O2 Sensor 77 Respiratory Rate 24 Blood Pressure 151/77 H 151/77 H Blood Pressure [Le ft Arm] Blood Pressure Rita n 93 93 Blood Pressure Rita n [Left Arm] Pulse Oximetry 92 Oxygen Delivery Me thod Sepsis New/Unexpla ined Change in Men elina Status Sepsis Action Take n by Nursing 01/07/25 11:33 01/07/25 12:00 01/07/25 12:02 Temperature Temperature Source Pulse Rate 86 80 Pulse Rate [Apical ] Pulse Rate from Sp O2 Sensor 82 Respiratory Rate 29 H Blood Pressure 144/69 H Blood Pressure [Le ft Arm] Blood Pressure Rita n 97 Blood Pressure Rita n [Left Arm] Pulse Oximetry 93 Oxygen Delivery Me thod Sepsis New/Unexpla ined Change in Men elina Status Sepsis Action Take n by Nursing 01/07/25 12:21 01/07/25 12:30 01/07/25 12:30 Temperature Temperature Source Pulse Rate 74 Pulse Rate [Apical ] Pulse Rate from Sp O2 Sensor 74 Respiratory Rate 23 Blood Pressure 134/73 134/73 Blood Pressure [Le ft Arm] Blood Pressure Rita n 93 93 Blood Pressure Rita n [Left Arm] Pulse Oximetry 92 Oxygen Delivery Me thod Sepsis New/Unexpla ined Change in Men elina Status Sepsis Action Take n by Nursing 01/07/25 12:30 01/07/25 12:42 01/07/25 12:57 Temperature Temperature Source Pulse Rate 72 75 102 H Pulse Rate [Apical ] Pulse Rate from Sp O2 Sensor 73 69 74 Respiratory Rate 30 H 21 23 Blood Pressure Blood Pressure [Le ft Arm] Blood Pressure Rita n Blood Pressure Rita n [Left Arm] Pulse Oximetry 93 93 92 Oxygen Delivery Me thod Sepsis New/Unexpla ined Change in Men elina Status Sepsis Action Take n by Nursing 01/07/25 13:00 01/07/25 13:00 01/07/25 13:00 Temperature Temperature Source Pulse Rate 75 Pulse Rate [Apical ] Pulse Rate from Sp O2 Sensor 71 Respiratory Rate 18 Blood Pressure 132/70 132/70 Blood Pressure [Le ft Arm] Blood Pressure Rita n 88 88 Blood Pressure Rita n [Left Arm] Pulse Oximetry 92 Oxygen Delivery Me thod Sepsis New/Unexpla ined Change in Men elina Status Sepsis Action Take n by Nursing 01/07/25 13:06 01/07/25 13:15 01/07/25 13:21 Temperature 36.6 C Temperature Source Oral Pulse Rate 74 74 Pulse Rate [Apical ] Pulse Rate from Sp O2 Sensor 73 73 Respiratory Rate 22 16 Blood Pressure Blood Pressure [Le ft Arm] Blood Pressure Rita n Blood Pressure Rita n [Left Arm] Pulse Oximetry 94 92 Oxygen Delivery Me thod Sepsis New/Unexpla ined Change in Men elina Status Sepsis Action Take n by Nursing 01/07/25 13:30 01/07/25 13:30 01/07/25 13:42 Temperature Temperature Source Pulse Rate 79 Pulse Rate [Apical ] Pulse Rate from Sp O2 Sensor 71 Respiratory Rate 23 Blood Pressure 134/72 134/72 Blood Pressure [Le ft Arm] Blood Pressure Rita n 104 104 Blood Pressure Rita n [Left Arm] Pulse Oximetry 91 Oxygen Delivery Me thod Sepsis New/Unexpla ined Change in Men elina Status Sepsis Action Take n by Nursing 01/07/25 13:51 01/07/25 13:54 01/07/25 14:00 Temperature Temperature Source Pulse Rate 78 79 Pulse Rate [Apical ] Pulse Rate from Sp O2 Sensor 79 77 Respiratory Rate 25 H 25 H Blood Pressure 124/65 Blood Pressure [Le ft Arm] Blood Pressure Rita n 98 Blood Pressure Rita n [Left Arm] Pulse Oximetry 90 92 Oxygen Delivery Me thod Sepsis New/Unexpla ined Change in Men elina Status Sepsis Action Take n by Nursing 01/07/25 14:03 01/07/25 14:12 01/07/25 14:24 Temperature Temperature Source Pulse Rate 75 73 76 Pulse Rate [Apical ] Pulse Rate from Sp O2 Sensor 72 76 Respiratory Rate 27 H 21 23 Blood Pressure Blood Pressure [Le ft Arm] Blood Pressure Rita n Blood Pressure Rita n [Left Arm] Pulse Oximetry 97 90 Oxygen Delivery Me thod Sepsis New/Unexpla ined Change in Men elina Status Sepsis Action Take n by Nursing 01/07/25 14:30 01/07/25 14:30 01/07/25 14:30 Temperature Temperature Source Pulse Rate Pulse Rate [Apical ] Pulse Rate from Sp O2 Sensor Respiratory Rate Blood Pressure 122/62 122/62 122/62 Blood Pressure [Le ft Arm] Blood Pressure Rita n 85 85 85 Blood Pressure Rita n [Left Arm] Pulse Oximetry Oxygen Delivery Me thod Sepsis New/Unexpla ined Change in Men elina Status Sepsis Action Take n by Nursing 01/07/25 14:32 01/07/25 14:47 01/07/25 14:51 Temperature Temperature Source Pulse Rate 74 79 77 Pulse Rate [Apical ] Pulse Rate from Sp O2 Sensor 74 80 76 Respiratory Rate 21 22 21 Blood Pressure Blood Pressure [Le ft Arm] Blood Pressure Rita n Blood Pressure Rita n [Left Arm] Pulse Oximetry 90 91 90 Oxygen Delivery Me thod Sepsis New/Unexpla ined Change in Men elina Status Sepsis Action Take n by Nursing 01/07/25 15:00 01/07/25 15:00 01/07/25 15:14 Temperature 36.6 C Temperature Source Oral Pulse Rate 74 Pulse Rate [Apical ] Pulse Rate from Sp O2 Sensor 74 Respiratory Rate 22 Blood Pressure 123/63 Blood Pressure [Le ft Arm] Blood Pressure Rita n 87 Blood Pressure Rita n [Left Arm] Pulse Oximetry 90 Oxygen Delivery Me thod Sepsis New/Unexpla ined Change in Men elina Status Sepsis Action Take n by Nursing 01/07/25 15:30 01/07/25 15:51 Temperature Temperature Source Pulse Rate Pulse Rate [Apical ] 69 Pulse Rate from Sp O2 Sensor Respiratory Rate 18 Blood Pressure Blood Pressure [Le ft Arm] 117/64 Blood Pressure Rita n Blood Pressure Rita n [Left Arm] 81 Pulse Oximetry 92 Oxygen Delivery Me thod Room Air Room Air Sepsis New/Unexpla ined Change in Men elina Status Sepsis Action Take n by Nursing Physical Exam: Physical Exam GENERAL: oriented to person, place, and time. appears well-developed and well- nourished. HENT: Exam performed. - Head: Normocephalic and atraumatic. EYES: Conjunctivae and EOM are normal. Right eye exhibits no discharge. Left eye exhibits no discharge. No scleral icterus. NECK: Normal range of motion. Neck supple. No JVD present. CV: Normal rate, regular rhythm, normal heart sounds and intact distal pulses. There is no peripheral edema. Palpable radial pulses bue. PULM/CHEST: Effort normal and breath sounds normal. No respiratory distress. No stridor. no wheezes. no rales. ABD: The abdomen is soft. There is no tenderness. NEURO: Motor and sensation grossly intact. SKIN: Skin is warm and dry. He is not diaphoretic. PSYCH: normal mood and affect. Behavior is normal. Judgment and thought content normal. Course Course 1051: The patient was evaluated in room B3. A complete history and physical exam was performed Cardiac monitoring: An order was placed for continuous cardiac monitoring. The monitor shows a rate of 90 with sinus rhythm interpreted by me 1230: Vital signs stable. Labs show leukocytosis of 20. Lactic acid within normal limits. BioFire negative. Imaging shows pneumonia. Patient has a class IV PSI score and 2 points for CURB65 score.Patient will be treated with Rocephin and azithromycin for community-acquired pneumonia. Patient will be admitted to the hospitalist team. CURB-65 Score for Pneumonia Severity from [employer] on 01/07/2025 All calculations should be rechecked by clinician prior to use RESULT SUMMARY: 2 points Moderate risk group: 6.8% 30-day mortality. Consider inpatient treatment or outpatient with close followup. INPUTS: Confusion > 1 = Yes BUN >19 mg/dL (>7 mmol/L urea) > 0 = No Respiratory Rate >=0 > 0 = No Systolic BP <90 mmHg or Diastolic BP <=0 mmHg > 0 = No Age >=5 > 1 = Yes PSI/PORT Score: Pneumonia Severity Index for CAP from [employer] on 01/07/2025 All calculations should be rechecked by clinician prior to use RESULT SUMMARY: 98 points Risk Class IV, 8.2-9.3% mortality. Hospitalization recommended based on risk. INPUTS: Age > 78 years Sex > 0 = Male assisted resident > 0 = No Neoplastic disease > 0 = No Liver disease history > 0 = No CHF history > 0 = No Cerebrovascular disease history > 0 = No Renal disease history > 0 = No Altered mental status > 20 = Yes Respiratory rate >=0 breaths/min > 0 = No Systolic blood pressure <90 mmHg > 0 = No Temperature <35C (95F) or >39.9C (103.8F) > 0 = No Pulse >=25 beats/min > 0 = No pH <7.35 > 0 = No BUN >=0 mg/dL or >=1 mmol/L > 0 = No Sodium <130 mmol/L > 0 = No Glucose >=50 mg/dL or >=4 mmol/L > 0 = No Hematocrit <30% > 0 = No Partial pressure of oxygen <60 mmHg or <8 kPa > 0 = No Pleural effusion on x-ray > 0 = No Administered Medications Magnesium Sulfate/Dextrose (Magnesium Sulfate / D5w) 1 gm in 100 mls @ 50 mls/hr IV Q2H [place] Stop: 01/07/25 17:29 Last Admin: 01/07/25 14:00 Dose: 50 mls/hr Documented By: MODE Parenteral Electrolytes (Plasma-Lyte A Ph 7.4) 1,000 mls @ 80 mls/hr IV .[id number] [place] Stop: 01/08/25 02:29 Last Admin: 01/07/25 14:00 Dose: 80 mls/hr Documented By: MODE Discontinued Medications Albuterol (Albut/Ipratrop 3mg/0.5mg Neb 3 Ml Vial) 3 ml NEB NOW STA; Protocol Stop: 01/07/25 13:50 Last Admin: 01/07/25 14:00 Dose: 3 ml Documented By: MODE Azithromycin (Azithromycin 250 Mg Tab) 500 mg PO NOW ONE Stop: 01/07/25 12:34 Last Admin: 01/07/25 12:50 Dose: 500 mg Documented By: KVNG Guaifenesin (Guaifenesin 600 Mg Tabcr) 600 mg PO NOW STA Stop: 01/07/25 13:50 Last Admin: 01/07/25 14:00 Dose: 600 mg Documented By: MODE Ceftriaxone Sodium (Rocephin) 2,000 mg in 50 mls @ 100 mls/hr IV NOW STA Stop: 01/07/25 13:02 Last Infusion: 01/07/25 13:20 Dose: Infused Documented By: Admin: 01/07/25 12:50 Dose: 100 mls/hr Documented By: KVNG Potassium Chloride (Potassium Chloride Crtab 20 Meq Tabcr) 40 meq PO NOW STA Stop: 01/07/25 13:45 Last Admin: 01/07/25 14:00 Dose: 40 meq Documented By: MODE Medical Decision Making Laboratory Data Attestation: I reviewed the patient's lab results. 01/07/25 11:05 01/07/25 11:05 Lab Results 01/07/25 01/07/25 Range/Units 11:05 14:00 WBC 20.46 H (4.8-10.8) K/ul RBC 4.81 (4.70-6.10) M/uL Hgb 15.1 (14.0-18.0) g/dl Hct 42.6 (42.0-52.0) % MCV 88.6 (80.0-100.0) fL MCH 31.4 (25.0-34.0) pg MCHC 35.4 (32.0-36.0) g/dL RDW Std Deviation 42.2 (36.4-46.3) fL RDW Coeff of Agnieszka 13.0 (11.5-14.5) % Plt Count 240 (130-400) K/uL MPV 9.3 L (9.4-12.4) fL Immature Gran % (Auto) 0.6 % Neut % (Auto) 82.9 % Lymph % (Auto) 7.7 % [place] % (Auto) 8.0 % Eos % (Auto) 0.4 % Baso % (Auto) 0.4 % Neut # (Auto) 16.96 H (1.40-6.50) K/uL Lymph # (Auto) 1.57 (1.20-3.40) K/uL [place] # (Auto) 1.63 H (0.11-0.59) K/uL Eos # (Auto) 0.09 (0.00-0.50) K/uL Baso # (Auto) 0.08 (0.00-0.20) K/uL Immature Gran # (Auto) 0.13 (0.01-0.20) K/uL PT 10.8 (9.0-12.0) Seconds INR 1.0 (0.9-1.1) APTT 25 (21-31) Seconds PTT Ratio 0.9 VBG pH 7.53 H (7.36-7.41) VBG pCO2 38 (38-50) mmHg VBG pO2 51 mmHg VBG HCO3 32 mmol/L VBG O2 Saturation 87.8 % VBG Base Excess 8.5 mEq/L Sodium 137 (136-145) mmol/L Potassium 3.2 L (3.5-5.1) mmol/L Chloride 100 (98-107) mmol/L Carbon Dioxide 27 (21-32) mmol/L Anion Gap 10 (3-11) BUN 15 (6-23) mg/dl Creatinine 0.69 (0.6-1.4) mg/dl Est Cr Clr Drug Dosing 91.6 ml/min eGFR 94.72 BUN/Creatinine Ratio 21.7 H (10-20) Glucose 116 H (70-99(Fasting)) mg/dl Lactate 1.3 (0.4-2.0) mmol/L Calcium 9.4 (8.6-10.3) mg/dl Magnesium 1.5 L (1.7-2.4) mg/dl Total Bilirubin 1.2 H (0.2-1.0) mg/dl Direct Bilirubin 0.2 (0-0.2) mg/dl AST 24 (13-39) U/L ALT 23 (7-52) U/L Alkaline Phosphatase 92 (34-104) U/L Troponin I High Sens 12.3 (0-20) pg/ml Total Protein 7.6 (6.0-8.3) gm/dl Albumin 4.4 (3.4-5.0) gm/dl Procalcitonin 0.07 (0-0.5) ng/ml Nasal Screen MRSA (PCR) Negative (Negative) Adenovirus (PCR) Not Detected (NotDetected) B. pertussis DNA (PCR) Not Detected (NotDetected) B.parapertussis DNA PCR Not Detected (NotDetected) C. pneumoniae DNA (PCR) Not Detected (NotDetected) Coronavirus OC43 (PCR) Not Detected (NotDetected) Coronavirus HKU1 (PCR) Not Detected (NotDetected) Coronavirus 229E (PCR) Not Detected (NotDetected) SARS-CoV-2 (PCR) Not Detected (NotDetected) Coronavirus NL63 (PCR) Not Detected (NotDetected) Human Metapneumovir PCR Not Detected (NotDetected) Influenza Type A (PCR) Not Detected (NotDetected) Influenza Type B (PCR) Not Detected (NotDetected) M. pneumoniae (PCR) Not Detected (NotDetected) Parainfluenza 1 (PCR) Not Detected (NotDetected) Parainfluenza 2 (PCR) Not Detected (NotDetected) Parainfluenza 3 (PCR) Not Detected (NotDetected) Parainfluenza 4 (PCR) Not Detected (NotDetected) RSV (PCR) Not Detected (NotDetected) Entero/Rhino (PCR) Not Detected (NotDetected) Imaging Data Radiologist's Impression: Chest X-Ray 01/07/25 10:52 Clinical History: Sepsis Technique: A frontal view of the chest was obtained Comparison is made to the prior examination dated 05/01/2024 Findings: There are new patchy left midlung and left lung base opacities, concerning for pneumonia. The heart size is within normal limits. No pleural effusion or pneumothorax is seen. There is no definite pulmonary nodule. No fracture is noted. No foreign body is seen Impression: Apparent left lung pneumonia ACT 112: Positive. There are findings on this exam that require communication between the performing entity and the patient following Patient Test Result Information Act ([place] ACT 112) guidelines. Electronically signed by Earl Yee 01-07-2025 12:[address] 01/07/25 11:00 Technique: Axial computed tomography images were obtained of the brain without intravenous contrast. Comparison is made to the prior CT dated 05/01/2024 Findings: There is unchanged cerebral atrophy, within expected limits for the patient's age. Areas of decreased attenuation are seen within the periventricular white matter, likely representing chronic small vessel ischemic disease. There is an unchanged old infarct of the left thalamus. There is no definite sign of acute infarction. No intracranial hemorrhage is evident. No definite mass lesion is seen on this noncontrast examination. There is no midline shift or other form of herniation. No hydrocephalus is seen. No fracture is identified. There is fluid in the frontal, sphenoid, and right maxillary sinuses. There is ethmoid sinus mucosal thickening. The mastoid air cells appear clear. Impression: 1. 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 Sinusitis Electronically signed by Earl Yee 01-07-2025 12:02 PM ECG Data Attestation: I personally reviewed and interpreted this ECG as follows: Rate (beats per minute): 88 Rhythm: normal sinus Findings: no ST depression, no ST elevation or no prolonged QT MDM Narrative 1051: The patient was evaluated in room B3. A complete history and physical exam was performed Cardiac monitoring: An order was placed for continuous cardiac monitoring. The monitor shows a rate of 90 with sinus rhythm interpreted by me 1230: Vital signs stable. Labs show leukocytosis of 20. Lactic acid within normal limits. BioFire negative. Imaging shows pneumonia. Patient has a class IV PSI score and 2 points for CURB65 score.Patient will be treated with Rocephin and azithromycin for community-acquired pneumonia. Patient will be admitted to the hospitalist team. CURB-65 Score for Pneumonia Severity from [employer] on 01/07/2025 All calculations should be rechecked by clinician prior to use RESULT SUMMARY: 2 points Moderate risk group: 6.8% 30-day mortality. Consider inpatient treatment or outpatient with close followup. INPUTS: Confusion > 1 = Yes BUN >19 mg/dL (>7 mmol/L urea) > 0 = No Respiratory Rate >=0 > 0 = No Systolic BP <90 mmHg or Diastolic BP <=0 mmHg > 0 = No Age >=5 > 1 = Yes PSI/PORT Score: Pneumonia Severity Index for CAP from [employer] on 01/07/2025 All calculations should be rechecked by clinician prior to use RESULT SUMMARY: 98 points Risk Class IV, 8.2-9.3% mortality. Hospitalization recommended based on risk. INPUTS: Age > 78 years Sex > 0 = Male assisted resident > 0 = No Neoplastic disease > 0 = No Liver disease history > 0 = No CHF history > 0 = No Cerebrovascular disease history > 0 = No Renal disease history > 0 = No Altered mental status > 20 = Yes Respiratory rate >=0 breaths/min > 0 = No Systolic blood pressure <90 mmHg > 0 = No Temperature <35C (95F) or >39.9C (103.8F) > 0 = No Pulse >=25 beats/min > 0 = No pH <7.35 > 0 = No BUN >=0 mg/dL or >=1 mmol/L > 0 = No Sodium <130 mmol/L > 0 = No Glucose >=50 mg/dL or >=4 mmol/L > 0 = No Hematocrit <30% > 0 = No Partial pressure of oxygen <60 mmHg or <8 kPa > 0 = No Pleural effusion on x-ray > 0 = No Impression & Plan Pneumonia Discharge Plan Visit Data Chief Complaint: Fever Stated Complaint: FEVER, LOOSE COUGH ED Provider: Allen Johnson Discharge Problem: Pneumonia Patient Disposition: Admitted As Inpatient Condition: Fair Discharge Instructions Interventions: ED Discharge Assessment Last Done: 01/07/25 15:51 Forms Stand Alone Forms: [employer] Prescriptions Prescriptions: No Action folic acid 1 mg tablet 1 mg PO QAM Patient Comments: 01/07- otc unable to verify pyridoxine (vitamin B6) 50 mg tablet 50 mg PO QAM Patient Comments: 01/07- otc unable to verify cyanocobalamin (vitamin B-12) 50 mcg tablet 50 mcg PO QAM Patient Comments: 01/07- otc unable to verify psyllium husk 0.4 gram capsule 0.8 g PO UD PRN (Reason: Constipation) Patient Comments: 01/07- otc unable to verify clopidogrel 75 mg tablet 75 mg PO QAM Qty: 90 Hold Instructions: Resume on 08/16/22. atorvastatin 40 mg tablet 40 mg PO QAM (DME) Wheeled Walker Misc See Rx Instructions .MEDSUPPLY Qty: 1 0RF Rx Instructions: As directed cholecalciferol (vitamin D3) 125 mcg (5,000 unit) capsule 125 mcg PO QAM Patient Comments: 01/07- otc unable to verify hydrochlorothiazide 25 mg Tablet 0 mg PO QAM Patient Comments: 01/07- last filled 07/20 90 #90 aspirin 81 mg Tablet,Delayed Release (Dr/Ec) 81 mg PO QAM Patient Comments: 01/07- otc unable to verify verapamil 240 mg capsule,ext rel. pellets 24 hr 240 mg PO QAM acetaminophen 500 mg capsule 1,000 mg PO TID PRN (Reason: Pain) Patient Comments: 01/07- otc unable to verify allopurinol 300 mg tablet 300 mg PO QAM Referrals Referrals: Tata Bustos MD [Primary Care Provider] - Discharge Problem: Pneumonia Qualifiers: Pneumonia type: due to unspecified organism Laterality: unspecified laterality Lung location: unspecified part of lung Qualified Code(s): J18.9 - Pneumonia, unspecified organism
[2025-01-07 11:53] LABS: Albumin Level 4.4 gm/dl (3.4-5.0); Anion Gap 10.0 (3-11); Bilirubin,Total 1.2 mg/dl (0.2-1.0); Calcium 9.4 mg/dl (8.6-10.3); Carbon Dioxide 27.0 mmol/L (21-32); Chloride 100.0 mmol/L (98-107); Magnesium 1.5 mg/dl (1.7-2.4); Potassium 3.2 mmol/L (3.5-5.1); Sodium 137.0 mmol/L (136-145)
[2025-01-07 11:59] LABS: Alanine Aminotransferase 23.0 U/L (7-52); Alkaline Phosphatase 92.0 U/L (34-104); Blood Urea Nitrogen 15.0 mg/dl (6-23); Creatinine Clr Calc Pharmacy 91.6 ml/min; Glucose 116.0 mg/dl (70-99(Fasting)); Total Protein 7.6 gm/dl (6.0-8.3)
[2025-01-07 12:01] LABS: INR 1.0 (0.9-1.1); Partial Thromboplastin Time 25 Seconds (21-31); Prothrombin Time 10.8 Seconds (9.0-12.0)
--- NOTE | 2025-01-07 12:02 | CT Scan Report ---
Technique: Axial computed tomography images were obtained of the brain without intravenous contrast. Comparison is made to the prior CT dated 05/01/2024 Findings: There is unchanged cerebral atrophy, within expected limits for the patient's age. Areas of decreased attenuation are seen within the periventricular white matter, likely representing chronic small vessel ischemic disease. There is an unchanged old infarct of the left thalamus. There is no definite sign of acute infarction. No intracranial hemorrhage is evident. No definite mass lesion is seen on this noncontrast examination. There is no midline shift or other form of herniation. No hydrocephalus is seen. No fracture is identified. There is fluid in the frontal, sphenoid, and right maxillary sinuses. There is ethmoid sinus mucosal thickening. The mastoid air cells appear clear. Impression: 1. 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 Sinusitis Electronically signed by Earl Yee 01-07-2025 12:02 PM
[2025-01-07 12:10] LABS: Chlamydia pneumoniae PCR Not Detected (NotDetected); Coronavirus 229E PCR Not Detected (NotDetected); Coronavirus CoV-2 (COVID19)PCR Not Detected (NotDetected); Coronavirus HKU1 PCR Not Detected (NotDetected); Coronavirus NL63 PCR Not Detected (NotDetected); Coronavirus OC43PCR Not Detected (NotDetected); Human Metapneumovirus PCR Not Detected (NotDetected); Parainfluenza Virus 1 PCR Not Detected (NotDetected); Parainfluenza Virus 2 PCR Not Detected (NotDetected); Parainfluenza Virus 3 PCR Not Detected (NotDetected); Parainfluenza Virus 4 PCR Not Detected (NotDetected); Respiratory Syncytial VirusPCR Not Detected (NotDetected); Rhinovirus/Enterovirus PCR Not Detected (NotDetected)
--- NOTE | 2025-01-07 12:14 | XRay Report ---
Clinical History: Sepsis Technique: A frontal view of the chest was obtained Comparison is made to the prior examination dated 05/01/2024 Findings: There are new patchy left midlung and left lung base opacities, concerning for pneumonia. The heart size is within normal limits. No pleural effusion or pneumothorax is seen. There is no definite pulmonary nodule. No fracture is noted. No foreign body is seen Impression: Apparent left lung pneumonia ACT 112: Positive. There are findings on this exam that require communication between the performing entity and the patient following Patient Test Result Information Act ([place] ACT 112) guidelines. Electronically signed by Earl Yee 01-07-2025 12:13 PM
[2025-01-07] MEDS: AZITHROMYCIN 250 MG TAB PO ONE (12:50)
[2025-01-07] MEDS: cefTRIAXone SODIUM 2,000 MG/50 ML BAG IV STA (12:50)
--- NOTE | 2025-01-07 13:15 | History & Physical Report ---
"Date of Service January 07, 2025 Assessment & Plan (1) Left lower lobe pneumonia: (2) Hypomagnesemia: (3) Hypokalemia: Plan #Left midlung and lower lobe pneumonia Left lung pneumonia seen on CXR Septic on arrival: Pulmonary source + leukocytosis at 20.46 + reported fever up to 103.8 F at home Blood cultures drawn in the ED Lactate and procalcitonin WNL BioFire negative Will defer fluid sepsis bolus given BP normotensive/hypertensive at 151/77 on admission, and normal lactate; H/o pulm HTN on prior echo Gentle IVF with Plasma-Lyte 80mL/hr x 1 L MRSA swab ordered, pending Sputum culture ordered, pending IS, flutter valve Ceftriaxone 2000 mg IV q24h Azithromycin 500 mg p.o. daily Acetaminophen PRN for pain/fever Guaifenesin 1200 mg p.o. BID DuoNeb 3 mL q6h Continuous pulse oximetry Supplemental oxygen as needed #Hypomagnesemia | hypokalemia Mag 1.5 and K 3.2 on arrival Potassium chloride 40 mEq p.o. x 1 Magnesium sulfate 1 g IV x 2 Hold hydrochlorothiazide Replete PRN #Prior CVA Hospitalized April 2024 for acute right MCA territory infarct Continue DAPT #History of bacteremia Noted; due to UTI in August 2022 Patient denies urinary symptoms at this time #HTN Continue verapamil #HLD Continue atorvastatin #Gout Continue allopurinol #Sleep apnea CPAP HS Disposition: Admit to PCU telemetry VTE PPx: Lovenox 40 mg SQ q24h History of Present Illness Chief Complaint: Fever Primary Care Provider: Tata Bustos MD Mr. Christie is a 79-year-old male with PMH of bacteremia, AKF, CVA, and complicated UTIs. He presented on 01/07 for fever, cough, and generalized weakness. He reports his cough has been ongoing for the past 3 weeks, with an acute worsening over the past 2 to 3 days. It is a wet cough, but he denies any sputum production. Then, this morning his began to notice signs of delirium, which commonly occurs whenever he gets sick. He developed ambulatory dysfunction, and had difficulty drinking (would stare at the cup and not answer). Patient also reportedly had a fever of 103.8 F at home on the morning of admission. He was given Tylenol at 0900, which brought his fever down. History of bacteremia following a TURP/kidney stone in 2022. He also had a bad episode of pneumonia from COVID in 2021. No sick contacts to his knowledge. He does not use supplemental oxygen at baseline, but does use a CPAP at night, which he has been using consistently since September. He denies any recent falls or injuries to his head, neck, or chest wall. He denies SOB at rest, but exhibits COELHO. Patient took his regular morning medicine today; no recent change in medications. No PMH of COPD or asthma. Patient formally smoked when he was in the [employer] (in the 1960s), but denies any recent tobacco cigarette smoking patient is hypertensive at 151/77 at time of admission; vitals otherwise stable. ED course: Ceftriaxone 2000 mg IV Azithromycin 500 g p.o. ROS: Patient endorses fever today up to 103.8 F, headache, congestion, sore throat, cough, COELHO, vomiting up bile this morning (after coughing fit), Patient denies night-sweats, dizziness, lightheadedness, SOB at rest, chest pain, chest palpitations, pleuritic CP, abdominal pain, diarrhea, burning with urination, blood in the urine/stool, or N/T in the arms or legs. Allergies Allergy/AdvReac Type Severity Reaction Status Date / Time No Known Allergies Allergy Verified 04/18/24 09:00 Home Medications Medication Instructions Recorded Confirmed Type atorvastatin 40 mg tablet 40 mg PO QAM 01/31/19 01/07/25 History clopidogrel 75 mg tablet 75 mg PO QAM #90 tabs 01/31/19 01/07/25 History cyanocobalamin (vitamin B-12) 50 50 mcg PO QAM 01/31/19 01/07/25 History mcg tablet folic acid 1 mg tablet 1 mg PO QAM 01/31/19 01/07/25 History psyllium husk 0.4 gram capsule 0.8 g PO UD PRN Constipation 01/31/19 01/07/25 History pyridoxine (vitamin B6) 50 mg 50 mg PO QAM 01/31/19 01/07/25 History tablet cholecalciferol (vitamin D3) 125 125 mcg PO QAM 04/09/20 01/07/25 History mcg (5,000 unit) capsule Wheeled Walker #1 ea 06/13/21 05/01/24 Rx hydrochlorothiazide 25 mg tablet 0 mg PO QAM 08/06/22 01/07/25 History acetaminophen 500 mg capsule 1,000 mg PO TID PRN Pain 09/01/22 01/07/25 History aspirin 81 mg tablet,delayed 81 mg PO QAM 09/01/22 01/07/25 History release verapamil 240 mg 24 hr 240 mg PO QAM 09/01/22 01/07/25 History capsule,extended release allopurinol 300 mg tablet 300 mg PO QAM 05/01/24 01/07/25 History Past Med/Surg History Problem List (Updated 01/07/25 @ 16:03 by Allen Johnson MD) Pneumonia (Acute) Hypokalemia Hypomagnesemia Left lower lobe pneumonia Left knee DJD Bruising Fever (Acute) Influenza A (Acute) Stroke (Acute) Stroke aborted by administration of thrombolytic agent Cerebrovascular accident (CVA) involving right cerebral hemisphere Admitted to intensive care unit Influenza A Stroke-like symptoms Stress incontinence Incomplete emptying of bladder due to benign prostatic hyperplasia Nocturia (Acute) Elevated PSA (Acute) Benign hypertension (Acute 08/01/12) Arthritis (Acute) Urinary urgency Urge incontinence of urine 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 BPH without obstruction/lower urinary tract symptoms Encounter for pre-operative examination Complicated UTI (urinary tract infection) Ureterolithiasis Acute kidney failure Bacteremia Medical History Pulmonary hypertension Aortic stenosis PICC (peripherally inserted central catheter) in place Blood infection Kidney stone Fluid retention Hypercholesteremia HTN (hypertension) Gout History of SCC (squamous cell carcinoma) of skin Chronic prostatitis History of basal cell carcinoma TIA (transient ischemic attack) Surgical History History of cystoscopy Hx of total knee replacement History of prostate surgery History of colonoscopy H/O vasectomy History of surgery Family History Other Hypertension No family history of adverse response to anesthesia Social History Smoking Status: Never smoker Tobacco Type: Cigarettes Second Hand Exposure: No; Do You Dip or Chew Tobacco: No; Hx Alcohol Use: No Hx Substance Use: No Preferred Language: Burkinan Communication Ability: Effective Hemotherapist Required: No Beliefs That Will Affect Care: None marital status: Current Living Situation: Spouse Feels Safe at Home: Yes Assistive Devices: Cane Review of Systems Review of Systems: See HPI above Physical Exam Physical Exam: General: no acute distress; pleasant affect; at bedside; non-toxic appearing; cooperative; SpO2 92% on room air HEENT: normocephalic, atraumatic; PERRLA; vision and hearing intact Neck: supple; trachea midline Skin: warm, dry without signs of tenting; no cyanosis; no rashes, bruising, lesions, or erythema noted CV: chest wall NTP; RRR; S1/S2 normal; no murmurs/rubs/gallops; pulses intact and symmetric at radial, DP, and PT Lungs: Mild respiratory distress when coughing; hacking cough; expiratory wheeze auscultated in the upper and lower lung valdovinos bilaterally (L>R) ABD: Soft, NTP; BS present; no rebound/guarding; no distention MSK: no tics or fasciculations; no edema noted in the LEs b/l, nonerythematous Neuro: A&Ox3; normal mood and affect; fluent speech; patient reports sensation is intact and symmetric in lower extremities bilaterally assessed via light touch Results & Data Results & Data Vital Signs (Past 12 Hours) Vital Signs Temp Pulse Resp BP Pulse Ox O2 Del Method 01/07/25 13:06 36.6 C 01/07/25 12:02 80 01/07/25 11:30 87 24 92 01/07/25 11:30 151/77 H 01/07/25 11:30 151/77 H 01/07/25 11:24 86 20 93 01/07/25 11:18 89 20 92 01/07/25 11:16 93 Room Air 01/07/25 11:13 142/84 H 01/07/25 11:13 142/84 H 01/07/25 10:40 36.6 C 90 18 150/90 H 93 Room Air Laboratory Results Abnormal lab results 01/07/25 Range/Units 11:05 WBC 20.46 H (4.8-10.8) K/ul MPV 9.3 L (9.4-12.4) fL Neut # (Auto) 16.96 H (1.40-6.50) K/uL [place] # (Auto) 1.63 H (0.11-0.59) K/uL VBG pH 7.53 H (7.36-7.41) Potassium 3.2 L (3.5-5.1) mmol/L BUN/Creatinine Ratio 21.7 H (10-20) Glucose 116 H (70-99(Fasting)) mg/dl Magnesium 1.5 L (1.7-2.4) mg/dl Total Bilirubin 1.2 H (0.2-1.0) mg/dl Diagnostic Findings Chest X-Ray 01/07/25 10:52 Clinical History: Sepsis Technique: A frontal view of the chest was obtained Comparison is made to the prior examination dated 05/01/2024 Findings: There are new patchy left midlung and left lung base opacities, concerning for pneumonia. The heart size is within normal limits. No pleural effusion or pneumothorax is seen. There is no definite pulmonary nodule. No fracture is noted. No foreign body is seen Impression: Apparent left lung pneumonia ACT 112: Positive. There are findings on this exam that require communication between the performing entity and the patient following Patient Test Result Information Act ([place] ACT 112) guidelines. Electronically signed by Earl Yee 01-07-2025 12:[address] 01/07/25 11:00 Technique: Axial computed tomography images were obtained of the brain without intravenous contrast. Comparison is made to the prior CT dated 05/01/2024 Findings: There is unchanged cerebral atrophy, within expected limits for the patient's age. Areas of decreased attenuation are seen within the periventricular white matter, likely representing chronic small vessel ischemic disease. There is an unchanged old infarct of the left thalamus. There is no definite sign of acute infarction. No intracranial hemorrhage is evident. No definite mass lesion is seen on this noncontrast examination. There is no midline shift or other form of herniation. No hydrocephalus is seen. No fracture is identified. There is fluid in the frontal, sphenoid, and right maxillary sinuses. There is ethmoid sinus mucosal thickening. The mastoid air cells appear clear. Impression: 1. 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 Sinusitis Electronically signed by Earl Yee 01-07-2025 12:02 PM ECG Additional Comments: ECG revealed sinus rhythm with occasional PVCs 88 bpm; QTc 459 Code Status & VTE Plan Code Status DNR/DNI VTE Prophylaxis Plan VTE Prophylaxis will be ordered: Yes Supervising Physician Co-Signing Physician Notes Attending Attestation & Admit Note: Pt seen/examined, chart reviewed, admit care plan d/w MARK Santos. I agree w/ the esquivel components of his admission documentation. 79yo male with h/o bacteremia 2022, prior CVA, HTN, hyperlipidemia, and complicated UTIs. Presented with fever, cough, and generalized weakness. Cough has been present for about 3 weeks but worsened in the last several days. In addition he developed acute confusion within the last 24 hours. CXR upon ER presentation showed LLL pneumonia. PMH/PSH/allergies/meds/sochx - reviewed VSS, afebrile, o2 sats wnl gen - looks ill, laying in bed with numerous blankets on him mouth - MM dry neck - no JVD heart - RRR, s1 s2, 1/6 systolic murmur lungs - LLL rales, no wheeze, no increased work of breathing abd - soft NT ND BS+ ext - no edema, pulses b/l feet 2+ labs reviewed imaging reviewed A/P: 1. LLL community-acquired pneumonia 2. RUTH 3. HTN 4. h/o CVA 5. hyperlipidemia 6. electrolyte abnormalities - Low K, Low Mag -rocephin/zithromax -follow blood cx's -supportive care -replete low K and low mag Jaswant Sanchez MD PG Care Time/CCT Total # of Minutes Spent Total Time Spent with Patient: Total time spent is greater than 50% in coordination of care (as documented) at patient's floor/unit and/or counseling patient: Coding [place] [address] INT INP/OBS CARE 3/75MIN Patient Type Established Medical Decision Making High Complexity Diagnoses Left lower lobe pneumonia J18.9 Hypomagnesemia E83.42 Hypokalemia E87.6"
[2025-01-07] MEDS: PLASMA-LYTE A 1,000 ML IV SCH (14:00)
[2025-01-07] MEDS: POTASSIUM CHLORIDE CRTAB 20 MEQ TABCR PO STA (14:00)
[2025-01-07] MEDS: ALBUT/IPRATROP 3MG/0.5MG NEB 3 ML VIAL NEB STA (14:00)
[2025-01-07] MEDS: guaiFENesin 600 MG TABCR PO STA (14:00)
[2025-01-07] MEDS: MAGNESIUM SULFATE / D5W 1 GM/100 ML BAG IV SCH (14:00)
[2025-01-07] MEDS ORDERED: ONDANSETRON INJ 2 MG/ML 2 ML VIAL IV PRN (16:23)
[2025-01-07 17:03] LABS: Appearance Urine Clear (Clear); Glucose Urine UA Negative (Negative)
[2025-01-07] MEDS: ENOXAPARIN INJ 40 MG/0.4 ML SYR SQ SCH (19:44)
[2025-01-07] MEDS: guaiFENesin 600 MG TABCR PO SCH (19:44)
[2025-01-07] MEDS: ALBUT/IPRATROP 3MG/0.5MG NEB 3 ML VIAL INH SCH (20:41)
[2025-01-07] MEDS: ACETAMINOPHEN 325 MG TAB PO PRN (22:40)
[2025-01-08 05:52] LABS: Hematocrit (blood only) 37.4 % (42.0-52.0); Hemoglobin 13.2 g/dl (14.0-18.0); Immature Granulocytes # (auto) 0.07 K/uL (0.01-0.20); Immature Granulocytes % (auto) 0.4 %; Mean Corpuscular Hemoglobin 31.8 pg (25.0-34.0); Mean Corpuscular Volume 90.1 fL (80.0-100.0); Platelet Count 201 K/uL (130-400); RDW Standard Deviation 42.6 fL (36.4-46.3); Red Blood Count 4.15 M/uL (4.70-6.10); White Blood Count 16.77 K/ul (4.8-10.8)
[2025-01-08 06:05] LABS: Anion Gap 8.0 (3-11); Blood Urea Nitrogen 15.0 mg/dl (6-23); Calcium 8.5 mg/dl (8.6-10.3); Carbon Dioxide 28.0 mmol/L (21-32); Chloride 101.0 mmol/L (98-107); Creatinine Clr Calc Pharmacy 88.4 ml/min; Glucose 116.0 mg/dl (70-99(Fasting)); Magnesium 2.1 mg/dl (1.7-2.4); Potassium 3.1 mmol/L (3.5-5.1); Sodium 137.0 mmol/L (136-145)
--- NOTE | 2025-01-08 06:53 | Electrocardiogram Report ---
Test Reason : Blood Pressure : */* mmHG Vent. Rate : 88 BPM Atrial Rate : 88 BPM P-R Int : 162 ms QRS Dur : 82 ms QT Int : 380 ms P-R-T Axes : 32 19 34 degrees QTcB Int : 459 ms Sinus rhythm with occasional Premature ventricular complexes Anterior infarct (cited on or before 01-May-2024) Abnormal ECG When compared with ECG of 01-May-2024 13:14, Premature ventricular complexes are now Present Premature supraventricular complexes are no longer Present Confirmed by Red Bauer [id number] on 01/08/2025 6:53:34 AM Referred By: REFERRED SELF Confirmed By: Red Bauer
[2025-01-08] MEDS: VERAPAMIL HCL 240 MG TABCR PO SCH (08:30)
[2025-01-08] MEDS: CYANOCOBALAMIN (B-12) 100 MCG TABLET PO SCH (08:30)
[2025-01-08] MEDS: POTASSIUM CHLORIDE CRTAB 20 MEQ TABCR PO STA (08:30)
[2025-01-08] MEDS: CHOLECALCIFEROL 125 MCG (5,000 UNITS) TAB PO SCH (08:30)
[2025-01-08] MEDS: ASPIRIN 81 MG ECTAB PO SCH (08:30)
[2025-01-08] MEDS: CLOPIDOGREL BISULFATE 75 MG TAB PO SCH (08:31)
[2025-01-08] MEDS: AZITHROMYCIN 250 MG TAB PO SCH (08:31)
[2025-01-08] MEDS: FOLIC ACID 1 MG TAB PO SCH (08:31)
[2025-01-08] MEDS: PYRIDOXINE HCL 50 MG TAB PO SCH (08:31)
[2025-01-08] MEDS: ATORVASTATIN 40 MG TAB PO SCH (08:31)
--- NOTE | 2025-01-08 09:36 | Hospitalist Progress Note ---
Date of Service January 08, 2025 Assessment & Plan (1) Left lower lobe pneumonia: (2) Hypomagnesemia: (3) Hypokalemia: Plan This patient is a 79-year-old male who presented on 01/08 for cough x 3 weeks and development of fever at home. Septic on arrival: Pulmonary source + leukocy tosis at 20.46 + reported fever up to 103.8 F at home. IV fluid sepsis bolus deferred in setting of hypertension/normal lactate. #Left midlung and lower lobe pneumonia Left lung pneumonia seen on CXR Leukocytosis trend: 20 -> 16 Blood cultures drawn in the ED Lactate and procalcitonin WNL BioFire negative MRSA swab negative Sputum culture ordered, pending IS, flutter valve Ceftriaxone 2000 mg IV q24h Azithromycin 500 mg p.o. daily Acetaminophen PRN for pain/fever Guaifenesin 1200 mg p.o. BID DuoNeb 3 mL q6h PRN Supplemental oxygen PRN #Hypokalemia K continues to be low 3.2 -> 3.1 Additional K chloride 40mEq p.o. x 1 Continue to hold hydrochlorothiazide Replete PRN #Prior CVA Hospitalized April 2024 for acute right MCA territory infarct Continue DAPT #History of bacteremia Noted; due to UTI in August 2022 Patient denies urinary symptoms at this time #HTN Continue verapamil #HLD Continue atorvastatin #Gout Continue allopurinol #Sleep apnea CPAP HS VTE PPx: Lovenox 40 mg SQ q24h Disposition: Downgrade from PCU -> [facility] Hopeful discharge home in next 1 to 2 days Clinically, he reports improvement of respiratory symptoms, but continues to have fevers and leukocytosis Admission and Anticipated Discharge Date Admission Date: January 07, 2025 Supervising Physician Co-Signing Physician Notes Attending Attestation: Chart reviewed, care plan d/w MARK Santos. I agree w/ the esquivel components of his documentation. Jaswant Sanchez MD Subjective Mr. Christie is glad to report that he feels much better today compared to yesterday. He slept on and off last night. He did have a fever up to 38.4 C and required Tylenol. However, his cough improved this morning, and he denies having any fits of coughing/hacking. He denies feeling winded when getting up to use the restroom, and is eager to see how he feels ambulating throughout the hallways. He does endorse some rib pain from coughing yesterday. Overall, he i s beginning to feel much better. ROS: Patient endorses fever overnight, rib pain, and cough (improving). Patient denies lightheadedness with walking, SOB at rest, COELHO, blurry CP, abdominal pain, N/V/D, or pain/swelling in the legs. Review of Systems Review of Systems: See HPI above Physical Exam Physical Exam: General: no acute distress; pleasant affect; at bedside; non-toxic appearing; cooperative; SpO2 91% on room air HEENT: normocephalic, atraumatic; PERRLA; vision and hearing intact Neck: supple; trachea midline Skin: warm, dry without signs of tenting; no cyanosis; no rashes, bruising, lesi ons, or erythema noted CV: chest wall NTP; RRR; S1/S2 normal; no murmurs/rubs/gallops; pulses intact and symmetric at radial, DP, and PT Lungs: no acute respiratory distress; symmetrical chest wall expansion; clear breath sounds across all lung valdovinos w/o adventitious sounds; no wheezing ABD: Soft, NTP; BS present; no rebound/guarding; no distention MSK: no tics or fasciculations; no edema noted in the LEs b/l, nonerythematous Neuro: A&Ox3; normal mood and affect; fluent speech; patient reports sensation is intact and symmetric in lower extremities bilaterally assessed via light touch Results & Data Results & Data Vital Signs (Past 12 Hours) Vital Signs Temp Pulse Pulse Resp BP Pulse Ox O2 Del Method 01/08/25 08:19 Room Air 01/08/25 07:52 37.0 C 78 18 137/67 92 Room Air 01/08/25 06:18 68 16 99 Room Air 01/08/25 04:00 35.9 C L 80 19 129/71 90 CPAP 01/08/25 01:37 71 16 98 Room Air 01/07/25 23:11 38.4 C H 87 20 133/64 91 CPAP 01/07/25 23:07 84 01/07/25 23:05 CPAP PG Care Time/CCT Total # of Minutes Spent Total Time Spent with Patient: Total time spent is greater than 50% in coordination of care (as documented) at patient's floor/unit and/or counseling patient: Coding [place] [address] SUB INP/OBS CARE 235MIN Patient Type Established Medical Decision Making Moderate Complexity Diagnoses Left lower lobe pneumonia J18.9 Hypomagnesemia E83.42 Hypokalemia E87.6
[2025-01-08] MEDS: cefTRIAXone SODIUM 2,000 MG/50 ML BAG IV SCH (11:55)
[2025-01-08] MEDS ORDERED: ALBUT/IPRATROP 3MG/0.5MG NEB 3 ML VIAL NEB PRN (14:49)
[2025-01-09 06:17] LABS: Hematocrit (blood only) 38.3 % (42.0-52.0); Hemoglobin 13.4 g/dl (14.0-18.0); Immature Granulocytes # (auto) 0.06 K/uL (0.01-0.20); Immature Granulocytes % (auto) 0.5 %; Mean Corpuscular Hemoglobin 32.1 pg (25.0-34.0); Mean Corpuscular Volume 91.8 fL (80.0-100.0); Platelet Count 207 K/uL (130-400); RDW Standard Deviation 44.0 fL (36.4-46.3); Red Blood Count 4.17 M/uL (4.70-6.10); White Blood Count 12.71 K/ul (4.8-10.8)
[2025-01-09 06:44] LABS: Anion Gap 8.0 (3-11); Blood Urea Nitrogen 18.0 mg/dl (6-23); Calcium 8.8 mg/dl (8.6-10.3); Carbon Dioxide 27.0 mmol/L (21-32); Chloride 104.0 mmol/L (98-107); Creatinine Clr Calc Pharmacy 76.8 ml/min; Glucose 106.0 mg/dl (70-99(Fasting)); Potassium 3.9 mmol/L (3.5-5.1); Sodium 139.0 mmol/L (136-145)
--- NOTE | 2025-01-09 08:15 | Hospitalist Progress Note ---
Date of Service January 09, 2025 Assessment & Plan (1) Left lower lobe pneumonia: (2) Hypomagnesemia: (3) Hypokalemia: Plan This patient is a 79-year-old male who presented on 01/08 for cough x 3 weeks and development of fever at home. Septic on arrival: Pulmonary source + l eukocytosis at 20.46 + reported fever up to 103.8 F at home. IV fluid sepsis bolus deferred in setting of hypertension/normal lactate. #Left midlung and lower lobe pneumonia - Left lung pneumonia seen on CXR - Leukocytosis trend: 20 -> 16 - Blood cultures drawn in the ED - Lactate and procalcitonin WNL - BioFire negative - MRSA swab negative - Sputum culture ordered, pending - IS, flutter valve - Ceftriaxone 2000 mg IV q24h - Azithromycin 500 mg p.o. daily - Acetaminophen PRN for pain/fever, Guaifenesin 1200 mg p.o. BID, DuoNeb 3 mL q6h PRN, Supplemental oxygen PRN #Hypokalemia - K previously low on 01/07-01/08 (3.2, 3.1), 3.9 today 01/09 - Additional K chloride 40mEq p.o. x 1 previously given - Continue to hold hydrochlorothiazide, consider restarting 01/10 depending on AM value - Replete PRN #Prior CVA - Hospitalized April 2024 for acute right MCA territory infarct - Continue DAPT - Hospital note from 04/2024 shows patient was apparently instructed to only continue DAPT for 2 weeks, unclear - Patient is scheduled for outpatient cardiology appointment in a week, plans to discuss DAPT duration at this appt #History of bacteremia - Noted; due to UTI in August 2022 - Patient denies urinary symptoms at this time #HTN - Continue verapamil #HLD - Continue atorvastatin #Gout - Continue allopurinol #Sleep apnea - CPAP HS VTE PPx: Lovenox 40 mg SQ q24h [facility] home in next few days Clinically, he reports improvement of respiratory symptoms, but continues to have leukocytosis Admission and Anticipated Discharge Date Admission Date: January 07, 2025 Supervising Physician Co-Signing Physician Notes Attending Attestation & Progress Note: Pt seen/examined, chart reviewed, care plan d/w resident physician Dr Macey Naphade. I agree w/ the esquivel components of her progress note documentation. Pt feeling much better. Denies any dyspnea at rest. Cough improved. Eating well. Wants to go home. VSS, afebrile, o2 sats wnl gen - sitting in chair, NAD, looks good neck - no JVD mouth - MMM heart - RRR, s1 s2, no murmur lungs - dense rales L base, minimal rales R base, good airation, no wheeze, no increased work of breathing abd - soft NT ND BS+ ext - no edema, pulses 2+ b/l labs - wbc 20 --> 12 blood cx's neg A/P: 1. LLL community-acquired pneumonia - improved. Can transition to PO abx - PO cephalosporin, finish azithromycin course. 2. recent acute metabolic encephalopathy 2nd to #1 - resolved. PT, OT evals done and ok for home plan d/c home in am Jaswant Sanchez MD Subjective Mr. Christie is feeling well this morning. Denies CP, AP, SOB at rest, palpitations. States he has some SOB when walking around which is new. BMs regular. Denies urinary symptoms. States he has some 4/10 back pain, but states it is manageable with medication. Review of Systems Review of Systems: All systems reviewed & are unremarkable except as noted in HPI & below Physical Exam Constitutional: WD/WN, vitals as above Respiratory: normal respiratory effort Auscultation: + rales (left lower lobe) Cardiovascular: RRR, no murmur, no edema Gastrointestinal (Abdomen): normal bowel sounds, soft, nontender, no hepatosplenomegaly Skin: no rashes, warm and dry Psychiatric: A+Ox3, euthymic affect Results & Data Results & Data Vital Signs (Past 12 Hours) Vital Signs Temp Pulse Resp BP Pulse Ox O2 Del Method 01/09/25 07:43 36.6 C 62 18 148/80 H 92 Room Air 01/09/25 03:37 37.3 C 69 18 133/71 92 Room Air, CPAP 01/08/25 23:12 36.6 C 76 18 160/81 H 93 Room Air Resident Activity Tracking Resident Involvement: Resident Care Provided Care Provided: Adult Hospital Medicine
--- NOTE | 2025-01-09 20:24 | Billing Data ---
Date of Service January 09, 2025 Coding Level of Care Code 64281 SUB INP/OBS CARE
[2025-01-10 00:06] VITALS: TEMP 97.9
[2025-01-10] MEDS: CEFDINIR 300 MG CAP PO SCH (05:22)
[2025-01-10 06:31] LABS: Hematocrit (blood only) 41.3 % (42.0-52.0); Hemoglobin 14.2 g/dl (14.0-18.0); Immature Granulocytes # (auto) 0.07 K/uL (0.01-0.20); Immature Granulocytes % (auto) 0.6 %; Mean Corpuscular Hemoglobin 31.8 pg (25.0-34.0); Mean Corpuscular Volume 92.6 fL (80.0-100.0); Platelet Count 242 K/uL (130-400); RDW Standard Deviation 44.8 fL (36.4-46.3); Red Blood Count 4.46 M/uL (4.70-6.10); White Blood Count 11.61 K/ul (4.8-10.8)
[2025-01-10 06:57] LABS: Anion Gap 9.0 (3-11); Blood Urea Nitrogen 23.0 mg/dl (6-23); Carbon Dioxide 27.0 mmol/L (21-32); Chloride 104.0 mmol/L (98-107); Creatinine Clr Calc Pharmacy 72.5 ml/min; Potassium 3.9 mmol/L (3.5-5.1); Sodium 140.0 mmol/L (136-145)
[2025-01-10 06:58] LABS: Calcium 9.3 mg/dl (8.6-10.3); Glucose 99.0 mg/dl (70-99(Fasting))
[2025-01-10 07:17] VITALS: BP 158/81; PULSE 62; RESP 16; O2SAT 93
--- NOTE | 2025-01-10 08:09 | Discharge Summary ---
Date of Service January 10, 2025 Admission HPI Per Admitting Provider Mr. Christie is a 79-year-old male with PMH of bacteremia, AKF, CVA, and complicated UTIs. He presented on 01/07 for fever, cough, and generalized weakness. He reports his cough has been ongoing for the past 3 weeks, with an acute worsening over the past 2 to 3 days. It is a wet cough, but he denies any sputum production. Then, this morning his began to notice signs of delirium, which commonly occurs whenever he gets sick. He developed ambulatory dysfunction, and had difficulty drinking (would stare at the cup and not answer). Patient also reportedly had a fever of 103.8 F at home on the morning of admission. He was given Tylenol at 0900, which brought his fever down. History of bacteremia following a TURP/kidney stone in 2022. He also had a bad episode of pneumonia from COVID in 2021. No sick contacts to his knowledge. He does not use supplemental oxygen at baseline, but does use a CPAP at night, which he has been using consistently since September. He denies any recent falls or injuries to his head, neck, or chest wall. He denies SOB at rest, but exhibits COELHO. Patient took his regular morning medicine today; no recent change in medications. No PMH of COPD or asthma. Patient formally smoked when he was in the [employer] (in the 1960s), but denies any recent tobacco cigarette smoking patient is hypertensive at 151/77 at time of admission; vitals otherwise stable. ED course: Ceftriaxone 2000 mg IV Azithromycin 500 g p.o. ROS: Patient endorses fever today up to 103.8 F, headache, congestion, sore throat, cough, COELHO, vomiting up bile this morning (after coughing fit), Patient denies night-sweats, dizziness, lightheadedness, SOB at rest, chest pain, chest palpitations, pleuritic CP, abdominal pain, diarrhea, burning with urination, blood in the urine/stool, or N/T in the arms or legs. Admission Exam Per Admitting Provider General: no acute distress; pleasant affect; at bedside; non-toxic appea ring; cooperative; SpO2 92% on room air HEENT: normocephalic, atraumatic; PERRLA; vision and hearing intact Neck: supple; trachea midline Skin: warm, dry without signs of tenting; no cyanosis; no rashes, bruising, lesions, or erythema noted CV: chest wall NTP; RRR; S1/S2 normal; no murmurs/rubs/gallops; pulses intact and symmetric at radial, DP, and PT Lungs: Mild respiratory distress when coughing; hacking cough; expiratory wheeze auscultated in the upper and lower lung valdovinos bilaterally (L>R) ABD: Soft, NTP; BS present; no rebound/guarding; no distention MSK: no tics or fasciculations; no edema noted in the LEs b/l, nonerythematous Neuro: A&Ox3; normal mood and affect; fluent speech; patient reports sensation is intact and symmetric in lower extremities bilaterally assessed via light to uch Principal Diagnosis L lung pneumonia Discharge Exam Constitutional WD/WN, vitals as above Respiratory normal respiratory effort, lungs clear to auscultation Cardiovascular RRR, no murmur, no edema Gastrointestinal (Abdomen) normal bowel sounds, soft, nontender, no hepatosplenomegaly Skin no rashes, warm and dry Psychiatric A+Ox3, euthymic affect Discharge Data Allergies Allergy/AdvReac Type Severity Reaction Status Date / Time No Known Allergies Allergy Verified 04/18/24 09:00 Consultations 01/07/25 12:33 ED Decision to Admit Stat Ordered Studies 01/07/25 11:00 CT head/brain wo con Stat Hospital Course (1) Pneumonia: (2) Hypokalemia: (3) Left lower lobe pneumonia: Plan This patient is a 79-year-old male who presented on 01/08 for cough x 3 weeks and development of fever at home. Septic on arrival: Pulmonary source + leukocytosis at 20.46 + reported fever up to 103.8 F at home. IV fluid sepsis bolus deferred in setting of hypertension/normal lactate. #Left midlung and lower lobe pneumonia - Left lung pneumonia seen on CXR - Leukocytosis trend: 20 -> 16 - Blood cultures drawn in the ED - Lactate and procalcitonin WNL - BioFire negative - MRSA swab negative - Sputum culture ordered, pending - IS, flutter valve - Ceftriaxone 2000 mg IV q24h, transitioned to PO Cefdinir 01/09 - Azithromycin 500 mg p.o. daily - Acetaminophen PRN for pain/fever, Guaifenesin 1200 mg p.o. BID, DuoNeb 3 mL q6h PRN, Supplemental oxygen PRN - Plan to discharge with 3 more days of PO Cefdinir BID, and 1 more day of PO Azithromycin once daily - Recommended he get a repeat chest X-ray in 6 weeks after following up with PCP to ensure radiographic resolution of infection #Hypokalemia - K previously low on 01/07-01/08 (3.2, 3.1), 3.9 --> 3.9 - Additional K chloride 40mEq p.o. 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 - Continue DAPT - Hospital note from 04/2024 shows patient was apparently instructed to only continue DAPT for 2 weeks, unclear - Patient is scheduled for outpatient cardiology appointment in a week, plans to discuss DAPT duration at this appt #History of bacteremia - Noted; due to UTI in August 2022 - Patient denies urinary symptoms at this time #HTN - Continue verapamil #HLD - Continue atorvastatin #Gout - Continue allopurinol #Sleep apnea - CPAP HS VTE PPx: Lovenox 40 mg SQ q24h Disposition: D/c to home Total Time Total Time Spent Total Time Spent (In Minutes): 40 Total Time Includes: Examination of the Patient, Discharge Planning and Medication Reconciliation Discharge Plan Discharge Items Patient Disposition: Home - Self-Care Reason For Visit: LEFT LUNG PNA Discharge Diagnosis: Left lung pneumonia Condition on Discharge: Fair Activity: Per Instructions section Non-emergency contact: Primary Care Provider Call non-emergency contact if: your symptoms worsen, your pain is unusual for you, your pain is concerning for you and you have a fever Follow-up/Referrals: Tata Bustos MD [Primary Care Provider] - 01/16/25 12:45 pm Diet: Heart Healthy Addtl Attending Provider Instructions: You were seen in the emergency room due to 103.8 fever, cough, and weakness. Upon arriving to the ED, your white blood cell count was high and your chest X- ray showed a left lung pneumonia. You were given antibiotics like Ceftriaxone and Azithromycin and then admitted to the hospital, where we continued your antibiotics through your IV. We then transitioned you to an oral antibiotic and you did well. During your time here, you also initially had low potassium levels. We gave you IV potassium and your levels normalized. Upon discharge, we would like you to continue both your oral antibiotics: 1) Azithromycin 250 mg - by mouth once daily for 1 day 2) Cefdinir 300 mg - by mouth twice daily for 3 days Please also continue all home medications as indicated. Pending Studies at Discharge: No Stand-Alone Forms: My [facility], Smoking Cessation Medications and DC Order Prescriptions: Continued folic acid 1 mg tablet 1 mg PO QAM Patient Comments: 01/07- otc unable to verify pyridoxine (vitamin B6) 50 mg tablet 50 mg PO QAM Patient Comments: 01/07- otc unable to verify cyanocobalamin (vitamin B-12) 50 mcg tablet 50 mcg PO QAM Patient Comments: 01/07- otc unable to verify psyllium husk 0.4 gram capsule 0.8 g PO UD PRN (Reason: Constipation) Patient Comments: 01/07- otc unable to verify clopidogrel 75 mg tablet 75 mg PO QAM Qty: 90 Hold Instructions: Resume on 08/16/22. atorvastatin 40 mg tablet 40 mg PO QAM (DME) [facility] See Rx Instructions .MEDSUPPLY Qty: 1 0RF Rx Instructions: As directed cholecalciferol (vitamin D3) 125 mcg (5,000 unit) capsule 125 mcg PO QAM Patient Comments: 01/07- otc unable to verify hydrochlorothiazide 25 mg Tablet 0 mg PO QAM Patient Comments: 01/07- last filled 07/20 90 #90 aspirin 81 mg Tablet,Delayed Release (Dr/Ec) 81 mg PO QAM Patient Comments: 01/07- otc unable to verify verapamil 240 mg capsule,ext rel. pellets 24 hr 240 mg PO QAM acetaminophen 500 mg capsule 1,000 mg PO TID PRN (Reason: Pain) Patient Comments: 01/07- otc unable to verify allopurinol 300 mg tablet 300 mg PO QAM Discharge Orders: Discharge Order (Routine); Ordered 01/10/25 Ordered By: Macey Guillen Admission Data Admit Date/Time: 01/07/25 13:49 Attending Provider: Jaswant Sanchez Admit Provider: Jaswant Sanchez Primary Care Provider: Tata Bustos Other Interventions: Discharge Summary Assessment (RN) Last Done: 01/10/25 13:52 Supervising Physician Co-Signing Physician Notes Attending Attestation & Discharge Note: Pt seen/examined, chart reviewed, discharge care plan d/w resident physician Dr Macey Guillen. I agree w/ the esquivel components of her discharge documentation. 79yo male with h/o bacteremia 2022, prior CVA, HTN, hyperlipidemia, and complicated UTIs. Presented with fever, cough x 3 weeks, and generalized weakness. Also had acute confusion leading up to admission. CXR upon ER presentation showed LLL pneumonia. During his stay he was treated with IV antibiotic therapy. Never had an O2 requirement. Blood cultures were negative while hospitalized. He clinically improved with antibiotics & supportive care. He received in total 4 days of IV abx therapy while hospitalized, and will complete 3 days of cefdinir & 1 additional dose of azithromycin at home. discharge exam: gen - looks much better than previous visits; NAD; sitting in chair mouth - MMM neck - no JVD heart - RRR, s1 s2, 1/6 systolic murmur lungs - LLL rales - moderate, but good airation; scant rales RLL; no wheeze, no increased work of breathing abd - soft NT ND BS+ ext - no edema, pulses b/l feet 2+ A/P: 1. LLL community-acquired pneumonia - 3 days of cefdinir & 1 dose of azithromycin upon transition home 2. RUTH 3. HTN 4. h/o CVA 5. hyperlipidemia 6. electrolyte abnormalities - Low K, Low Mag - both replaced and now normal prior to d/c home total time spent on all care activities = 40 minutes Jaswant Sanchez MD Resident Activity Tracking Resident Involvement: Resident Care Provided Care Provided: Adult Hospital Medicine
[2025-01-10] MEDS ORDERED: CEFDINIR 300 MG CAP PO STA (14:14)
--- NOTE | 2025-01-17 09:55 | Billing Data ---
Date of Service January 10, 2025 Coding Level of Care Code 47641 INP/OBS DISCH >30 MIN
== END 2025-01-10 14:44 | disposition home or self-care (01) | DRG 195 ==
LOC: SUATTDRO → ED 10:38 → 4W 13:49 → INTOOBSV 13:49 → 4W 15:51 → 3E 01-09 14:36
DX: Z79.02 Long term (current) use of antithrombotics/antiplatelets; Z86.73 Personal history of transient ischemic attack (TIA), and cerebral infarction without residual deficits; Z79.82 Long term (current) use of aspirin; G47.33 Obstructive sleep apnea (adult) (pediatric); I27.20 Pulmonary hypertension, unspecified; Z79.899 Other long term (current) drug therapy; E83.42 Hypomagnesemia; E87.6 Hypokalemia; J18.9 Pneumonia, unspecified organism; I10 Essential (primary) hypertension